=== PATIENT | male | born 1950 | race Caucasian/White ===

== ENCOUNTER 2016-09-10 19:02 | Emergency (ER) | payer MEDICARE ==
[~2016-09-10] VITALS: Ht 177.8 cm; Wt 110.0 kg
[2016-09-10 19:04] VITALS: BP 205/96; PULSE 107; RESP 16; TEMP 98.7; O2SAT 99
[2016-09-10 21:37] VITALS: BP 199/90; PULSE 78; RESP 18; O2SAT 96
[2016-09-10] MEDS ORDERED: LISI40TA PO (21:39)
[2016-09-10] MEDS ORDERED: EFFE150C PO (21:39)
[2016-09-10] MEDS ORDERED: ASPI325T PO (21:39)
[2016-09-10] MEDS ORDERED: PRIL20CA9 PO (21:39)
[2016-09-10] MEDS ORDERED: ACETAMINOPHEN/HYDROcodone 325 MG/5 MG TAB PO ONE (21:45)
[2016-09-10] MEDS ORDERED: ZOCO40TA PO (21:49)
[2016-09-10] MEDS ORDERED: METF500T PO (21:49)
--- NOTE | 2016-09-10 22:13 | RADRPT ---
EXAM DATE/TIME: 09/10/2016 22:03 [facility] COMPARISON: No previous studies available for comparison. INDICATIONS : Right hand pain and swelling after trying to catch a refridgerator falling off a truck. MEDICAL HISTORY : Prior right hand fracture. SURGICAL HISTORY : None. ENCOUNTER: Initial ACUITY: 2 days PAIN SCORE: 10/10 LOCATION: Right hand. FINDINGS: Three view examination of the right hand demonstrates soft tissue swelling without dislocation, or fr acture. The carpal bones appear intact. The interphalangeal and metacarpophalangeal joints are int act. Bony mineralization is normal. CONCLUSION: Soft tissue swelling without fracture. Luis Richey MD on September 10, 2016 at 22:11 Board Certified Radiologist. This report was verified electronically.
--- NOTE | 2016-09-10 22:19 | PD ---
HPI Chief Complaint: Injury Time Seen by Provider: 21:41 Travel History International Travel<30 days: No Contact w/Intl Traveler<30days: No Traveled to known affect area: No History of Present Illness HPI Patient 66-year-old male presents emergency department for evaluation of a right hand injury. Patient states that yesterday he was unloading a fridge from a pickup truck and the fridge fell and same which his hand between the concrete and the fridge. He states that since then he's been having some gradual swelling of his right hand. He is also been hurting on the dorsum of his hand over the metacarpals. He denies any other injuries. He states his tetanus is up-to-date. Denies any numbness or tingling PFSH Past Medical History Cardiovascular Problems: Yes Diabetes: Yes Patient Takes Glucophage: Yes Hypertension: Yes Tetanus Vaccination: < 5 Years Influenza Vaccination: No Past Surgical History Cardiac Surgery: Yes (STENTS X7) Social History Alcohol Use: No Tobacco Use: No Substance Use: No Allergies-Medications (Allergen,Severity, Reaction): Coded Allergies: Penicillin (Verified Allergy, Severe, Anaphylaxis, 09/10/16) Reported Meds & Prescriptions Reported Meds & Active Scripts Active [place] (Hydrocodone-Acetaminophen) 5-325 mg Tab 1 Tab PO Q6H PRN Reported Zocor (Simvastatin) 40 Mg Tab 40 Mg PO DAILY Metformin (Metformin HCl) 500 Mg Tab 500 Mg PO DAILY With a meal Prilosec (Omeprazole) 20 Mg Cap 30 Mg PO DAILY Lisinopril 40 Mg Tab 40 Mg PO DAILY Effexor XR 24 HR (Venlafaxine HCl) 150 Mg Cap 150 Mg PO DAILY Aspirin 325 Mg Tab 325 Mg PO DAILY Review of Systems Except as stated in HPI: all other systems reviewed are Neg Physical Exam Narrative GENERAL: Well-nourished, well-developed patient. SKIN: Focused skin assessment warm/dry. HEAD: Normocephalic. EYES: No scleral icterus. No injection or drainage. NECK: Supple, trachea midline. No JVD or lymphadenopathy. CARDIOVASCULAR: Regular rate and rhythm without murmurs, gallops, or rubs. RESPIRATORY: Breath sounds equal bilaterally. No accessory muscle use. GASTROINTESTINAL: Abdomen soft, non-tender, nondistended. MUSCULOSKELETAL: Right upper extremity: No tenderness of the shoulder elbow or wrist. There are some small abrasions on the dorsum of the patient's right hand. These are associated with some small amount of edema. The abrasions are all minor and of scabbed over. The patient's ring on his right ring finger still in place was removed by the patient at my request. Pulses motor and sensory are intact, all flexors and extensors are intact on the hand and fingers. All motions are normal. Left upper extremity: No tenderness to the shoulder elbow wrist or hand. Left upper extremity is atraumatic. BACK: Nontender without obvious deformity. No CVA tenderness. Data Data Last Documented VS Vital Signs Date Time Temp Pulse Resp B/P Pulse Ox O2 Delivery O2 Flow Rate FiO2 09/10/16 22:54 80 18 171/92 95 09/10/16 21:39 Room Air 09/10/16 19:04 98.7 Orders Hand, Complete ([id number]) (09/10/16 ) Acetamin-Hydrocod 325-5 Mg ([place] 5-325 (09/10/16 21:45) MDM Medical Decision Making Medical Screen Exam Complete: Yes Emergency Medical Condition: Yes Differential Diagnosis Fracture, contusion, sprain, strain, abrasion Narrative Course Patient was roomed in the emergency department, has mild edema of the right hand. Compartment syndrome is excluded clinically. X-rays were obtained and showed Last 24 hours Impressions Hand X-Ray 09/10/16 0000 Signed Impressions: Service Date/Time: Saturday, September 10, 2016 22:03 - CONCLUSION: Soft tissue swelling without fracture. Luis Richey MD Discussed with the patient symptomatically management and return to ED criteria. Discussed follow-up with primary care physician for a checkup. Diagnosis Primary Impression: Hand contusion Qualified Code: S60.221A - Contusion of right hand, initial encounter Med/Other Pt SpecificInfo: Prescription(s) given Scripts Hydrocodone-Acetaminophen ([place])5-325 mg Tab1 Tab PO Q6H PRN (PAIN) #12 TAB Ref 0 Prov:Mateo Ocoha MD 09/10/16 Disposition: 01 DISCHARGE HOME Condition: Stable Mateo Ochoa MD Sep 10, 2016 22:19
[2016-09-10] MEDS ORDERED: NORC5TAB PO (22:40)
[2016-09-10 22:54] VITALS: BP 171/92
== END 2016-09-10 22:55 | disposition home or self-care (01) ==
LOC: NEPD 19:02
DX: S60.221A Contusion of right hand, initial encounter (principal); W23.0XXA Caught, crushed, jammed, or pinched between moving objects, initial encounter; Y93.89 Activity, other specified
CPT/HCPCS: 73130; 99283

== ENCOUNTER 2016-09-14 13:17 | Emergency (ER) | payer MEDICARE ==
[~2016-09-14] VITALS: Ht 177.8 cm; Wt 112.0 kg
[~2016-09-14 13:17] MED LIST: ASPI325T PO; EFFE150C PO; LISI40TA PO; METF500T PO; NORC5TAB PO; PRIL20CA9 PO; ZOCO40TA PO
[2016-09-14 13:20] VITALS: BP 152/74; PULSE 89; RESP 16; TEMP 99.1; O2SAT 97
[2016-09-14] MEDS ORDERED: SODIUM CHLOR 0.9% 1000 ML INJ 1,000 ML IV SCH (13:31)
--- NOTE | 2016-09-14 13:33 | PD ---
HPI Chief Complaint: Medication Refill Request Time Seen by Provider: 13:33 Travel History International Travel<30 days: No Contact w/Intl Traveler<30days: No Traveled to known affect area: No History of Present Illness HPI 66-year-old male with history of CAD, stent 7, hypertension, diabetes, presents today for evaluation of a headache that began yesterday. It is generalized in nature. States he does not typically get headaches. He has been mildly nauseous. Denies any recent illnesses, fever, or chills. States he has been running out of his medications. He reports being new to the area does not have an appointment with a primary care provider until the end of September. He believes that his symptoms are secondary to not having his medications. He denies any nausea or vomiting. No chest pain or tightness. He has no other symptoms to report this time. PFSH Past Medical History Depression: Yes Cardiovascular Problems: Yes (STENTS) Diabetes: Yes Patient Takes Glucophage: Yes Hypertension: Yes Past Surgical History Cardiac Surgery: Yes (STENTS X7) Social History Alcohol Use: Yes (SOCIALLY) Tobacco Use: Yes (PPD) Substance Use: No Allergies-Medications (Allergen,Severity, Reaction): Coded Allergies: Penicillin (Verified Allergy, Severe, Anaphylaxis, 09/10/16) Reported Meds & Prescriptions Reported Meds & Active Scripts Active Effexor XR 24 HR (Venlafaxine HCl) 150 Mg Cap 150 Mg PO DAILY Zocor (Simvastatin) 40 Mg Tab 40 Mg PO DAILY Metformin (Metformin HCl) 500 Mg Tab 500 Mg PO DAILY With a meal Lisinopril 40 Mg Tab 40 Mg PO DAILY [place] (Hydrocodone-Acetaminophen) 5-325 mg Tab 1 Tab PO Q6H PRN Reported Percocet (Oxycodone-Acetaminophen) 10-325 mg Tab 1 Tab PO QID PRN [address] (Duloxetine HCl) Unknown Strength Capdr Unknown Dose PO DAILY Zocor (Simvastatin) 40 Mg Tab 40 Mg PO DAILY Metformin (Metformin HCl) 500 Mg Tab 500 Mg PO DAILY With a meal Prilosec (Omeprazole) 20 Mg Cap 30 Mg PO DAILY Lisinopril 40 Mg Tab 40 Mg PO DAILY Effexor XR 24 HR (Venlafaxine HCl) 150 Mg Cap 150 Mg PO DAILY Aspirin 325 Mg Tab 325 Mg PO DAILY Review of Systems Except as stated in HPI: all other systems reviewed are Neg Physical Exam Narrative GENERAL: Well-nourished male patient, lying in bed in no acute distress SKIN: Focused skin assessment warm/dry. HEAD: Atraumatic. Normocephalic. EYES: Pupils equal and round. No scleral icterus. No injection or drainage. ENT: No nasal bleeding or discharge. Mucous membranes pink and moist. NECK: Trachea midline. No JVD. CARDIOVASCULAR: Regular rate and rhythm. No murmur appreciated. RESPIRATORY: No accessory muscle use. Clear to auscultation. Breath sounds equal bilaterally. GASTROINTESTINAL: Abdomen soft, non-tender, nondistended. Hepatic and splenic margins not palpable. MUSCULOSKELETAL: No obvious deformities. No clubbing. No cyanosis. No edema. NEUROLOGICAL: Awake and alert. No obvious cranial nerve deficits. Motor grossly within normal limits. Normal speech. PSYCHIATRIC: Appropriate mood and affect; Data Data Last Documented VS Vital Signs Date Time Temp Pulse Resp B/P Pulse Ox O2 Delivery O2 Flow Rate FiO2 09/14/16 14:30 78 16 156/71 97 Room Air 09/14/16 13:20 99.1 Orders Electrocardiogram (09/14/16 13:31) Complete Blood Count With Diff (09/14/16 13:31) Comprehensive Metabolic Panel (09/14/16 13:31) Creatine Kinase (Cpk) (09/14/16 13:31) Prothrombin Time / Inr (Pt) (09/14/16 13:31) Act Partial Throm Time (Ptt) (09/14/16 13:31) Chest, Single Ap (09/14/16 13:31) Ct Brain W/O Iv Contrast(Rout) (09/14/16 13:31) Blood Glucose (09/14/16 13:31) Ecg Monitoring (09/14/16 13:31) Iv Access Insert/Monitor (09/14/16 13:31) Oximetry (09/14/16 13:31) Sodium Chloride 0.9% Flush (Ns Flush) (09/14/16 13:45) Sodium Chlor 0.9% 1000 Ml Inj (Ns 1000 M (09/14/16 13:31) Drug Screen, Random Urine (09/14/16 13:31) Alcohol (Ethanol) (09/14/16 13:31) Ketorolac Inj (Toradol Inj) (09/14/16 15:00) Labs Laboratory Tests Test 09/14/16 13:35 White Blood Count 8.3 TH/MM3 Red Blood Count 4.81 MIL/MM3 Hemoglobin 14.4 GM/DL Hematocrit 42.9 % Mean Corpuscular Volume 89.2 FL Mean Corpuscular Hemoglobin 30.0 PG Mean Corpuscular Hemoglobin 33.6 % Concent Red Cell Distribution Width 15.0 % Platelet Count 216 TH/MM3 Mean Platelet Volume 8.4 FL Neutrophils (%) (Auto) 69.5 % Lymphocytes (%) (Auto) 23.8 % Monocytes (%) (Auto) 5.7 % Eosinophils (%) (Auto) 0.4 % Basophils (%) (Auto) 0.6 % Neutrophils # (Auto) 5.8 TH/MM3 Lymphocytes # (Auto) 2.0 TH/MM3 Monocytes # (Auto) 0.5 TH/MM3 Eosinophils # (Auto) 0.0 TH/MM3 Basophils # (Auto) 0.1 TH/MM3 CBC Comment DIFF FINAL Differential Comment Prothrombin Time 10.9 SEC Prothromb Time International 1.0 RATIO Ratio Activated Partial 27.0 SEC Thromboplast Time Sodium Level 140 MEQ/L Potassium Level 3.4 MEQ/L Chloride Level 106 MEQ/L Carbon Dioxide Level 22.9 MEQ/L Anion Gap 11 MEQ/L Blood Urea Nitrogen 12 MG/DL Creatinine 0.96 MG/DL Estimat Glomerular Filtration 78 ML/MIN Rate Random Glucose 224 MG/DL Calcium Level 9.2 MG/DL Total Bilirubin 0.3 MG/DL Aspartate Amino Transf 20 U/L (AST/SGOT) Alanine Aminotransferase 25 U/L (ALT/SGPT) Alkaline Phosphatase 87 U/L Total Creatine Kinase 80 U/L Total Protein 6.9 GM/DL Albumin 3.3 GM/DL Ethyl Alcohol Level LESS THAN 3 MG/DL [facility] Medical Decision Making Medical Screen Exam Complete: Yes Emergency Medical Condition: Yes Medical Record Reviewed: Yes Differential Diagnosis Headache lesser versus tension versus migraine with or without aura versus medication noncompliance versus electrolyte abnormality versus viral syndrome Narrative Course 66-year-old male presents to the emergency department for evaluation of a headache, requesting medication refill. Patient appears without distress however states he does not have history of headache. CT imaging of the brain is done and without acute intracranial abnormality. I have discussed with him lumbar puncture to rule out subarachnoid hemorrhage however patient defers this at this time. Patient does have low-grade temperature otherwise vital signs are stable. CBC and BMP are without acute concern. Patient will be given refills on his medication and encouraged to keep his appointment with a primary care provider. I discussed the patient with my attending physician. He'll be discharged at this time. Diagnosis Primary Impression: Head ache Qualified Code: R51 - Nonintractable episodic headache, unspecified headache type Additional Impressions: Not taking medication as directed Medication refill Referrals: Primary Care Physician Patient Instructions: Acute Headache (ED), General Instructions, Medication Refill, ED Additional Instructions: It is important that you establish care with a primary care provider Return immediately with any acute worsening symptoms Med/Other Pt SpecificInfo: Prescription(s) given Scripts Venlafaxine ER 24 HR (Effexor XR 24 HR)150 Mg Inf817 Mg PO DAILY #30 CAP Ref 0 Prov:Quiana Trotter 09/14/16 Simvastatin (Zocor)40 Mg Tab40 Mg PO DAILY #30 TAB Ref 0 Prov:Quiana Trotter 09/14/16 Metformin 500 Mg Mfd233 Mg PO DAILY #30 TAB Ref 0 With a meal Prov:Quiana Trotter 09/14/16 Lisinopril 40 Mg Tab40 Mg PO DAILY #30 TAB Ref 0 Prov:Quiana Trotter 09/14/16 Disposition: 01 DISCHARGE HOME Condition: Stable Quiana Trotter Sep 14, 2016 13:33
[2016-09-14] MEDS ORDERED: CYMB30CA PO (13:34)
[2016-09-14] MEDS ORDERED: PERC10TA27 PO (13:34)
[2016-09-14 13:44] VITALS: RESP 16; O2SAT 98
[2016-09-14] MEDS ORDERED: SODIUM CHLORIDE 0.9% FLUSH 10 ML FLUSH IVF PRN (13:45)
--- NOTE | 2016-09-14 14:03 | RADRPT ---
EXAM DATE/TIME: 09/14/2016 13:35 [facility] COMPARISON: No previous studies available for comparison. INDICATIONS : Syncope. Patient states headache for the past few days. MEDICAL HISTORY : Hypertension. Diabetes mellitus type II. SURGICAL HISTORY : Cardiac stents. ENCOUNTER: Initial ACUITY: 3 days PAIN SCORE: 0/10 LOCATION: Bilateral chest FINDINGS: A single view of the chest demonstrates the lungs to be symmetrically aerated without evidence of mas s, infiltrate or effusion. The cardiomediastinal contours are unremarkable. Osseous structures are intact. CONCLUSION: Normal examination. Reji Walters MD on September 14, 2016 at 14:01 Board Certified Radiologist. This report was verified electronically.
[2016-09-14 14:12] LABS: AUTOMATED NEUTROPHIL # 5.8 TH/MM3 (1.8-7.7); BASOPHIL # 0.1 TH/MM3 (0-0.2); BASOPHIL % 0.6 % (0.0-2.0); EOSINOPHIL % 0.4 % (0.0-4.0); HEMATOCRIT 42.9 % (39.0-51.0); HEMO FLAGS DIFF FINAL; LYMPH % 23.8 % (9.0-44.0); MEAN CELL VOLUME 89.2 FL (80.0-100.0); MEAN CORPUSCULAR HGB CONC 33.6 % (32.0-36.0); MONO % 5.7 % (0.0-8.0); NEUT % 69.5 % (16.0-70.0); PLATELET COUNT 216 TH/MM3 (150-450); RED BLOOD COUNT 4.81 MIL/MM3 (4.50-5.90); WHITE BLOOD COUNT 8.3 TH/MM3 (4.0-11.0)
[2016-09-14 14:21] LABS: PROTHROMBIN TIME - PATIENT 10.9 SEC (9.8-11.6)
[2016-09-14 14:30] VITALS: BP 156/71; PULSE 78; RESP 16; O2SAT 97
[2016-09-14 14:30] LABS: ALT (GPT) 25 U/L (12-78); ANION GAP 11 MEQ/L (5-15); AST (GOT) 20 U/L (15-37); BICARBONATE 22.9 MEQ/L (21.0-32.0); BLOOD UREA NITROGEN 12 MG/DL (7-18); CHLORIDE 106 MEQ/L (98-107); GLOMERULAR FILTRATION RATE 78 ML/MIN (>89); POTASSIUM 3.4 MEQ/L (3.5-5.1); SODIUM (NA) 140 MEQ/L (136-145)
--- NOTE | 2016-09-14 14:32 | RADRPT ---
EXAM DATE/TIME: 09/14/2016 14:10 [facility] COMPARISON: No previous studies available for comparison. INDICATIONS : Altered mental status. RADIATION DOSE: 41.39 CTDIvol (mGy) MEDICAL HISTORY : Hypertension. Cardiovascular disease SURGICAL HISTORY : None. ENCOUNTER: Initial ACUITY: 1 day PAIN SCALE: 0/10 LOCATION: cranial TECHNIQUE: Multiple contiguous axial images were obtained of the head. Using automated exposure control and adj ustment of the mA and/or kV according to patient size, radiation dose was kept as low as reasonably a chievable to obtain optimal diagnostic quality images. FINDINGS: CEREBRUM: The ventricles are normal for age. No evidence of midline shift, mass lesion, hemorrhage or acute in farction. No extra-axial fluid collections are seen. POSTERIOR FOSSA: The cerebellum and brainstem are intact. The 4th ventricle is midline. The cerebellopontine angle i s unremarkable. EXTRACRANIAL: The visualized portion of the orbits is intact. SKULL: The calvaria is intact. No evidence of skull fracture. Mucus retention cyst right maxillary sinus. CONCLUSION: 1. Right maxillary sinus mucus retention cyst. 2. Normal appearance of the brain. Reji Walters MD on September 14, 2016 at 14:29 Board Certified Radiologist. This report was verified electronically.
[2016-09-14 14:33] LABS: ALKALINE PHOSPHATASE 87 U/L (45-117); TOTAL BILIRUBIN ADULT 0.3 MG/DL (0.2-1.0)
[2016-09-14 14:34] LABS: CREATINE KINASE 80 U/L (39-308)
[2016-09-14] MEDS ORDERED: ZOCO40TA PO (14:57)
[2016-09-14] MEDS ORDERED: EFFE150C PO (14:57)
[2016-09-14] MEDS ORDERED: LISI40TA PO (14:57)
[2016-09-14] MEDS ORDERED: METF500T PO (14:57)
[2016-09-14] MEDS ORDERED: KETOROLAC TROMETHAMINE 30 MG/ML (IVP) VIAL IV PUSH ONE (15:00)
--- NOTE | 2016-09-14 18:47 | EKG ---
Date Performed: 09/14/2016 Time Performed: 13:39:07 PTAGE: 66 years EKG: Sinus rhythm NONSPECIFIC ST & T-WAVE ABNORMALITY ABNORMAL ECG NO PREVIOUS TRACING DOCTOR: Nicole Maldonado Interpretating Date/Time 09/14/2016 18:46:32
== END 2016-09-14 15:38 | disposition home or self-care (01) ==
LOC: NEPE 13:17
DX: R51 Headache (principal); R11.0 Nausea; R94.31 Abnormal electrocardiogram [ECG] [EKG]; I10 Essential (primary) hypertension; I25.10 Atherosclerotic heart disease of native coronary artery without angina pectoris; E11.9 Type 2 diabetes mellitus without complications; Z79.82 Long term (current) use of aspirin; Z79.84 Long term (current) use of oral hypoglycemic drugs; Z79.899 Other long term (current) drug therapy; Z76.0 Encounter for issue of repeat prescription; Z72.0 Tobacco use
CPT/HCPCS: 70450; 71010; 80053; 80307; 82550; 85025; 85610; 85730; 93005; 96361; 96374; 99285; J1885; J7030

== ENCOUNTER 2016-09-17 03:08 | Observation (INO) | payer MEDICARE ==
[~2016-09-17] VITALS: Ht 177.8 cm; Wt 123.0 kg
[2016-09-17] VITALS (8 sets, daily range): BP systolic 144–166; BP diastolic 65–81; PULSE 69–91; RESP 16–20; TEMP 97.7–98.5; O2SAT 95–98
[~2016-09-17 03:08] MED LIST changes: +CYMB30CA PO; +PERC10TA27 PO
[2016-09-17] MEDS: NITROGLYCERIN 0.4 MG SL 25 TABS/BTL SL SCH ×3 (03:44→04:02)
[2016-09-17] MEDS ORDERED: ASPIRIN 81 MG CHEW TAB PO ONE (03:45)
[2016-09-17] MEDS ORDERED: SODIUM CHLORIDE 0.9% FLUSH 10 ML FLUSH IVF PRN (03:45)
--- NOTE | 2016-09-17 04:00 | RADRPT ---
EXAM DATE/TIME: 09/17/2016 03:33 [facility] COMPARISON: CHEST SINGLE AP, September 14, 2016, 13:35. INDICATIONS : Chest pain. MEDICAL HISTORY : Hypertension. Diabetes mellitus type II. SURGICAL HISTORY : Cardiac stent. ENCOUNTER: Initial ACUITY: 1 day PAIN SCORE: 4/10 LOCATION: Bilateral chest FINDINGS: The cardiac silhouette is enlarged in transverse diameter. The lungs are free of acute parenchymal op acity. No effusions are identified. There is prominence of the aortic knob is with calcification tarik acteristic of atherosclerotic vascular disease. CONCLUSION: 1. Cardiomegaly. No acute pulmonary disease. Noel Esparza MD on September 17, 2016 at 3:58 Board Certified Radiologist. This report was verified electronically.
[2016-09-17 04:01] LABS: AUTOMATED NEUTROPHIL # 6.9 TH/MM3 (1.8-7.7); BASOPHIL # 0.1 TH/MM3 (0-0.2); BASOPHIL % 0.7 % (0.0-2.0); EOSINOPHIL # 0.1 TH/MM3 (0-0.4); EOSINOPHIL % 1.2 % (0.0-4.0); HEMATOCRIT 40.1 % (39.0-51.0); HEMO FLAGS DIFF FINAL; LYMPHOCYTE # 3.4 TH/MM3 (1.0-4.8); MEAN CELL VOLUME 87.7 FL (80.0-100.0); MEAN CORPUSCULAR HEMOGLOBIN 30.8 PG (27.0-34.0); MEAN CORPUSCULAR HGB CONC 35.1 % (32.0-36.0); MONO % 6.9 % (0.0-8.0); NEUT % 61.2 % (16.0-70.0); PLATELET COUNT 231 TH/MM3 (150-450); RED BLOOD COUNT 4.57 MIL/MM3 (4.50-5.90); RED CELL DISTRIBUTION WIDTH 14.9 % (11.6-17.2); WHITE BLOOD COUNT 11.2 TH/MM3 (4.0-11.0)
[2016-09-17] MEDS ORDERED: MORPHINE SULFATE 4 MG/ML INJ IV PUSH ONE ×2 (04:30→05:15)
[2016-09-17] MEDS ORDERED: NITROGLYCERIN 2% OINT 1 GM PACKET TOP ONE (04:30)
[2016-09-17] MEDS ORDERED: ONDANSETRON HCL 4 MG/2 ML VIAL ONE (04:30)
--- NOTE | 2016-09-17 04:32 | PD ---
HPI . Chest pain Chief Complaint: Chest Pain Time Seen by Provider: 03:36 Travel History International Travel<30 days: No Contact w/Intl Traveler<30days: No Traveled to known affect area: No History of Present Illness HPI This patient actually called EMS because of suicidal ideation. He said his several years ago and that he has episodes of despondency. He states that he occasionally has thoughts of suicide. He had an episode tonight and called 911. However, he has subsequently developed chest pain. He states that the suicidal ideation has subsided but the chest pain has not. He denies shortness of breath, diaphoresis or nausea. He does complain with headache. He states that the headache started before he was given any sublingual nitroglycerin. His chest pain was resolved with sublingual nitroglycerin. The chest pain seems to have been brought on by stress related to suicidal ideation. He states that the chest pain was "real bad." Patient reports a significant cardiac history. He has had 7 previous stents. He states that his most recent stents were placed just a couple of months ago. [facility] Past Medical History Anxiety: Yes Depression: Yes Cardiovascular Problems: Yes (STENTS) Chemotherapy: Yes Diabetes: Yes Patient Takes Glucophage: Yes Hypertension: Yes Tetanus Vaccination: < 5 Years Influenza Vaccination: No Past Surgical History Cardiac Surgery: Yes (STENTS X7) Social History Alcohol Use: Yes (SOCIALLY) Tobacco Use: Yes (1 PPD) Substance Use: No Allergies-Medications (Allergen,Severity, Reaction): Coded Allergies: Penicillin (Verified Allergy, Severe, Anaphylaxis, 09/10/16) Reported Meds & Prescriptions Reported Meds & Active Scripts Active Reported [place] ÁLVAREZ (Duloxetine HCl) Unknown Strength Capdr Unknown Dose PO DAILY Zocor (Simvastatin) 40 Mg Tab 40 Mg PO DAILY Metformin (Metformin HCl) 500 Mg Tab 500 Mg PO DAILY With a meal Prilosec (Omeprazole) 20 Mg Cap 30 Mg PO DAILY Lisinopril 40 Mg Tab 40 Mg PO DAILY Effexor XR 24 HR (Venlafaxine HCl) 150 Mg Cap 150 Mg PO DAILY Aspirin 325 Mg Tab 325 Mg PO DAILY Review of Systems Except as stated in HPI: all other systems reviewed are Neg Cardiovascular: Positive: Chest Pain or Discomfort Respiratory: No: Shortness of Breath Gastrointestinal: No: Nausea, Vomiting Psychiatric: Positive: Depression, Suicidal Ideations Physical Exam Narrative GENERAL: Patient is a little bit tearful. He is otherwise in no acute distress. SKIN: Warm and dry. HEAD: Atraumatic. Normocephalic. EYES: Pupils equal and round. Extraocular movements are intact. ENT: No nasal bleeding or discharge. Mucous membranes pink and moist. NECK: Trachea midline. Neck is supple. CARDIOVASCULAR: Regular rate and rhythm. Heart sounds are normal. RESPIRATORY: No accessory muscle use. Lungs are clear with full air movement throughout. GASTROINTESTINAL: Abdomen soft, non-tender, nondistended. MUSCULOSKELETAL: No obvious deformities. No edema. NEUROLOGICAL: Awake and alert. No obvious cranial nerve deficits. Motor grossly within normal limits. Normal speech. PSYCHIATRIC: Depressed with suicidal ideation. He reports that the suicidal ideation has resolved. Data Data Last Documented VS Vital Signs Date Time Temp Pulse Resp B/P Pulse Ox O2 Delivery O2 Flow Rate FiO2 09/17/16 04:00 81 16 148/78 98 Nasal Cannula 2 09/17/16 03:08 98.3 Orders Basic Metabolic Panel (Bmp) (09/17/16 03:36) Ckmb (Isoenzyme) Profile (09/17/16 03:36) Complete Blood Count With Diff (09/17/16 03:36) Magnesium (Mg) (09/17/16 03:36) Troponin I (09/17/16 03:36) Chest, Single Ap (09/17/16 03:36) Ecg Monitoring (09/17/16 03:36) Bilateral Bp Monitoring (09/17/16 03:36) Iv Access Insert/Monitor (09/17/16 03:36) Oximetry (09/17/16 03:36) Oxygen Administration (09/17/16 03:36) Aspirin Chew (Aspirin Chew) (09/17/16 03:45) Sodium Chloride 0.9% Flush (Ns Flush) (09/17/16 03:45) Nitroglycerin Sl (Nitrostat Sl) (09/17/16 03:45) Morphine Inj (Morphine Inj) (09/17/16 04:30) Nitroglycerin 2% Oint (Nitroglycerin 2% (09/17/16 04:30) Ondansetron Inj (Zofran Inj) (09/17/16 04:30) Ondansetron Inj (Zofran Inj) (09/17/16 04:45) CKMB (09/17/16 03:20) CKMB% (09/17/16 03:20) Morphine Inj (Morphine Inj) (09/17/16 05:15) Lorazepam Inj (Ativan Inj) (09/17/16 05:15) Labs Laboratory Tests Test 09/17/16 03:20 White Blood Count 11.2 TH/MM3 Red Blood Count 4.57 MIL/MM3 Hemoglobin 14.1 GM/DL Hematocrit 40.1 % Mean Corpuscular Volume 87.7 FL Mean Corpuscular Hemoglobin 30.8 PG Mean Corpuscular Hemoglobin 35.1 % Concent Red Cell Distribution Width 14.9 % Platelet Count 231 TH/MM3 Mean Platelet Volume 8.3 FL Neutrophils (%) (Auto) 61.2 % Lymphocytes (%) (Auto) 30.0 % Monocytes (%) (Auto) 6.9 % Eosinophils (%) (Auto) 1.2 % Basophils (%) (Auto) 0.7 % Neutrophils # (Auto) 6.9 TH/MM3 Lymphocytes # (Auto) 3.4 TH/MM3 Monocytes # (Auto) 0.8 TH/MM3 Eosinophils # (Auto) 0.1 TH/MM3 Basophils # (Auto) 0.1 TH/MM3 CBC Comment DIFF FINAL Differential Comment Sodium Level 139 MEQ/L Potassium Level 3.7 MEQ/L Chloride Level 105 MEQ/L Carbon Dioxide Level 25.8 MEQ/L Anion Gap 8 MEQ/L Blood Urea Nitrogen 17 MG/DL Creatinine 0.79 MG/DL Estimat Glomerular Filtration 98 ML/MIN Rate Random Glucose 102 MG/DL Calcium Level 8.9 MG/DL Magnesium Level 2.1 MG/DL Total Creatine Kinase 171 U/L Creatine Kinase MB 3.2 NG/ML Troponin I 0.06 NG/ML MDM Medical Decision Making Medical Screen Exam Complete: Yes Emergency Medical Condition: Yes Medical Record Reviewed: Yes (patient does not have very many visits to us. He has not had cardiac procedures done at this facility other than an EKG.) Interpretation(s) EKG shows sinus rhythm with PACs. He has some nonspecific ST changes which are unchanged from previous. Differential Diagnosis Differential diagnosis of chest pain includes but is not limited to musculoskeletal pain, pulmonary embolism, acute coronary syndrome, pneumonia, pleurisy Narrative Course Patient summons the ambulance because of suicidal ideation. However, his main problem when he presented here was chest pain. He has a significant history of coronary artery disease. CBC & BMP Diagram 09/17/16 03:20 His CK is normal but his troponin is 0.06. Because of this, he is not eligible for the chest pain center. Critical Care Narrative Aggregate critical care time was 45 minutes. Time to perform other separately billable procedures was not included in the critical care time. My time did not include minutes spent treating any other patients simultaneously or on activities that did not directly contribute to the patient's treatment. The services I provided to this patient were to treat and/or prevent clinically significant deterioration due to chest pain/ACS. I provided critical care services requiring my management, as noted below: Chart data review, documentation time, medication orders and management, vital sign assessments/reviewing monitor data, ordering and reviewing lab tests, ordering and interpreting/reviewing x-rays and diagnostic studies, care of the patient and discussion of the patient with the admitting physicians Physician Communication Physician Communication Dr. Lora will admit for further evaluation/treatment. Diagnosis Primary Impression: Chest pain Qualified Code: R07.9 - Chest pain, unspecified type Additional Impression: Suicidal ideation Admitting Information Admitting Physician Requests: Admit Condition: Stable Maureen Hernandez MD September 17, 2016 04:32
[2016-09-17 04:37] LABS: ANION GAP 8 MEQ/L (5-15); BICARBONATE 25.8 MEQ/L (21.0-32.0); BLOOD UREA NITROGEN 17 MG/DL (7-18); CHLORIDE 105 MEQ/L (98-107); CREATINE KINASE 171 U/L (39-308); GLOMERULAR FILTRATION RATE 98 ML/MIN (>89); MAGNESIUM 2.1 MG/DL (1.5-2.5); POTASSIUM 3.7 MEQ/L (3.5-5.1); SODIUM (NA) 139 MEQ/L (136-145)
[2016-09-17] MEDS ORDERED: ONDANSETRON HCL 4 MG/2 ML VIAL IV PUSH ONE (04:45)
[2016-09-17 04:58] LABS: CKMB 3.2 NG/ML (0.5-3.6)
[2016-09-17] MEDS ORDERED: LORazepam 2 MG/ML VIAL IV PUSH ONE (05:15)
[2016-09-17] MEDS ORDERED: SODIUM CHLORIDE 0.9% FLUSH 10 ML FLUSH IV FLUSH PRN (05:45)
[2016-09-17] MEDS ORDERED: NALOXONE HCL 0.4 MG/ML AMP IV PRN (05:45)
[2016-09-17] MEDS: SODIUM CHLORIDE 0.9% FLUSH 10 ML FLUSH IV FLUSH SCH ×2 (09:00→22:50)
[2016-09-17] MEDS ORDERED: DEXTROSE 50% IN WATER 50 ML VIAL(D50) IV PUSH PRN (11:30)
[2016-09-17] MEDS ORDERED: GLUCAGON 1 MG/ML VIAL OTHER PRN (11:30)
--- NOTE | 2016-09-17 11:39 | HHI.HP ---
[facility] Unknown Admission Diagnosis chest pain Diagnoses: Chief Complaint: Suicidal ideation Travel History International Travel<30 Days: No Contact w/Intl Traveler <30 Da: No Traveled to Known Affected Are: No History of Present Illness 66-year-old male with a past medical history of HTN, HLD, CAD, DM, GERD, A. fib , HYACINTH, depression initially persisted for suicidal ideation. The patient states that last night was the 3 year anniversary of his 's and he was feeling depressed. He recently relocated to the area in March to be closer to his daughter, and has not yet established with a PCP. He has been out of his medications. He states that due to the depression last night, he uses life alert to call the paramedics. He states that when the paramedics got there, he did not want to be [place] acted, so he came to the hospital voluntarily. He states that en route to the hospital and in the ED he began having chest pain. He states that the pain was midsternal and radiated to his jaw and his left arm. She describes the pain as a burning sensation, which is not similar to his previous stent placements. He did have associated shortness of breath and nausea. He denies any relieving factors including nitroglycerin and aspirin, states the pain resolved spontaneously. He actually had a stent placed last month in [facility]. He states he had a cardiac catheterization done at that time because he was diagnosed with atrial fibrillation. He has been taking an aspirin every day. He states that he feels got there his blood pressure was high in the 200s and he had associated headache, dizziness, weakness, and nausea. He still has a mild headache at this time. Of note, the sitter states that while sleeping the patient had episodes of gasping for air. The patient states that he has a history of sleep apnea, but was taken off of CPAP after he had his uvula removed 3 years ago. However, he has been having to sleep in a recliner recently, and has gained a significant amount of weight since being taken off of CPAP. Review of Systems Except as stated in HPI: all other systems reviewed are Neg Past Family Social History Past Medical History Hypertension Diabetes mellitus Hyperlipidemia Coronary artery disease GERD Atrial fibrillation Sleep apnea Depression Past Surgical History Stent placement, 7 total Uvula removal Bilateral knee replacement Back surgery Disorder surgery Left wrist surgery Reported Medications Currently only taking an aspirin daily, but was previously on Cymbalta DR (Duloxetine HCl) Unknown Strength Capdr Unknown Dose PO DAILY Zocor (Simvastatin) 40 Mg Tab 40 Mg PO DAILY Metformin (Metformin HCl) 500 Mg Tab 500 Mg PO DAILY With a meal Prilosec (Omeprazole) 20 Mg Cap 30 Mg PO DAILY Lisinopril 40 Mg Tab 40 Mg PO DAILY Effexor XR 24 HR (Venlafaxine HCl) 150 Mg Cap 150 Mg PO DAILY Aspirin 325 Mg Tab 325 Mg PO DAILY Allergies: Coded Allergies: Penicillin (Verified Allergy, Severe, Anaphylaxis, 09/10/16) Active Ordered Medications Current Medications Medications (Trade) Dose Ordered Sig/Heike Route Start Time Stop Time Status Last Admin (NS Flush) 2 ml UNSCH PRN IV FLUSH 09/17/16 05:45 (NS Flush) 2 ml BID IV FLUSH 09/17/16 09:00 (Narcan Inj) 0.4 mg UNSCH PRN IV 09/17/16 05:45 Family History Denies family history of heart disease States his mother is 92 and healthy Social History He continues to smoke And seldom drinks alcohol Denies any drug use 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 In no acute distress. SKIN: Warm and dry. No lesions noted. HEENT: Normocephalic. Pupils equal and round. Mucous membranes pink and moist. CARDIOVASCULAR: Regular rate and rhythm. No murmur appreciated. RESPIRATORY: No accessory muscle use. Clear to auscultation. Breath sounds equal bilaterally. GASTROINTESTINAL: Abdomen soft, non-tender, nondistended. Bowel sounds x4. MUSCULOSKELETAL: No obvious deformities. No clubbing or cyanosis. No edema. NEUROLOGICAL: Awake and alert. No focal neurological deficits. Moves upper and lower extremities spontaneously. Normal speech. PSYCHIATRIC: Depressed and occasionally tearful mood and normal affect; insight and judgment normal. Laboratory Laboratory Tests Test 09/17/16 03:20 White Blood Count 11.2 Red Blood Count 4.57 Hemoglobin 14.1 Hematocrit 40.1 Mean Corpuscular Volume 87.7 Mean Corpuscular Hemoglobin 30.8 Mean Corpuscular Hemoglobin 35.1 Concent Red Cell Distribution Width 14.9 Platelet Count 231 Mean Platelet Volume 8.3 Neutrophils (%) (Auto) 61.2 Lymphocytes (%) (Auto) 30.0 Monocytes (%) (Auto) 6.9 Eosinophils (%) (Auto) 1.2 Basophils (%) (Auto) 0.7 Neutrophils # (Auto) 6.9 Lymphocytes # (Auto) 3.4 Monocytes # (Auto) 0.8 Eosinophils # (Auto) 0.1 Basophils # (Auto) 0.1 CBC Comment DIFF FINAL Differential Comment Sodium Level 139 Potassium Level 3.7 Chloride Level 105 Carbon Dioxide Level 25.8 Anion Gap 8 Blood Urea Nitrogen 17 Creatinine 0.79 Estimat Glomerular Filtration 98 Rate Random Glucose 102 Calcium Level 8.9 Magnesium Level 2.1 Total Creatine Kinase 171 Creatine Kinase MB 3.2 Troponin I 0.06 Result Diagram: 09/17/16 0320 09/17/16 0320 Imaging Last Impressions Chest X-Ray 09/17/16 0336 Signed Impressions: Service Date/Time: Saturday, September 17, 2016 03:33 - CONCLUSION: 1. Cardiomegaly. No acute pulmonary disease. Noel Esparza MD Assessment and Plan Assessment and Plan 66-year-old male with a past medical history of HTN, HLD, CAD, DM, GERD, A. fib , HYACINTH, depression initially persisted for suicidal ideation Depression with possible suicidal ideation: Resume home antidepressants. Psychiatry consulted, discussed with Dr. Robles, cleared from psychiatry perspective. Atypical chest pain: Rule out ACS per protocol. EKG personally reviewed, shows occasional PACs with nonspecific T-wave changes in the inferior leads, no significant change from previous. Initial troponin is minimally elevated at 0.06, trending. No further complaints at this time. Continue aspirin. Resume statin. Suspect symptoms may have be related to stress from depression vs elevated BP. Obtain records of recent cardiac catheterization. Hypertension: Not optimally controlled. Resume home lisinopril. Monitor. Diabetes mellitus: Hold the metformin for now. Monitor Accu-Cheks. Cover with SSI. Sleep apnea: Suspect possible recurrence. Recommended patient follow-up for sleep study as outpatient. DVT prophylaxis: SCDs Discussed Condition With Patient with RN and sitter at bedside, Dr. Robles, Rudy Reis September 17, 2016 11:39
--- NOTE | 2016-09-17 11:41 | PD.CONS ---
Provisional Diagnosis Admission Date September 17, 2016 at 05:32 [place] I. Adjustment disorder with depressed mood, history of alcohol and amphetamine use disorder [place] II. Deferred [place] III. DM, HTN [place] IV. Poor social support [place] V. 55 History of Present Illness Service Psychiatry Consult Requested By Primary Care Physician Unknown HPI The patient is a 66-year-old man, domicile with his daughter in [place], unemployed, , with psychiatric history of depression, he is on Effexor 150 mg prescribed by PCP, no psychiatric hospitalizations, no previous suicidal attempts, history of amphetamines and cocaine use disorder, medical history hypertension, Patient reports a significant cardiac history. He has had 7 previous stents and DM, who called EMS because of suicidal ideation. He said his several years ago and that he has episodes of despondency. As per ER notes:"He states that he occasionally has thoughts of suicide. He had an episode tonight and called 911. However, he has subsequently developed chest pain. He states that the suicidal ideation has subsided but the chest pain has not. He denies shortness of breath, diaphoresis or nausea. He does complain with headache. He states that the headache started before he was given any sublingual nitroglycerin. His chest pain was resolved with sublingual nitroglycerin. The chest pain seems to have been brought on by stress related to suicidal ideation. He states that the chest pain was "real bad."" On psychiatric evaluation today patient is found calm, cooperative and pleasant. Patient says that yesterday he felt sad regarding thinking about his and he has some suicidal thoughts. But , today he feels much better, he feels happy, he denies depressive symptoms, he denies suicidal or homicidal ideation. Patient explained that once he came to the hospital his suicidal ideation had ready disappeared, but he developed chest pain. Patient endorses history of alcohol use and amphetamine use, but he says he has been clean for several months now. Patient is logical, coherent and relevant, oriented 3, no attention deficit, no fluctuation of consciousness , no delirium present. no paranoia, no delusions, no agitation or aggressive behavior reported. Review of Systems Constitutional: DENIES: Diaphoretic episodes, Fatigue, Fever, Weight gain, Weight loss, Chills, Dizziness, Change in appetite, Night Sweats Endocrine: DENIES: Heat/cold intolerance, Polydipsia, Polyuria, Polyphagia Eyes: DENIES: Blurred vision, Diplopia, Eye inflammation, Eye pain, Vision loss , Photosensitivity, Double Vision Ears, nose, mouth, throat: DENIES: Tinnitus, Hearing loss, Vertigo, Nasal discharge, Oral lesions, Throat pain, Hoarseness, Ear Pain, Running Nose, Epistaxis, Sinus Pain, Toothache, Odynophagia Respiratory: DENIES: Apneas, Cough, Snoring, Wheezing, Hemoptysis, Sputum production, Shortness of breath Cardiovascular: DENIES: Chest pain, Palpitations, Syncope, Dyspnea on Exertion , PND, Lower Extremity Edema, Orthopnea, Claudication Gastrointestinal: DENIES: Abdominal pain, Black stools, Bloody stools, Constipation, Diarrhea, Nausea, Vomiting, Difficulty Swallowing, Anorexia Genitourinary: DENIES: Sexual dysfunction, Urinary frequency, Urinary incontinence, Urgency, Hematuria, Dysuria, Nocturia, Penile Discharge, Testicular Pain, Testicular Swelling Musculoskeletal: DENIES: Joint pain, Muscle aches, Stiffness, Joint Swelling, Back pain, Neck pain Integumentary: DENIES: Abnormal pigmentation, Nail changes, Pruritus, Rash Immunologic/allergic: DENIES: Eczema, Urticaria Neurologic: DENIES: Abnormal gait, Headache, Localized weakness, Paresthesias, Seizures, Speech Problems, Tremor, Poor Balance Psychiatric: DENIES: Anxiety, Confusion, Mood changes, Depression, Hallucinations, Agitation, Suicidal Ideation, Homicidal Ideation, Delusions Past Family Social History Coded Allergies: Penicillin (Verified Allergy, Severe, Anaphylaxis, 09/10/16) Reported Medications [place] ÁLVAREZ (Sergey ÁLVAREZ)Unknown Strength CapdrUnknown Dose PO DAILY #30 CAP Ref 0 09/14/16 Simvastatin (Zocor)40 Mg Tab40 Mg PO DAILY Ref 0 09/10/16 Metformin 500 Mg [id number] Mg PO DAILY Ref 0 With a meal 09/10/16 Omeprazole (Prilosec)20 Mg Cap30 Mg PO DAILY Ref 0 09/10/16 Lisinopril 40 Mg Tab40 Mg PO DAILY Ref 0 09/10/16 Venlafaxine ER 24 HR (Effexor XR 24 HR)150 Mg [id number] Mg PO DAILY Ref 0 09/10/16 Aspirin 325 Mg [id number] Mg PO DAILY Ref 0 09/10/16 Discontinued Reported Medications Oxycodone-Acetaminophen (Percocet)10-325 mg Tab1 Tab PO QID PRN (PAIN) Ref 0 09/14/16 Discontinued Scripts Venlafaxine ER 24 HR (Effexor XR 24 HR)150 Mg [id number] Mg PO DAILY #30 CAP Ref 0 Prov:Quiana TrotterP 09/14/16 Simvastatin (Zocor)40 Mg Tab40 Mg PO DAILY #30 TAB Ref 0 Prov:Quiana Trotter 09/14/16 Metformin 500 Mg [id number] Mg PO DAILY #30 TAB Ref 0 With a meal Prov:Quiana TrotterP 09/14/16 Lisinopril 40 Mg Tab40 Mg PO DAILY #30 TAB Ref 0 Prov:Quiana TrotterP 09/14/16 Hydrocodone-Acetaminophen ([place])5-325 mg Tab1 Tab PO Q6H PRN (PAIN) #12 TAB Ref 0 Prov:Mateo Ochoa MD 09/10/16 Current Medications Medications (Trade) Dose Ordered Sig/Heike Route Start Time Stop Time Status Last Admin (NS Flush) 2 ml UNSCH PRN IV FLUSH 09/17/16 05:45 (NS Flush) 2 ml BID IV FLUSH 09/17/16 09:00 (Narcan Inj) 0.4 mg UNSCH PRN IV 09/17/16 05:45 Family History Patient denies psychiatric family history Social History Patient was born and raised in [place], he has been living in for her for 6 months, he lives with his daughter in [place], patient is unemployed, , on SSI, his highest level of education is some college Patient's Strengths (min. 2) Verbal communication Physical Exam On physical exam the patient does not present any eyes, skin, mouth, abnormalities, no EPS, no tremors, no stiffness, no psychomotor agitation or retardation present. Vital Signs Vital Signs Date Time Temp Pulse Resp B/P Pulse Ox O2 Delivery O2 Flow Rate FiO2 09/17/16 07:56 97.7 69 16 160/80 96 09/17/16 04:00 Nasal Cannula 2 Lab Results QTC 405 Mental Status Examination Appearance Overweight woman, age appearing, good hygiene, [facility], calm , cooperative and pleasant Speech: Unremarkable Orientation: x3, Person, Place, Time, Date Memory: Remote Thought Process: Logical Thought Content: Unremarkable Fund of Knowledge Adequate for level of education Attention and Concentration: Good Attention Remarks No attention deficits present Suicidal Ideation: No Homicidal Ideation: No Previous Homicide Attempts: No Judgment: WNL Affect: Good Mood: Appropriate Motor Activity: Normal gait Assessment & Plan Problem List: (1) Adjustment disorder with depressed mood Assessment & Plan: On psychiatric evaluation today the patient does not present any evidence objective or subjective concerning, significant or acute symptomatology of depression, anxiety, nesha or psychosis. Patient denies suicidal or homicidal ideation, patient denies visual and auditory hallucinations. Recent suicidal statement made by the patient in the ER in the context of missing his , who years ago, was most probably secondary to adjustment disorder due to sudden start of chest pain. Toxicology was not performed, so that role of potential something intoxication has to be considered since patient has history of alcohol and amphetamine use disorder. However given the presentation of his suicidality and chest pain, the progression and the sudden alleviation of symptoms, conscious simulation is also a possibility. Patient does not meet criteria for psychiatric admission at this moment, extensive psycho education, supportive motivation provided. He will continue his Effexor 150 mg daily for depression with his PCP. [place] act will be lifted. ICD Code: F43.21 Assessment & Plan Estimated LOS: Jamie Robles MD September 17, 2016 11:41
--- NOTE | 2016-09-17 11:49 | EKG ---
Date Performed: 09/17/2016 Time Performed: 05:23:45 PTAGE: 66 years EKG: Sinus rhythm WITH OCCASIONAL SUPRAVENTRICULAR PREMATURE COMPLEXES NONSPECIFIC T-WAVE ABNORMALITY BORDERLINE ECG PREVIOUS TRACING : 09/17/2016 03.16 No significant change from previous tracing noted. DOCTOR: Oscar Bender Interpretating Date/Time 09/17/2016 11:49:05
--- NOTE | 2016-09-17 11:53 | EKG ---
Date Performed: 09/17/2016 Time Performed: 03:16:49 PTAGE: 66 years EKG: Sinus rhythm WITH SHORT AZ INTERVAL WITH OCCASIONAL SUPRAVENTRICULAR PREMATURE COMPLEXES NONSPECIFIC ST/T-WAVE AB NORMALITY BORDERLINE ECG PREVIOUS TRACING : 09/14/2016 13.39 No significant change from previous tracing noted. DOCTOR: Oscar Bender Interpretating Date/Time 09/17/2016 11:51:17
[2016-09-17] MEDS: VENLAFAXINE HCL XR 75 MG CAP PO SCH (12:39)
[2016-09-17] MEDS: LISINOPRIL 20 MG TAB PO SCH (12:40)
[2016-09-17] MEDS: NITROGLYCERIN 2% OINT 1 GM PACKET TOPICAL SCH ×2 (12:58→22:50)
[2016-09-17] MEDS ORDERED: MORPHINE SULFATE 4 MG/ML INJ IV PUSH PRN (14:15)
[2016-09-17] MEDS ORDERED: CLOPIDOGREL 75 MG TAB PO ONE (16:00)
[2016-09-17] MEDS: INSULIN ASPART SUPPLEMENTAL SCALE SQ SCH ×2 (16:00→21:00)
--- NOTE | 2016-09-17 17:14 | MB ---
cc: PASTOR ARMSTRONG DO DATE OF CONSULTATION 09/17/2016 REASON FOR CONSULTATION Chest pain. HISTORY OF PRESENT ILLNESS Timoteo Diego is a 66-year-old male who presents to [facility] on September 17, 2016 due to suicidal ideation and chest pain. He states that he recently has been depressed due to it being that 3-year anniversary of his 's . He did not feel that he was significantly suicidal but just severely depressed. He relocated to this area from [place] in March to be closer to his granddaughter. He states that during his depression last night he had gotten chest pains. His chest pain came on suddenly and only lasts for a few seconds to minutes. It appears to be a small area about two finger widths on the left side of the chest. The pain sometimes can be stabbing but sometimes is pressure and can go to the left side of his neck and his left shoulder. It is not brought on by exercise and does not go away with rest. Because of this he used his Life Alert to call the paramedics. I spoke to his granddaughter, America, who states that the paramedics have been to their house four times in the last few weeks due to multiple different things including chest pain. Of note, the patient was in [facility] around a month ago and at that time had one stent placed to the RCA. It appears that he was supposed to be discharged on aspirin and Plavix, but the patient has not refilled any of his medications. He gives an excuse of not being able to afford it but being able to afford his cigarettes. After questioning him further, it appears that he has just had significant depression and has not wanted to do anything. PAST MEDICAL HISTORY 1. Coronary artery disease. 2. Hypertension. 3. Diabetes mellitus. 4. Hyperlipidemia. 5. Gastroesophageal reflux disease. 6. Questionable atrial fibrillation. 7. Sleep apnea. 8. Depression. PAST SURGICAL HISTORY 1. Multiple stents placed (the patient believes that this is 6 to 7, total) with recent drug-eluting stent placed to in-stent restenosis of the RCA at [facility] around a month ago. 2. Uvula removed. 3. Bilateral knee replacement. 4. Back surgery. 5. Left wrist surgery. ALLERGIES PENICILLIN. MEDICATIONS 1. Aspirin 325 mg daily. 2. Lisinopril 40 mg daily. 3. Cymbalta unknown dose. 4. Effexor 150 mg daily. 5. Metformin 500 mg daily. 6. Zocor 40 mg daily. 7. Omeprazole 30 mg daily. FAMILY HISTORY Denies premature coronary artery disease or sudden cardiac within the family. SOCIAL HISTORY The patient smokes around one pack per day. He previously appeared to smoke more than this per his comments. He seldom drinks alcohol. He denies any current drug abuse. Per the psych notes he had a history of amphetamine use. REVIEW OF SYSTEMS 14-systems were reviewed including osteopathic. Pertinent positives and negatives above otherwise negative. PHYSICAL EXAMINATION VITAL SIGNS: Temperature 98.3, heart rate 73, blood pressure 144/69, respirations 16, pulse ox 95% on 2 liters. GENERAL: In general the patient appears well in no acute distress, alert, awake and oriented times three. HEENT: Extraocular muscles intact. Mucous membranes moist. NECK: Supple. No JVD at 45 degrees. No carotid bruits heard bilaterally. Carotid upstroke is brisk in nature. CARDIOVASCULAR: Heart is regular rate and rhythm. Positive first and second sounds with no noted murmurs, gallops or rubs. PMI is nondisplaced. LUNGS: Clear to auscultation bilaterally with no wheezes, rales or rhonchi. ABDOMEN: Soft, nontender, nondistended. No organomegaly noted. EXTREMITIES: Show no clubbing, cyanosis or edema. Femoral and distal pulses intact bilaterally. NEUROLOGIC: No focal deficits. SKIN: Warm, dry and intact. OSTEOPATHIC: No kyphoscoliosis, lordosis or paraspinal tender points. LABORATORY FINDINGS Hemoglobin 14.1, hematocrit 40.1, platelets 231. Potassium 3.7, BUN 17, creatinine 0.79. Troponin 0.06. Electrocardiogram (September 2016 at 0931) sinus rhythm at 74 beats per minute, rare PAC, nonspecific ST-T wave changes. IMPRESSION 1. Atypical chest pain. 2. History of coronary artery disease with multiple stents placed with the most recent being a drug-eluting stent to the RCA around 1 month ago. Not currently on dual antiplatelet therapy. 3. Depression with previous suicidal ideation. 4. Hypertension. 5. Diabetes mellitus. 6. Sleep apnea. 7. Questionable atrial fibrillation. RECOMMENDATIONS 1. I spoke to Timoteo and his granddaughter America extensively about further understanding his medical history and knowing that he should be on dual antiplatelet therapy. Per the records it appears that he was discharged on Plavix but has not followed up with this. This is one of my major concerns, but in discussing with him he understands the importance and if further need be for it he will continue on it. At this time because he does have a drug-eluting stent placed we will restart him on his Plavix. 2. As far as his chest pain goes, there are some typical and atypical components to it. Because of this we will plan on undergoing pharmacologic nuclear stress testing. 3. As far as the questionable atrial fibrillation, currently I have no documentation of this. The patient believes that he was in atrial fibrillation while he was at [facility]. He was not sent out on anticoagulation for some reason. This can be further investigated outpatient to look at his overall risk and if he had true atrial fibrillation while there. 4. I spoke to him for greater than 3 minutes about tobacco cessation which he understands and believes that he will cut down somewhat. 5. Further recommendations will be made based on hospital course. Thank you for allowing me to see Timoteo Diego. If there are any questions please do not hesitate to call. Pastor Armstrong DO VGP/KK /3:42 PM /4:33 PM
[2016-09-17] MEDS ORDERED: TRAZ150T75 PO (17:58)
[2016-09-17] MEDS ORDERED: OFFICE MEDICATION (19:05)
[2016-09-17] MEDS ORDERED: BUPR1SUB6 SL (19:47)
[2016-09-17 21:55] LABS: AMPHETAMINE, URINE NEG (NEG); BARBITURATES, URINE NEG (NEG); COCAINE, URINE NEG (NEG)
[2016-09-17] MEDS ORDERED: ACETAMINOPHEN 325 MG TAB PO ONE (22:30)
[2016-09-17] MEDS: METOPROLOL TARTRATE 25 MG TAB PO SCH (22:49)
[2016-09-17] MEDS: PRAVASTATIN SOD 80 MG TAB PO SCH (22:50)
[2016-09-18 04:31] VITALS: BP 133/69; PULSE 72; RESP 18; TEMP 98.5; O2SAT 96
[2016-09-18] MEDS: INSULIN ASPART SUPPLEMENTAL SCALE SQ SCH ×4 (06:03→21:00)
[2016-09-18] MEDS: NITROGLYCERIN 2% OINT 1 GM PACKET TOPICAL SCH ×3 (06:21→21:23)
[2016-09-18 07:22] VITALS: BP 195/84; PULSE 69; RESP 16; TEMP 97.9; O2SAT 95
[2016-09-18] MEDS: METOPROLOL TARTRATE 25 MG TAB PO SCH ×2 (07:55→21:22)
[2016-09-18] MEDS: VENLAFAXINE HCL XR 75 MG CAP PO SCH (07:55)
[2016-09-18] MEDS: ASPIRIN 81 MG CHEW TAB CHEW SCH (07:56)
[2016-09-18] MEDS: PANTOPRAZOLE SOD 40 MG DELAYED RELEASE TAB PO SCH (07:56)
[2016-09-18] MEDS: SODIUM CHLORIDE 0.9% FLUSH 10 ML FLUSH IV FLUSH SCH ×2 (07:56→21:23)
[2016-09-18] MEDS: LISINOPRIL 20 MG TAB PO SCH (07:56)
[2016-09-18] MEDS: CLOPIDOGREL 75 MG TAB PO SCH (07:56)
--- NOTE | 2016-09-18 08:17 | HHI.PR ---
Subjective Remarks Follow-up for chest pain. Patient states that his blood pressure is high this morning. He states he gets a bit of a headache and nausea when his blood pressure gets higher. He states he has some shortness of breath today. He had some episodes of chest pain yesterday afternoon, but none further overnight. He states he understands the importance of medication compliance at this time, and plans to get his prescriptions filled. He reports his mood is better today. Objective Vitals Vital Signs Date Time Temp Pulse Resp B/P Pulse Ox O2 Delivery O2 Flow Rate FiO2 09/18/16 07:22 97.9 69 16 195/84 95 09/18/16 04:31 98.5 72 18 133/69 96 09/17/16 20:12 98.5 74 18 145/65 95 09/17/16 20:00 91 09/17/16 15:29 98.3 73 16 144/69 95 09/17/16 14:33 20 09/17/16 12:25 98.3 82 20 158/76 97 09/17/16 11:29 82 Result Diagram: 09/17/16 0320 09/17/16 0320 Imaging Last Impressions Chest X-Ray 09/17/16 0336 Signed Impressions: Service Date/Time: Saturday, September 17, 2016 03:33 - CONCLUSION: 1. Cardiomegaly. No acute pulmonary disease. Noel Esparza MD Objective Remarks GENERAL: Well-developed well-nourished. Obese. In no acute distress. SKIN: Warm and dry. No lesions noted. HEENT: Normocephalic. Pupils equal and round. Mucous membranes pink and moist. CARDIOVASCULAR: Regular rate and rhythm. No murmur appreciated. RESPIRATORY: No accessory muscle use. Clear to auscultation. Breath sounds equal bilaterally. GASTROINTESTINAL: Abdomen soft, non-tender, nondistended. Bowel sounds x4. MUSCULOSKELETAL: No obvious deformities. No clubbing or cyanosis. No edema. NEUROLOGICAL: Awake and alert. No focal neurological deficits. Moves upper and lower extremities spontaneously. Normal speech. PSYCHIATRIC: Appropriate mood and affect; insight and judgment normal. A/P Assessment and Plan 66-year-old male with a past medical history of HTN, HLD, CAD, DM, GERD, A. fib , HYACINTH, depression initially persisted for suicidal ideation Depression with possible suicidal ideation: Continue home antidepressants. Psychiatry consulted, discussed with Dr. Robles, cleared from psychiatry perspective. Mood improving. Chest pain: Recent cardiac catheterization and noncompliance with Plavix. Rule out ACS per protocol. EKG personally reviewed, shows occasional PACs with nonspecific T-wave changes in the inferior leads, no significant change from previous. Troponins 0.06, 0.06, 0.04. Continue aspirin. Statin and Plavix resumed. Added Nitropaste with continued episodes of chest pain. Morphine IV as needed. Suspect symptoms may have be related to stress from depression vs elevated BP. Obtain records of recent cardiac catheterization. Cardiology consulted, planning for stress test and echocardiogram today. Hypertension: Labile, not optimally controlled. Resumed home lisinopril. Added metoprolol, consider increasing dose. Monitor. Diabetes mellitus: Hold home metformin for now. Monitor Accu-Cheks. Cover with SSI. Sleep apnea: Suspect possible recurrence. Recommended patient follow-up for sleep study as outpatient. DVT prophylaxis: SCDs Discharge Planning Follow up results of stress testing and cardiology recommendations. Rudy Bai September 18, 2016 08:17
[2016-09-18] MEDS ORDERED: ASPIRIN 325 MG TAB PO SCH (09:00)
[2016-09-18] MEDS ORDERED: VENLAFAXINE HCL XR 75 MG CAP PO SCH (09:00)
--- NOTE | 2016-09-18 09:38 | EKG ---
Date Performed: 09/17/2016 Time Performed: 12:33:46 PTAGE: 66 years EKG: Sinus rhythm WITH SHORT ND INTERVAL WITH FREQUENT SUPRAVENTRICULAR PREMATURE COMPLEXES NONSPECIFIC T-WAVE ABNORMA LITY ABNORMAL RHYTHM ECG NO PREVIOUS TRACING DOCTOR: Jon Diego Interpretating Date/Time 09/18/2016 09:37:27
[2016-09-18 10:09] VITALS: BP 155/74
--- NOTE | 2016-09-18 10:17 | EKG ---
Date Performed: 09/17/2016 Time Performed: 09:31:46 PTAGE: 66 years EKG: Sinus rhythm WITH OCCASIONAL SUPRAVENTRICULAR PREMATURE COMPLEXES NONSPECIFIC T-WAVE ABNORMALITY ABNORMAL ECG NO PREVIOUS TRACING DOCTOR: Jon Diego Interpretating Date/Time 09/18/2016 10:15:56
--- NOTE | 2016-09-18 10:41 | PD.CARD.PN ---
Subjective Subjective Remarks No chest pain, no shortness of breath Objective Medications Current Medications Medications (Trade) Dose Ordered Sig/Heike Route Start Time Stop Time Status Last Admin (NS Flush) 2 ml UNSCH PRN IV FLUSH 09/17/16 05:45 (NS Flush) 2 ml BID IV FLUSH 09/17/16 09:00 09/18/16 07:56 (Narcan Inj) 0.4 mg UNSCH PRN IV 09/17/16 05:45 (Prinivil) 40 mg DAILY PO 09/17/16 12:30 09/18/16 07:56 (Protonix) 40 mg DAILY PO 09/18/16 09:00 09/18/16 07:56 (Pravachol) 80 mg HS PO 09/17/16 21:00 09/17/16 22:50 (Effexor Xr) 150 mg DAILY PO 09/17/16 11:30 09/18/16 07:55 (D50w (Vial) Inj) 25 ml UNSCH PRN IV PUSH 09/17/16 11:30 (Glucagon Inj) 1 mg UNSCH PRN OTHER 09/17/16 11:30 (Nitroglycerin 2% Oint) 1 inch Q8HR TOPICAL 09/17/16 14:00 09/18/16 06:21 (Morphine Inj) 2 mg Q4HR PRN IV PUSH 09/17/16 14:15 09/17/16 14:29 (Lopressor) 25 mg Q12HR PO 09/17/16 21:00 09/18/16 07:55 (Aspirin Chew) 81 mg DAILY CHEW 09/18/16 09:00 09/18/16 07:56 (Plavix) 75 mg DAILY PO 09/18/16 09:00 09/18/16 07:56 Vital Signs / I&O Vital Signs Date Time Temp Pulse Resp B/P Pulse Ox O2 Delivery O2 Flow Rate FiO2 09/18/16 10:09 155/74 09/18/16 07:22 97.9 69 16 195/84 95 09/18/16 04:31 98.5 72 18 133/69 96 09/17/16 20:12 98.5 74 18 145/65 95 09/17/16 20:00 91 09/17/16 15:29 98.3 73 16 144/69 95 5/2/17 14:33 20 09/17/16 12:25 98.3 82 20 158/76 97 09/17/16 11:29 82 Physical Exam GENERAL: NAD, AAOx3 SKIN: Warm and dry. HEAD: Atraumatic. Normocephalic. EYES: Pupils equal and round. No scleral icterus. No injection or drainage. ENT: No nasal bleeding or discharge. Mucous membranes pink and moist. NECK: Trachea midline. No JVD. CARDIOVASCULAR: Regular rate and rhythm. RESPIRATORY: No accessory muscle use. Clear to auscultation. Breath sounds equal bilaterally. GASTROINTESTINAL: Abdomen soft, non-tender, nondistended. Hepatic and splenic margins not palpable. MUSCULOSKELETAL: Extremities without clubbing, cyanosis, or edema. No obvious deformities. NEUROLOGICAL: Awake and alert. No obvious cranial nerve deficits. Motor grossly within normal limits. Five out of 5 muscle strength in the arms and legs. Normal speech. PSYCHIATRIC: Appropriate mood and affect; insight and judgment normal. Laboratory Laboratory Tests Test 09/17/16 09/17/16 09/17/16 11:25 16:53 20:45 Total Creatine Kinase 115 U/L 118 U/L Troponin I 0.06 NG/ML 0.04 NG/ML Urine Opiates Screen POS Urine Barbiturates Screen NEG Urine Amphetamines Screen NEG Urine Benzodiazepines Screen NEG Urine Cocaine Screen NEG Urine Cannabinoids Screen NEG Assessment and Plan Problem List: (1) Chest pain (2) Suicidal ideation (3) Adjustment disorder with depressed mood (4) CAD (coronary artery disease) (5) Not taking medication as directed Assessment and Plan 1) Chest pain atypical in nature, with minimally elevated troponin, will plan stress test today 2) Previous JENNIFER placed around 1 month ago, restarted on Plavix, continue ASA 3) Depression per psych 4) If stress test is negative, can be discharge from a cardiovascular standpoint If positive, will plan on cardiac catheterization tomorrow morning to evaluate his previous stents Problem Qualifiers (1) Chest pain: Qualified Code: R07.9 - Chest pain, unspecified type Pastor Nunez DO September 18, 2016 10:40
[2016-09-18] MEDS ORDERED: REGADENOSON INJ 0.4 MG/5 ML SYR ONE (10:58)
--- NOTE | 2016-09-18 15:30 | RADRPT ---
EXAM DATE/TIME: 09/18/2016 10:34 [facility] COMPARISON: No previous studies available for comparison. INDICATIONS : Left chest pain radiating to the neck and left shoulder. Angina. DOSE: 30.2 mCi Tc99m Myoview at stress. 11 mCi Tc99m Myoview at rest. 0.4 mg Lexiscan STRESS SYMPTOMS: Headache and flushed. EJECTION FRACTION: 55% MEDICAL HISTORY : Hypertension. Diabetes mellitus type 2. Smoker. SURGICAL HISTORY : Coronary artery stent. ENCOUNTER: Initial ACUITY: 2 days PAIN SCALE: 4/10 LOCATION: Left chest TECHNIQUE: The patient underwent pharmacologic stress with infusion of prescribed dose. Continuous ECG tracing was monitored during stress. Gated SPECT imaging was performed after stress and conventional SPECT i maging was performed at rest. The examination was performed on a SPECT/CT scanner, both attenuation and non-corrected datasets were reviewed. FINDINGS: DISTRIBUTION: The maximum perfused segment at stress is in the lateral wall. PERFUSION STUDY: There is small area of moderately severely diminished relative tracer delivery to the posterobasal wa ll with moderate redistribution suggested. GATED STUDY: There is intact wall motion and thickening without hypokinetic or dyskinetic segments. CONCLUSION: Small size moderately severe posterobasal perfusion abnormality with moderate redistribution. RISK CATEGORY: Intermediate (1-3% Annual Mortality Rate) Aba Ribeiro MD on September 18, 2016 at 15:23 Board Certified Radiologist. This report was verified electronically.
[2016-09-18 15:35] VITALS: PULSE 63
[2016-09-18 15:55] VITALS: BP 160/86; PULSE 70; RESP 16; TEMP 97.3; O2SAT 96
--- NOTE | 2016-09-18 16:33 | EC ---
Study Study Date:09/18/2016 STUDY CONCLUSIONS SUMMARY - Left ventricle: The cavity size was normal. Wall thickness was normal. Systolic function was normal. The estimated ejection fraction was in the range of 55% to 60%. Although no diagnostic regional wall motion abnormality was identified, this possibility cannot be completely excluded on the basis of this study. - Aortic valve: Poorly visualized. Mean gradient: 3mm Hg (S). - Tricuspid valve: Trace regurgitation. - Pulmonary arteries: PA peak pressure: 40mm Hg (S). If LV function is below 40, please consider prescribing an ACEI or ARB or document rationale for non-use. PROCEDURE DATA STUDY STATUS: Elective. Procedure: Transthoracic echocardiography. Image quality was poor. Scanning was performed from the parasternal, apical, and subcostal acoustic windows. Study completion: The patient tolerated the procedure well. Transthoracic echocardiography. M-mode, complete 2D, complete spectral Doppler, and color Doppler. Height: Height: 70in. Weight: Weight: 241.5lb. Body mass index: BMI: 34.7kg/m^2. Body surface area: BSA: 2.26m^2. Patient status: Inpatient. CARDIAC ANATOMY LEFT VENTRICLE: The cavity size was normal. Wall thickness was normal. Systolic function was normal. The estimated ejection fraction was in the range of 55% to 60%. Although no diagnostic regional wall motion abnormality was identified, this possibility cannot be completely excluded on the basis of this study. AORTIC VALVE: Poorly visualized. Doppler: Transvalvular velocity was within the normal range. There was no stenosis. No regurgitation. Valve area: 2.42cm^2(VTI). Indexed valve area: 1.07cm^2/m^2 (VTI). Indexed valve area: 1.03cm^2/m^2 (Vmax). Mean gradient: 3mm Hg (S). AORTA: Aortic root: The aortic root was normal in size. MITRAL VALVE: Structurally normal valve. Doppler: Transvalvular velocity was within the normal range. There was no evidence for stenosis. No regurgitation. Peak gradient: 3mm Hg (D). LEFT ATRIUM: The atrium was normal in size. RIGHT VENTRICLE: The cavity size was normal. Wall thickness was normal. PULMONIC VALVE: Doppler: Transvalvular velocity was within the normal range. There was no evidence for stenosis. No regurgitation. TRICUSPID VALVE: Structurally normal valve. Doppler: Transvalvular velocity was within the normal range. Trace regurgitation. PULMONARY ARTERY: The main pulmonary artery was normal-sized. RIGHT ATRIUM: The atrium was normal in size. PERICARDIUM: There was no pericardial effusion. SYSTEMIC VEINS: Inferior vena cava: The vessel was normal in size. Patient weight: 241.5lb _Ejection fraction:_ 65-75% _Fractional shortening:_ 32% up to 5Kg 5-11.5Kg 11.6-22.9Kg 23-45Kg 45-57Kg Aortic Root 7-13 <17 13-22 17-27 17-27 LA diam 6-13 <23 24-38 33-47 37-40 RVID 10-17 7-15 7-15 7-18 8-17 LVIDd 12-22 <32 24-38 33-47 37-40 LVPW 2-4 3-6 5-7 6-8 7-8 IVS 2-4 3-6 5-7 6-8 7-8 BASIC MEASUREMENTS ADULT NORMAL Left ventricle LV internal dimension, ED, chordal 46.4 mm 43-52 level, PLAX LV internal dimension, ES, chordal 29.3 mm 23-38 level, PLAX Fractional shortening, chordal level, 37 % >29 PLAX LV posterior wall thickness, ED 11.8 mm IVS/LVPW ratio, ED 1.01 <1.3 Ventricular septum Septal thickness, ED 11.9 mm Aortic valve Leaflet separation 20 mm 15-26 Aorta Root diameter, ED 31 mm Left atrium Anterior-posterior dimension 30 mm Anterior-posterior dimension index 1.33 cm/m^2 <2.2 BASIC MEASUREMENTS ADULT NORMAL Aortic valve Leaflet separation 20 mm 15-26 DOPPLER MEASUREMENTS ADULT NORMAL Main pulmonary artery Pressure, S *40 mm Hg =30 Aortic valve Peak velocity, S 127 cm/s Mean velocity, S 85 cm/s VTI, S 25.7 cm Mean gradient, S 3 mm Hg Valve area, VTI 2.42 cm^2 Valve area index, VTI 1.07 cm^2/m^2 Valve area index, Vmax 1.03 cm^2/m^2 Mitral valve Peak E-wave velocity 91.3 cm/s Peak A-wave velocity 102 cm/s Deceleration time *303 ms 150-230 Peak gradient, D 3 mm Hg Peak E/A ratio 0.9 Tricuspid valve Regurgitant peak velocity 282 cm/s Peak RV-RA gradient, S 32 mm Hg Maximal regurgitant velocity 282 cm/s Systemic veins Estimated CVP 10 mm Hg Right ventricle RV pressure, S *42 mm Hg <30 Pulmonic valve Peak velocity, S 75.9 cm/s LEGEND: Mean values are shown as u=mean value. Asterisk (*) hernandez values outside specified normal range. Prepared and signed by Oscar Bender [id number]
[2016-09-18 19:25] VITALS: BP 168/78; PULSE 76; RESP 20; TEMP 98.1; O2SAT 93
[2016-09-18] MEDS: PRAVASTATIN SOD 80 MG TAB PO SCH (21:22)
[2016-09-19] VITALS (9 sets, daily range): BP systolic 100–153; BP diastolic 60–79; PULSE 50–69; RESP 16–20; TEMP 97.5–99.1; O2SAT 95–98
[2016-09-19] MEDS: NITROGLYCERIN 2% OINT 1 GM PACKET TOPICAL SCH ×3 (06:00→21:22)
[2016-09-19] MEDS: INSULIN ASPART SUPPLEMENTAL SCALE SQ SCH ×4 (06:12→21:00)
--- NOTE | 2016-09-19 07:59 | HHI.PR ---
Subjective Remarks Follow up for chest pain. The patient denies any chest pain or shortness of breath overnight. He states he feels well. He recently moved to the area from [place]. He denies any medical complaints at this time. Going for heart cath today. Objective Vitals Vital Signs Date Time Temp Pulse Resp B/P Pulse Ox O2 Delivery O2 Flow Rate FiO2 09/19/16 07:24 97.5 69 16 145/69 95 09/19/16 03:41 97.9 54 18 139/73 98 09/19/16 00:47 98.2 62 18 153/79 97 09/18/16 19:25 98.1 76 20 168/78 93 09/18/16 15:55 97.3 70 16 160/86 96 09/18/16 15:35 63 09/18/16 10:09 155/74 Result Diagram: 09/17/16 0320 09/17/16 0320 Imaging Last Impressions Myocardial Perfusion Scan Nuc Med 09/18/16 0800 Signed Impressions: Service Date/Time: Sunday, September 18, 2016 10:34 - CONCLUSION: Small size moderately severe posterobasal perfusion abnormality with moderate redistribution. RISK CATEGORY: Intermediate (1-3%% Annual Mortality Rate ) Aba Ribeiro MD Chest X-Ray 09/17/16 0336 Signed Impressions: Service Date/Time: Saturday, September 17, 2016 03:33 - CONCLUSION: 1. Cardiomegaly. No acute pulmonary disease. Noel Esparza MD Objective Remarks GENERAL: Well-nourished, well-developed middle aged male patient in [facility]. SKIN: Warm and dry. No rash. HEENT: Normocephalic. Atraumatic. Pupils equal and round. Mucous membranes pink and moist. NECK: Supple. Trachea midline. CARDIOVASCULAR: Regular rate and rhythm. S1, S2 noted. No murmur appreciated. RESPIRATORY: No accessory muscle use. Clear to auscultation. Breath sounds equal bilaterally. GASTROINTESTINAL: Abdomen soft, non-tender, nondistended. Normoactive bowel sounds x4. MUSCULOSKELETAL: No obvious deformities. Extremities without clubbing, cyanosis , or edema. NEUROLOGICAL: Awake and alert. No obvious cranial nerve deficits. Motor grossly within normal limits. Normal speech. PSYCHIATRIC: Appropriate mood and affect; insight and judgment normal. Medications and IVs Current Medications Medications (Trade) Dose Ordered Sig/Heike Route Start Time Stop Time Status Last Admin (NS Flush) 2 ml UNSCH PRN IV FLUSH 09/17/16 05:45 (NS Flush) 2 ml BID IV FLUSH 09/17/16 09:00 09/18/16 21:23 (Narcan Inj) 0.4 mg UNSCH PRN IV 09/17/16 05:45 (Prinivil) 40 mg DAILY PO 09/17/16 12:30 09/18/16 07:56 (Protonix) 40 mg DAILY PO 09/18/16 09:00 09/18/16 07:56 (Pravachol) 80 mg HS PO 09/17/16 21:00 09/18/16 21:22 (Effexor Xr) 150 mg DAILY PO 09/17/16 11:30 09/18/16 07:55 (D50w (Vial) Inj) 25 ml UNSCH PRN IV PUSH 09/17/16 11:30 (Glucagon Inj) 1 mg UNSCH PRN OTHER 09/17/16 11:30 (Nitroglycerin 2% Oint) 1 inch Q8HR TOPICAL 09/17/16 14:00 09/18/16 06:21 (Morphine Inj) 2 mg Q4HR PRN IV PUSH 09/17/16 14:15 09/17/16 14:29 (Aspirin Chew) 81 mg DAILY CHEW 09/18/16 09:00 09/18/16 07:56 (Plavix) 75 mg DAILY PO 09/18/16 09:00 09/18/16 07:56 (Lopressor) 50 mg Q12HR PO 09/18/16 21:00 09/18/16 21:22 A/P Assessment and Plan 66-year-old male with a past medical history of HTN, HLD, CAD, DM, GERD, A. fib , HYACINTH, depression initially persisted for suicidal ideation Depression with possible suicidal ideation: Continue home antidepressants. Psychiatry consulted, discussed with Dr. Robles, cleared from psychiatry perspective. Mood improving. Chest pain: Recent cardiac catheterization and noncompliance with Plavix. Rule out ACS per protocol. EKG personally reviewed, shows occasional PACs with nonspecific T-wave changes in the inferior leads, no significant change from previous. Troponins 0.06, 0.06, 0.04. Continue aspirin. Statin and Plavix resumed. Added Nitropaste with continued episodes of chest pain. Morphine IV as needed. Suspect symptoms may have be related to stress from depression vs elevated BP. Nuclear stress test with small size moderately severe posterobasal perfusion abnormality with moderate redistribution. Consulted cardiology. Plan for cardiac catheterization today. Hypertension: Labile, not optimally controlled. Resumed home lisinopril. Added metoprolol, consider increasing dose. Monitor. Blood pressure improved. Diabetes mellitus: Hold home metformin for now. Monitor Accu-Cheks. Cover with SSI. Sleep apnea: Recommended patient follow-up for sleep study as outpatient. DVT prophylaxis: Melony Salgado PA-C September 19, 2016 7:59 am
[2016-09-19] MEDS: LISINOPRIL 20 MG TAB PO SCH (08:14)
[2016-09-19] MEDS: ASPIRIN 81 MG CHEW TAB CHEW SCH (08:14)
[2016-09-19] MEDS: METOPROLOL TARTRATE 25 MG TAB PO SCH ×2 (08:14→21:21)
[2016-09-19] MEDS: VENLAFAXINE HCL XR 75 MG CAP PO SCH (08:14)
[2016-09-19] MEDS: PANTOPRAZOLE SOD 40 MG DELAYED RELEASE TAB PO SCH (08:14)
[2016-09-19] MEDS: CLOPIDOGREL 75 MG TAB PO SCH (08:15)
[2016-09-19] MEDS ORDERED: MIDAZOLAM HCL 2 MG/2 ML VIAL ONE (08:45)
[2016-09-19] MEDS ORDERED: HEPARIN SODIUM - IV 10,000 UNITS/10 ML VIAL ONE (08:46)
[2016-09-19] MEDS ORDERED: VERAPAMIL HCL 5 MG/2 ML VIAL ONE ×2 (08:47→08:56)
[2016-09-19] MEDS ORDERED: HEPARIN-NS/PF INJ 500 ML ONE (08:47)
[2016-09-19] MEDS ORDERED: NITROGLYCERIN INJ 5 ML ONE (08:47)
[2016-09-19] MEDS: SODIUM CHLORIDE 0.9% FLUSH 10 ML FLUSH IV FLUSH SCH ×2 (09:00→21:00)
--- NOTE | 2016-09-19 09:52 | CATHPROC ---
[facility] HIS Report Study Information Study Number Admission Scheduled Start Study Start [id number] 09/17/2016 09/19/2016 Sep 19 2016 7:21AM Referring Institution Admit Source Facility Department 1 Other [facility] - Mail Carrier Technician Physician and Clinical Staff Initial Pastor Pineda School Supervisor Tanya Hernadez BSRN Other cathlab, cathlab Recorder Gloria Nicholas,DALTON Scrub Kurt, Kiesha,MAMMAL KEEPER TECH2 Procedures Performed Procedure Location (Site) Vessel Name Coronary Angiograms LCA Left Coronary Coronary Angiograms RCA Right Coronary L Heart Cath Wire insertion Radial (right) Radial Art. Equipment Time Research Development Manager Description Size Mfg Part Number Used/Scraped TRANSDUCER, TRUWAVE 08:43 [employer] * [id number] Used W/[facility] CONCEPT DRAPE, RADIAL FEMORAL FULL 08:43 * [id number] Used DEVELOPMENT BODY 08:43 [employer] PACK, CCL CUSTOM * [id number] Used 08:43 [employer] SUPPORT, ARTERIAL ADULT [id number] Used 08:43 [employer] MEDICAL WIRE, EXCHANGE 260CM 3MMJ 260CM [id number] Used 08:43 NAMIC MANIFOLD, 4 PORT * [id number] Used 08:43 NYCOMED OMNIPAQUE, 350 MG, 100ML 100ML [id number] Used 08:43 [employer]BA MEDICAL BLANKET,WARM AIR CCL * [id number] Used BAND, RADIAL COMPRESSION TR 08:43 TERUMO MEDICAL 29CM XX*[id number] Used LARGE SHEATH, FR6 TRANSRADIAL 08:43 [employer] MEDICAL FR 6 RM*[id number] Used SLENDER 10CM History: Current Medications Medication Dosage/Unit Route Frequency Last Date/Time Taken Prilosec ASA LISINOPRIL Zocor PLAVIX History: Allergies Allergy Reaction Penicillin Anaphylaxis History: Risk Factors Family History of Hypertension Dyslipidemia Previous LA Previous Heart Failure Premature CAD Yes Yes No No No Prior Valve Prior PCI Prior PCIDate Prior CABG Surgery No Yes 08/17/2016 No Cerebrovascular Peripheral Artery Chronic Lung On Dialysis Diabetes Diabetes Therapy Disease Disease Disease No No No No Yes Oral History: Symptoms/Diagnosis Selection Items Chest pain History: Stress Tests Stress or Imaging Studies Performed Yes Stress Test SPECT Stress Test SPECT Result Yes Positive History: Arrhythmias Selection Items Atrial fibrillation History: Other Disease Selection Items CAD Gerd HTN History: LA/CV Data Previous Cath Date 08/17/2016 Labs Hgb (g/dl) Hct (%) RBC (MIL/MM3) WBC (l/cumm) Platelets (thousands) 12.00-18.00 37.00-55.00 4.80-6.20 4.80-10.80 140.00-450.00 14.1 40.1 4.5 11.2 231 Glucose (mg/dl) BUN (mg/dl) Creatinine (mg/dl) BUN:Creatinine (1:x) 60.00-110.00 8.00-20.00 0.10-9.00 10.00-20.00 102 17 0.7 24.3 Na (meq/l) K (meq/l) Cl (meq/l) CO2 (mmol/L) Ca (mg/dl) 138.00-146.00 3.80-5.10 101.00-111.00 23.00-30.00 9.00-10.50 139 3.7 105 25.8 8.9 Medication Medication Total Dose (Bolus/Oral) Medication Total Dosage/Unit 1% XYLOCAINE 20 mL FENTANYL 50 mcg RADIAL COCKTAIL 5 mL (Bolus) VERSED 0.5 mg Medications (Bolus/Oral) Medication Time Given Dosage/Unit Administered By Reason FENTANYL 09/19/2016 9:05:26 AM 25 mcg Tanya Hernadez As per physicians verb al order 25 mcg FENTANYL given in lab by Tanya Hernadez BSRN in Left Wrist via Peripheral IV. Ordered by Pastor Cui. Reason: As per physicians verbal order. VERSED 09/19/2016 9:06:41 AM 0.5 mg Tanya Hernadez 0.5 mg VERSED given in lab by Tanya Hernadez BSRN in Left Wrist via Peripheral IV. Ordered by Pastor Powell. 1% XYLOCAINE 09/19/2016 9:06:59 AM 20 mL Tanya Hernadez 20 mL 1% XYLOCAINE given in lab by Tanya Hernadez BSRN via Subcutaneous. Ordered by Edgar Nunez. Ntg 200mcg Verapamil 2.5mg Heparin RADIAL COCKTAIL 09/19/2016 9:11:01 AM 5 mL (Bolus) Pastor Nunez 3000U 5 mL (Bolus) RADIAL COCKTAIL given in lab by Pastor Nunez via Radial. Using [Solution Name]. Ord ered by Pastor Nunez. Reason: Ntg 200mcg Verapamil 2.5mg Heparin 4400U. FENTANYL 09/19/2016 9:11:03 AM 25 mcg Tanya Hernadez 25 mcg FENTANYL given in lab by Tanya Hernadez BSRN via Peripheral IV. Ordered by Mandeep Nunez Chronological Log Time Study Chronological Log 8:38:21 Patient arrived via Bed. 8:38:22 Patient Name, D.O.B, / Armband Verified By R.N. 8:38:22 Consent signed by the physician and the patient and verified by the Mail Carrier Technician staff. 8:38:23 Pre-op and post- op instructions given; patient acknowledges understanding of instructions . 8:38:24 Verbal Stimulation=2 Physical Stimulation=2 Airway=2 Respiration=2 TOTAL=8. (0=absent, 1=l imited, 2=present) 8:39:25 Patient has been NPO for More than 6Hrs. 8:40:26 Skin Breakdown- generalized dry scabs on extremities 8:40:27 Patient Warmer Placed on the Table. 8:42:46 Passed allens test right wrist w/in 3 seconds. 8:43:26 Laverne Prominences Protected 8:43:27 A # 20 IV was noted in the Wrist (left). Grade = 0 0.9ns kvo connected from ED 8:43:47 History and physical on the chart. Vitals capture started with the following parameters, Patient=Adult, Interval=15 min, Initial Pr scamtf=842 mmHg, 8:43:57 Deflation Rate=5 mmHg 8:45:08 2l nc 8:45:14 HR=59 bpm, KRLY=544/68 mmhg, SpO2=94.0 %, Resp=15 B/min, Pain=0, Surinder=10, Dietrich=2 8:45:41 Vitals capture stopped. Vitals capture started with the following parameters, Patient=Adult, Interval=5 min, Initial Pre jrjak=983 mmHg, 8:45:50 Deflation Rate=5 mmHg 8:47:17 HR=58 bpm, VNTJ=956/68 mmhg, SpO2=95.0 %, Resp=20 B/min 8:51:35 HR=57 bpm, OIZP=402/70 mmhg, SpO2=97.0 %, Resp=16 B/min, Pain=0, Surinder=10, Dietrich=2 8:56:55 Reference ECG taken 8:57:13 HR=61 bpm, URVG=308/69 mmhg, SpO2=95.0 %, Resp=19 B/min, Pain=0, Surinder=10, Dietrich=2 8:59:00 Right Radial and groin(s) prepped with 2% chlorhexidine, and with a 3 min. waiting time. 8:59:55 MD arrived. 9:01:31 HR=56 bpm, FWFZ=548/74 mmhg, SpO2=97.0 %, Resp=17 B/min, Pain=0, Surinder=10, Dietrich=2 9:04:16 Pressure channel 1 zeroed. Time Out. Correct patient, correct procedure,correct physician, ,power injector loaded or not lo aded with contrast with 9:05:00 surgical team present. Time Out Concurred by MD, individual staff and SENIOR BUYER in procedure 9:05:23 Case Start 25 mcg FENTANYL given in lab by Tanya Hernadez BSRN in Left Wrist via Peripheral IV. Ordered by Pastor Nunez. 9:05:26 Reason: As per physicians verbal order. 9:06:30 HR=57 bpm, YCXI=876/66 mmhg, SpO2=97.0 %, Resp=17 B/min, Pain=0, Surinder=10, Dietrich=2 9:06:41 0.5 mg VERSED given in lab by Tanya Hernadez BSRN in Left Wrist via Peripheral IV. Ordere d by Pastor Nunez. 9:06:59 20 mL 1% XYLOCAINE given in lab by Tanya Hernadez BSRN via Subcutaneous. Ordered by Pastor Murcia. 9:07:55 Access site was Radial Artery. 9:08:23 A WIRE, EXCHANGE 260CM 3MMJ 260CM was inserted via Radial (right). A SHEATH, FR6 TRANSRADIAL SLENDER 10CM FR 6 was advanced into the Radial (right) using the Modif iechary Zhao 9:09:31 technique. 5 mL (Bolus) RADIAL COCKTAIL given in lab by Pastor Nunez via Radial. Using [Solution Name] . Ordered by 9:11:01 Pastor Nunez. Reason: Ntg 200mcg Verapamil 2.5mg Heparin 4400U. 9:11:03 25 mcg FENTANYL given in lab by Tanya Hernadez BSRN via Peripheral IV. Ordered by Pastor Arana. 9:11:36 HR=52 bpm, RDUJ=664/72 mmhg, SpO2=99.0 %, Resp=18 B/min, Pain=0, Surinder=10, Dietrich=2 A JR 4.0 INFINITI CATHETER FR 5 was advanced over a wire. OMNIPAQUE, 350 MG, 100ML 100ML was use d for 9:12:24 injections. Recorded Pressure: LV, HR=56, Condition=Condition 1 9:13:25 (Left Ventricle) LV 101/3/13 Recorded Pressure: LV, Ao, HR=53, Condition=Condition 1 9:13:39 (Left Ventricle) LV 105/-4/13, (Aorta) Ao 91/46/66 9:14:32 NIBP STAT measurement started. 9:14:35 Vitals capture stopped. Vitals capture started with the following parameters, Patient=Adult, Interval=15 min, Initial Fzymywmy=818 mmHg, 9:14:36 Deflation Rate=5 mmHg 9:14:46 The RCA was injected and visualized at various angles. OMNIPAQUE, 350 MG, 100ML 100ML use d. 9:15:23 HR=53 bpm, PHOB=270/60 mmhg, SpO2=96.0 %, Resp=16 B/min, Pain=0, Surinder=10, Dietrich=2 9:15:54 Vitals capture stopped. Vitals capture started with the following parameters, Patient=Adult, Interval=5 min, Initial P pfavgtz=298 mmHg, 9:16:00 Deflation Rate=5 mmHg After removing the current catheter a JL 3.5 INFINITI CATHETER FR 5 was advanced over a WIRE, EXCHANGE 260CM 9:16:16 3MMJ 260CM. ~CONTRAST~ was used for injections. 9:16:35 HR=51 bpm, AAQD=624/58 mmhg, SpO2=95.0 %, Resp=20 B/min, Pain=0, Surinder=10, Dietrich=2 9:17:56 The LCA was injected and visualized at various angles. OMNIPAQUE, 350 MG, 100ML 100ML use d. 9:22:17 HR=48 bpm, YWZI=670/61 mmhg, SpO2=96.0 %, Resp=20 B/min, Pain=0, Surinder=10, Dietrich=2 9:27:14 HR=53 bpm, IFIU=187/72 mmhg, SpO2=97.0 %, Resp=16 B/min, Pain=0, Surinder=10, Dietrich=2 9:31:42 HR=55 bpm, PGSP=245/69 mmhg, SpO2=96.0 %, Resp=21 B/min, Pain=0, Surinder=10, Dietrich=2 9:32:38 A WIRE, EXCHANGE 260CM 3MMJ 260CM was inserted via Radial (right). 9:32:46 Catheter was removed 9:33:51 Sheath removed; TR Band and pressure applied to access site. Radial Compression Device Used. 13 mLs of air placed in BAND, RADIAL COMPRESSION TR LARGE 29CM . Affected hand 9:36:41 97 % O2 saturation. 9:36:43 HR=49 bpm, KIPD=019/77 mmhg, SpO2=97.0 %, Resp=16 B/min, Pain=0, Surinder=10, Dietrich=2 9:37:07 Case End 9:37:09 No case complications noted. 9:37:11 Cine recording checked. 9:37:22 A Left Heart Cath was performed. 9:41:46 HR=47 bpm, GKAS=349/75 mmhg, Resp=16 B/min 9:43:31 Vitals capture stopped. 9:50:26 [facility] End Study - Contrast Media Used In Study Contrast Total Opened (mL) Total Used (mL) Total Wasted (mL) Omnipaque 150 50 100 End Study - Maximum Contrast Load Max Contrast Load (mL) 785.7 End Study - Radiation Exposure Fluoro Time (minutes) 2.5 End Study - Patient Disposition Complications Transferred To Interventional Outcome No Telemetry Bed No attempt made
[2016-09-19] MEDS ORDERED: MISC INFORMATION XX ONE (10:00)
[2016-09-19] MEDS ORDERED: ISOSORBIDE MONONITRATE 30 MG TAB PO ONE (10:00)
[2016-09-19] MEDS ORDERED: ACETAMINOPHEN 325 MG TAB PO PRN ×2 (10:30→10:45)
[2016-09-19] MEDS ORDERED: CLOPIDOGREL 75 MG TAB PO ONE (10:45)
[2016-09-19] MEDS ORDERED: IOHEXOL 350 MG/ML 50 ML BTL (for Cath Lab) OTHER ONE (11:49)
[2016-09-19] MEDS ORDERED: Aspirin Chew CHEW (15:15)
[2016-09-19] MEDS ORDERED: ISOS30TA3 PO (15:15)
[2016-09-19] MEDS ORDERED: METO25TA3 PO (15:15)
[2016-09-19] MEDS ORDERED: PLAV75TA29 PO (15:15)
--- NOTE | 2016-09-19 15:16 | HHI.DCPOC ---
Discharge Care Plan Diagnosis: (1) Chest pain (2) CAD (coronary artery disease) (3) Coronary stent occlusion (4) HTN (hypertension) Goals to Promote Your Health * To prevent worsening of your condition and complications * To maintain your health at the optimal level Directions to Meet Your Goals Take your medications as prescribed Follow your dietary instruction Follow activity as directed Keep your appointments as scheduled Take your immunizations and boosters as scheduled If your symptoms worsen call your PCP, if no PCP go to Urgent Care Center or Emergency Room Smoking is Dangerous to Your Health. Avoid second hand smoke Call the 24-hour hour crisis hotline for domestic abuse at Melony Stephen PA-C September 19, 2016 3:16 pm
[2016-09-19 21:01] LABS: APTT (PATIENT) 25.7 SEC (24.3-30.1); PROTHROMBIN TIME - PATIENT 11.4 SEC (9.8-11.6)
[2016-09-19] MEDS: PRAVASTATIN SOD 80 MG TAB PO SCH (21:21)
--- NOTE | 2016-09-19 23:06 | PD.CARD.PN ---
Subjective Subjective Remarks Patient was seen post-cath earlier No chest pain, no shortness of breath Objective Medications Current Medications Medications (Trade) Dose Ordered Sig/Heike Route Start Time Stop Time Status Last Admin (NS Flush) 2 ml UNSCH PRN IV FLUSH 09/17/16 05:45 (NS Flush) 2 ml BID IV FLUSH 09/17/16 09:00 09/19/16 21:00 (Narcan Inj) 0.4 mg UNSCH PRN IV 09/17/16 05:45 (Prinivil) 40 mg DAILY PO 09/17/16 12:30 09/19/16 08:14 (Protonix) 40 mg DAILY PO 09/18/16 09:00 09/19/16 08:14 (Pravachol) 80 mg HS PO 09/17/16 21:00 09/19/16 21:21 (Effexor Xr) 150 mg DAILY PO 09/17/16 11:30 09/19/16 08:14 (D50w (Vial) Inj) 25 ml UNSCH PRN IV PUSH 09/17/16 11:30 (Glucagon Inj) 1 mg UNSCH PRN OTHER 09/17/16 11:30 (Nitroglycerin 2% Oint) 1 inch Q8HR TOPICAL 09/17/16 14:00 09/18/16 06:21 (Morphine Inj) 2 mg Q4HR PRN IV PUSH 09/17/16 14:15 09/17/16 14:29 (Aspirin Chew) 81 mg DAILY CHEW 09/18/16 09:00 09/19/16 08:14 (Plavix) 75 mg DAILY PO 09/18/16 09:00 09/18/16 07:56 (Lopressor) 50 mg Q12HR PO 09/18/16 21:00 09/19/16 21:21 (Imdur) 30 mg DAILY@07 PO 09/20/16 07:00 (Tylenol) 650 mg Q6H PRN PO 09/19/16 10:30 09/19/16 10:40 (Tylenol) 650 mg Q6H PRN PO 09/19/16 10:45 Vital Signs / I&O Vital Signs Date Time Temp Pulse Resp B/P Pulse Ox O2 Delivery O2 Flow Rate FiO2 09/19/16 22:00 57 09/19/16 21:00 53 09/19/16 20:00 60 09/19/16 20:00 99.1 63 20 134/65 96 09/19/16 19:00 69 09/19/16 18:15 99.0 57 100/60 97 09/19/16 10:44 96 Room Air 09/19/16 07:24 97.5 69 16 145/69 95 09/19/16 03:41 97.9 54 18 139/73 98 09/19/16 00:47 98.2 62 18 153/79 97 Physical Exam GENERAL: NAD, AAOx3 SKIN: Warm and dry. HEAD: Atraumatic. Normocephalic. EYES: Pupils equal and round. No scleral icterus. No injection or drainage. ENT: No nasal bleeding or discharge. Mucous membranes pink and moist. NECK: Trachea midline. No JVD. CARDIOVASCULAR: Regular rate and rhythm. RESPIRATORY: No accessory muscle use. Clear to auscultation. Breath sounds equal bilaterally. GASTROINTESTINAL: Abdomen soft, non-tender, nondistended. Hepatic and splenic margins not palpable. MUSCULOSKELETAL: Extremities without clubbing, cyanosis, or edema. No obvious deformities. NEUROLOGICAL: Awake and alert. No obvious cranial nerve deficits. Motor grossly within normal limits. Five out of 5 muscle strength in the arms and legs. Normal speech. PSYCHIATRIC: Appropriate mood and affect; insight and judgment normal. Laboratory Laboratory Tests Test 09/19/16 20:41 Prothrombin Time 11.4 SEC Prothromb Time International 1.0 RATIO Ratio Activated Partial 25.7 SEC Thromboplast Time Assessment and Plan Problem List: (1) Chest pain (2) Suicidal ideation (3) Adjustment disorder with depressed mood (4) CAD (coronary artery disease) (5) Not taking medication as directed Assessment and Plan 1) Chest pain atypical in nature, with minimally elevated troponin, stress showing posterior basal ischemia 2) Previous JENNIFER placed around 1 month ago, restarted on Plavix, continue ASA 3) Depression per psych 4) Complex CAD with subacute stent thrombosis of his JENNIFER in the RCA (Placed for ISR) High risk bifurcation of LCx/Ramus Plan to continue medical management, watch over night and discharge in the morning If significant headache from Imdur, can change anti-anginal to Norvasc with his Lopressor Problem Qualifiers (1) Chest pain: Qualified Code: R07.9 - Chest pain, unspecified type Pastor Nunez DO September 19, 2016 23:06
[2016-09-20] VITALS (13 sets, daily range): BP systolic 126–143; BP diastolic 63–76; PULSE 50–75; RESP 18–20; TEMP 98–98.7; O2SAT 96–97
[2016-09-20] MEDS: INSULIN ASPART SUPPLEMENTAL SCALE SQ SCH ×2 (05:29→11:38)
--- NOTE | 2016-09-20 05:33 | MA ---
cc: PASTOR ARMSTRONG DO DATE OF PROCEDURE September 19, 2016 PROCEDURE Left heart catheterization, coronary angiogram. Moderate sedation 30 minutes PREPROCEDURE DIAGNOSIS Chest pain, minimal troponin elevation, abnormal stress test. POSTPROCEDURE DIAGNOSIS Chest pain, coronary artery disease, for medical management. MEDICATIONS GIVEN 1. Verapamil 2.5 mg. 2. Nitro 200 mcg. 3. Heparin 4000 units. 4. Fentanyl 50 mcg. 5. Versed 0.5 mg. CONTRAST USED 50 cc. FLUOROSCOPY 2.5 minutes MODERATE SEDATION 30 minutes. PROCEDURAL SUMMARY Timoteo Diego is a pleasant 66-year-old male who presented to [facility] with atypical chest pain during an episode of suicidal ideation. He recently underwent stenting of his RCA due to in-stent restenosis less than a month ago. He was discharged on aspirin and Plavix but never refilled his Plavix. While at [facility] he had a minimal elevation of troponin. He underwent pharmacologic nuclear stress testing showing a basal posterior ischemia. The risks, benefits and alternatives were explained to him and he consented as such. He was brought to the lab and prepped in the usual sterile fashion. The right radial artery was accessed using a modified Seldinger technique and placement of a 5/6-Lao sheath. This was easily aspirated and flushed. A JR-4 was advanced over a J-wire to the ascending aorta. This was used to cross into the left ventricle and measurement of left ventricular end-diastolic pressures. This was then pulled back across the aortic valve showing no significant gradient of aortic stenosis. JR-4 was used for selective angiography of the right coronary system. A JL-3.5 was used for selective angiography of the left coronary system. A JL-3.5 was removed over a J-wire. A TR band was placed over the radial arteriotomy site for hemostasis. The patient left the director of cardiac cath lab cardiovascularly stable. FINDINGS The left main is a relatively normal-appearing vessel with 10% disease. It trifurcates into an LAD, ramus and left circumflex. The LAD is a relatively normal-appearing vessel with 10-20% diffuse disease. It gives off one major diagonal which overall is a relatively small vessel. It does appear to supply wwxd-rx-ofsvt collaterals. The ramus or high obtuse marginal comes off at a complex portion of the left circumflex/left main. Ostially, it appears to have a 60% lesion. It breaks into an upper and lower branch in the midportion which overall has no disease. The left circumflex is a nondominant vessel. It appears to have an ostial stenosis of 70-80% which comes off at a complex portion as a bifurcation off the left main with the ramus and overall a true trifurcation with the LAD. The right coronary artery is most likely a dominant vessel. Multiple layers of stents in the midportion are occluded. Zzrw-hm-cwdqt collaterals are seen during the left coronary angiogram. IMPRESSIONS 1. Multivessel coronary artery disease with subacute stent thrombosis of the previous right coronary artery which was recently placed and complex bifurcating disease of the ramus and left circumflex at the takeoff from the left main. 2. Atypical chest pain. 3. Abnormal stress test with posterior basal ischemia. 4. Noncompliance with medications. RECOMMENDATIONS 1. At this time Mr. Diego has complex coronary artery disease and due to multiple factors I think we should continue on medical management. 2. His RCA has two layers of stents and appears to be subacute thrombosed due to stopping his Plavix. He is currently chest pain-free and hemodynamically stable and has collateralization from the left coronary system. I do not believe that opening this up and placing a third stent would be beneficial. 3. As far as he complex bifurcation of his left circumflex and ramus, my first concern is that this does not provide ischemia on a stress test and therefore unsure if stenting this would be helpful. The other thing is my concern with him stopping his Plavix and not understanding that he needed to continue on his. This would be a high risk bifurcation stenting as there is a possibility of impinging on either the left main or LAD with this. If in the future he has further symptoms or has a stress test showing ischemia to this area, consideration would be made for intervention. 4. He will be started on Imdur and watched overnight. If stable in the morning we will plan for discharge. 5. I discussed this with his granddaughter, Flor, and she understands that he needs to continue on his medications appropriately. Thank you for allowing me to see Timoteo Diego. If there are any questions, please do not hesitate to call. Pastor Armstrong DO VGP/SSB /10:33 PM /5:19 AM MTDFlorin
[2016-09-20] MEDS: NITROGLYCERIN 2% OINT 1 GM PACKET TOPICAL SCH (06:00)
[2016-09-20 07:00] LABS: AUTOMATED NEUTROPHIL # 5.3 TH/MM3 (1.8-7.7); BASOPHIL # 0.1 TH/MM3 (0-0.2); BASOPHIL % 0.5 % (0.0-2.0); EOSINOPHIL # 0.2 TH/MM3 (0-0.4); EOSINOPHIL % 1.5 % (0.0-4.0); HEMATOCRIT 41.6 % (39.0-51.0); HEMO FLAGS DIFF FINAL; LYMPH % 36.8 % (9.0-44.0); MEAN CELL VOLUME 90.3 FL (80.0-100.0); MEAN CORPUSCULAR HEMOGLOBIN 29.6 PG (27.0-34.0); MEAN CORPUSCULAR HGB CONC 32.8 % (32.0-36.0); MONO % 12.3 % (0.0-8.0); NEUT % 48.9 % (16.0-70.0); PLATELET COUNT 221 TH/MM3 (150-450); RED BLOOD COUNT 4.61 MIL/MM3 (4.50-5.90); RED CELL DISTRIBUTION WIDTH 15.3 % (11.6-17.2); WHITE BLOOD COUNT 10.9 TH/MM3 (4.0-11.0)
[2016-09-20] MEDS ORDERED: ISOSORBIDE MONONITRATE 30 MG TAB PO SCH (07:00)
[2016-09-20 07:39] LABS: BICARBONATE 31.1 MEQ/L (21.0-32.0); POTASSIUM 4.6 MEQ/L (3.5-5.1)
[2016-09-20] MEDS: SODIUM CHLORIDE 0.9% FLUSH 10 ML FLUSH IV FLUSH SCH (09:00)
[2016-09-20] MEDS: LISINOPRIL 20 MG TAB PO SCH (09:12)
[2016-09-20] MEDS: ASPIRIN 81 MG CHEW TAB CHEW SCH (09:12)
[2016-09-20] MEDS: VENLAFAXINE HCL XR 75 MG CAP PO SCH (09:12)
[2016-09-20] MEDS: PANTOPRAZOLE SOD 40 MG DELAYED RELEASE TAB PO SCH (09:13)
[2016-09-20] MEDS: METOPROLOL TARTRATE 25 MG TAB PO SCH (09:13)
[2016-09-20] MEDS: CLOPIDOGREL 75 MG TAB PO SCH (09:13)
[2016-09-20] MEDS ORDERED: NITR1SUB3 SL (09:35)
--- NOTE | 2016-09-20 10:05 | PD.CARD.PN ---
Subjective Subjective Remarks No chest pain, no shortness of breath Doing well post-cath Objective Medications Current Medications Medications (Trade) Dose Ordered Sig/Heike Route Start Time Stop Time Status Last Admin (NS Flush) 2 ml UNSCH PRN IV FLUSH 09/17/16 05:45 (NS Flush) 2 ml BID IV FLUSH 09/17/16 09:00 09/19/16 21:00 (Narcan Inj) 0.4 mg UNSCH PRN IV 09/17/16 05:45 (Prinivil) 40 mg DAILY PO 09/17/16 12:30 09/20/16 09:12 (Protonix) 40 mg DAILY PO 09/18/16 09:00 09/20/16 09:13 (Pravachol) 80 mg HS PO 09/17/16 21:00 09/19/16 21:21 (Effexor Xr) 150 mg DAILY PO 09/17/16 11:30 09/20/16 09:12 (D50w (Vial) Inj) 25 ml UNSCH PRN IV PUSH 09/17/16 11:30 (Glucagon Inj) 1 mg UNSCH PRN OTHER 09/17/16 11:30 (Nitroglycerin 2% Oint) 1 inch Q8HR TOPICAL 09/17/16 14:00 09/18/16 06:21 (Morphine Inj) 2 mg Q4HR PRN IV PUSH 09/17/16 14:15 09/17/16 14:29 (Aspirin Chew) 81 mg DAILY CHEW 09/18/16 09:00 09/20/16 09:12 (Plavix) 75 mg DAILY PO 09/18/16 09:00 09/20/16 09:13 (Lopressor) 50 mg Q12HR PO 09/18/16 21:00 09/20/16 09:13 (Imdur) 30 mg DAILY@07 PO 09/20/16 07:00 09/20/16 06:34 (Tylenol) 650 mg Q6H PRN PO 09/19/16 10:30 09/19/16 10:40 (Tylenol) 650 mg Q6H PRN PO 09/19/16 10:45 Vital Signs / I&O Vital Signs Date Time Temp Pulse Resp B/P Pulse Ox O2 Delivery O2 Flow Rate FiO2 09/20/16 10:00 59 09/20/16 09:00 75 09/20/16 08:00 98.0 62 18 143/76 97 09/20/16 08:00 56 09/20/16 07:00 54 09/20/16 06:25 51 09/20/16 05:00 51 09/20/16 04:00 59 09/20/16 04:00 98.0 61 20 127/72 96 09/20/16 03:09 54 09/20/16 02:00 50 09/20/16 01:00 55 09/20/16 00:03 98.0 53 20 126/63 96 09/20/16 00:03 61 09/19/16 23:00 50 09/19/16 22:00 57 09/19/16 21:00 53 09/19/16 20:00 60 09/19/16 20:00 99.1 63 20 134/65 96 09/19/16 19:00 69 09/19/16 18:15 99.0 57 100/60 97 09/19/16 10:44 96 Room Air I/O 09/19/16 09/19/16 09/19/16 09/20/16 09/20/16 09/20/16 07:00 15:00 23:00 07:00 15:00 23:00 Intake Total 480 ml Balance 480 ml Intake Oral 480 ml # Voids 1 3 Physical Exam GENERAL: NAD, AAOx3 SKIN: Warm and dry. HEAD: Atraumatic. Normocephalic. EYES: Pupils equal and round. No scleral icterus. No injection or drainage. ENT: No nasal bleeding or discharge. Mucous membranes pink and moist. NECK: Trachea midline. No JVD. CARDIOVASCULAR: Regular rate and rhythm. RESPIRATORY: No accessory muscle use. Clear to auscultation. Breath sounds equal bilaterally. GASTROINTESTINAL: Abdomen soft, non-tender, nondistended. Hepatic and splenic margins not palpable. MUSCULOSKELETAL: Extremities without clubbing, cyanosis, or edema. No obvious deformities. Right radial no hematoma, neurovascularly intact distally NEUROLOGICAL: Awake and alert. No obvious cranial nerve deficits. Motor grossly within normal limits. Five out of 5 muscle strength in the arms and legs. Normal speech. PSYCHIATRIC: Appropriate mood and affect; insight and judgment normal. Laboratory Laboratory Tests Test 09/19/16 09/20/16 20:41 06:37 Prothrombin Time 11.4 SEC Prothromb Time International 1.0 RATIO Ratio Activated Partial 25.7 SEC Thromboplast Time White Blood Count 10.9 TH/MM3 Red Blood Count 4.61 MIL/MM3 Hemoglobin 13.7 GM/DL Hematocrit 41.6 % Mean Corpuscular Volume 90.3 FL Mean Corpuscular Hemoglobin 29.6 PG Mean Corpuscular Hemoglobin 32.8 % Concent Red Cell Distribution Width 15.3 % Platelet Count 221 TH/MM3 Mean Platelet Volume 8.1 FL Neutrophils (%) (Auto) 48.9 % Lymphocytes (%) (Auto) 36.8 % Monocytes (%) (Auto) 12.3 % Eosinophils (%) (Auto) 1.5 % Basophils (%) (Auto) 0.5 % Neutrophils # (Auto) 5.3 TH/MM3 Lymphocytes # (Auto) 4.0 TH/MM3 Monocytes # (Auto) 1.3 TH/MM3 Eosinophils # (Auto) 0.2 TH/MM3 Basophils # (Auto) 0.1 TH/MM3 CBC Comment DIFF FINAL Differential Comment Sodium Level 139 MEQ/L Potassium Level 4.6 MEQ/L Chloride Level 104 MEQ/L Carbon Dioxide Level 31.1 MEQ/L Anion Gap 4 MEQ/L Blood Urea Nitrogen 25 MG/DL Creatinine 0.94 MG/DL Estimat Glomerular Filtration 80 ML/MIN Rate Random Glucose 91 MG/DL Calcium Level 8.9 MG/DL Assessment and Plan Problem List: (1) Chest pain (2) Suicidal ideation (3) Adjustment disorder with depressed mood (4) CAD (coronary artery disease) (5) Not taking medication as directed Assessment and Plan 1) Chest pain atypical in nature, with minimally elevated troponin, stress showing posterior basal ischemia 2) Previous JENNIFER placed around 1 month ago, restarted on Plavix, continue ASA 3) Depression per psych 4) Complex CAD with subacute stent thrombosis of his JENNIFER in the RCA (Placed for ISR, two layers of stent already) High risk bifurcation of LCx/Ramus Plan to continue medical management, cardiovascularly stable for discharge Problem Qualifiers (1) Chest pain: Qualified Code: R07.9 - Chest pain, unspecified type Pastor Nunez DO September 20, 2016 10:05
--- NOTE | 2016-09-24 16:23 | HHI.DS ---
Discharge Summary Admission Date September 17, 2016 at 05:32 Discharge Date: September 20, 2016 Admitting Diagnosis chest pain (1) CAD (coronary artery disease) ICD Code: I25.10 (2) Chest pain ICD Code: R07.9 Procedures cardiac cath. please see report Brief History - From Admission 66-year-old male with a past medical history of HTN, HLD, CAD, DM, GERD, A. fib , HYACINTH, depression initially persisted for suicidal ideation. The patient states that last night was the 3 year anniversary of his 's and he was feeling depressed. He recently relocated to the area in March to be closer to his daughter, and has not yet established with a PCP. He has been out of his medications. He states that due to the depression last night, he uses life alert to call the paramedics. He states that when the paramedics got there, he did not want to be [place] acted, so he came to the hospital voluntarily. He states that en route to the hospital and in the ED he began having chest pain. He states that the pain was midsternal and radiated to his jaw and his left arm. She describes the pain as a burning sensation, which is not similar to his previous stent placements. He did have associated shortness of breath and nausea. He denies any relieving factors including nitroglycerin and aspirin, states the pain resolved spontaneously. He actually had a stent placed last month in [facility]. He states he had a cardiac catheterization done at that time because he was diagnosed with atrial fibrillation. He has been taking an aspirin every day. He states that he feels got there his blood pressure was high in the 200s and he had associated headache, dizziness, weakness, and nausea. He still has a mild headache at this time. Of note, the sitter states that while sleeping the patient had episodes of gasping for air. The patient states that he has a history of sleep apnea, but was taken off of CPAP after he had his uvula removed 3 years ago. However, he has been having to sleep in a recliner recently, and has gained a significant amount of weight since being taken off of CPAP. CBC/BMP: 09/20/16 0637 09/20/16 0637 Imaging Last Impressions Myocardial Perfusion Scan Nuc Med 09/18/16 0800 Signed Impressions: Service Date/Time: Sunday, September 18, 2016 10:34 - CONCLUSION: Small size moderately severe posterobasal perfusion abnormality with moderate redistribution. RISK CATEGORY: Intermediate (1-3%% Annual Mortality Rate ) Aba Ribeiro MD Chest X-Ray 09/17/16 0336 Signed Impressions: Service Date/Time: Saturday, September 17, 2016 03:33 - CONCLUSION: 1. Cardiomegaly. No acute pulmonary disease. Noel Esparza MD PE at Discharge GENERAL: Well-nourished, well-developed middle aged male patient in [facility]. SKIN: Warm and dry. No rash. HEENT: Normocephalic. Atraumatic. Pupils equal and round. Mucous membranes pink and moist. NECK: Supple. Trachea midline. CARDIOVASCULAR: Regular rate and rhythm. S1, S2 noted. No murmur appreciated. RESPIRATORY: No accessory muscle use. Clear to auscultation. Breath sounds equal bilaterally. GASTROINTESTINAL: Abdomen soft, non-tender, nondistended. Normoactive bowel sounds x4. MUSCULOSKELETAL: No obvious deformities. Extremities without clubbing, cyanosis , or edema. NEUROLOGICAL: Awake and alert. No obvious cranial nerve deficits. Motor grossly within normal limits. Normal speech. PSYCHIATRIC: Appropriate mood and affect; insight and judgment normal. Pt update on day of discharge patient feeling well.feels comfortable going home. Hospital Course Psychiatry was consult and for suicidal ideation, and patient was cleared for discharge by psychiatry. For chest pain, in the setting of recent stent placement, cardiology was consult at,. Catheterization was performed which showed subacute stent thrombosis of JENNIFER in the RCA. Cardiology recommended close follow-up with cardiology, continuing medical management. Patient will need close follow-up with cardiology, primary care. Patient conveys understanding. For problem-based summary from most recent progress note, please see below. 66-year-old male with a past medical history of HTN, HLD, CAD, DM, GERD, A. fib , HYACINTH, depression initially persisted for suicidal ideation Depression with possible suicidal ideation: Continue home antidepressants. Psychiatry consulted, discussed with Dr. Robles, cleared from psychiatry perspective. Mood improving. Chest pain: Recent cardiac catheterization and noncompliance with Plavix. Rule out ACS per protocol. EKG personally reviewed, shows occasional PACs with nonspecific T-wave changes in the inferior leads, no significant change from previous. Troponins 0.06, 0.06, 0.04. Continue aspirin. Statin and Plavix resumed. Added Nitropaste with continued episodes of chest pain. Morphine IV as needed. Suspect symptoms may have be related to stress from depression vs elevated BP. Nuclear stress test with small size moderately severe posterobasal perfusion abnormality with moderate redistribution. Consulted cardiology. Plan for cardiac catheterization today. Hypertension: Labile, not optimally controlled. Resumed home lisinopril. Added metoprolol, consider increasing dose. Monitor. Blood pressure improved. Diabetes mellitus: Hold home metformin for now. Monitor Accu-Cheks. Cover with SSI. Sleep apnea: Recommended patient follow-up for sleep study as outpatient. DVT prophylaxis: SCDs Pt Condition on Discharge: Good Discharge Disposition: Discharge Home Discharge Time: <= 30 minutes Discharge Instructions DIET: Follow Instructions for: Heart Healthy Diet Activities you can perform: Regular-No Restrictions Follow up Referrals: Cardiology - 1 Week with Pastor Nunez DO PCP Follow-up - 1 Week New Medications: Nitroglycerin SL (Nitroglycerin SL) 0.4 Mg Subl 0.4 MG SL DIRECTED ONE TABLET UNDER THE TONGUE NEEDED FOR CHEST PAIN, MAY REPEAT EVERY FIVE MINUTES FOR A TOTAL OF 3 DOSES OR CALL 911 IF NO RELIEF PRN chest pain #30 Ref 0 TAB.SL Clopidogrel (Plavix) 75 Mg Tab 75 MG PO DAILY Prevent Blood Clot #30 TAB Isosorbide Mononitrate ER (Isosorbide Mononitrate ER) 30 Mg Nathan 30 MG PO DAILY@07 CAD #30 TAB Metoprolol Tartrate (Metoprolol Tartrate) 25 Mg Tab 50 MG PO Q12HR Blood Pressure Management #30 TAB ([Aspirin Chew]) 81 MG CHEW 81 MG CHEW DAILY Prevent Blood Clot #30 TAB.CHEW Continued Medications: Duloxetine (Sergey ÁLVAREZ) Unknown Strength Capdr Unknown Dose PO DAILY #30 Ref 0 CAP Lisinopril (Lisinopril) 40 Mg Tab 40 MG PO DAILY Blood Pressure Management Ref 0 TAB Metformin (Metformin) 500 Mg Tab 500 MG PO DAILY With a meal Blood Sugar Management Ref 0 TAB Omeprazole (Prilosec) 20 Mg Cap 30 MG PO DAILY Ref 0 CAP Simvastatin (Zocor) 40 Mg Tab 40 MG PO DAILY Cholesterol Management Ref 0 TAB Trazodone (Trazodone) 150 Mg Tab 150 MG PO HS Control Depression #30 Ref 0 TAB Venlafaxine ER 24 HR (Effexor XR 24 HR) 150 Mg Cap 150 MG PO DAILY Ref 0 CAP Discontinued Medications: Aspirin (Aspirin) 325 Mg Tab 325 MG PO DAILY Ref 0 TAB Buprenorphine-Naloxone (Buprenorphine-Naloxone) 8-2 Mg Subl 1 TAB SL TID TAB Miscellaneous (Office Medication) Megan Leroy Harris MD September 24, 2016 16:23
== END 2016-09-20 13:30 | disposition home or self-care (01) ==
LOC: NEPC 03:08 → INTOOBSV 05:32 → NEDA 05:32 → NEPGCP 07:48 → HCIS 09-19 08:47 → HCIN 09-19 18:27
PROVIDERS: ADMIT Internal Medicine; ATTEND Internal Medicine
DX: I25.10 Atherosclerotic heart disease of native coronary artery without angina pectoris (principal); T82.867A Thrombosis due to cardiac prosthetic devices, implants and grafts, initial encounter; I10 Essential (primary) hypertension; E78.5 Hyperlipidemia, unspecified; E11.9 Type 2 diabetes mellitus without complications; F43.21 Adjustment disorder with depressed mood; K21.9 Gastro-esophageal reflux disease without esophagitis; I48.91 Unspecified atrial fibrillation; G47.33 Obstructive sleep apnea (adult) (pediatric); F17.200 Nicotine dependence, unspecified, uncomplicated; Z96.653 Presence of artificial knee joint, bilateral; Z79.82 Long term (current) use of aspirin; Z79.84 Long term (current) use of oral hypoglycemic drugs; Z88.0 Allergy status to penicillin; Z95.5 Presence of coronary angioplasty implant and graft; Z91.14 Patient's other noncompliance with medication regimen; Y83.1 Surgical operation with implant of artificial internal device as the cause of abnormal reaction of the patient, or of later complication, without mention of misadventure at the time of the procedure
CPT/HCPCS: 71010; 78452; 80048; 80307; 82550; 82552; 82948; 83735; 84484; 85025; 85610; 85730; 93005; 93017; 93306; 93454; 96374; 96375; 96376; 99291; A9502; C1769; C1893; G0378; J1644; J1815; J2060; J2250; J2270; J2405; J2785; J3010; Q9967

== ENCOUNTER 2016-10-29 16:29 | Emergency (ER) | payer MEDICARE ==
[~2016-10-29] VITALS: Ht 304.8 cm; Wt 113.0 kg
[~2016-10-29 16:29] MED LIST changes: -ASPI325T PO; +Aspirin Chew CHEW; +ISOS30TA3 PO; +METO25TA3 PO; +NITR1SUB3 SL; -NORC5TAB PO; -PERC10TA27 PO; +PLAV75TA29 PO; +TRAZ150T75 PO
[2016-10-29 16:32] VITALS: BP 188/87; PULSE 69; RESP 28; TEMP 98.3; O2SAT 96
[2016-10-29] MEDS ORDERED: PRIL20TA2 (18:40)
[2016-10-29] MEDS ORDERED: HYDROmorphone HCL PF 1 MG/ML VIAL IV PUSH ONE (18:45)
[2016-10-29] MEDS ORDERED: ONDANSETRON HCL 4 MG/2 ML VIAL IV PUSH ONE (18:45)
[2016-10-29] MEDS ORDERED: SODIUM CHLOR 0.9% 1000 ML INJ 1,000 ML IV SCH (18:45)
--- NOTE | 2016-10-29 18:45 | PD ---
HPI Chief Complaint: Flank/Kidney Pain Time Seen by Provider: 18:35 Travel History International Travel<30 days: No Contact w/Intl Traveler<30days: No Traveled to known affect area: No History of Present Illness HPI This is a 66-year-old male who has a history of kidney stones who presents to the emergency department with 2 days of left flank pain, constant, severe, sharp and stabbing associated with some bloody urine. He's had kidney stones before and has required lithotripsy in the past. He's been trying to manage at home but his pain is constant and worse. He did have an episode of vomiting. He also has felt feverish. PFSH Past Medical History Narrative Medical Coronary artery disease with 7 stents Diabetes Hypertension hyperlipidemia Smokes 5 cigarettes per day Hx Anticoagulant Therapy: Yes (PLAVIX ) Anxiety: Yes Depression: Yes Cancer: No Cardiovascular Problems: Yes (HTN, CAD ) High Cholesterol: Yes Chemotherapy: Yes Chest Pain: Yes Congestive Heart Failure: No Diabetes: Yes (TYPE 2 ) Patient Takes Glucophage: Yes Genitourinary: No Hypertension: Yes Musculoskeletal: No Neurologic: No Reproductive: No Respiratory: No Past Surgical History Cardiac Surgery: Yes (STENTS X7) Social History Alcohol Use: Yes (SOCIALLY) Tobacco Use: Yes (1 PPD) Substance Use: No Allergies-Medications (Allergen,Severity, Reaction): Coded Allergies: Penicillin (Verified Allergy, Severe, Anaphylaxis, 10/29/16) Reported Meds & Prescriptions Reported Meds & Active Scripts Active Nitroglycerin SL (Nitroglycerin) 0.4 Mg Subl 0.4 Mg SL DIRECTED PRN ONE TABLET UNDER THE TONGUE NEEDED FOR CHEST PAIN, MAY REPEAT EVERY FIVE MINUTES FOR A TOTAL OF 3 DOSES OR CALL 911 IF NO RELIEF Plavix (Clopidogrel Bisulfate) 75 Mg Tab 75 Mg PO DAILY [Aspirin Chew] 81 MG Chew 81 Mg CHEW DAILY Reported Prilosec (Omeprazole Magnesium) 20 Mg Tab 40 Zocor (Simvastatin) 40 Mg Tab 40 Mg PO DAILY Metformin (Metformin HCl) 500 Mg Tab 500 Mg PO DAILY With a meal Effexor XR 24 HR (Venlafaxine HCl) 150 Mg Cap 150 Mg PO DAILY Review of Systems Except as stated in HPI: all other systems reviewed are Neg Physical Exam Narrative GENERAL:Well appearing, no acute distress SKIN: Focused skin assessment warm and dry. HEAD: Atraumatic. Normocephalic. EYES: Pupils equal and round. No injection or drainage. ENT: Moist mucous membranes NECK: Trachea midline. CARDIOVASCULAR: Regular rate and rhythm. No murmur appreciated. RESPIRATORY: Clear to auscultation. Breath sounds equal bilaterally. GASTROINTESTINAL: Abdomen soft, non-tender, nondistended. : Left CVA tenderness. MUSCULOSKELETAL: No obvious deformities. NEUROLOGICAL: Awake and alert. No obvious cranial nerve deficits. Moving all extremities. PSYCHIATRIC: Appropriate mood and affect; insight and judgment normal. Data Data Last Documented VS Vital Signs Date Time Temp Pulse Resp B/P Pulse Ox O2 Delivery O2 Flow Rate FiO2 10/29/16 18:54 70 18 204/93 97 Room Air 10/29/16 16:32 98.3 Orders Complete Blood Count With Diff (10/29/16 18:38) Comprehensive Metabolic Panel (10/29/16 18:38) ^ Insert Iv (10/29/16 18:38) Ct Abd/Pel W/O Iv Contrast (10/29/16 ) Urinalysis - C+S If Indicated (10/29/16 18:38) Sodium Chlor 0.9% 1000 Ml Inj (Ns 1000 M (10/29/16 18:45) Hydromorphone Pf Inj (Dilaudid Pf Inj) (10/29/16 18:45) Ondansetron Inj (Zofran Inj) (10/29/16 18:45) Urine Culture (10/29/16 18:44) Labs Laboratory Tests Test 10/29/16 18:44 White Blood Count 12.1 TH/MM3 Red Blood Count 5.00 MIL/MM3 Hemoglobin 15.0 GM/DL Hematocrit 44.6 % Mean Corpuscular Volume 89.2 FL Mean Corpuscular Hemoglobin 29.9 PG Mean Corpuscular Hemoglobin 33.6 % Concent Red Cell Distribution Width 16.0 % Platelet Count 237 TH/MM3 Mean Platelet Volume 8.2 FL Neutrophils (%) (Auto) 67.1 % Lymphocytes (%) (Auto) 24.5 % Monocytes (%) (Auto) 7.4 % Eosinophils (%) (Auto) 0.5 % Basophils (%) (Auto) 0.5 % Neutrophils # (Auto) 8.1 TH/MM3 Lymphocytes # (Auto) 3.0 TH/MM3 Monocytes # (Auto) 0.9 TH/MM3 Eosinophils # (Auto) 0.1 TH/MM3 Basophils # (Auto) 0.1 TH/MM3 CBC Comment DIFF FINAL Differential Comment Urine Color LIGHT-RED Urine Turbidity HAZY Urine pH 8.0 Urine Specific [place] 1.019 Urine Protein 30 mg/dL Urine Glucose (UA) NEG mg/dL Urine Ketones NEG mg/dL Urine Occult Blood LARGE Urine Nitrite NEG Urine Bilirubin NEG Urine Urobilinogen 2.0 MG/DL Urine Leukocyte Esterase NEG Urine RBC /hpf Urine WBC 15 /hpf Urine Squamous Epithelial 2 /hpf Cells Urine Bacteria RARE /hpf Urine Mucus FEW /lpf Microscopic Urinalysis Comment CULTURE INDICATED Sodium Level 139 MEQ/L Potassium Level 3.3 MEQ/L Chloride Level 105 MEQ/L Carbon Dioxide Level 22.5 MEQ/L Anion Gap 12 MEQ/L Blood Urea Nitrogen 13 MG/DL Creatinine 0.80 MG/DL Estimat Glomerular Filtration 97 ML/MIN Rate Random Glucose 90 MG/DL Calcium Level 9.3 MG/DL Total Bilirubin 0.4 MG/DL Aspartate Amino Transf 13 U/L (AST/SGOT) Alanine Aminotransferase 23 U/L (ALT/SGPT) Alkaline Phosphatase 85 U/L Total Protein 7.7 GM/DL Albumin 3.9 GM/DL [facility] Medical Decision Making Medical Screen Exam Complete: Yes Emergency Medical Condition: Yes Interpretation(s) Afebrile, no tachycardia, tachypnea, hypertensive Mild leukocytosis Mild hypokalemia Urinalysis: Large amount of blood with [address]: Heterogenous mass of the lower pole of the left kidney outpatient MRI recommended. Some large nonobstructing stones in the right kidney. Differential Diagnosis Nephrolithiasis, pyelonephritis, obstructive uropathy, malingering Narrative Course This is a 66-year-old male who presents to the emergency department with left flank pain that he says feels just like a kidney stone. He is fairly well appearing on exam. Labs are obtained which demonstrated a mild leukocytosis. Urinalysis demonstrates a large amount of blood. A CT was obtained which demonstrates a small heterogenous mass in the left kidney was no obstructive uropathy. I don't see anything on CT imaging that explains the patient's pain. I did have a slight suspicion for drug-seeking behavior. He's received 9 controlled substance prescriptions this year from 5 different providers, some of which have been reviewed for an orphan suggesting that he has a history of opiate dependence which he did not disclose to me. Patient will be discharged with anti-inflammatories and was advised to follow-up with the urologist and ensure that he doesn't have cancer. Diagnosis Primary Impression: Left renal mass Additional Impression: Hematuria Referrals: Robinson Miller DO Patient Instructions: General Instructions Additional Instructions: If you develop severe or worsening abdominal pain, fever>100.4, persistent vomiting or inability to eat or drink return to the emergency department immediately. Follow up with your primary care physician in 1-2 days for a check-up. It is very important that you follow-up with a urologist as you appear to have a mass in your kidneys and need an MRI with contrast and you have blood in your urine and this can be a sign of cancer. Med/Other Pt SpecificInfo: Prescription(s) given Scripts Acetaminophen (APAP Extra Strength)500 Mg Wnt647 Mg PO Q4-6H PRN (PAIN SCALE 4 TO 10) #15 TAB Prov:Valentina Gutierrez MD 10/29/16 Disposition: 01 DISCHARGE HOME Condition: Stable Valentina Gutierrez MD Oct 29, 2016 18:45
[2016-10-29 18:54] VITALS: BP 204/93; PULSE 70; RESP 18; O2SAT 97
[2016-10-29 19:14] LABS: AUTOMATED NEUTROPHIL # 8.1 TH/MM3 (1.8-7.7); BASOPHIL # 0.1 TH/MM3 (0-0.2); BASOPHIL % 0.5 % (0.0-2.0); EOSINOPHIL # 0.1 TH/MM3 (0-0.4); EOSINOPHIL % 0.5 % (0.0-4.0); HEMATOCRIT 44.6 % (39.0-51.0); HEMO FLAGS DIFF FINAL; LYMPH % 24.5 % (9.0-44.0); MEAN CELL VOLUME 89.2 FL (80.0-100.0); MEAN CORPUSCULAR HEMOGLOBIN 29.9 PG (27.0-34.0); MEAN CORPUSCULAR HGB CONC 33.6 % (32.0-36.0); MONO % 7.4 % (0.0-8.0); NEUT % 67.1 % (16.0-70.0); PLATELET COUNT 237 TH/MM3 (150-450); WHITE BLOOD COUNT 12.1 TH/MM3 (4.0-11.0)
[2016-10-29 19:23] LABS: BACTERIA, URINE RARE /hpf; BLOOD, URINE LARGE (NEG); GLUCOSE,URINE NEG (NEG); KETONE, URINE NEG (NEG); MUCUS URINE FEW /lpf (OCC); NITRITE,URINE NEG (NEG); SQUAMOUS EPITHELIAL CELL URINE 2 /hpf (0-5); URINE COLOR LIGHT-RED (YELLW/STRAW)
[2016-10-29 19:25] LABS: COMMENT (UR) CULTURE INDICATED; CULTURE IF INDICATED CULTURE INDICATED
[2016-10-29 19:35] LABS: ANION GAP 12 MEQ/L (5-15); AST (GOT) 13 U/L (15-37); BICARBONATE 22.5 MEQ/L (21.0-32.0); BLOOD UREA NITROGEN 13 MG/DL (7-18); CHLORIDE 105 MEQ/L (98-107); GLOMERULAR FILTRATION RATE 97 ML/MIN (>89); POTASSIUM 3.3 MEQ/L (3.5-5.1); SODIUM (NA) 139 MEQ/L (136-145)
[2016-10-29 19:36] LABS: ALT (GPT) 23 U/L (12-78)
[2016-10-29 19:38] LABS: ALKALINE PHOSPHATASE 85 U/L (45-117); TOTAL BILIRUBIN ADULT 0.4 MG/DL (0.2-1.0)
--- NOTE | 2016-10-29 19:55 | RADRPT ---
EXAM DATE/TIME: 10/29/2016 19:32 [facility] COMPARISON: No previous studies available for comparison. INDICATIONS : Left flank pain. ORAL CONTRAST: No oral contrast ingested. RADIATION DOSE: 21.99 CTDIvol (mGy) MEDICAL HISTORY : Cardiovascular disease. Hypertension. SURGICAL HISTORY : Total knee replacement, right. Total knee replacement, left.Cardiac stents ENCOUNTER: Initial ACUITY: 1 day PAIN SCALE: 7/10 LOCATION: Left flank TECHNIQUE: Volumetric scanning of the abdomen and pelvis was performed. Using automated exposure control and ad justment of the mA and/or kV according to patient size, radiation dose was kept as low as reasonably achievable to obtain optimal diagnostic quality images. FINDINGS: LOWER LUNGS: The visualized lower lungs are clear. LIVER: Homogeneous density without lesion. There is no dilation of the biliary tree. No calcified gallston es. SPLEEN: Normal size without lesion. PANCREAS: Within normal limits. KIDNEYS: 2 mm benign-appearing cortical calcification seen upper pole of the left kidney. There is a 2 cm slig htly heterogeneous density mass of the lower pole of the left kidney that is indeterminate. No left h ydronephrosis or hydroureter. On the right, several nonobstructing renal stones are present, with 4 m m of the mid zone, 8 x 17 mm of the lower pole and 2 mm of the lower pole. There is no right ureteral calculus. ADRENAL GLANDS: Within normal limits. VASCULAR: There is atherosclerosis of the abdominal aorta. No aneurysm. BOWEL/MESENTERY: The stomach, small bowel, and colon demonstrate no acute abnormality. There is no free intraperitone al air or fluid. ABDOMINAL WALL: Within normal limits. RETROPERITONEUM: There is no lymphadenopathy. BLADDER: No wall thickening or mass. REPRODUCTIVE: Within normal limits. INGUINAL: There is no lymphadenopathy or hernia. MUSCULOSKELETAL: No acute bony abnormality demonstrated. CONCLUSION: 1. Mildly heterogeneous mass of the lower pole of the left kidney, not clearly a cyst and further ronna racterization with a contrast enhanced study is recommended, preferably MRI. 2. 2 mm benign-appearing cortical calcification of the upper pole the left kidney. 3. No obstructive uropathy on either side. There are several nonobstructing stones of the right kidne y, including an 8 x 17 mm stone of the lower pole. 4. Atherosclerosis of the abdominal aorta. Aba Perez MD on October 29, 2016 at 19:48 Board Certified Radiologist. This report was verified electronically.
[2016-10-29 20:08] VITALS: BP 161/74
[2016-10-29] MEDS ORDERED: ACET500T13 PO (20:11)
[2016-10-29] MEDS ORDERED: KETOROLAC TROMETHAMINE 30 MG/ML (IVP) VIAL IV PUSH ONE (20:15)
== END 2016-10-29 20:44 | disposition home or self-care (01) ==
LOC: NEPD 16:29
DX: N28.89 Other specified disorders of kidney and ureter (principal); R31.9 Hematuria, unspecified; R11.10 Vomiting, unspecified; D72.829 Elevated white blood cell count, unspecified; E87.6 Hypokalemia; E11.9 Type 2 diabetes mellitus without complications; I10 Essential (primary) hypertension; E78.5 Hyperlipidemia, unspecified; Z72.0 Tobacco use; Z79.84 Long term (current) use of oral hypoglycemic drugs; Z79.01 Long term (current) use of anticoagulants; Z87.442 Personal history of urinary calculi; Z86.79 Personal history of other diseases of the circulatory system; Z86.59 Personal history of other mental and behavioral disorders
CPT/HCPCS: 74176; 80053; 81001; 85025; 87086; 96361; 96374; 96375; 99285; J1170; J1885; J2405; J7030

== ENCOUNTER 2016-12-02 23:13 | Inpatient (IN) | payer OTHER, MEDICARE ==
[~2016-12-02] VITALS: Ht 177.8 cm; Wt 119.7 kg
[~2016-12-02 23:13] MED LIST changes: +ACET500T13 PO; -CYMB30CA PO; -ISOS30TA3 PO; -LISI40TA PO; -METO25TA3 PO; -PRIL20CA9 PO; +PRIL20TA2 PO; -TRAZ150T75 PO
[2016-12-02 23:34] VITALS: BP 92/51; PULSE 89; RESP 16; TEMP 98.7; O2SAT 95
[2016-12-02 23:59] LABS: AUTOMATED NEUTROPHIL # 8.5 TH/MM3 (1.8-7.7); BASOPHIL # 0.1 TH/MM3 (0-0.2); BASOPHIL % 0.7 % (0.0-2.0); EOSINOPHIL # 0.1 TH/MM3 (0-0.4); EOSINOPHIL % 0.6 % (0.0-4.0); HEMATOCRIT 46.2 % (39.0-51.0); HEMO FLAGS DIFF FINAL; LYMPH % 28.6 % (9.0-44.0); MEAN CELL VOLUME 90.7 FL (80.0-100.0); MEAN CORPUSCULAR HEMOGLOBIN 30.6 PG (27.0-34.0); MEAN CORPUSCULAR HGB CONC 33.7 % (32.0-36.0); MONO % 9.4 % (0.0-8.0); NEUT % 60.7 % (16.0-70.0); PLATELET COUNT 279 TH/MM3 (150-450); RED BLOOD COUNT 5.09 MIL/MM3 (4.50-5.90); RED CELL DISTRIBUTION WIDTH 15.3 % (11.6-17.2)
[2016-12-03 00:09] VITALS: BP 101/51; PULSE 85; RESP 16; O2SAT 94
[2016-12-03] MEDS ORDERED: ASPI81TA11 PO (00:14)
[2016-12-03 00:18] LABS: ALKALINE PHOSPHATASE 86 U/L (45-117); ALT (GPT) 26 U/L (12-78); ANION GAP 15 MEQ/L (5-15); AST (GOT) 16 U/L (15-37); BLOOD UREA NITROGEN 15 MG/DL (7-18); CHLORIDE 105 MEQ/L (98-107); GLOMERULAR FILTRATION RATE 37 ML/MIN (>89); POTASSIUM 3.4 MEQ/L (3.5-5.1); SODIUM (NA) 140 MEQ/L (136-145); TOTAL BILIRUBIN ADULT 0.3 MG/DL (0.2-1.0)
--- NOTE | 2016-12-03 00:36 | PD ---
HPI Chief Complaint: Psychiatric Symptoms Time Seen by Provider: 00:03 Travel History International Travel<30 days: No Contact w/Intl Traveler<30days: No Traveled to known affect area: No History of Present Illness HPI This 66-year-old male who presents emergent heart complaining of suicidal thoughts. He states that he had a dream about multiple see follow-up once last night and couldn't handle it. It a nuclear during the day and felt a little bit better but up to the left he started cutting his wrists because he wanted to . Family members all the cuts and called the police who placed him under a [place] act. He states he drinks occasionally. Denies any drugs. History Past Medical History Narrative Medical CAD Diabetes Hypertension hyperlipidemia Tetanus Vaccination: < 5 Years Influenza Vaccination: No Social History Alcohol Use: No Tobacco Use: Yes Allergies-Medications (Allergen,Severity, Reaction): Coded Allergies: Penicillin (Verified Allergy, Severe, Anaphylaxis, 12/02/16) Reported Meds & Prescriptions Reported Meds & Active Scripts Active APAP Extra Strength (Acetaminophen) 500 Mg Tab 500 Mg PO Q4-6H PRN Nitroglycerin SL (Nitroglycerin) 0.4 Mg Subl 0.4 Mg SL DIRECTED PRN ONE TABLET UNDER THE TONGUE NEEDED FOR CHEST PAIN, MAY REPEAT EVERY FIVE MINUTES FOR A TOTAL OF 3 DOSES OR CALL 911 IF NO RELIEF Plavix (Clopidogrel Bisulfate) 75 Mg Tab 75 Mg PO DAILY Reported Aspirin EC (Aspirin) 81 Mg Tabdr 81 Mg PO DAILY Prilosec (Omeprazole Magnesium) 20 Mg Tab 40 Mg PO DAILY Zocor (Simvastatin) 40 Mg Tab 40 Mg PO DAILY Metformin (Metformin HCl) 500 Mg Tab 500 Mg PO DAILY With a meal Effexor XR 24 HR (Venlafaxine HCl) 150 Mg Cap 150 Mg PO DAILY Review of Systems Except as stated in HPI: all other systems reviewed are Neg Physical Exam Narrative GENERAL: Well-appearing 66-year-old man, no acute distress. SKIN: Focused skin assessment warm/dry. HEAD: Atraumatic. Normocephalic. CARDIOVASCULAR: Regular rate and rhythm. No murmur appreciated. RESPIRATORY: No accessory muscle use. Clear to auscultation. Breath sounds equal bilaterally. GASTROINTESTINAL: Abdomen soft, non-tender, nondistended. Hepatic and splenic margins not palpable. MUSCULOSKELETAL: No obvious deformities. Superficial cuts to both forearms. NEUROLOGICAL: Awake and alert. No obvious cranial nerve deficits. Motor grossly within normal limits. Normal speech. PSYCHIATRIC: Appropriate mood and affect; insight and judgment normal. Data Data Last Documented VS Vital Signs Date Time Temp Pulse Resp B/P Pulse Ox O2 Delivery O2 Flow Rate FiO2 12/03/16 00:09 85 16 101/51 94 Room Air 12/02/16 23:34 98.7 Orders Complete Blood Count With Diff (12/02/16 23:42) Comprehensive Metabolic Panel (12/02/16 23:42) Psych Screen (12/02/16 23:42) Drug Screen, Random Urine (12/02/16 23:42) Alcohol (Ethanol) (12/02/16 23:42) Labs Laboratory Tests Test 12/02/16 23:45 White Blood Count 14.0 TH/MM3 Red Blood Count 5.09 MIL/MM3 Hemoglobin 15.6 GM/DL Hematocrit 46.2 % Mean Corpuscular Volume 90.7 FL Mean Corpuscular Hemoglobin 30.6 PG Mean Corpuscular Hemoglobin 33.7 % Concent Red Cell Distribution Width 15.3 % Platelet Count 279 TH/MM3 Mean Platelet Volume 7.7 FL Neutrophils (%) (Auto) 60.7 % Lymphocytes (%) (Auto) 28.6 % Monocytes (%) (Auto) 9.4 % Eosinophils (%) (Auto) 0.6 % Basophils (%) (Auto) 0.7 % Neutrophils # (Auto) 8.5 TH/MM3 Lymphocytes # (Auto) 4.0 TH/MM3 Monocytes # (Auto) 1.3 TH/MM3 Eosinophils # (Auto) 0.1 TH/MM3 Basophils # (Auto) 0.1 TH/MM3 CBC Comment DIFF FINAL Differential Comment Sodium Level 140 MEQ/L Potassium Level 3.4 MEQ/L Chloride Level 105 MEQ/L Carbon Dioxide Level 20.0 MEQ/L Anion Gap 15 MEQ/L Blood Urea Nitrogen 15 MG/DL Creatinine 1.84 MG/DL Estimat Glomerular Filtration 37 ML/MIN Rate Random Glucose 108 MG/DL Calcium Level 8.9 MG/DL Total Bilirubin 0.3 MG/DL Aspartate Amino Transf 16 U/L (AST/SGOT) Alanine Aminotransferase 26 U/L (ALT/SGPT) Alkaline Phosphatase 86 U/L Total Protein 7.6 GM/DL Albumin 3.8 GM/DL Ethyl Alcohol Level 42 MG/DL [facility] Medical Decision Making Medical Screen Exam Complete: Yes Emergency Medical Condition: Yes Differential Diagnosis Depression, adjustment reaction, intoxication, other Narrative Course Medical decision making 66-year-old man, under a [place] act for suicidal thoughts. Some superficial cuts on his arm. No somatic complaints. Patient is medically clear for psychiatric evaluation. Mental health screening discussed with the patient. Psychiatric screen ordered. Jon Patel MD Dec 03, 2016 00:36
[2016-12-03 06:05] LABS: AMPHETAMINE, URINE NEG (NEG); BARBITURATES, URINE NEG (NEG); COCAINE, URINE NEG (NEG)
[2016-12-03 09:44] VITALS: BP 98/56; PULSE 90; RESP 16; O2SAT 96
[2016-12-03] MEDS ORDERED: ACETAMINOPHEN 325 MG TAB PO PRN (11:00)
[2016-12-03] MEDS ORDERED: LORazepam 2 MG/ML VIAL IV PUSH PRN ×8 (11:00→16:15)
[2016-12-03] MEDS ORDERED: MAGNESIUM HYDROXIDE SUSP 30 ML CUP PO PRN (11:00)
[2016-12-03] MEDS ORDERED: FLUMAZENIL 0.5 MG/5 ML VIAL IV PUSH PRN ×2 (11:00→16:15)
[2016-12-03] MEDS ORDERED: LORazepam 0.5 MG TAB PO PRN (11:00)
[2016-12-03] MEDS ORDERED: LORazepam 2 MG/ML VIAL IM PRN ×2 (11:00)
[2016-12-03] MEDS ORDERED: LORazepam 2 MG TAB PO PRN ×2 (11:00→16:15)
[2016-12-03] MEDS ORDERED: ALUMINUM/MAGNESIUM/SIMETH 30 ML CUP PO PRN (11:00)
[2016-12-03] MEDS ORDERED: LORazepam 1 MG TAB PO PRN ×3 (11:00→16:15)
--- NOTE | 2016-12-03 11:09 | HHI.HP ---
Provisional Diagnosis Admission Date [place] I. Adjustment disorder with depressed mood, rule out major depressive disorder, severe, single episode, alcohol use disorder [place] II. Deferred [place] III. HTN, CAD, DM [place] IV. , poor social and family support [place] V. 35 Certification of Person's Competence To Provide Express and Informed Consent I have personally examined Timoteo Diego , a person being served at [facility] on, Dec 03, 2016 10:53. Express and informed consent means consent voluntarily given in writing, by a competent person, after sufficient explanation and disclosure of the subject matter involved to enable the person to make a knowing and willful decision without any element of force, fraud, deceit, duress, or other form of constraint or coercion. This person is 18 years of age or older, is not now known to be incompetent to consent to treatment with a guardian advocate, and does not have a health care surrogate or proxy currently making medical treatment decisions. I have found this person to be one of the following: [X] Competent to provide express and informed consent, as defined above, for voluntary admission to this facility and is competent to provide express and informed consent for treatment. He/she has the consistent capacity to make well reasoned, willful, and knowing decisions concerning his or her medical or mental health treatment. The person fully and consistently understands the purpose of the admission for examination/placement and is fully capable of personally exercising all rights assured [place] Incompetent to provide express and informed consent to voluntary admission, and this is incompetent to provide express and informed consent to treatment. The person must be transferred to involuntary status and a petition for a guardian advocate filed with the Circuit Court. [] Refusing to provide express and informed consent to voluntary admission but is competent to provide express and informed consent for treatment. The person must be discharged or transferred to involuntary status. Form shall be completed within 24 hours of a person's arrival at the receiving facility and filed in the clinical record of each person: 1. Admitted on a voluntary basis 2. Permitted to provide express and informed consent to his/her own treatment 3. Allowed to transfer from involuntary to voluntary status 4. Prior to permitting a person to consent to his or her own treatment after having been previously found incompetent to consent to treatment. History of Present Illness Capacity: Has Capacity HPI The patient is a 66-year-old man, domiciled in [place] with his daughter, , unemployed, retired, without no previous psychotic history, no previous suicidal attempts, no previous psychiatric hospitalizations, alcohol use disorder, significant medical history hypertension, CAD, DM, as per ER note : who presents emergent heart complaining of suicidal thoughts. He states that he had a dream about multiple see follow-up once last night and couldn't handle it. It a nuclear during the day and felt a little bit better but up to the left he started cutting his wrists because he wanted to . Family members all the cuts and called the police who placed him under a [place] act. He states he drinks occasionally. Denies any drugs. On psychiatric evaluation today the patient is calm, cooperative, pleasant. Patient says that he doesn't understand how he could self induced this laceration on himself, but after having a nightmare who he described as a very vivid the patient says that he could not identified a reality from the unreality and he thought that he did not want to live "if all the people I love were as I saw in the dream". Patient says that he has been feeling depressed since he 3 years ago. He has been coping poorly with a lack of social and family support. He also has been increasing his alcohol use in the last months. Patient reports decreased level of energy, decreased sleep, Decreased appetite, decreased level of concentration, but he denies hopelessness, he denies helplessness, he denies worthlessness. This moment the patient denies suicidal or homicidal ideation, visual and auditory hallucinations. He is fully oriented 3, no attention deficit, no cognitive impairment present. However, patient reports that he is very scared of the feelings and impulse that unconsciously let him to cut himself and would like to be admitted to explore his feelings. He reports increased use of alcohol, but he denies being an alcoholic. He denies the use of illicit drugs. Review of Systems Constitutional: DENIES: Diaphoretic episodes, Fatigue, Fever, Weight gain, Weight loss, Chills, Dizziness, Change in appetite, Night Sweats Endocrine: DENIES: Heat/cold intolerance, Polydipsia, Polyuria, Polyphagia Eyes: DENIES: Blurred vision, Diplopia, Eye inflammation, Eye pain, Vision loss , Photosensitivity, Double Vision Ears, nose, mouth, throat: DENIES: Tinnitus, Hearing loss, Vertigo, Nasal discharge, Oral lesions, Throat pain, Hoarseness, Ear Pain, Running Nose, Epistaxis, Sinus Pain, Toothache, Odynophagia Gastrointestinal: DENIES: Abdominal pain, Black stools, Bloody stools, Constipation, Diarrhea, Nausea, Vomiting, Difficulty Swallowing, Anorexia Genitourinary: DENIES: Sexual dysfunction, Urinary frequency, Urinary incontinence, Urgency, Hematuria, Dysuria, Nocturia, Penile Discharge, Testicular Pain, Testicular Swelling Musculoskeletal: DENIES: Joint pain, Muscle aches, Stiffness, Joint Swelling, Back pain, Neck pain Integumentary: DENIES: Abnormal pigmentation, Nail changes, Pruritus, Rash Hematologic/lymphatic: DENIES: Bruising, Lymphadenopathy Immunologic/allergic: DENIES: Eczema, Urticaria Neurologic: DENIES: Abnormal gait, Headache, Localized weakness, Paresthesias, Seizures, Speech Problems, Tremor, Poor Balance Psychiatric: COMPLAINS OF: Depression Past Psych History Violence risk - self (6 mos) Increased Substance Abuse History Drugs/Alcohol past 12 months Patient reports occasional use of alcohol, denies use of drugs Past Family Social History Coded Allergies: Penicillin (Verified Allergy, Severe, Anaphylaxis, 12/02/16) Active Scripts Acetaminophen (APAP Extra Strength)500 Mg [id number] Mg PO Q4-6H PRN (PAIN SCALE 4 TO 10) #15 TAB Prov:Valentina Gutierrez MD 10/29/16 Nitroglycerin SL 0.4 Mg Subl0.4 Mg SL DIRECTED PRN (chest pain) #30 TAB.SL Ref 0 ONE TABLET UNDER THE TONGUE NEEDED FOR CHEST PAIN, MAY REPEAT EVERY FIVE MINUTES FOR A TOTAL OF 3 DOSES OR CALL 911 IF NO RELIEF Prov:Melony Stephen PA-C 09/20/16 Clopidogrel (Plavix)75 Mg Tab75 Mg PO DAILY #30 TAB Prov:Melony Stephen PA-C 09/19/[address] (Aspirin EC)81 Mg Tabdr81 Mg PO DAILY Ref 0 12/03/16 Omeprazole Magnesium (Prilosec)20 Mg Tab40 Mg PO DAILY 10/29/16 Simvastatin (Zocor)40 Mg Tab40 Mg PO DAILY Ref 0 09/10/16 Metformin 500 Mg Xog292 Mg PO DAILY Ref 0 With a meal 09/10/16 Venlafaxine ER 24 HR (Effexor XR 24 HR)150 Mg Znf653 Mg PO DAILY Ref 0 09/10/16 Discontinued Scripts [Aspirin] (Aspirin Chew)81 MG CHEW No Conflict Check81 Mg CHEW DAILY #30 TAB.CHEW Prov:Melony Stephen EFREM 09/19/16 Current Medications Medications (Trade) Dose Ordered Sig/Heike Route Start Time Stop Time Status Last Admin (Ativan) 1 mg Q6H PRN PO 12/03/16 11:00 UNV (Ativan Inj) 1 mg Q6H PRN IM 12/03/16 11:00 UNV (Mag-Al Plus Susp Liq) 30 ml Q6H PRN PO 12/03/16 11:00 UNV Family History Patient denies psychiatric family history Social History Patient was born and raised in [place], he lives in [place] with his daughter, 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 2) Good insight of his depressive condition Physical Exam A physical exam the patient presented multiple self inflicted superficial laceration in both arms, also some in his face, but no tremors, no EPS, no withdrawal symptoms, no psychomotor retardation or agitation present. Vital Signs Vital Signs Date Time Temp Pulse Resp B/P Pulse Ox O2 Delivery O2 Flow Rate FiO2 12/03/16 09:44 90 16 98/56 96 12/03/16 00:09 Room Air 12/02/16 23:34 98.7 Lab Results Labs Laboratory Tests Test 12/02/16 23:45 White Blood Count 14.0 TH/MM3 Red Blood Count 5.09 MIL/MM3 Hemoglobin 15.6 GM/DL Hematocrit 46.2 % Mean Corpuscular Volume 90.7 FL Mean Corpuscular Hemoglobin 30.6 PG Mean Corpuscular Hemoglobin 33.7 % Concent Red Cell Distribution Width 15.3 % Platelet Count 279 TH/MM3 Mean Platelet Volume 7.7 FL Neutrophils (%) (Auto) 60.7 % Lymphocytes (%) (Auto) 28.6 % Monocytes (%) (Auto) 9.4 % Eosinophils (%) (Auto) 0.6 % Basophils (%) (Auto) 0.7 % Neutrophils # (Auto) 8.5 TH/MM3 Lymphocytes # (Auto) 4.0 TH/MM3 Monocytes # (Auto) 1.3 TH/MM3 Eosinophils # (Auto) 0.1 TH/MM3 Basophils # (Auto) 0.1 TH/MM3 CBC Comment DIFF FINAL Differential Comment Sodium Level 140 MEQ/L Potassium Level 3.4 MEQ/L Chloride Level 105 MEQ/L Carbon Dioxide Level 20.0 MEQ/L Anion Gap 15 MEQ/L Blood Urea Nitrogen 15 MG/DL Creatinine 1.84 MG/DL Estimat Glomerular Filtration 37 ML/MIN Rate Random Glucose 108 MG/DL Calcium Level 8.9 MG/DL Total Bilirubin 0.3 MG/DL Aspartate Amino Transf 16 U/L (AST/SGOT) Alanine Aminotransferase 26 U/L (ALT/SGPT) Alkaline Phosphatase 86 U/L Total Protein 7.6 GM/DL Albumin 3.8 GM/DL Ethyl Alcohol Level 42 MG/DL Mental Status Examination Appearance man, age appearing, overweight, regular clothing, multiple self inflicted superficial lacerations in both arms, calm, cooperative Speech: Unremarkable Orientation: x3 Memory: Unremarkable Thought Process: Logical Thought Content: Unremarkable Language Fluid and spontaneous Fund of Knowledge Adequate for his level of education Hallucination Type: None Attention and Concentration: Good Suicidal Ideation: No Previous Suicide Attempts: Yes Homicidal Ideation: No Previous Homicide Attempts: No Judgment: Poor Affect: Sad Mood: Sad Motor Activity: Normal gait Assessment & Plan Problem List: (1) Adjustment disorder with depressed mood Assessment & Plan: Or psychotic evaluation today the patient presents with symptomatology consistent of moderate to severe depression. The patient reports difficulty sleeping, lower level of energy, decreased concentration level, frequent sadness,, but denies hopelessness, denies helplessness, denies suicidal and homicidal ideation. She also reports increased use of alcohol in the context of depression. He reports a stressor the of his . He also reports lack of social and family support. Current depression has led to was seems to be a suicidal attempt by self inflicting several superficial lacerations in both arms. Patient doesn't seem to be insightful about the revealed motivation of this behavior. At this moment the patient represents an increase danger to self and needs psychiatric admission for stabilization. Patient agrees with voluntary psychiatric admission at this moment. He is interested in exploring his depressive symptoms and his recent suicidal behavior. Also interested in starting medication if needed. chip loft worker intervention for psychosocial assessment, safety discharge plan, individual and group therapy. Patient is cici for safety, no spatial observation needed. No psychotropics at this moment. Extensive support, psychoeducation and motivation provided. ICD Code: F43.21 Assessment & Plan Estimated LOS: days Jamie Robles MD Dec 03, 2016 11:09
[2016-12-03] MEDS: NICOTINE 21 MG/24 HR PATCH T-DERMAL SCH (11:52)
[2016-12-03 12:24] VITALS: BP 129/63; PULSE 80; RESP 18; TEMP 98.1; O2SAT 95
[2016-12-03 18:00] VITALS: BP 140/68; PULSE 89; RESP 18; TEMP 98.1; O2SAT 95
--- NOTE | 2016-12-03 18:59 | PD.CONS ---
[facility] Request[facility] By Psychiatric team Reason for Consult Treat underlying medical conditions Primary Care Physician Safia Phelan MD Diagnoses: History of Present Illness Written by Jnenifer Marrero, acting as scribe for Dr. Pantoja on 12/03/16 at 18:54. This is a pleasant 66 year old male patient with past medical history which includes coronary artery disease status post cardiac stents 7, hyperlipidemia, hypertension, DM type II, anxiety/depression and PTSD. Patient reports that he was he thought he was at his baseline mental's and medical status then he had a dream which triggered him. Patient reports he also had 2 alcoholic drinks prior to being admitted which he normally does not drink. Patient was witnessed by his family member to be cutting himself therefore please recall the patient was brought to the hospital. Patient reports he has not cut himself in the past and is not trying to kill himself. Patient denies chest pain shortness of breath nausea vomiting diarrhea constipation fevers or chills. 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 Reported Medications APAP Extra Strength (Acetaminophen) 500 Mg Tab 500 Mg PO Q4-6H PRN Nitroglycerin SL (Nitroglycerin) 0.4 Mg Subl 0.4 Mg SL DIRECTED PRN ONE TABLET UNDER THE TONGUE NEEDED FOR CHEST PAIN, MAY REPEAT EVERY FIVE MINUTES FOR A TOTAL OF 3 DOSES OR CALL 911 IF NO RELIEF Plavix (Clopidogrel Bisulfate) 75 Mg Tab 75 Mg PO DAILY Aspirin EC (Aspirin) 81 Mg Tabdr 81 Mg PO DAILY Prilosec (Omeprazole Magnesium) 20 Mg Tab 40 Mg PO DAILY Zocor (Simvastatin) 40 Mg Tab 40 Mg PO DAILY Metformin (Metformin HCl) 500 Mg Tab 500 Mg PO DAILY With a meal Effexor XR 24 HR (Venlafaxine HCl) 150 Mg Cap 150 Mg PO DAILY Active Ordered Medications Current Medications Medications (Trade) Dose Ordered Sig/Heike Route Start Time Stop Time Status Last Admin (Ativan) 0.5 mg Q12H PRN PO 12/03/16 11:00 (Ativan Inj) 0.5 mg Q12H PRN IM 12/03/16 11:00 (Tylenol) 650 mg Q4H PRN PO 12/03/16 11:00 (Milk Of Magnesia Liq) 30 ml DAILY PRN PO 12/03/16 11:00 (Mag-Al Plus Susp Liq) 30 ml Q6H PRN PO 12/03/16 11:00 (Habitrol 21 Mg Patch.24 Hr) 1 patch DAILY T-DERMAL 12/03/16 11:00 12/03/16 11:52 Miscellaneous Information 1 HS T-DERMAL 12/03/16 21:00 (Ecotrin Ec) 81 mg DAILY PO 12/04/16 09:00 (Plavix) 75 mg DAILY PO 12/04/16 09:00 (Protonix) 40 mg DAILY PO 12/04/16 09:00 (Pravachol) 80 mg DAILY PO 12/04/16 09:00 (Romazicon Inj) 0.2 mg Q1M PRN IV PUSH 12/03/16 16:15 (Ativan) 1 mg Q4H PRN PO 12/03/16 16:15 (Ativan Inj) 1 mg Q4H PRN IV PUSH 12/03/16 16:15 (Ativan) 2 mg Q2H PRN PO 12/03/16 16:15 (Ativan Inj) 2 mg Q2H PRN IV PUSH 12/03/16 16:15 (Ativan Inj) 2 mg Q1H PRN IV PUSH 12/03/16 16:15 (Ativan Inj) 2 mg Q15M PRN IV PUSH 12/03/16 16:15 Family History Father secondary to IN at 62 Mother alive and well 92 years old Social History Patient reports smokes one pack per day for the past 46 years Very rare EtOH use Denies illicit drug use Physical Exam Vital Signs Vital Signs Date Time Temp Pulse Resp B/P Pulse Ox O2 Delivery O2 Flow Rate FiO2 12/03/16 18:00 98.1 89 18 140/68 95 12/03/16 12:24 98.1 80 18 129/63 95 12/03/16 09:44 90 16 98/56 96 12/03/16 00:09 85 16 101/51 94 Room Air 12/02/16 23:34 98.7 89 16 92/51 95 Room Air Physical Exam GENERAL: This is a well-nourished, well-developed patient, in no apparent distress. SKIN: Scattered/Healing superficial lacerations bilateral forearms and face HEAD: Atraumatic. Normocephalic. No temporal or scalp tenderness. EYES: Extraocular motions intact. No scleral icterus. No injection or drainage. CARDIOVASCULAR: Regular rate and rhythm without murmurs, gallops, or rubs. RESPIRATORY: Clear to auscultation. Breath sounds equal bilaterally. No wheezes , rales, or rhonchi. GASTROINTESTINAL: Abdomen soft, non-tender, nondistended. No hepato-splenomegaly , or palpable masses. No guarding. MUSCULOSKELETAL: Extremities without clubbing, cyanosis, or edema. No joint tenderness, effusion, or edema noted. No calf tenderness. Negative Homans sign bilaterally. NEUROLOGICAL: Awake and alert. No focal deficits appreciated. Motor and sensory grossly within normal limits. Five out of 5 muscle strength in all muscle groups. Normal speech. Laboratory Laboratory Tests Test 12/02/16 12/03/16 23:45 05:35 White Blood Count 14.0 Red Blood Count 5.09 Hemoglobin 15.6 Hematocrit 46.2 Mean Corpuscular Volume 90.7 Mean Corpuscular Hemoglobin 30.6 Mean Corpuscular Hemoglobin 33.7 Concent Red Cell Distribution Width 15.3 Platelet Count 279 Mean Platelet Volume 7.7 Neutrophils (%) (Auto) 60.7 Lymphocytes (%) (Auto) 28.6 Monocytes (%) (Auto) 9.4 Eosinophils (%) (Auto) 0.6 Basophils (%) (Auto) 0.7 Neutrophils # (Auto) 8.5 Lymphocytes # (Auto) 4.0 Monocytes # (Auto) 1.3 Eosinophils # (Auto) 0.1 Basophils # (Auto) 0.1 CBC Comment DIFF FINAL Differential Comment Sodium Level 140 Potassium Level 3.4 Chloride Level 105 Carbon Dioxide Level 20.0 Anion Gap 15 Blood Urea Nitrogen 15 Creatinine 1.84 Estimat Glomerular Filtration 37 Rate Random Glucose 108 Calcium Level 8.9 Total Bilirubin 0.3 Aspartate Amino Transf 16 (AST/SGOT) Alanine Aminotransferase 26 (ALT/SGPT) Alkaline Phosphatase 86 Total Protein 7.6 Albumin 3.8 Ethyl Alcohol Level 42 Urine Opiates Screen NEG Urine Barbiturates Screen NEG Urine Amphetamines Screen NEG Urine Benzodiazepines Screen POS Urine Cocaine Screen NEG Urine Cannabinoids Screen NEG Result Diagram: 12/02/16 2345 12/02/16 2345 Assessment and Plan Assessment and Plan This is a pleasant 66 year old male patient with past medical history which includes coronary artery disease status post cardiac stents 7, hyperlipidemia, hypertension, DM type II, anxiety/depression and PTSD. Patient reports that he was he thought he was at his baseline mental's and medical status then he had a dream which triggered him. Patient reports he also had 2 alcoholic drinks prior to being admitted which he normally does not drink. Patient was witnessed by his family member to be cutting himself therefore please recall the patient was brought to the hospital. Adjustment disorder with depressed mood Management per psychiatric team CAD Hyperlipemia Continue simvastatin 40 mg daily, aspirin 81 mg daily, Plavix 75 mg daily Hypertension Not on daily medication at home will continue to monitor trend Diabetes mellitus Will hold metformin at this time secondary to elevated creatinine Checks before meals at bedtime with low-dose sliding scale insulin coverage DVT prophylaxis patient is ambulatory and low risk Discussed with patient and nursing staff This note was transcribed by scribe [Jennifer Marrero]. I, Dr. Nalini Pantoja personally performed the history, physical exam, and medical decision making; and confirmed the accuracy of the information in the transcribed note. Authenticated by Dr. Nalini Pantoja on 12/03/16 at 1900. Jennifer Marrero Dec 03, 2016 18:59 Nalini Pantoja MD Dec 03, 2016 19:26
[2016-12-03] MEDS: REMOVE OLD NICODERM (NICOTINE) PATCH T-DERMAL SCH (21:00)
[2016-12-04 05:36] VITALS: BP 128/68; PULSE 81; RESP 20; TEMP 98.4; O2SAT 96
[2016-12-04] MEDS ORDERED: POTASSIUM CHLORIDE 20 MEQ CONTROLLED RELEASE TAB PO ONE (08:15)
[2016-12-04] MEDS ORDERED: DEXTROSE 50% IN WATER 50 ML VIAL(D50) IV PRN (08:30)
[2016-12-04] MEDS ORDERED: GLUCAGON 1 MG/ML VIAL OTHER PRN (08:30)
[2016-12-04] MEDS ORDERED: ASPIRIN EC 81 MG TABEC PO SCH (09:00)
[2016-12-04] MEDS ORDERED: CLOPIDOGREL 75 MG TAB PO SCH (09:00)
[2016-12-04] MEDS ORDERED: PRAVASTATIN SOD 80 MG TAB PO SCH (09:00)
[2016-12-04] MEDS ORDERED: PANTOPRAZOLE SOD 40 MG DELAYED RELEASE TAB PO SCH (09:00)
[2016-12-04] MEDS: NICOTINE 21 MG/24 HR PATCH T-DERMAL SCH (09:00)
[2016-12-04] MEDS: REMOVE OLD NICODERM (NICOTINE) PATCH T-DERMAL SCH (09:19)
[2016-12-04] MEDS ORDERED: INSULIN ASPART SUPPLEMENTAL SCALE SQ SCH (11:00)
--- NOTE | 2016-12-04 12:28 | HHI.DS ---
Psychiatry Discharge Summary Inpatient Psychiatric care?: Yes Advance Directive: No Reason Not Provided: Declined Mental Health AdvanceDirective: No Health Care Proxy: No Admission Admission Date Dec 03, 2016 at 10:52 Admission Diagnosis: (1) Adjustment disorder with depressed mood ICD Code: F43.21 Brief History The patient is a 66-year-old man, domiciled in [place] with his daughter, , unemployed, retired, without no previous psychotic history, no previous suicidal attempts, no previous psychiatric hospitalizations, alcohol use disorder, significant medical history hypertension, CAD, DM, as per ER note : who presents emergent heart complaining of suicidal thoughts. He states that he had a dream about multiple see follow-up once last night and couldn't handle it. It a nuclear during the day and felt a little bit better but up to the left he started cutting his wrists because he wanted to . Family members all the cuts and called the police who placed him under a [place] act. He states he drinks occasionally. Denies any drugs. On psychiatric evaluation today the patient is calm, cooperative, pleasant. Patient says that he doesn't understand how he could self induced this laceration on himself, but after having a nightmare who he described as a very vivid the patient says that he could not identified a reality from the unreality and he thought that he did not want to live "if all the people I love were as I saw in the dream". Patient says that he has been feeling depressed since he 3 years ago. He has been coping poorly with a lack of social and family support. He also has been increasing his alcohol use in the last months. Patient reports decreased level of energy, decreased sleep, Decreased appetite, decreased level of concentration, but he denies hopelessness, he denies helplessness, he denies worthlessness. This moment the patient denies suicidal or homicidal ideation, visual and auditory hallucinations. He is fully oriented 3, no attention deficit, no cognitive impairment present. However, patient reports that he is very scared of the feelings and impulse that unconsciously let him to cut himself and would like to be admitted to explore his feelings. He reports increased use of alcohol, but he denies being an alcoholic. He denies the use of illicit drugs. Tobacco Use In Past 30 Days: 5 or More Cigarettes/Day Alcohol Use: Monthly or Less Hospital Course Patient show no behavioral problems from the of admission. He denied suicidality homicidality voices or visions. Did acknowledge having some memories of family members including his that upset him somewhat. He did take an acknowledge those of his Klonopin and then had a few drinks. He realizes the folly in doing that. Patient showing good insight processing was behaviors. Is planning on moving back to his family home in [place] with his granddaughter and her 4 children in the next 1-2 days he has other family and extended family in that area. If this time patient a longer meets criteria for inpatient psychiatric hospitalization patient to be discharged to himself. No Rx by me. May continue his own schedule medications at home. Follow-up either here in town at the NH or in his home town in [place]. At this time also referral to AA. And of course absolute abstinence Results Blood Pressure 128 / 68 Vital Signs Date Time Temp Pulse Resp B/P Pulse Ox O2 Delivery O2 Flow Rate FiO2 12/04/16 05:36 98.4 81 20 128/68 96 12/03/16 00:09 Room Air Laboratory Tests Test 12/02/16 12/03/16 23:45 05:35 White Blood Count 14.0 TH/MM3 (4.0-11.0) Monocytes (%) (Auto) 9.4 % (0.0-8.0) Neutrophils # (Auto) 8.5 TH/MM3 (1.8-7.7) Monocytes # (Auto) 1.3 TH/MM3 (0-0.9) Potassium Level 3.4 MEQ/L (3.5-5.1) Carbon Dioxide Level 20.0 MEQ/L (21.0-32.0) Creatinine 1.84 MG/DL (0.60-1.30) Estimat Glomerular Filtration 37 ML/MIN (>89) Rate Random Glucose 108 MG/DL (74-106) Ethyl Alcohol Level 42 MG/DL (0-5) Urine Benzodiazepines Screen POS (NEG) Summary of Procedures None done Pending results at discharge: No Medications # of Antipsychotic meds at D/C: 0 Approp Antipsych med options 1 - Minimum of three failed multiple trials of monotherapy. 2 - Documented plan to taper to monotherapy due to previous use of multiple meds OR cross-taper in progress at D/C. 3 - Documentation of augmentation of Clozapine. 4 - Justification other than those listed in allowable values 1-3, document here : Discharge Discharge Date: Dec 04, 2016 Discharge Diagnosis: (1) Adjustment disorder with depressed mood Diagnosis: Principal ICD Code: F43.21 Mental Status Exam at Disch Alert oriented obese white male, he has normal active, mood is euthymic with good range intensity of his affect, speech rate and rhythm are within normal limits there are no formal thought disorders. No auditory or visual hallucinations. No delusions. Insight and judgment is fair. Cognition grossly intact. Pt Condition on Discharge: Stable Discharge Disposition: Discharge Home Discharge Instructions Diet Instructions: Diabetic Diet Additional Diet Instructions: 1800-calorie ADA diet Activities you can perform: Regular-No Restrictions Scheduled Appointment: follow-up NH clinic in [facility] or at home town in [place] Discharge Time > 30 minutes Discharge/Advance Care Plan Health Problems: (1) Adjustment disorder with depressed mood Goals to promote your health * To prevent worsening of your condition and complications * To maintain your health at the optimal level Directions to meet your goals Take your medications as prescribed Follow your dietary instruction Follow activity as directed Keep your appointments as scheduled Take your immunizations and boosters as scheduled If your symptoms worsen call your PCP, if no PCP go to Urgent Care Center or Emergency Room For 09/12 questions related to your inpatient stay or results of tests pending at discharge, please contact Dr. Aba Carlos at Smoking is Dangerous to Your Health. Avoid second hand smoking Aba Carlos MD Dec 04, 2016 12:28
[2016-12-04 16:21] LABS: HEMOGLOBIN A1b 1.9 %; HEMOGLOBIN Ao 84.3 %; HEMOGLOBIN LA1C 2.2 %
== END 2016-12-04 14:25 | disposition home or self-care (01) | DRG 881 ==
LOC: NEPE 23:13 → H260 12-03 10:52
PROVIDERS: ADMIT Psychiatry & Neurology Psychiatry; ATTEND Psychiatry & Neurology Psychiatry
DX: F43.21 Adjustment disorder with depressed mood (principal); R45.851 Suicidal ideations; E11.9 Type 2 diabetes mellitus without complications; I10 Essential (primary) hypertension; I25.10 Atherosclerotic heart disease of native coronary artery without angina pectoris; E78.5 Hyperlipidemia, unspecified; F17.210 Nicotine dependence, cigarettes, uncomplicated; Z88.0 Allergy status to penicillin; E66.3 Overweight; Z68.37 Body mass index [BMI] 37.0-37.9, adult; S61.512A Laceration without foreign body of left wrist, initial encounter; S61.511A Laceration without foreign body of right wrist, initial encounter; F10.20 Alcohol dependence, uncomplicated; F19.10 Other psychoactive substance abuse, uncomplicated; F41.9 Anxiety disorder, unspecified; F43.10 Post-traumatic stress disorder, unspecified; X78.1XXA Intentional self-harm by knife, initial encounter; Y90.2 Blood alcohol level of 40-59 mg/100 ml; Z79.84 Long term (current) use of oral hypoglycemic drugs; Z89.411 Acquired absence of right great toe; Z95.5 Presence of coronary angioplasty implant and graft; Z96.653 Presence of artificial knee joint, bilateral
CPT/HCPCS: 80053; 80307; 83036; 85025; J1815

== ENCOUNTER 2017-03-01 22:55 | Inpatient (IN) | payer MEDICARE, OTHER ==
[~2017-03-01] VITALS: Ht 175.3 cm; Wt 119.2 kg
[~2017-03-01 22:55] MED LIST changes: +ASPI81TA11 PO; -Aspirin Chew CHEW
[2017-03-01] MEDS ORDERED: SUBO8MIS SL (23:06)
[2017-03-01] MEDS ORDERED: CLON1 PO (23:07)
[2017-03-01] MEDS ORDERED: LISI40TA PO (23:08)
[2017-03-01 23:10] VITALS: BP 143/83; PULSE 79; RESP 22; TEMP 100.7; O2SAT 96
[2017-03-01 23:13] VITALS: O2SAT 96
--- NOTE | 2017-03-01 23:14 | PD ---
HPI Chief Complaint: Cardiac Complaint Time Seen by Provider: 23:09 Travel History International Travel<30 days: No Contact w/Intl Traveler<30days: No Traveled to known affect area: No History of Present Illness HPI 67yo M with PMH of CAD s/p cardiac stent presents to the ED from long term for sob for 1.5 hours. Pt was called as cardiac alert because EKG had ST depressions. Pt denies any chest pain, n/v, abdominal pain, focal weakness or numbness. However, he has these episodes of generalized shaking where he stares in space and would not respond. Pt was given ativan 2mg IM here. Pt has been on suboxone for many years and has been off of it for 10 days. PFSH Past Medical History Hx Anticoagulant Therapy: Yes (plavix, aspirin ) Anxiety: Yes Depression: Yes Cancer: No Cardiovascular Problems: Yes (7 stents) High Cholesterol: Yes Chemotherapy: Yes Chest Pain: Yes Congestive Heart Failure: No Diabetes: Yes (metformin ) Diminished Hearing: No Genitourinary: No Hypertension: Yes Musculoskeletal: No Neurologic: No Reproductive: No Respiratory: No Immunizations Current: No Past Surgical History Cardiac Surgery: Yes (STENTS X7) Social History Alcohol Use: No Tobacco Use: Yes Substance Use: Yes (Bought Suboxone off the street before.) Allergies-Medications (Allergen,Severity, Reaction): Coded Allergies: penicillin G (Unverified Allergy, Severe, Anaphylaxis, 03/01/17) Reported Meds & Prescriptions Reported Meds & Active Scripts Active APAP Extra Strength (Acetaminophen) 500 Mg Tab 500 Mg PO Q4-6H PRN Nitroglycerin SL (Nitroglycerin) 0.4 Mg Subl 0.4 Mg SL DIRECTED PRN ONE TABLET UNDER THE TONGUE NEEDED FOR CHEST PAIN, MAY REPEAT EVERY FIVE MINUTES FOR A TOTAL OF 3 DOSES OR CALL 911 IF NO RELIEF Plavix (Clopidogrel Bisulfate) 75 Mg Tab 75 Mg PO DAILY Reported Lisinopril 40 Mg Tab 40 Mg PO DAILY Klonopin (Clonazepam) 1 Mg Tab 1 Mg PO HS Suboxone Sublingual Film (Buprenorphine-Naloxone Sublingual Film) 8-2 Mg Film 1 Film SL Unique ID number required: Aspirin EC (Aspirin) 81 Mg Tabdr 81 Mg PO DAILY Prilosec (Omeprazole Magnesium) 20 Mg Tab 40 Mg PO DAILY Zocor (Simvastatin) 40 Mg Tab 40 Mg PO DAILY Metformin (Metformin HCl) 500 Mg Tab 500 Mg PO DAILY With a meal Effexor XR 24 HR (Venlafaxine HCl) 150 Mg Cap 150 Mg PO DAILY Review of Systems Except as stated in HPI: all other systems reviewed are Neg Physical Exam Narrative GENERAL: 67yo M in mild distress. SKIN: Focused skin assessment warm/dry. HEAD: Atraumatic. Normocephalic. EYES: Pupils equal and round at 4m bilaterally. ENT: No nasal bleeding or discharge. Mucous membranes pink and moist. NECK: Trachea midline. No JVD. CARDIOVASCULAR: Regular rate and rhythm. No murmur appreciated. RESPIRATORY: No accessory muscle use. Clear to auscultation. Breath sounds equal bilaterally. GASTROINTESTINAL: Abdomen soft, non-tender, nondistended. MUSCULOSKELETAL: No obvious deformities. No clubbing. No cyanosis. No edema. NEUROLOGICAL: Awake and alert. No obvious cranial nerve deficits. Motor grossly within normal limits. Normal speech. PSYCHIATRIC: Appropriate mood and affect; insight and judgment normal. Data Data Last Documented VS Vital Signs Date Time Temp Pulse Resp B/P (MAP) Pulse Ox O2 Delivery O2 Flow Rate FiO2 03/02/17 00:12 98 3.00 03/02/17 00:12 Nasal Cannula 03/01/17 23:59 74 30 160/74 (102) 03/01/17 23:10 100.7 Orders Orders Complete Blood Count With Diff (03/01/17 23:10) Basic Metabolic Panel (Bmp) (03/01/17 23:10) B-Type Natriuretic Peptide (03/01/17 23:10) Act Partial Throm Time (Ptt) (03/01/17 23:10) Prothrombin Time / Inr (Pt) (03/01/17 23:10) Magnesium (Mg) (03/01/17 23:10) Troponin I (03/01/17 23:10) Iv Access Insert/Monitor (03/01/17 23:10) Ecg Monitoring (03/01/17 23:10) Oximetry (03/01/17 23:10) Oxygen Administration (03/01/17 23:10) Chest, Single Ap (03/01/17 23:10) Sodium Chloride 0.9% Flush (Ns Flush) (03/01/17 23:15) Lactic Acid (03/01/17 23:11) Ct Brain W/O Iv Contrast(Rout) (03/01/17 ) Nitroglycerin-D5w 50 Mg/250 Ml (Nitrogly (03/02/17 00:00) Station Captain / Telemetry KENDRICK.Q8H (03/01/17 23:46) Heparin Inj (Heparin Inj) (03/02/17 06:00) Heparin Inj (Heparin Inj) (03/02/17 06:00) Heparin-D5w 25,000 U/250 Ml (Heparin-D5w (03/02/17 00:00) Cbc No Diff, Includes Plts (03/04/17 06:00) Act Partial Throm Time (Ptt) (03/02/17 06:46) Occult Blood (Hemoccult) Stool (03/01/17 23:46) Heparin Inj (Heparin Inj) (03/01/17 23:49) Heparin Inj (Heparin Inj) (03/02/17 00:15) Cardiac Catheterization (03/02/17 ) Heparin-Ns/Pf Inj (Heparin-Ns/Pf Inj) (03/02/17 00:51) Midazolam Inj (Versed Inj) (03/02/17 00:51) Fentanyl Inj (Fentanyl Inj) (03/02/17 00:51) Admit Order (Ed Use Only) (03/02/17 01:05) Labs Laboratory Tests Test 03/01/17 23:10 03/01/17 23:15 White Blood Count 13.6 TH/MM3 Red Blood Count 5.28 MIL/MM3 Hemoglobin 15.5 GM/DL Hematocrit 46.2 % Mean Corpuscular Volume 87.6 FL Mean Corpuscular Hemoglobin 29.4 PG Mean Corpuscular Hemoglobin Concent 33.5 % Red Cell Distribution Width 16.1 % Platelet Count 263 TH/MM3 Mean Platelet Volume 8.8 FL Neutrophils (%) (Auto) 52.2 % Lymphocytes (%) (Auto) 34.0 % Monocytes (%) (Auto) 12.3 % Eosinophils (%) (Auto) 0.5 % Basophils (%) (Auto) 1.0 % Neutrophils # (Auto) 7.1 TH/MM3 Lymphocytes # (Auto) 4.6 TH/MM3 Monocytes # (Auto) 1.7 TH/MM3 Eosinophils # (Auto) 0.1 TH/MM3 Basophils # (Auto) 0.1 TH/MM3 CBC Comment DIFF FINAL Differential Comment Prothrombin Time 14.6 SEC Prothromb Time International Ratio 1.3 RATIO Activated Partial Thromboplast Time 25.8 SEC Blood Urea Nitrogen 19 MG/DL Creatinine 0.82 MG/DL Random Glucose 98 MG/DL Calcium Level 9.8 MG/DL Magnesium Level 2.0 MG/DL Sodium Level 136 MEQ/L Potassium Level 3.8 MEQ/L Chloride Level 104 MEQ/L Carbon Dioxide Level 22.1 MEQ/L Anion Gap 10 MEQ/L Estimat Glomerular Filtration Rate 94 ML/MIN Troponin I LESS THAN 0.02 NG/ML B-Type Natriuretic Peptide 12 PG/ML Lactic Acid Level 2.0 mmol/L MDM Medical Decision Making Medical Screen Exam Complete: Yes Emergency Medical Condition: Yes Interpretation(s) EKG: NSR 75bpm. Normal axis. Diffuse ST segment depressions. Differential Diagnosis ACS vs. seizure vs. drug use Narrative Course 67yo M here with sob for 1.5 hours. Pt has episodes of shaking in his extremities and staring in space, unsure if seizure but pt given ativan 2mg IM. Pt is not post ictal. Pt initially with no chest pain. Then pt started having left sided chest pain and repeat EKG ordered. Repeat EKG showed 1mm ST elevation in aVR and diffuse ST depression. I discussed with sweatband decorating machine operator Dr. Manjarrez and he recommended calling STEMI alert. I discussed with Dr. Nunez since he is construction teacher for STEMI first and recommended heparin drip and nitroglycerin drip and then to call him back if pt is still with chest pain. I reevaluated pt at bedside and chest pain went from an 8 to a 7 but now it is getting worst. Pain is radiating to left jaw and left arm. I discussed with Dr. Nunez again and STEMI alert is called and pt will be transferred emergently to laboratory immunologist for cardiac cath. Labs reviewed, troponin negative. CXR showed cardiomegaly. Critical Care Narrative Aggregate critical care time was 40 minutes. Time to perform other separately billable procedures was not included in the critical care time. My time did not include minutes spent treating any other patients simultaneously or on activities that did not directly contribute to the patient's treatment. The services I provided to this patient were to treat and/or prevent clinically significant deterioration that could result in: cardiovascular collapse or . I provided critical care services requiring my management, as noted below: Chart data review, documentation time, medication orders and management, vital sign assessments/reviewing monitor data, ordering and reviewing lab tests, ordering and interpreting/reviewing x- rays and diagnostic studies, care of the patient and discussion of the patient with the admitting physicians. Diagnosis Primary Impression: STEMI (ST elevation myocardial infarction) Qualified Codes: I21.3 - ST elevation (STEMI) myocardial infarction of unspecified site Admitting Information Admitting Physician Requests: it Sandra Santillan DO Mar 01, 2017 23:14
[2017-03-01] MEDS ORDERED: SODIUM CHLORIDE 0.9% FLUSH 10 ML FLUSH IVF PRN (23:15)
[2017-03-01 23:40] LABS: AUTOMATED NEUTROPHIL # 7.1 TH/MM3 (1.8-7.7); BASOPHIL # 0.1 TH/MM3 (0-0.2); EOSINOPHIL # 0.1 TH/MM3 (0-0.4); EOSINOPHIL % 0.5 % (0.0-4.0); HEMATOCRIT 46.2 % (39.0-51.0); HEMO FLAGS DIFF FINAL; LYMPHOCYTE # 4.6 TH/MM3 (1.0-4.8); MEAN CELL VOLUME 87.6 FL (80.0-100.0); MEAN CORPUSCULAR HEMOGLOBIN 29.4 PG (27.0-34.0); MEAN CORPUSCULAR HGB CONC 33.5 % (32.0-36.0); MONO % 12.3 % (0.0-8.0); NEUT % 52.2 % (16.0-70.0); PLATELET COUNT 263 TH/MM3 (150-450); RED BLOOD COUNT 5.28 MIL/MM3 (4.50-5.90); RED CELL DISTRIBUTION WIDTH 16.1 % (11.6-17.2); WHITE BLOOD COUNT 13.6 TH/MM3 (4.0-11.0)
[2017-03-01] MEDS ORDERED: HEPARIN SODIUM - IV 10,000 UNITS/10 ML VIAL ONE (23:49)
--- NOTE | 2017-03-01 23:50 | RADRPT ---
EXAM DATE/TIME: 03/01/2017 23:26 [facility] COMPARISON: CHEST SINGLE AP, September 17, 2016, 3:33. INDICATIONS : Chest pain. MEDICAL HISTORY : Hypertension. Cardiovascular disease. SURGICAL HISTORY : Coronary artery stent. Total knee replacement, left. Total knee replacement, right. ENCOUNTER: Initial ACUITY: 1 day PAIN SCORE: 1/10 LOCATION: Bilateral chest FINDINGS: The heart size is enlarged. Lungs are clear. No effusion is seen. CONCLUSION: Cardiomegaly. Aba Jacobs MD on March 01, 2017 at 23:48 Board Certified Radiologist. This report was verified electronically.
[2017-03-01 23:54] VITALS: BP 180/85; PULSE 72; RESP 32; O2SAT 97
[2017-03-01 23:59] VITALS: BP 160/74; PULSE 74; RESP 30; O2SAT 98
[2017-03-02] VITALS (14 sets, daily range): BP systolic 101–133; BP diastolic 40–73; PULSE 65–79; RESP 18–20; TEMP 98–98.8; O2SAT 93–98
[2017-03-02] MEDS ORDERED: NITROGLYCERIN-D5W 50 MG/250 ML 250 ML IV ONE
[2017-03-02 00:05] LABS: ANION GAP 10 MEQ/L (5-15); BICARBONATE 22.1 MEQ/L (21.0-32.0); BLOOD UREA NITROGEN 19 MG/DL (7-18); CHLORIDE 104 MEQ/L (98-107); GLOMERULAR FILTRATION RATE 94 ML/MIN (>89); POTASSIUM 3.8 MEQ/L (3.5-5.1); SODIUM (NA) 136 MEQ/L (136-145)
[2017-03-02] MEDS ORDERED: HEPARIN SODIUM - IV 10,000 UNITS/10 ML VIAL IV ONE (00:15)
[2017-03-02 00:16] LABS: APTT (PATIENT) 25.8 SEC (24.3-30.1); INTERNATIONAL NORMALIZED RATIO 1.3 RATIO; PROTHROMBIN TIME - PATIENT 14.6 SEC (9.8-11.6)
[2017-03-02] MEDS: HEPARIN-D5W 25,000 U/250 ML 250 ML IV PRN (00:18)
--- NOTE | 2017-03-02 00:46 | RADRPT ---
EXAM DATE/TIME: 03/02/2017 00:25 [facility] COMPARISON: CT BRAIN W/O CONTRAST, September 14, 2016, 14:10. INDICATIONS : Syncopal episode. RADIATION DOSE: 56.35 CTDIvol (mGy) MEDICAL HISTORY : Cardiovascular disease. Hypertension. Diabetes. SURGICAL HISTORY : Cardiac stents. ENCOUNTER: Initial ACUITY: 1 day PAIN SCALE: 0/10 LOCATION: cranial TECHNIQUE: Multiple contiguous axial images were obtained of the head. Using automated exposure control and adj ustment of the mA and/or kV according to patient size, radiation dose was kept as low as reasonably a chievable to obtain optimal diagnostic quality images. DICOM format image data is available electro nically for review and comparison. FINDINGS: CEREBRUM: The ventricles are normal for age. No evidence of midline shift, mass lesion, hemorrhage or acute in farction. No extra-axial fluid collections are seen. POSTERIOR FOSSA: The cerebellum and brainstem are intact. The 4th ventricle is midline. The cerebellopontine angle i s unremarkable. EXTRACRANIAL: The visualized portion of the orbits is intact. There is focal mucosal disease of the right maxillary sinus. SKULL: The calvaria is intact. No evidence of skull fracture. CONCLUSION: 1. No intracranial abnormality seen. 2. Right maxillary sinus disease. Aba Jacobs MD on March 02, 2017 at 0:42 Board Certified Radiologist. This report was verified electronically.
[2017-03-02] MEDS ORDERED: MIDAZOLAM HCL 2 MG/2 ML VIAL ONE (00:51)
[2017-03-02] MEDS ORDERED: HEPARIN-NS/PF INJ 500 ML ONE (00:51)
[2017-03-02] MEDS ORDERED: MORPHINE SULFATE 8 MG/ML INJ ONE ×2 (01:17→02:17)
[2017-03-02] MEDS ORDERED: oxyCODONE/ACETAMINOPHEN 5 MG/325 MG TAB PO PRN (02:30)
--- NOTE | 2017-03-02 02:31 | CATHPROC ---
[facility] HIS Report Study Information Study Number Admission Scheduled Start Study Start [id number] Mar 01 2017 10:55PM 03/02/2017 Mar 02 2017 12:48AM [facility] Cardiac Catheterization Admit Source Facility Department Emergency department [facility] - Commercial Solar Sales Consultant Physician and Clinical Staff Initial Pastor Pineda Spindle Repairer Elinor Zapata,DALTON Spindle Repairer Av ValenzuelaRN Recorder Nicolas Ruiz RCIS(BS) Scrub Aster Tenorio RT(R) Procedures Performed Procedure Location (Site) Vessel Name Angiogram LV Aortic Angiogram LV Abd Aorta (A3) Aorta Coronary Angiograms LCA Left Coronary Coronary Angiograms RCA Right Coronary IABP Fem Art (left) Femoral Art L Heart Cath Wire insertion Fem Art (right) Femoral Art Equipment Time Rouge Sifter Description Size Mfg Part Number Used/Scraped TRANSDUCER, TRUWAVE [id number] 01:04 MAHAJAN ARITA * Used W/TONE *[id number]- INTRODUCER SET, 01:05 [employer] FR 5 SC-NT-U-SST Used MICROPUNCTURE, STIFFENED *[id number] *[id number] [id number] *[id number] [id number] *[id number] WIRE, HYDROSTEER 150CM [id number] 01:05 DAIG/ST. ANITA MEDICAL 150CM Used ANGLED GLIDE *[id number] BALLOON, FR8 50CC SENSATION [id number] 01:51 MAQUET FR 8 50CC Used PLUS 01U [id number] 01:04 [employer] INDUSTRIES PACK, CCL CUSTOM * Used *[id number] 01:04 [employer] MEDICAL SHEATH, FR6.5 PRELUDE 11CM FR 6.5 [id number] Used *[id number] 01:04 [employer] MEDICAL WIRE, 3MMJ .035 180CM 180CM Used *[id number] 01:04 NAMIC MANIFOLD, 4 PORT * Used *[id number] 01:04 NYCOMED OMNIPAQUE, 350 MG, 150ML 150ML [id number] Used [id number] 01:04 ALBA MEDICAL BLANKET,WARM AIR CCL * Used *[id number] 01:39 TERUMO MEDICAL SHEATH, FR6 TERUMO (10CM) FR 6 Used *[id number] Equipment Model, Serial, Lot Number and Expiration Data Description Model Number Serial Number Lot Number Expiration Date MARIFER SENA 150CM [id number] 10-17-2019 ANGLED GLIDE History: Current Medications Medication Dosage/Unit Route Frequency Last Date/Time Taken Prilosec ASA LISINOPRIL Zocor PLAVIX History: Allergies Allergy Reaction Penicillin Anaphylaxis History: Risk Factors Family History of Hypertension Dyslipidemia Previous WI Previous Heart Failure Premature CAD Yes Yes No No No Prior Valve Prior PCI Prior PCIDate Prior CABG Surgery No Yes 08/17/2016 No Cerebrovascular Peripheral Artery Chronic Lung On Dialysis Diabetes Diabetes Therapy Disease Disease Disease No No No No Yes Oral History: Symptoms/Diagnosis Selection Items Chest pain History: Stress Tests Stress or Imaging Studies Performed Yes Standard Exercise Stress Test No Stress Echo No Stress Test SPECT Stress Test SPECT Result Stress Test SPECT Ischemia Risk/Extent Yes Positive Intermediate Stress Test CMR No Cardiac CTA Coronary Calcium Score No No History: Arrhythmias Selection Items Atrial fibrillation History: Other Disease Selection Items CAD Gerd HTN History: WI/CV Data Previous Cath Date 08/17/2016 History: Other Current Smoker Method Packs a Day Years Used Pack Years Yes Cigarettes 1 45 45 Labs Hgb (g/dl) Hct (%) RBC (MIL/MM3) WBC (l/cumm) Platelets (thousands) 11.60-17.00 35.00-51.00 4.00-5.90 4.00-11.00 150.00-450.00 15.5 46.2 5.2 13.6 263 Glucose (mg/dl) BUN (mg/dl) Creatinine (mg/dl) BUN:Creatinine (1:x) 74.00-106.00 7.00-18.00 0.50-1.30 10.00-20.00 98 19 0.8 23.8 Na (meq/l) K (meq/l) 136.00-145.00 3.50-5.10 136 3.8 INR (PTT:PT) 0.90-1.10 1.3 Troponin I (ng/ml) CPK-MB (ng/ML) 0.02-0.05 0.50-3.60 0.02 Not Drawn Medication Medication Total Dose (Bolus/Oral) Medication Total Dosage/Unit 1% XYLOCAINE 30 mL FENTANYL 100 mcg MORPHINE 6 mg VERSED 2.5 mg Medications (Bolus/Oral) Medication Time Given Dosage/Unit Administered By Reason 03/02/2017 12:59:00 VERSED 0.5 mg Elinor Zapata AM 0.5 mg VERSED given in lab by Elinor Zapata RN in Right Hand via Peripheral IV. Ordered by Pastor Arana FENTANYL 03/02/2017 1:00:00 AM 50 mcg Elinor Zapata 50 mcg FENTANYL given in lab by Elinor Zapata RN in Right Hand via Peripheral IV. Ordered by Pastor Murcia 1% XYLOCAINE 03/02/2017 1:00:31 AM 10 mL Pastor Nunez 10 mL 1% XYLOCAINE given in lab by Pastor Nunez in Right Radial via Subcutaneous. Ordered by Pastor Kay FENTANYL 03/02/2017 1:03:00 AM 50 mcg Elinor Zapata 50 mcg FENTANYL given in lab by Elinor Zapata RN in Right Hand via Peripheral IV. Ordered by Pastor Murcia MORPHINE 03/02/2017 1:15:00 AM 2 mg Elinor Zapata 2 mg MORPHINE given in lab by Elinor Zapata RN in Right Hand via Peripheral IV. Ordered by Pastor Arana 1% XYLOCAINE 03/02/2017 1:34:06 AM 20 mL Pastor Nunez 20 mL 1% XYLOCAINE given in lab by Pastor Nunez in Left Groin via Subcutaneous. Ordered by Pastor Beasley. MORPHINE 03/02/2017 1:35:00 AM 2 mg Elinor Zapata 2 mg MORPHINE given in lab by Elinor Zapata RN in Right Hand via Peripheral IV. Ordered by Pastor Arana VERSED 03/02/2017 1:43:21 AM 1 mg Elinor Zapata 1 mg VERSED given in lab by Elinor Zapata RN in Right Hand via Peripheral IV. Ordered by Pastor Nunez VERSED 03/02/2017 1:45:00 AM 1 mg Elinor Zapata 1 mg VERSED given in lab by Elinor Zapata RN in Right Hand via Peripheral IV. Ordered by Pastor Nunez MORPHINE 03/02/2017 2:15:00 AM 2 mg Av Valenzuela 2 mg MORPHINE given in lab by Av Valenzuela RN in Right Hand via Peripheral IV. Ordered by Pastor Nunez Medication (Drip) Medication Time Given Dosage/Unit Concentration/Unit Diluent (ml) Solution HEPARIN DRIP 03/02/2017 1:55:00 AM 1000 units/hr 24593 units 250 D5W 1000 units/hr HEPARIN DRIP given in lab by Av Valenzuela RN via Peripheral IV. Pump/Drip Flow = 10 m l/hr [place] [address] units in 250 ml. Ordered by Pastor Nunez 03/02/2017 12:53:08 IV Solutions 0 mL (IV) 500 NaCl .9 AM Patient arrived on IV Solutions in Right Hand via Peripheral IV. Pump/Drip Flow = 20 ml/hr using NaCl .9. Ordered by Pastor Nunez NITROGLYCERIN DRIP 03/02/2017 1:12:49 AM 20 mcg/min 50 mg 250 D5W 20 mcg/min NITROGLYCERIN DRIP given in lab by Av Valenzuela RN in Right Hand via Peripheral IV. Pump /Drip Flow = 6 ml/hr using D5W with a concentration of 50 mg in 250 ml. Ordered by Pastor Nunez NITROGLYCERIN DRIP 03/02/2017 1:22:56 AM 40 mcg/min 50 mg 250 D5W 40 mcg/min NITROGLYCERIN DRIP given in lab by Av Valenzuela RN in Right Hand via Peripheral IV. Pump /Drip Flow = 12 ml/hr using D5W with a concentration of 50 mg in 250 ml. Ordered by Pastor Nunez Initial Case Assessment Cardiovascular HR Rhythm NIBP Chest Pain 71 SR 139/76 0 Edema Present Skin color Skin None Normal Warm Dry Circulatory - Right Pulses Dorsalis Pedis Femoral Radial 2 2 2 Scale (0,1,2,3,4,d) Circulatory - Left Pulses Dorsalis Pedis Femoral Radial 2 2 Scale (0,1,2,3,4,d) Circulatory - Lower Extremities Color Lower Right Color Lower Left Normal Normal Neurological State Oriented to time-place- Alert Moves all extremities person Respiration - General Respiration Rate SpO2 (%) (B/min) 22 98 Final Case Assessment Cardiovascular HR Rhythm NIBP Chest Pain 71 SR 139/76 0 Edema Present Skin color Skin None Normal Warm Dry Circulatory - Right Pulses Dorsalis Pedis Femoral Radial 2 2 2 Scale (0,1,2,3,4,d) Circulatory - Left Pulses Dorsalis Pedis Femoral Radial 2 2 Scale (0,1,2,3,4,d) Circulatory - Lower Extremities Color Lower Right Color Lower Left Normal Normal Neurological State Oriented to time-place- Alert Moves all extremities person Respiration - General Respiration Rate SpO2 (%) (B/min) 22 98 Chronological Log Time Study Chronological Log 0:30:00 MD arrived. 0:45:00 Patient arrived via Bed. 0:45:40 Patient Name, D.O.B, / Armband Verified By R.N. 0:45:51 Consent signed by the physician and the patient and verified by the Commercial Solar Sales Consultant staff. 0:48:27 NIBP STAT measurement started. 0:48:47 HR=71 bpm, NBOA=876/76 mmhg, SpO2=93.0 %, Resp=21 B/min, Pain=0, Surinder=10, Dietrich=2 0:52:52 Pre-op and post- op instructions given; patient acknowledges understanding of instructions. 0:52:57 Allens test performed on the right radial and ulnar artery. 0:52:58 Patient has been NPO for Less than 6Hrs. 0:52:59 Skin Breakdown- 0:52:59 Patient Warmer Placed on the Table. 0:53:00 A # 20 IV was noted in the Antecubital (left). Grade = 0 0:53:07 A # 22 IV was noted in the Hand (right). Grade = 0 Patient arrived on IV Solutions in Right Hand via Peripheral IV. Pump/Drip Flow = 20 ml/hr using NaCl .9. Ordered by 0:53:08 Pastor Nunez 0:53:08 History and physical on the chart or being dictated. Assessment: Initial Case, HR=71 BPM, Rhythm=SR, OTQM=015/76 mmhg, Chest Pain=0, Edema=None, [place] r=Normal, Skin = Warm, Dry Right Pulses: Gerry Ped=2, Femoral=2, Radial=2 Left Pulses: Gerry Ped=2, Femoral=2 0:53:09 Lower Right Extremities: Color=Normal Lower Left Extremities: Color=Normal Neurological: State=Alert, Ox3, COLLINS Respiration: Resp=22 B/min, SpO2=98 % 0:53:12 Bilateral groins prepped with 2% chlorhexidine, and draped after a 3 minute waiting time. 0:59:00 0.5 mg VERSED given in lab by Elinor Zapata, RN in Right Hand via Peripheral IV. Ordered b Pastor Barrett 0:59:07 Pressure channel 1 zeroed. 1:00:00 50 mcg FENTANYL given in lab by Elinor Zapata, RN in Right Hand via Peripheral IV. Ordered by Pastor Nunez Time Out. Correct patient, correct procedure, correct physician, power injector not loaded with contrast with surgical 1:00:19 team present. Time Out Concurred by MD and individual staff in procedure. 1:00:29 Case Start 10 mL 1% XYLOCAINE given in lab by Pastor Nunez in Right Radial via Subcutaneous. Ordered by Enrique 1:00:31 Pastor Mayfield 1:03:00 50 mcg FENTANYL given in lab by Elinor Zapata, DALTON in Right Hand via Peripheral IV. Ordered by Pastor Nunez 1:04:45 Access site was Right Femoral Artery. A INTRODUCER SET, MICROPUNCTURE, STIFFENED FR 5 was advanced into the Fem Art (right) using the 1:04:47 Percutaneous technique. A SHEATH, FR6.5 PRELUDE 11CM FR 6.5 was exchanged in the Fem Art (right). This was necessary in order to 1:04:48 accomodate a larger catheter. 1:05:30 An injection in the Fem Art (right) was made through the SHEATH, FR6.5 PRELUDE 11CM FR 6.5. Recorded Pressure: Ao, NN=276, Condition=Condition 1 1:05:40 (Aorta) Ao 147/80/107 A JR 4.0 INFINITI CATHETER FR 6 was advanced over a wire. OMNIPAQUE, 350 MG, 150ML 150ML was use d for 1:06:09 injections. 1:06:41 A WIRE, HYDROSTEER 150CM ANGLED GLIDE 150CM was inserted via Fem Art (right). Recorded Pressure: LV, HR=78, Condition=Condition 1 1:08:14 (Left Ventricle) LV 159/7/12 Recorded Pressure: LV, Ao, HR=89, Condition=Condition 1 1:08:25 (Left Ventricle) LV 118/5/19, (Aorta) Ao 167/79/119 1:08:52 The RCA was injected and visualized at various angles. OMNIPAQUE, 350 MG, 150ML 150ML used. After removing the current catheter a JL 4.0 INFINITI CATHETER FR 6 was advanced over a WIRE, 3M MJ .035 180CM 1:10:32 180CM. 1:12:21 The LCA was injected and visualized at various angles. OMNIPAQUE, 350 MG, 150ML 150ML used. 20 mcg/min NITROGLYCERIN DRIP given in lab by Av Valenzuela RN in Right Hand via Peripheral IV. Pump/Drip Flow = 1:12:49 6 ml/hr using D5W with a concentration of 50 mg in 250 ml. Ordered by Pastor Nunez 1:15:00 2 mg MORPHINE given in lab by Elinor Zapata RN in Right Hand via Peripheral IV. Ordered b Pastor Barrett Vitals capture started with the following parameters, Patient=Adult, Interval=5 min, Initial Pre rsjph=881 mmHg, 1:16:33 Deflation Rate=5 mmHg, Cuff placed on Right Arm After removing the current catheter a PIGTAIL STR INFINITI CATHETER FR 6 was advanced over a WIR E, 3MMJ .035 1:17:53 180CM 180CM. 1:18:08 HR=83 bpm, LZGV=653/84 mmhg, SpO2=96.0 %, Resp=18 B/min, Pain=0, Surinder=10, Dietrich=2 1:19:49 The Aortic was injected at 20 cc/sec for a total of 40. OMNIPAQUE, 350 MG, 150ML 150ML used. 1:22:22 HR=75 bpm, YKQM=529/78 mmhg, SpO2=97.0 %, Resp=22 B/min, Pain=0, Surinder=10, Dietrich=2 40 mcg/min NITROGLYCERIN DRIP given in lab by Av Valenzuela RN in Right Hand via Peripheral IV. Pump/Drip Flow = 1:22:56 12 ml/hr using D5W with a concentration of 50 mg in 250 ml. Ordered by Pastor Nunez 1:24:18 Reference ECG taken A PIGTAIL STR INFINITI CATHETER FR 6 was advanced over a wire. OMNIPAQUE, 350 MG, 150ML 150ML wa s used for 1:25:23 injections. 1:25:29 The Abd Aorta (A3) was injected at 15 cc/sec for a total of 30. OMNIPAQUE, 350 MG, 150ML 150 ML used. 1:27:21 HR=72 bpm, GBWH=322/83 mmhg, SpO2=97.0 %, Resp=27 B/min, Pain=0, Surinder=10, Dietrich=2 1:31:21 Catheter was removed 1:32:22 HR=90 bpm, VTHL=460/69 mmhg, SpO2=97.0 %, Resp=25 B/min, Pain=0, Surinder=10, Dietrich=2 20 mL 1% XYLOCAINE given in lab by Pastor Nunez in Left Groin via Subcutaneous. Ordered sanket Nunez, 1:34:06 Pastor Mayfield 1:34:18 Access site was Left Femoral Artery. A INTRODUCER SET, MICROPUNCTURE, STIFFENED FR 5 was advanced into the Fem Art (left) using the P ercutaneous 1:34:24 technique. A SHEATH, FR6 TERUMO (10CM) FR 6 was exchanged in the Fem Art (left). This was necessary in orde r to 1:34:35 accomodate a larger catheter. 1:35:00 2 mg MORPHINE given in lab by Elinor Zapata, DALTON in Right Hand via Peripheral IV. Ordered Pastor Lentz 1:37:22 HR=92 bpm, BDDG=453/83 mmhg, SpO2=96.0 %, Resp=24 B/min, Pain=0, Surinder=10, Dietrich=2 1:42:23 HR=90 bpm, HHZX=264/82 mmhg, SpO2=96.0 %, Resp=29 B/min, Pain=0, Surinder=10, Dietrich=2 1:43:21 1 mg VERSED given in lab by Elinor Zapata, RN in Right Hand via Peripheral IV. Ordered by Pastor Nunez A JR 4.0 INFINITI CATHETER FR 6 was advanced over a wire. OMNIPAQUE, 350 MG, 150ML 150ML was use d for 1:43:52 injections. 1:45:00 1 mg VERSED given in lab by Elinor Zapata, RN in Right Hand via Peripheral IV. Ordered by Pastor Nunez 1:47:02 Catheter was removed 1:47:18 HR=82 bpm, EPTV=037/65 mmhg, SpO2=94.0 %, Resp=23 B/min, Pain=0, Surinder=10, Dietrich=2 1:48:00 Sheath exchanged for intra-aortic balloon insertion. An BALLOON, FR8 50CC SENSATION PLUS FR 8 50CC was advanced to the descending aorta. Proper place ment was 1:50:10 confired under fluoroscopy and the balloon was sutured in place. Ratio = 1. Augmented BP 112/~DI A~ 1:52:51 HR=80 bpm, VXRS=051/68 mmhg, SpO2=94.0 %, Resp=27 B/min, Pain=0, Surinder=10, Dietrich=2 1000 units/hr HEPARIN DRIP given in lab by Av Valenzuela RN via Peripheral IV. Pump/Drip Flow = 10 ml/hr using D5W 1:55:00 [place] [address] units in 250 ml. Ordered by Pastor Nunez 1:57:18 HR=84 bpm, WMLU=667/63 mmhg, SpO2=93.0 %, Resp=24 B/min, Pain=0, Surinder=10, Dietrich=2 2:02:17 HR=80 bpm, AATY=674/73 mmhg, SpO2=95.0 %, Resp=32 B/min, Pain=0, Surinder=10, Dietrich=2 2:05:00 Case End 2:07:18 LNGX=182/68 mmhg, SpO2=95.0 %, Pain=0, Surinder=10, Dietrich=2 2:09:02 Sterile dressing applied to site Assessment: Final Case, HR=71 BPM, Rhythm=SR, FSSQ=479/76 mmhg, Chest Pain=0, Edema=None, Color= Normal, Skin = Warm, Dry Right Pulses: Gerry Ped=2, Femoral=2, Radial=2 Left Pulses: Gerry Ped=2, Femoral=2 2:09:09 Lower Right Extremities: Color=Normal Lower Left Extremities: Color=Normal Neurological: State=Alert, Ox3, COLLINS Respiration: Resp=22 B/min, SpO2=98 % 2:09:27 No case complications noted. 2::28 Cine recording checked. 2::33 Bedside Report will be given. 2:09:37 Contrast Scanned 2:09:57 A Left Heart Cath was performed. 2:10:04 Patient moved to stretcher 2:15:00 2 mg MORPHINE given in lab by Av Valenzuela RN in Right Hand via Peripheral IV. Ordered Pastor Lentz End Study - Contrast Media Used In Study Contrast Total Opened (mL) Total Used (mL) Total Wasted (mL) Omnipaque 120 120 0 End Study - Maximum Contrast Load Max Contrast Load (mL) 718.8 End Study - Radiation Exposure Fluoro Time (minutes) 6.7 End Study - Patient Disposition Complications Transferred To No Critical Care Bed
[2017-03-02] MEDS: MORPHINE SULFATE 2 MG/ML INJ IM PRN ×5 (02:47→21:09)
--- NOTE | 2017-03-02 03:35 | PD.CONS ---
[facility] Service Critical Care Medicine Consult Requested By Dr. Nunez Reason for Consult Critical care management patient with complex CAD and unstable angina. Primary Care Physician Unknown History of Present Illness 67-year-old male with past medical history of coronary artery disease with prior stents, hypertension, hyperlipidemia, diabetes, medical nonadherence who presents to [facility] emergency department complaining of chest pain. He states he was playing cards this evening and he felt confused "like his glucose was low" and he was given some candy and lemonade and improved. About 45 minutes later he began to feel the same way but also had associated nausea and dry heaves. After this he develops wheezing pain in his chest radiating to his neck, left jaw and left arm. He was diaphoretic and short of breath. EKG demonstrated normal sinus rhythm with some inferior lateral ST depression in leads II, III, aVF, V4-V6. Cardiology was consulted and he was taken emergently to the research laboratory technician where he was found to have complex multivessel CAD with 70% stenosis of ramus near the takeoff of the left main and 80% ostial lesion of circumflex. He has chronic occlusion of RCA following multiple stents and nonadherence with Plavix. Cardiovascular surgery consultation has been placed as bifurcation stent would be high risk of impinging L main/LAD. He is on NTG drip, heparin drip, and IABP has been inserted. He complains of some mild left sided chest discomfort that he says feels more like palpitations. Says CP is "nothing like it was". Review of Systems Constitutional: DENIES: Fever Respiratory: COMPLAINS OF: Shortness of breath Cardiovascular: COMPLAINS OF: Chest pain, Palpitations Gastrointestinal: DENIES: Nausea, Vomiting Past Family Social History Allergies: Coded Allergies: penicillin G (Unverified Allergy, Severe, Anaphylaxis, 03/01/17) Past Medical History Coronary artery disease with multiple prior stents Hyperlipidemia Hypertension Diabetes Depression Anxiety GERD Past Surgical History Bilateral knee replacement Amputation of right first toe Left shoulder surgery 3 Back surgery 2 Triceps and biceps tendon repair right upper extremity Left wrist ORIF Multiple prior cardiac cardiac catheterizations with multiple stent Left heart catheterization 09/19/16 (Dr. Nunez) Reported Medications Plavix 75 mg by mouth daily Zocor 40 mg by mouth daily Nitroglycerin to perform formal grams sublingual as needed for chest pain Lisinopril 40 mm by mouth daily Aspirin 81 mg by mouth daily Suboxone sublingual Klonopin 1 mill grams by mouth daily at bedtime Effexor 150 mg by mouth daily Prilosec 40 mg by mouth daily Metformin 5 mg by mouth daily Family History Mother is age 92 and is still living Father at age 60 of presumed [place] Social History States he has smoked a pack of cigarettes per day for 4 years. Was still smoking up to the time of admission Denies use of alcohol He is currently incarcerated Physical Exam Vital Signs Vital Signs Date Time Temp Pulse Resp B/P (MAP) Pulse Ox O2 Delivery O2 Flow Rate FiO2 03/02/17 00:12 98 3.00 03/02/17 00:12 98 Nasal Cannula 3.00 03/01/17 23:59 74 30 160/74 (102) 98 Nasal Cannula 3.00 03/01/17 23:57 86 180/85 03/01/17 23:54 72 32 180/85 (116) 97 Nasal Cannula 3.00 03/01/17 23:13 96 Nasal Cannula 2.00 03/01/17 23:13 96 Nasal Cannula 2.00 03/01/17 23:10 100.7 79 22 143/83 (103) 96 Physical Exam GENERAL: Well-nourished, well-developed patient who is very pleasant, laying flat in CVICU bed. SKIN: Warm and dry, well perfused. HEAD: Atraumatic. Normocephalic. EYES: Pupils equal and round 2 mm reactive bilaterally. No scleral icterus. No injection or drainage. ENT: No nasal bleeding or discharge. Mucous membranes pink and moist. NECK: Trachea midline. No JVD. CARDIOVASCULAR: Regular rate and rhythm, sinus rhythm on the monitor with rate in the 70s. No murmurs rubs or gallops. RESPIRATORY: No accessory muscle use. Clear to auscultation. Breath sounds equal bilaterally. GASTROINTESTINAL: Abdomen soft, non-tender, nondistended. Hepatic and splenic margins not palpable. MUSCULOSKELETAL: Extremities without clubbing, cyanosis, or edema. VASC: IABP in place R femoral site. Dressing in place with gauze and occlusive dressing. No hematoma. DP pulses palpable bilaterally. NEUROLOGICAL: Awake and alert. No obvious cranial nerve deficits. Motor grossly within normal limits. Normal speech. Laboratory Laboratory Tests Test 03/01/17 23:10 03/01/17 23:15 White Blood Count 13.6 Red Blood Count 5.28 Hemoglobin 15.5 Hematocrit 46.2 Mean Corpuscular Volume 87.6 Mean Corpuscular Hemoglobin 29.4 Mean Corpuscular Hemoglobin Concent 33.5 Red Cell Distribution Width 16.1 Platelet Count 263 Mean Platelet Volume 8.8 Neutrophils (%) (Auto) 52.2 Lymphocytes (%) (Auto) 34.0 Monocytes (%) (Auto) 12.3 Eosinophils (%) (Auto) 0.5 Basophils (%) (Auto) 1.0 Neutrophils # (Auto) 7.1 Lymphocytes # (Auto) 4.6 Monocytes # (Auto) 1.7 Eosinophils # (Auto) 0.1 Basophils # (Auto) 0.1 CBC Comment DIFF FINAL Differential Comment Prothrombin Time 14.6 Prothromb Time International Ratio 1.3 Activated Partial Thromboplast Time 25.8 Blood Urea Nitrogen 19 Creatinine 0.82 Random Glucose 98 Calcium Level 9.8 Magnesium Level 2.0 Sodium Level 136 Potassium Level 3.8 Chloride Level 104 Carbon Dioxide Level 22.1 Anion Gap 10 Estimat Glomerular Filtration Rate 94 Troponin I LESS THAN 0.02 B-Type Natriuretic Peptide 12 Lactic Acid Level 2.0 Result Diagram: 03/01/17230903/01/172309 Assessment and Plan Assessment and Plan NEURO: Anxiety Depression Klonopin 1 mill grams by mouth daily at bedtime Effexor 150 mg by mouth daily Oxycodone as needed for pain with morphine as needed for breakthrough. RESP: Tobacco abuse Nasal cannula wean as tolerated CV: Coronary artery disease with multiple stents Unstable angina Hypertension Hyperlipidemia Status post cardiac catheterization 03/02/[address] Nunez with complex multivessel coronary disease. CVS consult - [facility]. Heparin drip, NTG drip, IABP 2:1 BP 94/53, MAP 80, Aug pressure 118-123. Aspirin 81 mill grams daily Atorvastatin 80 mg by mouth daily at bedtime Hold lisinopril due to hypotension 2-D echo 09/18/16ejection fraction 55-60%, pulmonary artery peak pressure 40 mmHg GI: Heart healthy diet. FEN/RENAL: Monitor I/O. Monitor electrolytes and replace as indicated per ICU electrolyte replacement protocol ID: Leukocytosis, likely reactive secondary to ACS. Monitor for signs and symptoms of infection HEME: No acute hematologic issues. ENDO: Diabetes mellitus Hold metformin. He is euglycemic. Will use low-dose insulin sliding scale if needed. PROPH: Heparin drip will also provide DVT prophylaxis. Protonix 40 milligrams by mouth daily for stress ulcer prophylaxis. ACCESS: Right femoral intra-aortic balloon pump 03/02 #1 Level III Consult Kim Soto MD Mar 02, 2017 03:35
[2017-03-02] MEDS ORDERED: HEPARIN SODIUM - IV 10,000 UNITS/10 ML VIAL IV PUSH PRN (06:00)
[2017-03-02 06:50] LABS: AUTOMATED NEUTROPHIL # 4.5 TH/MM3 (1.8-7.7); BASOPHIL # 0.1 TH/MM3 (0-0.2); BASOPHIL % 0.6 % (0.0-2.0); EOSINOPHIL # 0.1 TH/MM3 (0-0.4); EOSINOPHIL % 0.7 % (0.0-4.0); HEMATOCRIT 40.6 % (39.0-51.0); HEMO FLAGS DIFF FINAL; LYMPH % 38.5 % (9.0-44.0); LYMPHOCYTE # 3.6 TH/MM3 (1.0-4.8); MEAN CELL VOLUME 87.4 FL (80.0-100.0); MEAN CORPUSCULAR HGB CONC 33.2 % (32.0-36.0); MONO % 12.1 % (0.0-8.0); NEUT % 48.1 % (16.0-70.0); PLATELET COUNT 227 TH/MM3 (150-450); RED BLOOD COUNT 4.65 MIL/MM3 (4.50-5.90); WHITE BLOOD COUNT 9.3 TH/MM3 (4.0-11.0)
[2017-03-02 06:59] LABS: APTT (PATIENT) 30.6 SEC (24.3-30.1)
[2017-03-02 07:10] LABS: BICARBONATE 24.4 MEQ/L (21.0-32.0)
[2017-03-02 07:13] LABS: POTASSIUM 2.9 MEQ/L (3.5-5.1)
--- NOTE | 2017-03-02 07:34 | EKG ---
Date Performed: 03/01/2017 Time Performed: 23:07:49 PTAGE: 67 years EKG: Sinus rhythm Nonspecific ST and T wave abnormalities Compared to prior electrocardiogram, STT wave changes are sl ightly more marked. ABNORMAL ECG PREVIOUS TRACING : 09/17/2016 12.33 DOCTOR: Osmar Manjarrez Interpretating Date/Time 03/02/2017 07:32:28
--- NOTE | 2017-03-02 07:34 | MH ---
cc: PASTOR ARMSTRONG DO DATE OF ADMISSION: 03/02/2017 CHIEF COMPLAINT Chest pain. HISTORY OF CHIEF COMPLAINT Timoteo Diego is a pleasant 67-year-old male who presented to [facility] emergency room on March 01, 2017 due to chest pain. Apparently the patient has over the past few weeks been placed in [facility] and while there today he was extremely short of breath for about 1-1/2 hours. Upon arrival to the ER an EKG was done which showed ST depression throughout and a cardiac alert was called. At that time the patient denied chest pain, nausea, vomiting, abdominal pain. Afterwards he had a generalized shaking where he was staring into space and would not respond. He was given 2 milligrams of Ativan. After this, he started having left-sided chest pain and a repeat EKG was ordered and there was concern for diffuse ST depression as well as minimal elevation of AVR. The patient was originally called a STEMI alert which I cancelled and asked that the patient be placed on heparin drip and nitro drip to try to relieve the patient's chest pain. After calling back, the patient was still having chest pain and so I felt that he needed to go to the general labor emergently. PAST MEDICAL HISTORY: 1. Coronary artery disease. 2. Hyperlipidemia. 3. Hypertension. 4. Diabetes type 2. 5. Anxiety and depression. 6. PTSD. PAST SURGICAL HISTORY 1. Seven stents to his RCA. 2. Bilateral knee replacement. 3. Back surgery x2. 4. Right shoulder surgery. 5. Left biceps tendon repair. 6. Amputation of right great toe secondary to trauma. ALLERGIES Penicillin. MEDICATIONS 1. Aspirin 81 mg daily 2. Plavix 75 mg daily 3. Zocor 40 mg daily 4. Nitro sublingual as needed 5. Lisinopril 40 mg daily 6. Suboxone 7. Klonopin 1 milligram every night. 8. Effexor XR 150 mg daily. 9. Prilosec 40 milligrams daily. 10. Metformin 500 milligrams daily. FAMILY HISTORY: Father secondary to MA at 52. Mother alive and well at 92. SOCIAL HISTORY The patient is a of 3 years. He reports smoking one pack a day for the past 46 years. He rarely drinks alcohol. Denies illicit drug abuse. REVIEW OF SYSTEMS 14-systems were reviewed including osteopathic, pertinent positives and negatives above otherwise negative. PHYSICAL EXAMINATION Vital signs: Temperature 100.7, heart rate 74, blood pressure 160/74, respirations 30, pulse ox 98% on 3 liters. In general, the patient appears in moderate distress due to chest pain. HEENT: Extraocular muscles intact. Mucous membranes moist. Neck: Supple. No JVD at 45 degrees. No carotid bruits heard bilaterally. Carotid upstroke is brisk in nature. Heart: Regular rate and rhythm. Positive first and second heart sounds with no murmurs, gallops or rubs. Lungs: Lungs have decreased breath sounds bilaterally but no overt wheezes, rales or rhonchi. Abdomen: Soft, non-tender, non-distended. No organomegaly noted. Extremities: No clubbing, cyanosis or edema. Right great toe is previously amputated. Distal pulses 3+. Neurologically: No focal deficits. Skin: Warm, dry and intact. Osteopathically, with mild lordosis. No kyphoscoliosis or paraspinal tender points. LABORATORY FINDINGS Hemoglobin 15.5, hematocrit 46.2, platelets 263. Potassium 3.8, BUN 19, creatinine 0.82, lactic acid 2.0, troponin 0.02. BNP 12. Electrocardiogram: (March 01, 2017) sinus rhythm, ST depressions in multiple leads with minimal elevation of ST in AVR. IMPRESSION 1. N-STEMI/unstable angina. 2. History of extensive coronary artery disease as above. 3. Hypertension 4. Hyperlipidemia 5. Diabetes mellitus 6. Tobacco abuse. RECOMMENDATIONS 1. Mr. Diego presented with unstable angina and significant EKG changes concerning for multivessel or left main disease. Because of this, he will be recommended emergent cardiac catheterization as he has been placed on heparin and nitroglycerin without relief of his chest pain. 2. Risks, benefits and alternatives have been explained to him he consents as such. 3. Metformin will need to be held postprocedure for at least 48 hours. 4. Further recommendations based on the hospital course. 5. Will plan on discussing with him for greater than 3 minutes about tobacco cessation during his hospitalization. Thank you for allowing me to see Timoteo Diego. If there are any questions, please do not hesitate to call. Pastor Armstrong DO P/MICHAEL /2:36 AM /7:07 AM
[2017-03-02] MEDS ORDERED: POTASSIUM PHOSPHATE INJ 30 MMOL in SODIUM CHLOR 0.9% 250 ML INJ 250 ML IV PRN (07:45)
[2017-03-02] MEDS ORDERED: MAGNESIUM SULFATE INJ 2 GM in SODIUM CHLORIDE 0.9% INJ 96 ML IV PRN (07:45)
[2017-03-02] MEDS ORDERED: MAGNESIUM OXIDE 400 MG TAB PO PRN (07:45)
[2017-03-02] MEDS ORDERED: POTASSIUM CHLOR 20 MEQ PREMIX 100 ML IV PRN ×2 (07:45)
[2017-03-02] MEDS ORDERED: MAGNESIUM SULFATE INJ 4 GM in SODIUM CHLORIDE 0.9% INJ 92 ML IV PRN (07:45)
[2017-03-02] MEDS ORDERED: POTASSIUM CHLOR 40 MEQ PREMIX 100 ML IV PRN ×2 (07:45)
[2017-03-02] MEDS ORDERED: SODIUM PHOSPHATE INJ 30 MMOL in SODIUM CHLOR 0.9% 250 ML INJ 240 ML IV PRN (07:45)
[2017-03-02] MEDS ORDERED: POTASSIUM CHLORIDE 20 MEQ CONTROLLED RELEASE TAB PO ONE (07:45)
[2017-03-02] MEDS ORDERED: POTASSIUM PHOSPHATE MONOBASIC 500 MG TAB PO PRN (07:45)
[2017-03-02] MEDS ORDERED: POTASSIUM PHOSPHATE MONOBASIC 500 MG TAB PO/TUBE PRN (07:45)
[2017-03-02] MEDS ORDERED: POTASSIUM CHLORIDE 25 MEQ EFFERVESCENT TAB PO PRN (07:45)
--- NOTE | 2017-03-02 07:47 | EKG ---
Date Performed: 03/01/2017 Time Performed: 23:38:47 PTAGE: 67 years EKG: Sinus rhythm WITH OCCASIONAL SUPRAVENTRICULAR PREMATURE COMPLEXES Nonspecific ST and T wave abnormalities ABNORMA L ECG No significant change from prior electrocardiogram. PREVIOUS TRACING : 03/01/2017 23.07 DOCTOR: Osmar Manjarrez Interpretating Date/Time 03/02/2017 07:46:41
[2017-03-02] MEDS: VENLAFAXINE HCL XR 75 MG CAP PO SCH (08:42)
[2017-03-02] MEDS: ASPIRIN 81 MG CHEW TAB CHEW SCH (08:42)
[2017-03-02] MEDS: PANTOPRAZOLE SOD 40 MG DELAYED RELEASE TAB PO SCH (08:43)
--- NOTE | 2017-03-02 08:52 | MA ---
cc: PASTOR ARMSTRONG DO DATE: 03/02/2017 PROCEDURE Left heart catheterization, coronary angiogram, intra-aortic balloon pump. Moderate sedation 60 minutes. PREPROCEDURE DIAGNOSIS N-STEMI/unstable angina. POSTPROCEDURE DIAGNOSIS Multivessel coronary artery disease, history of noncompliance with medications. MEDICATIONS 1. Versed 1.5 milligrams. 2. Fentanyl 100 mcg. 3. Morphine 6 milligrams. 4. Heparin drip. 5. Nitro drip at 40 mics per minutes. CONTRAST 120 cc Fluoroscopy: 6.7 minutes Moderate sedation: 60 minutes ESTIMATED BLOOD LOSS 20 cc PROCEDURAL SUMMARY: Timoteo Diego is a pleasant 67 year-old male who presented with chest pain and had an EKG showing ST depression throughout and concern for elevation of ST and AVR. A semi alert was called, and when I discussed this with the ER physician, we attempted to place him on heparin and nitroglycerin first but he continued to have chest pain and I felt that he should come to the lab as unstable angina at that time. Risks, benefits and alternatives were explained to him and he consented as such. He was brought to lab and prepped in the usual sterile fashion. Right femoral artery was accessed using a modified Seldinger technique and a micro puncture needle with placement of a 6-Slovenian sheath. This was easily aspirated and flushed. A JR-4 was advanced over a J-wire to the ascending aorta and across the aortic valve for measurement of left ventricular pressure. JR-4 was then pulled back across the aortic valve showing no significant gradient of aortic stenosis. JR-4 was used for selective angiography of the right coronary artery. This was exchanged out for a JL-4 which was used for selective angiography of the left coronary system. At this time the patient was felt to have similar disease as before with a complex bifurcation lesion of the ostium of the ramus and circumflex, right at the takeoff from the left main as well as a CT of the RCA. Because of this I felt that we should place a balloon pump and consider CT surgery as the patient has had multiple failures of stents in his RCA and along with this, had a previous history of noncompliance to Plavix. Because of the patient's chest pain an aortic root shot was done to rule out significant dissection. At the bifurcation of the aorta, there was concern for calcium in the right iliac and so less femoral artery access was obtained. Upon trying to advance the wire and JR-4 up the left femoral, I was unable to and it appears that there is more significant stenosis of the left iliac than right iliac. At that time, I felt it was reasonable to placed the intra-aortic balloon pump up the right femoral artery. Balloon pump was then placed and set at one-to-one with an augmented pressure of 100. Post procedure the patient was cardiovascularly stable with no chest pain. His right lower extremity pulses are 3+. FINDINGS: Left main: Normal size vessel with adequate reflux. There is mild luminal irregularities. LAD: Normal-size vessel with mild tortuosity in the midportion. 30% lesion in the midportion but no significant disease. It gives off one major diagonal which is overall small with no significant disease. Ramus: Ostial 70% lesion. Distal to this it bifurcates into an upper and lower branch with no significant disease throughout these portions. Left circumflex: Ostial 80% lesion with no significant disease distally. 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 Distally ynjx-dy-hside collaterals are noted. LVEDP: 20. IMPRESSION 1. N-STEMI/unstable angina. 2. Multivessel coronary artery disease as above. 3. Hypertension. 4. Hyperlipidemia. 5. Diabetes mellitus. 6. History of multiple stent failures. 7. History of noncompliance with Plavix. RECOMMENDATIONS: 1. Mr. Diego has multivessel coronary artery disease and unstable angina and because of this intraaortic balloon pump was placed. He will continue on a heparin drip, nitroglycerin drip and morphine for breakthrough pain. 2. CT surgery will be consulted for possible bypass surgery due to the complexity of his ramus and circumflex lesion, impinging on the left main. 3. Plavix will be held for possible CT surgery in the near future. 4. Will check an echo to look at his overall left ventricular function, cardiac structure and possible valvulopathies. 5. Further recommendations based on the hospital course. Thank you for allowing me to see Timoteo Diego. Any questions please do not hesitate to call. Pastor Armstrong DO VGP/MICHAEL /2:54 AM /8:34 AM
[2017-03-02] MEDS: NITROGLYCERIN/DEXTROSE 5% 250 ML for chest pain IV PRN (10:15)
[2017-03-02] MEDS ORDERED: POTASSIUM CHLORIDE 10 MEQ CONTROLLED RELEASE TAB PO ONE (11:00)
[2017-03-02 12:07] LABS: APTT (PATIENT) 43.6 SEC (24.3-30.1)
[2017-03-02 12:18] LABS: BICARBONATE 27.1 MEQ/L (21.0-32.0); POTASSIUM 3.4 MEQ/L (3.5-5.1)
--- NOTE | 2017-03-02 12:26 | ECHRPT ---
Indication: NSTEMI CONCLUSIONS The left ventricle is not well visualized. There was limited left ventricular wall motion assessment due to poor endocardial visualization. The left ventricular systolic function is low normal with an estimated ejection fraction in the rang e of 50- 55%. Normal left ventricular size. The right ventricle was not well visualized. The right atrium is not well visualized. The interatrial septum not well visualized. The aortic valve is not well visualized. Aortic valve sclerosis is present. The tricuspid valve is not well visualized. There is trace tricuspid valve regurgitation. The pulmonary valve is not well visualized. BP: / HR: Rhythm: MEASUREMENTS (Male / Female) Normal Values Technical Quality:Very technically difficult study ., Poor 2D ECHO LV Diastolic Diameter PLAX 5.2 cm 4.2 - 5.9 / 3.9 - 5.3 cm LV Systolic Diameter PLAX 4.0 cm IVS Diastolic Thickness 1.2 cm 0.6 - 1.0 / 0.6 - 0.9 cm LVPW Diastolic Thickness 0.9 cm 0.6 - 1.0 / 0.6 - 0.9 cm LV Relative Wall Thickness 0.4 RV Internal Dim ED PLAX 2.5 cm M-MODE Aortic Root Diameter MM 4.5 cm LA Systolic Diameter MM 4.4 cm LA Ao Ratio MM 1.0 AV Cusp Separation MM 2.3 cm DOPPLER Mitral E Point Velocity 44.4 cm/s Mitral A Point Velocity 51.8 cm/s Mitral E to A Ratio 0.9 LV E' Lateral Velocity 8.2 cm/s Mitral E to LV E' Lateral Ratio 5.4 LV E' Septal Velocity 7.1 cm/s Mitral E to LV E' Septal Ratio 6.2 FINDINGS LEFT VENTRICLE The left ventricle is not well visualized. There was limited left ventricular wall motion assessment due to poor endocardial visualization. The left ventricular systolic function is low normal with an estimated ejection fraction in the rang e of 50- 55%. Normal left ventricular size. RIGHT VENTRICLE The right ventricle was not well visualized. Normal right ventricular size and systolic function. LEFT ATRIUM The left atrial size is normal. RIGHT ATRIUM The right atrium is not well visualized. The right atrial size is normal. ATRIAL SEPTUM The interatrial septum not well visualized. Normal atrial septal thickness without atrial level shunting by limited color doppler interrogation. AORTA The aortic root and proximal ascending aorta are normal in size on limited imaging. MITRAL VALVE Structurally normal mitral valve. AORTIC VALVE The aortic valve is not well visualized. Aortic valve sclerosis is present. TRICUSPID VALVE The tricuspid valve is not well visualized. There is trace tricuspid valve regurgitation. PULMONARY VALVE The pulmonary valve is not well visualized. VESSELS The inferior vena cava is normal in size. PERICARDIUM No pericardial effusion. Osmar Manjarrez MD (Electronically Signed) Final Date:02 March 2017 12:25
--- NOTE | 2017-03-02 13:12 | PD.CARD.PN ---
Subjective Subjective Remarks Patient seen again this morning Minimal chest pain this morning, currently sleeping IABP at 1:2, augmentation 120 Objective Medications Current Medications Medications (Trade) Dose Ordered Sig/Heike Route Start Time Stop Time Status Last Admin (NS Flush) 2 ml UNSCH PRN IVF 03/01/17 23:15 (Heparin Inj) 5,000 units UNSCH PRN IV PUSH 03/02/17 06:00 (Heparin Inj) 2,500 units UNSCH PRN IV PUSH 03/02/17 06:00 Heparin Sodium/ Dextrose 250 ml @ 10 mls/hr TITRATE PRN IV 03/02/17 00:00 03/02/17 00:18 (Percocet 5-325 Mg) 1 tab Q4H PRN PO 03/02/17 02:30 (Percocet 5-325 Mg) 2 tab Q4H PRN PO 03/02/17 02:30 (Aspirin Chew) 81 mg DAILY CHEW 03/02/17 09:00 03/02/17 08:42 (KlonoPIN) 1 mg HS PO 03/02/17 21:00 (Effexor Xr) 150 mg DAILY PO 03/02/17 09:00 03/02/17 08:42 (Protonix) 40 mg DAILY PO 03/02/17 09:00 03/02/17 08:43 (Lipitor) 80 mg HS PO 03/02/17 21:00 (Morphine Inj) 2 mg Q3H PRN IM 03/02/17 02:45 03/02/17 09:14 Potassium Chloride 100 ml @ 50 mls/hr Q2H PRN IV 03/02/17 07:45 Potassium Chloride 100 ml @ 50 mls/hr Q2H PRN IV 03/02/17 07:45 (K-Lyte Cl Eff) 50 meq UNSCH PRN PO 03/02/17 07:45 Potassium Chloride 100 ml @ 25 mls/hr UNSCH PRN IV 03/02/17 07:45 Potassium Chloride 100 ml @ 50 mls/hr Q2H PRN IV 03/02/17 07:45 Magnesium Sulfate 4 gm/Sodium Chloride 100 ml @ 50 mls/hr UNSCH PRN IV 03/02/17 07:45 (Mag-Ox) 800 mg UNSCH PRN PO 03/02/17 07:45 Magnesium Sulfate 2 gm/Sodium Chloride 100 ml @ 50 mls/hr UNSCH PRN IV 03/02/17 07:45 (K-Phos) 2,000 mg Q4H PRN PO 03/02/17 07:45 Sodium Phosphate 30 mmol/Sodium Chloride 250 ml @ 42 mls/hr UNSCH PRN IV 03/02/17 07:45 (K-Phos) 2,000 mg UNSCH PRN PO/TUBE 03/02/17 07:45 Potassium Phosphate 30 mmol/ Sodium Chloride 260 ml @ 42 mls/hr UNSCH PRN IV 03/02/17 07:45 Nitroglycerin/ Dextrose 250 ml @ 12 mls/hr TITRATE PRN IV 03/02/17 10:15 03/02/17 10:15 Vital Signs / I&O Vital Signs Date Time Temp Pulse Resp B/P (MAP) Pulse Ox O2 Delivery O2 Flow Rate FiO2 03/02/17 12:00 96/56 (83) 03/02/17 11:29 97 Nasal Cannula 3.00 03/02/17 11:08 98.0 68 18 133/59 (83) 97 03/02/17 11:00 109/59 (87) 03/02/17 11:00 65 03/02/17 10:15 78 121/58 03/02/17 10:00 100/58 (87) 03/02/17 09:19 20 03/02/17 09:00 112/59 (92) 03/02/17 08:00 98.0 68 18 107/55 (72) 97 Manual Cuff/Auscultation 03/02/17 08:00 107/62 (88) 03/02/17 08:00 68 03/02/17 07:00 89/55 (74) 03/02/17 06:00 85/52 (74) 03/02/17 05:00 102/59 (86) 03/02/17 04:00 98/51 (75) 03/02/17 03:58 95 Nasal Cannula 2.00 03/02/17 03:38 75 03/02/17 03:00 109/68 (90) 03/02/17 03:00 79 20 112/56 (74) 95 03/02/17 02:45 98.4 75 18 101/40 (60) 93 03/02/17 00:12 98 3.00 03/02/17 00:12 98 Nasal Cannula 3.00 03/01/17 23:59 74 30 160/74 (102) 98 Nasal Cannula 3.00 03/01/17 23:57 86 180/85 03/01/17 23:54 72 32 180/85 (116) 97 Nasal Cannula 3.00 03/01/17 23:13 96 Nasal Cannula 2.00 03/01/17 23:13 96 Nasal Cannula 2.00 03/01/17 23:10 100.7 79 22 143/83 (103) 96 I/O 03/01/17 03/01/17 03/01/17 03/02/17 03/02/17 03/02/17 06:59 14:59 22:59 06:59 14:59 22:59 Intake Total 100 ml Output Total 500 ml Balance -400 ml Intake Oral 100 ml Output Urine Total 500 ml Stool Total 0 ml Physical Exam GENERAL: NAD, AAOx3 SKIN: Warm and dry. HEAD: Atraumatic. Normocephalic. EYES: Pupils equal and round. No scleral icterus. No injection or drainage. ENT: No nasal bleeding or discharge. Mucous membranes pink and moist. NECK: Trachea midline. No JVD. CARDIOVASCULAR: Regular rate and rhythm. RESPIRATORY: No accessory muscle use. Clear to auscultation. Breath sounds equal bilaterally. GASTROINTESTINAL: Abdomen soft, non-tender, nondistended. Hepatic and splenic margins not palpable. MUSCULOSKELETAL: Extremities without clubbing, cyanosis, or edema. No obvious deformities. Right groin with IABP, left groin with Gina. Distal pulses bilaterally 3+ NEUROLOGICAL: Awake and alert. No obvious cranial nerve deficits. Motor grossly within normal limits. Five out of 5 muscle strength in the arms and legs. Normal speech. PSYCHIATRIC: Appropriate mood and affect; insight and judgment normal. Laboratory Laboratory Tests Test 03/01/17 23:10 03/01/17 23:15 03/02/17 06:10 03/02/17 11:35 White Blood Count 13.6 TH/MM3 9.3 TH/MM3 Red Blood Count 5.28 MIL/MM3 4.65 MIL/MM3 Hemoglobin 15.5 GM/DL 13.5 GM/DL Hematocrit 46.2 % 40.6 % Mean Corpuscular Volume 87.6 FL 87.4 FL Mean Corpuscular Hemoglobin 29.4 PG 29.0 PG Mean Corpuscular Hemoglobin Concent 33.5 % 33.2 % Red Cell Distribution Width 16.1 % 16.0 % Platelet Count 263 TH/MM3 227 TH/MM3 Mean Platelet Volume 8.8 FL 7.9 FL Neutrophils (%) (Auto) 52.2 % 48.1 % Lymphocytes (%) (Auto) 34.0 % 38.5 % Monocytes (%) (Auto) 12.3 % 12.1 % Eosinophils (%) (Auto) 0.5 % 0.7 % Basophils (%) (Auto) 1.0 % 0.6 % Neutrophils # (Auto) 7.1 TH/MM3 4.5 TH/MM3 Lymphocytes # (Auto) 4.6 TH/MM3 3.6 TH/MM3 Monocytes # (Auto) 1.7 TH/MM3 1.1 TH/MM3 Eosinophils # (Auto) 0.1 TH/MM3 0.1 TH/MM3 Basophils # (Auto) 0.1 TH/MM3 0.1 TH/MM3 CBC Comment DIFF FINAL DIFF FINAL Differential Comment Prothrombin Time 14.6 SEC Prothromb Time International Ratio 1.3 RATIO Activated Partial Thromboplast Time 25.8 SEC 30.6 SEC 43.6 SEC Blood Urea Nitrogen 19 MG/DL 18 MG/DL 18 MG/DL Creatinine 0.82 MG/DL 0.66 MG/DL 0.64 MG/DL Random Glucose 98 MG/DL 105 MG/DL 106 MG/DL Calcium Level 9.8 MG/DL 8.7 MG/DL 8.3 MG/DL Magnesium Level 2.0 MG/DL Sodium Level 136 MEQ/L 138 MEQ/L 140 MEQ/L Potassium Level 3.8 MEQ/L 2.9 MEQ/L 3.4 MEQ/L Chloride Level 104 MEQ/L 104 MEQ/L 106 MEQ/L Carbon Dioxide Level 22.1 MEQ/L 24.4 MEQ/L 27.1 MEQ/L Anion Gap 10 MEQ/L 10 MEQ/L 7 MEQ/L Estimat Glomerular Filtration Rate 94 ML/MIN 120 ML/MIN 125 ML/MIN Troponin I LESS THAN 0.02 NG/ML 0.02 NG/ML B-Type Natriuretic Peptide 12 PG/ML Lactic Acid Level 2.0 mmol/L Imaging Last 24 hours Impressions Chest X-Ray 03/01/17 3690 Signed Impressions: Service Date/Time: Wednesday, March 01, 2017 23:26 - CONCLUSION: Cardiomegaly. Aba Jacobs MD Assessment and Plan Problem List: (1) Abnormal EKG ICD Codes: R94.31 - Abnormal electrocardiogram [ECG] [EKG] (2) Multi-vessel coronary artery stenosis ICD Codes: I25.10 - Atherosclerotic heart disease of [place] coronary artery without angina pectoris (3) Chest pain ICD Codes: R07.9 - Chest pain, unspecified Status: Acute (4) CAD (coronary artery disease) ICD Codes: I25.10 - Atherosclerotic heart disease of [place] coronary artery without angina pectoris Status: Acute (5) HTN (hypertension) ICD Codes: I10 - Essential (primary) hypertension Status: Acute (6) Coronary stent occlusion ICD Codes: T82.897A - Other specified complication of cardiac prosthetic devices, implants and grafts, initial encounter Status: Acute Assessment and Plan 1) CAD with complex ostial lesion of the LCx/Ramus, CRAB PICKER RCA with previous multiple stenting Discussed with Dr. Krause, will consider bypass Overall concern with complexity of the bifurcation of the lesion, non- compliance in the past and previous stent failure 2) Con't IABP for now, will consider removing before surgery 3) Con't Heparin drip/Nitro gtt 4) Echo pending Pastor Nunez DO Mar 02, 2017 13:12
[2017-03-02] MEDS ORDERED: ONDANSETRON HCL 4 MG/2 ML VIAL ONE (16:07)
[2017-03-02] MEDS ORDERED: METOPROLOL TARTRATE 5 MG/5 ML VIAL ONE (16:08)
[2017-03-02] MEDS ORDERED: LORazepam 2 MG/ML VIAL ONE (16:09)
[2017-03-02] MEDS ORDERED: HYDROmorphone HCL PF 2 MG/ML VIAL IV PUSH ONE ×2 (16:30→17:00)
[2017-03-02] MEDS ORDERED: EPINEPHrine HCL (1:10,000) 1 MG/10 ML SYRINGE ONE (16:44)
[2017-03-02] MEDS ORDERED: ATROPINE SULFATE 1 MG/10 ML SYRINGE ONE (16:44)
[2017-03-02] MEDS ORDERED: IOHEXOL 350 MG/ML 10 ML VIAL (for RAD DIAG) IVCONTRAST ONE (17:18)
--- NOTE | 2017-03-02 17:40 | RADRPT ---
EXAM DATE/TIME: 03/02/2017 17:13 [place] COMPARISON: No previous studies available for comparison. INDICATIONS : Dissection, chest pain without relief. IV CONTRAST: 100 cc Omnipaque 350 (iohexol) IV RADIATION DOSE: 17.00 CTDIvol (mGy) MEDICAL HISTORY : Cardiovascular disease. Hypertension. Macular degeneration; Diabetes, chemo SURGICAL HISTORY : None. ENCOUNTER: Initial ACUITY: 2 days PAIN SCALE: Non-responsive LOCATION: Bilateral chest TECHNIQUE: Volumetric scanning was performed using a multi-row detector CT scanner. The data was post processed with a variety of visualization algorithms including full volume maximum intensity projection, multi -planar sliding thin slab reformation, curved planar reformation, and surface rendering techniques. Using automated exposure control and adjustment of the mA and/or kV according to patient size, radiat ion dose was kept as low as reasonably achievable to obtain optimal diagnostic quality images. DICOM format image data is available electronically for review and comparison. FINDINGS: There are centrilobular emphysematous changes in both lower lobes. No pulmonary nodules are identifie d. No pleural effusions are identified. Examination of the mediastinum demonstrates no abnormally enl arged lymph nodes by CT criteria. No axillary or hilar abnormalities are identified. Coronary artery calcifications are present. The liver and spleen are normal in size and no focal defects are identified. The gallbladder and panc reas are unremarkable. No intrahepatic or extrahepatic ductal dilatation is seen. The right adrenal g land is unremarkable. There is a nodule in the left adrenal gland likely reflecting adenoma measuring 15 mm. The kidneys are normal bilaterally without evidence of mass or hydronephrosis. Examination of the pelvis demonstrates no evidence of free fluid or pelvic mass. No abnormally enlarged inguinal or retroperitoneal lymph nodes are present. The bladder is unremarkable. Examination of the aortic arch demonstrates no evidence of aneurysm or dissection. The descending th oracic aorta is unremarkable and the aortic root is normal in size. There is 50-60% stenosis at the o rigin of the left common carotid artery. The aorta is normal in caliber. There is no evidence of aneu rysm or dissection. The renal artery origins are patent bilaterally. The celiac axis and superior mes enteric artery origins are also patent. Bilateral femoral artery catheters are present. CONCLUSION: 1. No evidence of aortic dissection. 2. There is 50-60% stenosis at the origin of the left common carotid artery. Noel Esparza MD on March 02, 2017 at 17:32 Board Certified Radiologist. This report was verified electronically.
[2017-03-02 18:22] LABS: APTT (PATIENT) 29.9 SEC (24.3-30.1)
[2017-03-02 18:39] LABS: BICARBONATE 24.8 MEQ/L (21.0-32.0); POTASSIUM 3.6 MEQ/L (3.5-5.1)
[2017-03-02] MEDS: HEPARIN SODIUM - IV 10,000 UNITS/10 ML VIAL IV PUSH PRN (18:54)
[2017-03-02] MEDS: ATORVASTATIN 80 MG TAB PO SCH (21:07)
[2017-03-02] MEDS: clonazePAM 1 MG TAB PO SCH (21:08)
[2017-03-03] VITALS (10 sets, daily range): BP systolic 118–141; BP diastolic 63–78; PULSE 68–77; RESP 16–18; TEMP 97.9–98.1; O2SAT 95–99
[2017-03-03] MEDS: MORPHINE SULFATE 2 MG/ML INJ IM PRN ×4 (00:33→21:00)
[2017-03-03 01:36] LABS: APTT (PATIENT) 34.3 SEC (24.3-30.1)
[2017-03-03] MEDS: NITROGLYCERIN/DEXTROSE 5% 250 ML for chest pain IV PRN ×3 (02:06→17:10)
[2017-03-03] MEDS: oxyCODONE/ACETAMINOPHEN 5 MG/325 MG TAB PO PRN ×3 (02:17→13:37)
[2017-03-03] MEDS: ASPIRIN 81 MG CHEW TAB CHEW SCH (08:44)
[2017-03-03] MEDS: PANTOPRAZOLE SOD 40 MG DELAYED RELEASE TAB PO SCH (08:44)
[2017-03-03] MEDS: VENLAFAXINE HCL XR 75 MG CAP PO SCH (08:44)
[2017-03-03] MEDS ORDERED: IOHEXOL 350 MG/ML 50 ML BTL (for Cath Lab) OTHER ONE (09:52)
[2017-03-03] MEDS ORDERED: IOHEXOL 350 MG/ML 100 ML BTL (for Cath Lab) OTHER ONE (09:52)
[2017-03-03 10:43] LABS: APTT (PATIENT) 34.3 SEC (24.3-30.1)
--- NOTE | 2017-03-03 10:50 | HHI.CCPN ---
Subjective Remarks/Hospital Course 67-year-old male with past medical history of coronary artery disease with prior stents, hypertension, hyperlipidemia, diabetes, medical nonadherence who presents to [facility] emergency department complaining of chest pain. He states he was playing cards this evening and he felt confused "like his glucose was low" and he was given some candy and lemonade and improved. About 45 minutes later he began to feel the same way but also had associated nausea and dry heaves. After this he develops wheezing pain in his chest radiating to his neck, left jaw and left arm. He was diaphoretic and short of breath. EKG demonstrated normal sinus rhythm with some inferior lateral ST depression in leads II, III, aVF, V4-V6. 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 He has chronic occlusion of RCA following multiple stents and nonadherence with Plavix. Cardiovascular surgery consultation has been placed as bifurcation stent would be high risk of impinging L main/LAD. He is on NTG drip, heparin drip, and IABP has been inserted. He complains of some mild left sided chest discomfort that he says feels more like palpitations. Says CP is "nothing like it was". SUBJ 03/03: Patient had intermittent chest pain yesterday, and overnight. No EKG changes response to opiates. Patient is also reproducible by left chest wall compression. Scheduled for CABG tomorrow Objective Vital Signs Date Time Temp Pulse Resp B/P (MAP) Pulse Ox O2 Delivery O2 Flow Rate FiO2 03/03/17 10:24 17 03/03/17 10:11 03/03/17 09:28 84 03/03/17 07:53 97 Nasal Cannula 4.00 03/03/17 07:22 98.0 Intake and Output 03/03/17 03/03/17 03/04/17 08:00 16:00 00:00 Intake Total 674 ml 250 ml Output Total 300 ml Balance 374 ml 250 ml Result Diagram: 03/02/17 0610 03/02/17 [id number] Objective Remarks GENERAL: Well-nourished, well-developed patient who is very pleasant, laying flat in CVICU bed. SKIN: Warm and dry, well perfused. HEAD: Atraumatic. Normocephalic. EYES: Pupils equal and round 2 mm reactive bilaterally. No scleral icterus. No injection or drainage. ENT: No nasal bleeding or discharge. Mucous membranes pink and moist. NECK: Trachea midline. No JVD. CARDIOVASCULAR: Regular rate and rhythm, sinus rhythm on the monitor with rate in the 70s. No murmurs rubs or gallops. IABP 1:2 RESPIRATORY: No accessory muscle use. Clear to auscultation. Breath sounds equal bilaterally. GASTROINTESTINAL: Abdomen soft, non-tender, nondistended. Hepatic and splenic margins not palpable. MUSCULOSKELETAL: Extremities without clubbing, cyanosis, or edema. VASC: IABP in place R femoral site. Dressing in place with gauze and occlusive dressing. No hematoma. DP pulses palpable bilaterally. NEUROLOGICAL: Awake and alert. No obvious cranial nerve deficits. Motor grossly within normal limits. Normal speech. A/P Assessment and Plan NEURO: Anxiety Depression Klonopin 1 mill grams by mouth daily at bedtime Effexor 150 mg by mouth daily Oxycodone as needed for pain with morphine as needed for breakthrough. RESP: Tobacco abuse Nasal cannula wean as tolerated CV: Coronary artery disease with multiple stents Unstable angina Hypertension Hyperlipidemia Status post cardiac catheterization 03/02/[address] Nunez with complex multivessel coronary disease. CVS consult - [facility]. Scheduled for CABG 03/04/17 Heparin drip, NTG drip, IABP 1:2, BP 94/53, MAP 80, Aug pressure 118-123. Aspirin 81 mill grams daily. Atorvastatin 80 mg by mouth daily at bedtime Hold lisinopril due to hypotension 2-D echo 09/18/16ejection fraction 55-60%, pulmonary artery peak pressure 40 mmHg GI: Heart healthy diet. Nothing by mouth after midnight FEN/RENAL: Monitor I/O. Monitor electrolytes and replace as indicated per ICU electrolyte replacement protocol ID: Leukocytosis, likely reactive secondary to ACS. Monitor for signs and symptoms of infection HEME: No acute hematologic issues. ENDO: Diabetes mellitus Hold metformin. He is euglycemic. Will use low-dose insulin sliding scale if needed. PROPH: Heparin drip will also provide DVT prophylaxis. Protonix 40 milligrams by mouth daily for stress ulcer prophylaxis. ACCESS: Right femoral intra-aortic balloon pump 03/02 #2 Level III Kasandra Troncoso MD Mar 03, 2017 10:50
[2017-03-03 12:59] LABS: P2Y12 REACTION UNITS (PRU) 280 PRU (194-418)
[2017-03-03] MEDS ORDERED: MORPHINE SULFATE 2 MG/ML INJ IM ONE (14:00)
[2017-03-03] MEDS ORDERED: LORazepam 2 MG/ML VIAL IV PUSH ONE (14:00)
--- NOTE | 2017-03-03 14:12 | PD.CARD.PN ---
Subjective Subjective Remarks Patient with episodes of left chest pain Troponins negative EKG with no changes Reproducible with palpation of the left chest wall IABP at 1:2, augmentation pressure 120 Objective Medications Current Medications Medications (Trade) Dose Ordered Sig/Heike Route Start Time Stop Time Status Last Admin (NS Flush) 2 ml UNSCH PRN IVF 03/01/17 23:15 (Heparin Inj) 5,000 units UNSCH PRN IV PUSH 03/02/17 06:00 (Heparin Inj) 2,500 units UNSCH PRN IV PUSH 03/02/17 06:00 03/02/17 18:54 Heparin Sodium/ Dextrose 250 ml @ 10 mls/hr TITRATE PRN IV 03/02/17 00:00 03/02/17 00:18 (Percocet 5-325 Mg) 1 tab Q4H PRN PO 03/02/17 02:30 (Percocet 5-325 Mg) 2 tab Q4H PRN PO 03/02/17 02:30 03/03/17 13:37 (Aspirin Chew) 81 mg DAILY CHEW 03/02/17 09:00 03/03/17 08:44 (KlonoPIN) 1 mg HS PO 03/02/17 21:00 03/02/17 21:08 (Effexor Xr) 150 mg DAILY PO 03/02/17 09:00 03/03/17 08:44 (Protonix) 40 mg DAILY PO 03/02/17 09:00 03/03/17 08:44 (Lipitor) 80 mg HS PO 03/02/17 21:00 03/02/17 21:07 (Morphine Inj) 2 mg Q3H PRN IM 03/02/17 02:45 03/03/17 10:09 Potassium Chloride 100 ml @ 50 mls/hr Q2H PRN IV 03/02/17 07:45 Potassium Chloride 100 ml @ 50 mls/hr Q2H PRN IV 03/02/17 07:45 (K-Lyte Cl Eff) 50 meq UNSCH PRN PO 03/02/17 07:45 Potassium Chloride 100 ml @ 25 mls/hr UNSCH PRN IV 03/02/17 07:45 Potassium Chloride 100 ml @ 50 mls/hr Q2H PRN IV 03/02/17 07:45 Magnesium Sulfate 4 gm/Sodium Chloride 100 ml @ 50 mls/hr UNSCH PRN IV 03/02/17 07:45 (Mag-Ox) 800 mg UNSCH PRN PO 03/02/17 07:45 Magnesium Sulfate 2 gm/Sodium Chloride 100 ml @ 50 mls/hr UNSCH PRN IV 03/02/17 07:45 (K-Phos) 2,000 mg Q4H PRN PO 03/02/17 07:45 Sodium Phosphate 30 mmol/Sodium Chloride 250 ml @ 42 mls/hr UNSCH PRN IV 03/02/17 07:45 (K-Phos) 2,000 mg UNSCH PRN PO/TUBE 03/02/17 07:45 Potassium Phosphate 30 mmol/ Sodium Chloride 260 ml @ 42 mls/hr UNSCH PRN IV 03/02/17 07:45 Nitroglycerin/ Dextrose 250 ml @ 12 mls/hr TITRATE PRN IV 03/02/17 10:15 03/03/17 09:28 Vital Signs / I&O Vital Signs Date Time Temp Pulse Resp B/P (MAP) Pulse Ox O2 Delivery O2 Flow Rate FiO2 03/03/17 13:00 105/58 (93) 124/71 03/03/17 12:00 115/59 (92) 143/80 03/03/17 11:03 98.0 76 18 131/69 (89) 97 03/03/17 11:02 76 03/03/17 11:01 03/03/17 10:24 17 03/03/17 10:11 03/03/17 10:09 18 03/03/17 09:28 84 135/57 03/03/17 09:06 03/03/17 08:06 03/03/17 07:53 97 Nasal Cannula 4.00 03/03/17 07:22 98.0 68 18 118/63 (81) 95 03/03/17 07:19 68 03/03/17 07:18 03/03/17 06:00 104/60 (84) 03/03/17 05:00 111/61 (63) 03/03/17 04:00 108/59 (84) 03/03/17 03:00 97.9 73 18 141/74 (96) 95 03/03/17 03:00 120/67 (96) 03/03/17 03:00 73 03/03/17 02:15 18 03/03/17 02:06 69 103/62 03/03/17 02:00 100/56 (89) 03/03/17 01:00 109/53 (88) 03/03/17 00:00 98/58 (87) Arterial Line 03/02/17 23:00 98.6 69 18 131/73 (92) 95 03/02/17 23:00 104/57 (89) Arterial Line 03/02/17 23:00 69 03/02/17 22:00 93/57 (84) 03/02/17 21:28 95 Nasal Cannula 4.00 03/02/17 21:00 93/53 (78) 03/02/17 20:00 90/52 (74) Arterial Line 03/02/17 19:54 76 103/66 03/02/17 19:00 76 03/02/17 19:00 98.8 76 18 103/66 (78) 93 03/02/17 19:00 102/62 (81) 03/02/17 18:00 106/61 (82) 03/02/17 17:00 97/50 (73) 03/02/17 16:00 98/54 (76) 03/02/17 15:23 98.0 68 18 101/57 (72) 97 03/02/17 15:00 92/52 (75) 03/02/17 15:00 73 I/O 03/02/17 03/02/17 03/02/17 03/03/17 03/03/17 03/03/17 07:00 15:00 23:00 07:00 15:00 23:00 Intake Total 100 ml 1010 ml 674 ml 250 ml Output Total 500 ml 650 ml 300 ml Balance -400 ml 360 ml 374 ml 250 ml Intake Oral 100 ml 720 ml 200 ml IV Total 290 ml 474 ml 250 ml Output Urine Total 500 ml 650 ml 300 ml Stool Total 0 ml # Bowel Movements 0 0 Physical Exam GENERAL: NAD, AAOx3 SKIN: Warm and dry. HEAD: Atraumatic. Normocephalic. EYES: Pupils equal and round. No scleral icterus. No injection or drainage. ENT: No nasal bleeding or discharge. Mucous membranes pink and moist. NECK: Trachea midline. No JVD. CARDIOVASCULAR: Regular rate and rhythm. RESPIRATORY: No accessory muscle use. Clear to auscultation. Breath sounds equal bilaterally. GASTROINTESTINAL: Abdomen soft, non-tender, nondistended. Hepatic and splenic margins not palpable. MUSCULOSKELETAL: Extremities without clubbing, cyanosis, or edema. No obvious deformities. Right groin with IABP, left groin with Gina. Distal pulses bilaterally 3+ NEUROLOGICAL: Awake and alert. No obvious cranial nerve deficits. Motor grossly within normal limits. Five out of 5 muscle strength in the arms and legs. Normal speech. PSYCHIATRIC: Appropriate mood and affect; insight and judgment normal. Laboratory Laboratory Tests Test 03/02/17 16:15 03/02/17 16:45 03/03/17 00:39 03/03/17 10:00 Total Creatine Kinase 158 U/L Troponin I 0.02 NG/ML Activated Partial Thromboplast Time 29.9 SEC 34.3 SEC 34.3 SEC Blood Urea Nitrogen 18 MG/DL Creatinine 0.71 MG/DL Random Glucose 103 MG/DL Calcium Level 8.8 MG/DL Sodium Level 140 MEQ/L Potassium Level 3.6 MEQ/L Chloride Level 106 MEQ/L Carbon Dioxide Level 24.8 MEQ/L Anion Gap 9 MEQ/L Estimat Glomerular Filtration Rate 111 ML/MIN Test 03/03/17 11:47 Platelet Function P2Y12 React Units 280 PRU Assessment and Plan Problem List: (1) Abnormal EKG ICD Codes: R94.31 - Abnormal electrocardiogram [ECG] [EKG] (2) Multi-vessel coronary artery stenosis ICD Codes: I25.10 - Atherosclerotic heart disease of [place] coronary artery without angina pectoris (3) Chest pain ICD Codes: R07.9 - Chest pain, unspecified Status: Acute (4) CAD (coronary artery disease) ICD Codes: I25.10 - Atherosclerotic heart disease of [place] coronary artery without angina pectoris Status: Acute (5) HTN (hypertension) ICD Codes: I10 - Essential (primary) hypertension Status: Acute (6) Coronary stent occlusion ICD Codes: T82.897A - Other specified complication of cardiac prosthetic devices, implants and grafts, initial encounter Status: Acute Assessment and Plan 1) CAD with complex ostial lesion of the LCx/[place], [employer] RCA with previous multiple stenting Discussed with Dr. Krause, will consider bypass, most likely Friday Overall concern with complexity of the bifurcation of the lesion, non- compliance in the past and previous stent failure 2) EF 50-55% 3) Chest pain appears musculoskeletal Relieved with Morphine Reproducible on palpation of the chest wall 4) Will plan to remove IABP today Restart Heparin drip 6 hours after sheaths pulled Pastor Nunez DO Mar 03, 2017 14:12
[2017-03-03] MEDS ORDERED: LIDOCAINE HCL 1% 50 ML VIAL ONE (14:43)
--- NOTE | 2017-03-03 17:19 | PD.CAR.PN ---
CVT Progress Note Subjective/Hospital Course: sts data dicussed with pt RISK SCORES About the STS Risk Calculator Procedure: CAB Only Risk of Mortality: 1.066% Morbidity or Mortality: 17.334% Long Length of Stay: 5.733% Short Length of Stay: 39.64% Permanent Stroke: 0.697% Prolonged Ventilation: 15.759% DSW Infection: 0.624% Renal Failure: 2.212% Reoperation: 4.9% Objective: Vital Signs Date Time Temp Pulse Resp B/P (MAP) Pulse Ox O2 Delivery O2 Flow Rate FiO2 03/03/17 17:10 76 155/78 03/03/17 15:00 77 03/03/17 15:00 98.1 73 16 130/78 (95) 98 Arterial Line 03/03/17 14:37 16 03/03/17 14:00 108/59 (93) 114/73 03/03/17 13:00 105/58 (93) 124/71 03/03/17 12:00 115/59 (92) 143/80 03/03/17 11:03 98.0 76 18 131/69 (89) 97 03/03/17 11:02 76 03/03/17 11:01 03/03/17 10:24 17 03/03/17 10:11 03/03/17 09:28 84 135/57 03/03/17 09:06 03/03/17 08:06 03/03/17 07:53 97 Nasal Cannula 4.00 03/03/17 07:22 98.0 68 18 118/63 (81) 95 03/03/17 07:19 68 03/03/17 07:18 03/03/17 06:00 104/60 (84) 03/03/17 05:00 111/61 (63) 03/03/17 04:00 108/59 (84) 03/03/17 03:00 97.9 73 18 141/74 (96) 95 03/03/17 03:00 120/67 (96) 03/03/17 03:00 73 03/03/17 02:15 18 03/03/17 02:06 69 103/62 03/03/17 02:00 100/56 (89) 03/03/17 01:00 109/53 (88) 03/03/17 00:00 98/58 (87) Arterial Line 03/02/17 23:00 98.6 69 18 131/73 (92) 95 03/02/17 23:00 104/57 (89) Arterial Line 03/02/17 23:00 69 03/02/17 22:00 93/57 (84) 03/02/17 21:28 95 Nasal Cannula 4.00 03/02/17 21:00 93/53 (78) 03/02/17 20:00 90/52 (74) Arterial Line 03/02/17 19:54 76 103/66 03/02/17 19:00 76 03/02/17 19:00 98.8 76 18 103/66 (78) 93 03/02/17 19:00 102/62 (81) 03/02/17 18:00 106/61 (82) Labs: Laboratory Tests Test 03/03/17 10:00 03/03/17 11:47 Activated Partial Thromboplast Time 34.3 SEC (24.3-30.1) Platelet Function P2Y12 React Units 280 PRU (194-418) Result Diagram: 03/02/17 0610 03/02/17 1645 (1) Abnormal EKG (2) Multi-vessel coronary artery stenosis (3) Chest pain (4) CAD (coronary artery disease) (5) HTN (hypertension) (6) Coronary stent occlusion Gianna Barkley Mar 03, 2017 17:19
--- NOTE | 2017-03-03 17:25 | PD.CAR.PN ---
CVT Progress Note Subjective/Hospital Course: 67-year-old male presented from local [facility], incarcerated inmate with chest pain , hx CAD/ stents / noncompliance with plavix , underwent cardiac cat , founds to have multi vessel disease, EF 50% EKG demonstrated normal sinus rhythm with some inferior lateral ST depression in leads II, III, aVF, V4-V6. 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 He has chronic occlusion of RCA following multiple stents and nonadherence with Plavix. IABP placed after Heparin and NTG gtt, 2/2 continued chest pain PMH: coronary artery disease with prior stents, hypertension, hyperlipidemia, diabetes, medical nonadherence Pt is now pain free, eval for removal of IABP per cardiology pt received plavix on 02/28, 03/01 PRU 280 scheduled for surgery on Friday Objective: GENERAL: SKIN: Warm and dry. HEAD: Normocephalic. EYES: No scleral icterus. No injection or drainage. NECK: Supple, trachea midline. No JVD or lymphadenopathy. CARDIOVASCULAR: Regular rate and rhythm without murmurs, gallops, or rubs. IABP right groin, + distal pulses RESPIRATORY: Breath sounds equal bilaterally. No accessory muscle use. GASTROINTESTINAL: Abdomen soft, non-tender, nondistended. MUSCULOSKELETAL: No cyanosis, or edema. BACK: Nontender without obvious deformity. No CVA tenderness. Vital Signs Date Time Temp Pulse Resp B/P (MAP) Pulse Ox O2 Delivery O2 Flow Rate FiO2 03/03/17 17:10 76 155/78 03/03/17 15:00 77 03/03/17 15:00 98.1 73 16 130/78 (95) 98 Arterial Line 03/03/17 14:37 16 03/03/17 14:00 108/59 (93) 114/73 03/03/17 13:00 105/58 (93) 124/71 03/03/17 12:00 115/59 (92) 143/80 03/03/17 11:03 98.0 76 18 131/69 (89) 97 03/03/17 11:02 76 03/03/17 11:01 03/03/17 10:24 17 03/03/17 10:11 03/03/17 09:28 84 135/57 03/03/17 09:06 03/03/17 08:06 03/03/17 07:53 97 Nasal Cannula 4.00 03/03/17 07:22 98.0 68 18 118/63 (81) 95 03/03/17 07:19 68 03/03/17 07:18 03/03/17 06:00 104/60 (84) 03/03/17 05:00 111/61 (63) 03/03/17 04:00 108/59 (84) 03/03/17 03:00 97.9 73 18 141/74 (96) 95 03/03/17 03:00 120/67 (96) 03/03/17 03:00 73 03/03/17 02:15 18 03/03/17 02:06 69 103/62 03/03/17 02:00 100/56 (89) 03/03/17 01:00 109/53 (88) 03/03/17 00:00 98/58 (87) Arterial Line 03/02/17 23:00 98.6 69 18 131/73 (92) 95 03/02/17 23:00 104/57 (89) Arterial Line 03/02/17 23:00 69 03/02/17 22:00 93/57 (84) 03/02/17 21:28 95 Nasal Cannula 4.00 03/02/17 21:00 93/53 (78) 03/02/17 20:00 90/52 (74) Arterial Line 03/02/17 19:54 76 103/66 03/02/17 19:00 76 03/02/17 19:00 98.8 76 18 103/66 (78) 93 03/02/17 19:00 102/62 (81) 03/02/17 18:00 106/61 (82) Labs: Laboratory Tests Test 03/03/17 10:00 03/03/17 11:47 Activated Partial Thromboplast Time 34.3 SEC (24.3-30.1) Platelet Function P2Y12 React Units 280 PRU (194-418) Result Diagram: 03/02/17 0610 03/02/17 1645 (1) Abnormal EKG (2) Multi-vessel coronary artery stenosis Plan: on ASA, statin , off plavix Heparin , now pain free, IABP eval for removal by cardiology (3) Chest pain (4) CAD (coronary artery disease) (5) HTN (hypertension) (6) Coronary stent occlusion Gianna Barkley Mar 03, 2017 17:25
[2017-03-03] MEDS ORDERED: VANCOMYCIN INJ 1,750 MG in SODIUM CHLORID 0.9% 500 ML INJ 500 ML IV SCH (17:30)
[2017-03-03] MEDS ORDERED: METOPROLOL TARTRATE 25 MG TAB PO SCH (17:30)
[2017-03-03] MEDS ORDERED: VANCOMYCIN INJ 1,000 MG in SODIUM CHLORIDE 0.9% IRR BTL 1,000 ML IRRIGATION SCH (17:30)
[2017-03-03] MEDS ORDERED: CHLORHEXIDINE GLUCONATE 4% SOLN 120 ML BTL TOPICAL SCH (17:30)
[2017-03-03] MEDS ORDERED: INSULIN REGULAR (IV INFUSION) 100 UNITS in SODIUM CHLORIDE 0.9% INJ 99 ML IV PRN (17:30)
[2017-03-03] MEDS ORDERED: SODIUM CHLORIDE 0.9% FLUSH 10 ML FLUSH IV FLUSH PRN (17:30)
[2017-03-03] MEDS ORDERED: PAPAVERINE INJ 60 MG, NITROGLYCERIN INJ 100 MCG, DILTIAZEM INJ 100 MG in SODIUM CHLORID... IRRIGATION SCH (17:30)
[2017-03-03] MEDS ORDERED: PILL SPLITTER OTHER PRN (17:45)
[2017-03-03] MEDS ORDERED: MORPHINE SULFATE 2 MG/ML INJ IV ONE (18:00)
[2017-03-03] MEDS: ATORVASTATIN 80 MG TAB PO SCH (21:00)
[2017-03-03] MEDS: clonazePAM 1 MG TAB PO SCH (21:00)
[2017-03-03] MEDS: SODIUM CHLORIDE 0.9% FLUSH 10 ML FLUSH IV FLUSH SCH (21:00)
--- NOTE | 2017-03-03 21:10 | RADRPT ---
EXAM DATE/TIME: 03/03/2017 20:05 [facility] COMPARISON: No previous studies available for comparison. INDICATIONS : Preop cardiac surgery. MEDICAL HISTORY : Myocardial infarction. Hyperparathyroidism Macular degeneration. Palpitations. Chest pain. HTN. Dysp drake. Diabetes. PTSD. Anxiety. Tobacco use. Substance use. Anticoagulant therapy, Plavix & Aspirin. SURGICAL HISTORY : Coronary artery stent. Bilateral TKR. Orthopedic surgery; bilateral arm and back. Cardiac cath. ENCOUNTER: Initial ACUITY: 1 day PAIN SCORE: 0/10 LOCATION: Bilateral leg. TECHNIQUE: Venous ultrasound of the left and right leg was performed from the inguinal ligament to the proximal calf. Real-time, color Doppler and spectral tracing, compression and augmentation techniques were us ed. FINDINGS: RIGHT LEG: There is normal compressibility of the deep venous system from the inguinal region to the proximal ca lf. No echogenic clot is seen in the lumen of the common femoral, femoral, popliteal, and posterior tibial veins. There is a normal response of the venous system to proximal and distal augmentation an d respiration. Iliac vein patent LEFT LEG: There is normal compressibility of the deep venous system from the inguinal region to the proximal ca lf. No echogenic clot is seen in the lumen of the common femoral, femoral, popliteal, and posterior tibial veins. There is a normal response of the venous system to proximal and distal augmentation an d respiration. Iliac vein patent CONCLUSION: Normal examination. Kailash Villanueva MD on March 03, 2017 at 21:08 Board Certified Radiologist. This report was verified electronically.
--- NOTE | 2017-03-03 22:56 | EKG ---
Date Performed: 03/02/2017 Time Performed: 16:16:08 PTAGE: 67 years EKG: Sinus rhythm . Inferior/lateral ST-T changes Abnormal ECG PREVIOUS TRACING : 03/01/2017 23.38 Compared to prior tracing no significant change DOCTOR: Nicole Maldonado Interpretating Date/Time 03/03/2017 22:51:13
--- NOTE | 2017-03-03 23:08 | RADRPT ---
EXAM DATE/TIME: 03/03/2017 20:19 [facility] COMPARISON: No previous studies available for comparison. INDICATIONS : Preop cardiac surgery. MEDICAL HISTORY : Myocardial infarction. Hypercholesterolemia. Macular degeneration. Palpitations. Chest pain. HTN. Dy spnea. Diabetes. PTSD. Anxiety. Tobacco use. Substance use. Anticoagulant therapy, Plavix & Aspirin. SURGICAL HISTORY : Coronary artery stent. Bilateral TKR. Orthopedic surgery; bilateral arm and back. Cardiac cath. ENCOUNTER: Initial ACUITY: 1 day PAIN SCORE: 0/10 LOCATION: Bilateral leg. GREATER SAPHENOUS VEIN THIGH: PROXIMAL: Right 8 mm Left 8 mm MID: Right 3 mm Left 3 mm DISTAL: Right 2 mm Left 3 mm CALF: PROXIMAL: Right 2 mm Left 2 mm MID: Right 2 mm Left 2 mm DISTAL: Right 2 mm Left 2 mm FINDINGS: The venous system of the lower extremities are patent by color Doppler imaging. Measurements of the leg veins (in mm) are listed above. CONCLUSION: 1. Venous mapping as above Noel Esparza MD on March 03, 2017 at 23:07 Board Certified Radiologist. This report was verified electronically.
[2017-03-04] VITALS (12 sets, daily range): BP systolic 104–148; BP diastolic 51–69; PULSE 61–97; RESP 16–20; TEMP 98–99.6; O2SAT 93–100
[2017-03-04] MEDS: HEPARIN-D5W 25,000 U/250 ML 250 ML IV PRN ×2 (00:15→17:39)
[2017-03-04] MEDS: oxyCODONE/ACETAMINOPHEN 5 MG/325 MG TAB PO PRN ×3 (01:11→20:18)
[2017-03-04 03:46] LABS: HEMATOCRIT 37.9 % (39.0-51.0); MEAN CELL VOLUME 88.3 FL (80.0-100.0); MEAN CORPUSCULAR HEMOGLOBIN 29.4 PG (27.0-34.0); MEAN CORPUSCULAR HGB CONC 33.3 % (32.0-36.0); PLATELET COUNT 177 TH/MM3 (150-450); REVIEW FLAG FINAL; WHITE BLOOD COUNT 9.9 TH/MM3 (4.0-11.0)
[2017-03-04 03:52] LABS: APTT (PATIENT) 37.1 SEC (24.3-30.1)
[2017-03-04 04:59] LABS: BLOOD, URINE TRACE (NEG); GLUCOSE,URINE NEG (NEG); KETONE, URINE NEG (NEG); MUCUS URINE FEW /lpf (OCC); NITRITE,URINE NEG (NEG); PH, URINE 5.5 (5.0-8.5); URINE COLOR YELLOW (YELLW/STRAW)
[2017-03-04 05:16] LABS: COMMENT (UR) CULT NOT INDICATED; CULTURE IF INDICATED CULT NOT INDICATED
--- NOTE | 2017-03-04 07:54 | HHI.CCPN ---
Subjective Remarks/Hospital Course 67-year-old male with past medical history of coronary artery disease with prior stents, hypertension, hyperlipidemia, diabetes, medical nonadherence who presents to [facility] emergency department complaining of chest pain. He states he was playing cards this evening and he felt confused "like his glucose was low" and he was given some candy and lemonade and improved. About 45 minutes later he began to feel the same way but also had associated nausea and dry heaves. After this he develops wheezing pain in his chest radiating to his neck, left jaw and left arm. He was diaphoretic and short of breath. EKG demonstrated normal sinus rhythm with some inferior lateral ST depression in leads II, III, aVF, V4-V6. 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 He has chronic occlusion of RCA following multiple stents and nonadherence with Plavix. Cardiovascular surgery consultation has been placed as bifurcation stent would be high risk of impinging L main/LAD. He is on NTG drip, heparin drip, and IABP has been inserted. He complains of some mild left sided chest discomfort that he says feels more like palpitations. Says CP is "nothing like it was". SUBJ 03/03: Patient had intermittent chest pain yesterday, and overnight. No EKG changes response to opiates. Patient is also reproducible by left chest wall compression. Scheduled for CABG tomorrow 03/04: Denies chest pain. Off nitro gtt. CABG postponed to Friday. Will transfer to [facility] Objective Vital Signs Date Time Temp Pulse Resp B/P (MAP) Pulse Ox O2 Delivery O2 Flow Rate FiO2 03/04/17 07:46 100 Nasal Cannula 3.00 03/04/17 03:00 98.3 71 18 135/69 (91) Intake and Output 03/04/17 03/04/17 03/05/17 08:00 16:00 00:00 Intake Total 664 ml Output Total 1050 ml Balance -386 ml Result Diagram: 03/04/17 0320 03/02/17 0305 Objective Remarks GENERAL: Well-nourished, well-developed patient laying flat in CVICU bed. SKIN: Warm and dry, well perfused. HEAD: Atraumatic. Normocephalic. EYES: Pupils equal and round 2 mm reactive bilaterally. No scleral icterus. No injection or drainage. ENT: No nasal bleeding or discharge. Mucous membranes pink and moist. NECK: Trachea midline. No JVD. CARDIOVASCULAR: Regular rate and rhythm, sinus rhythm on the monitor with rate in the 70s. No murmurs rubs or gallops. IABP removed RESPIRATORY: No accessory muscle use. Clear to auscultation. Breath sounds equal bilaterally. GASTROINTESTINAL: Abdomen soft, non-tender, nondistended. Hepatic and splenic margins not palpable. MUSCULOSKELETAL: Extremities without clubbing, cyanosis, or edema. VASC: IABP removed femoral site without hematoma. Dressing in place with gauze and occlusive dressing. DP pulses palpable bilaterally. NEUROLOGICAL: Awake and alert. No obvious cranial nerve deficits. Motor grossly within normal limits. Normal speech. A/P Assessment and Plan NEURO: Anxiety Depression Klonopin 1 mill grams by mouth daily at bedtime Effexor 150 mg by mouth daily Oxycodone as needed for pain with morphine as needed for breakthrough. RESP: Tobacco abuse Nasal cannula wean as tolerated CV: Coronary artery disease with multiple stents Unstable angina Hypertension Hyperlipidemia Status post cardiac catheterization 03/02/[address] Nunez with complex multivessel coronary disease. CVS consult - [place]. Scheduled for CABG 03/07/17 Heparin drip. Off nitro IABP removed 03/03 Aspirin 81 mill grams daily. Atorvastatin 80 mg by mouth daily at bedtime Hold lisinopril due to hypotension 2-D echo 09/18/16ejection fraction 55-60%, pulmonary artery peak pressure 40 mmHg GI: Heart healthy diet. FEN/RENAL: Monitor I/O. Monitor electrolytes and replace as indicated per ICU electrolyte replacement protocol ID: Leukocytosis, likely reactive secondary to ACS. Resolved Monitor for signs and symptoms of infection HEME: No acute hematologic issues. ENDO: Diabetes mellitus Hold metformin. He is euglycemic. Low-dose insulin sliding scale if needed. PROPH: Heparin drip will also provide DVT prophylaxis. Protonix 40 milligrams by mouth daily for stress ulcer prophylaxis. ACCESS: Right femoral intra-aortic balloon pump 03/02 -03/03 Level II Transfer to [facility]. Hospitalist consulted for am 03/05/17 Kasandra Troncoso MD Mar 04, 2017 07:54
--- NOTE | 2017-03-04 08:26 | MB ---
cc: ODIN SUAREZ MD DATE OF CONSULTATION 03/03/2017 DATE OF 1950 HISTORY OF THE PRESENT ILLNESS A 67-year-old male admitted on the due to chest pain. Apparently he has been incarcerated over the past few weeks. He became also short of breath. On arrival they noted he had EKG that shows some ST depression throughout. Apparently initially a STEMI alert was called which was then changed to a NSTEMI. He had an episode also of some generalized shaking where he stared off into space and not respond. They gave him some Ativan for possible seizures. They did a complete neuro workup that just showed 50-60% stenosis the left common carotid artery. The CT head just showed some maxillary sinus disease. The CTA showed no aortic dissection. Troponin 0.02, 0.02. The patient apparently then went to the physical laboratory assistant because of NSTEMI versus unstable angina which showed multivessel disease. The LAD had 30% mid portion, 70% ostial lesion in the ramus. The left circ had ostial 80%. The RCA was 100% occluded with multiple layers of stents throughout distally [id number] collaterals noted. He was placed on heparin drip and nitro drip for breakthrough pain. PAST MEDICAL HISTORY He apparently has a history of: 1. Coronary artery disease. 2. Hyperlipidemia. 3. Depression. 4. Tobacco abuse. 5. Noncompliance with Plavix in the past. 6. Hypertension. 7. Diabetes mellitus type 2. 8. Anxiety. 9. Depression. 10. Posttraumatic stress disorder. PAST SURGICAL HISTORY Surgeries include: 1. Stents times seven to the RCA. 2. Bilateral knee replacement. 3. Lower back surgery 1994. 4. Right shoulder surgery. 5. Left biceps tendon repair. 6. Amputation of the right great toe due to apparently had some gangrene following an infected nail. ALLERGIES INCLUDE PENICILLIN. MEDICATIONS Home meds include: 1. Aspirin. 2. Plavix. 3. Zocor. 4. Nitro. 5. Lisinopril. 6. Suboxone. 7. Klonopin. 8. Effexor. 9. Prilosec. 10. Metformin. FAMILY HISTORY Father secondary to [place] at 52. Mother alive and well at 92. SOCIAL HISTORY for 3 years. Reports smoking one pack per day for the past 46 years. Rare alcohol. Denies any illicit drug use. Lives with his granddaughter. REVIEW OF SYSTEMS GENERAL: No night sweats, fever, heat and cold intolerance. SKIN: No psoriasis, itching or hives. HEENT: No blurred vision, hearing loss. RESPIRATORY: Positive for shortness of breath. CARDIOVASCULAR: As above in HPI. GASTROINTESTINAL: No diarrhea, vomiting. GENITOURINARY: No burning, frequency, urgency. CENTRAL NERVOUS SYSTEM: No history of TIA, CVA, seizure disorder, ENDOCRINE: Positive for diabetes. PHYSICAL EXAMINATION VITAL SIGNS: On exam blood pressure 130/78, heart rate 70, temperature max 98.1. GENERAL: The patient is awake, alert, no acute distress. HEENT: Head is normocephalic, atraumatic. Pupils equal and reactive. Oral mucosa pink, moist. NECK: Supple. No JVD. CARDIOVASCULAR: Heart sounds S1-S2 regular rate and rhythm. No audible rubs, murmurs, gallops. LUNGS: Clear to auscultation. No wheezes, rales or rhonchi. ABDOMEN: Soft, nontender. No masses or organomegaly. EXTREMITIES: He has intra-aortic balloon pump to the right femoral artery with 1:2 augmentation and good distal pulses. LABORATORY FINDINGS Shows hemoglobin of 13, hematocrit of 40, white cell count of 9, platelet count 227. Sodium 140, potassium 3.6, BUN of 18, creatinine 0.71. PRU was 280. IMAGING Aortic CTA, chest x-ray and head CT as above. IMPRESSION This is a 67-year-old male incarcerated at this time with a guard at the bedside admitted with NSTEMI versus unstable angina negative troponins, however significant EKG changes, status post heart catheterization with multivessel disease and history of multiple stents failures and noncompliance with Plavix. Cardiac cath has been reviewed by Dr. Odin Suarez. Procedures, alternatives and risks have been discussed with the patient. Plan will be at this time for surgery on Friday on March 07 for coronary artery bypass grafting to the ____. Further plans per Dr. Odin suarez. DICTATED BY: MARIA GUADALUPE Blancas Odin GEE/YAIR /5:04 PM 8:23 AM
[2017-03-04] MEDS: VENLAFAXINE HCL XR 75 MG CAP PO SCH (08:43)
[2017-03-04] MEDS: ASPIRIN 81 MG CHEW TAB CHEW SCH (08:44)
[2017-03-04] MEDS: PANTOPRAZOLE SOD 40 MG DELAYED RELEASE TAB PO SCH (08:44)
[2017-03-04] MEDS: SODIUM CHLORIDE 0.9% FLUSH 10 ML FLUSH IV FLUSH SCH ×2 (08:44→20:22)
[2017-03-04] MEDS ORDERED: POTASSIUM CHLORIDE 20 MEQ CONTROLLED RELEASE TAB PO ONE (09:15)
[2017-03-04] MEDS ORDERED: PILL SPLITTER OTHER PRN (09:15)
[2017-03-04] MEDS: METOPROLOL TARTRATE 25 MG TAB PO SCH ×2 (09:35→20:18)
[2017-03-04 12:08] LABS: APTT (PATIENT) 39.5 SEC (24.3-30.1)
--- NOTE | 2017-03-04 16:30 | PD.CARD.PN ---
Subjective Subjective Remarks 03/03/17 Patient with episodes of left chest pain Troponins negative EKG with no changes Reproducible with palpation of the left chest wall IABP removed 03/04/17 Earlier today had nitro drip stopped Patient up out of bed and had chest pain, center of the chest, different than left sided chest pain Restarted on nitro drip and when patient was seen late morning no longer having chest pain Objective Medications Current Medications Medications (Trade) Dose Ordered Sig/Heike Route Start Time Stop Time Status Last Admin (NS Flush) 2 ml UNSCH PRN IVF 03/01/17 23:15 (Heparin Inj) 5,000 units UNSCH PRN IV PUSH 03/02/17 06:00 (Heparin Inj) 2,500 units UNSCH PRN IV PUSH 03/02/17 06:00 03/02/17 18:54 Heparin Sodium/ Dextrose 250 ml @ 10 mls/hr TITRATE PRN IV 03/02/17 00:00 03/04/17 00:15 (Percocet 5-325 Mg) 1 tab Q4H PRN PO 03/02/17 02:30 (Percocet 5-325 Mg) 2 tab Q4H PRN PO 03/02/17 02:30 03/04/17 06:45 (Aspirin Chew) 81 mg DAILY CHEW 03/02/17 09:00 03/04/17 08:44 (KlonoPIN) 1 mg HS PO 03/02/17 21:00 03/03/17 21:00 (Effexor Xr) 150 mg DAILY PO 03/02/17 09:00 03/04/17 08:43 (Protonix) 40 mg DAILY PO 03/02/17 09:00 03/04/17 08:44 (Lipitor) 80 mg HS PO 03/02/17 21:00 03/03/17 21:00 (Morphine Inj) 2 mg Q3H PRN IM 03/02/17 02:45 03/03/17 21:00 Potassium Chloride 100 ml @ 50 mls/hr Q2H PRN IV 03/02/17 07:45 Potassium Chloride 100 ml @ 50 mls/hr Q2H PRN IV 03/02/17 07:45 (K-Lyte Cl Eff) 50 meq UNSCH PRN PO 03/02/17 07:45 Potassium Chloride 100 ml @ 25 mls/hr UNSCH PRN IV 03/02/17 07:45 Potassium Chloride 100 ml @ 50 mls/hr Q2H PRN IV 03/02/17 07:45 Magnesium Sulfate 4 gm/Sodium Chloride 100 ml @ 50 mls/hr UNSCH PRN IV 03/02/17 07:45 (Mag-Ox) 800 mg UNSCH PRN PO 03/02/17 07:45 Magnesium Sulfate 2 gm/Sodium Chloride 100 ml @ 50 mls/hr UNSCH PRN IV 03/02/17 07:45 (K-Phos) 2,000 mg Q4H PRN PO 03/02/17 07:45 Sodium Phosphate 30 mmol/Sodium Chloride 250 ml @ 42 mls/hr UNSCH PRN IV 03/02/17 07:45 (K-Phos) 2,000 mg UNSCH PRN PO/TUBE 03/02/17 07:45 Potassium Phosphate 30 mmol/ Sodium Chloride 260 ml @ 42 mls/hr UNSCH PRN IV 03/02/17 07:45 Nitroglycerin/ Dextrose 250 ml @ 12 mls/hr TITRATE PRN IV 03/02/17 10:15 03/03/17 17:10 (NS Flush) 2 ml BID IV FLUSH 03/03/17 21:00 03/04/17 08:44 (NS Flush) 2 ml UNSCH PRN IV FLUSH 03/03/17 17:30 Papaverine HCl 60 mg/Nitroglycerin 100 mcg/Diltiazem HCl 100 mg/Sodium Chloride 100 ml @ 0 mls/hr FINANCE VICE PRESIDENT IRRIGATION 03/03/17 17:30 03/10/17 17:29 Vancomycin HCl 1000 mg/Sodium Chloride 1,000 ml @ 0 mls/hr FINANCE VICE PRESIDENT IRRIGATION 03/03/17 17:30 03/10/17 17:29 Vancomycin HCl 1750 mg/Sodium Chloride 517.5 ml @ 258.75 mls/ hr FINANCE VICE PRESIDENT IV 03/03/17 17:30 03/10/17 17:29 (Lopressor) 12.5 mg FINANCE VICE PRESIDENT PO 03/03/17 17:30 03/10/17 17:29 (Hibiclens 4% Top Soln) 1 applic FINANCE VICE PRESIDENT TOPICAL 03/03/17 17:30 03/10/17 17:29 Insulin Human Regular 100 units/ Sodium Chloride 100 ml @ 3 mls/hr TITRATE PRN IV 03/03/17 17:30 03/10/17 17:29 (Pill Splitter) 1 ea UNSCH PRN OTHER 03/03/17 17:45 (Lopressor) 12.5 mg Q12HR PO 03/04/17 09:15 03/04/17 09:35 (Pill Splitter) 1 ea UNSCH PRN OTHER 03/04/17 09:15 Vital Signs / I&O Vital Signs Date Time Temp Pulse Resp B/P (MAP) Pulse Ox O2 Delivery O2 Flow Rate FiO2 03/04/17 15:00 98.0 68 20 104/51 (68) 96 03/04/17 14:55 67 18 106/52 (70) 96 03/04/17 14:50 67 111/59 03/04/17 14:40 68 114/56 03/04/17 14:33 72 109/51 03/04/17 11:08 99.1 67 17 124/64 (84) 97 03/04/17 11:05 76 03/04/17 07:46 100 Nasal Cannula 3.00 03/04/17 07:45 16 03/04/17 07:00 98.5 64 16 148/68 (94) 100 03/04/17 07:00 65 03/04/17 03:00 98.3 71 18 135/69 (91) 98 03/04/17 03:00 67 03/03/17 23:00 98.0 72 18 137/63 (87) 99 03/03/17 23:00 72 03/03/17 21:54 98 Nasal Cannula 3.50 03/03/17 21:05 18 03/03/17 19:00 97.9 72 18 129/63 (85) 99 03/03/17 19:00 72 03/03/17 17:10 76 155/78 I/O 03/03/17 03/03/17 03/03/17 03/04/17 03/04/17 03/04/17 07:00 15:00 23:00 07:00 15:00 23:00 Intake Total 674 ml 250 ml 967 ml 664 ml Output Total 300 ml 550 ml 1050 ml Balance 374 ml 250 ml 417 ml -386 ml Intake Oral 200 ml 500 ml 320 ml IV Total 474 ml 250 ml 467 ml 344 ml Output Urine Total 300 ml 550 ml 1050 ml # Voids 2 # Bowel Movements 0 0 0 Physical Exam GENERAL: NAD, AAOx3 SKIN: Warm and dry. HEAD: Atraumatic. Normocephalic. EYES: Pupils equal and round. No scleral icterus. No injection or drainage. ENT: No nasal bleeding or discharge. Mucous membranes pink and moist. NECK: Trachea midline. No JVD. CARDIOVASCULAR: Regular rate and rhythm. RESPIRATORY: No accessory muscle use. Clear to auscultation. Breath sounds equal bilaterally. GASTROINTESTINAL: Abdomen soft, non-tender, nondistended. Hepatic and splenic margins not palpable. MUSCULOSKELETAL: Extremities without clubbing, cyanosis, or edema. No obvious deformities. Right and left groin with no hematoma/bruit. Distal pulses 3+ NEUROLOGICAL: Awake and alert. No obvious cranial nerve deficits. Motor grossly within normal limits. Five out of 5 muscle strength in the arms and legs. Normal speech. PSYCHIATRIC: Appropriate mood and affect; insight and judgment normal. Laboratory Laboratory Tests Test 03/03/17 18:15 03/04/17 03:20 03/04/17 04:39 03/04/17 11:35 Nasal Screen MRSA (PCR) MRSA NOT DETECTED White Blood Count 9.9 TH/MM3 Red Blood Count 4.30 MIL/MM3 Hemoglobin 12.6 GM/DL Hematocrit 37.9 % Mean Corpuscular Volume 88.3 FL Mean Corpuscular Hemoglobin 29.4 PG Mean Corpuscular Hemoglobin Concent 33.3 % Red Cell Distribution Width 16.0 % Platelet Count 177 TH/MM3 Mean Platelet Volume 8.2 FL Activated Partial Thromboplast Time 37.1 SEC 39.5 SEC Urine Color YELLOW Urine Turbidity CLEAR Urine pH 5.5 Urine Specific [place] 1.016 Urine Protein NEG mg/dL Urine Glucose (UA) NEG mg/dL Urine Ketones NEG mg/dL Urine Occult Blood TRACE Urine Nitrite NEG Urine Bilirubin NEG Urine Urobilinogen LESS THAN 2.0 MG/DL Urine Leukocyte Esterase NEG Urine RBC 4 /hpf Urine WBC 2 /hpf Urine Mucus FEW /lpf Microscopic Urinalysis Comment CULT NOT INDICATED Assessment and Plan Problem List: (1) Abnormal EKG ICD Codes: R94.31 - Abnormal electrocardiogram [ECG] [EKG] (2) Multi-vessel coronary artery stenosis ICD Codes: I25.10 - Atherosclerotic heart disease of [place] coronary artery without angina pectoris (3) Chest pain ICD Codes: R07.9 - Chest pain, unspecified Status: Acute (4) CAD (coronary artery disease) ICD Codes: I25.10 - Atherosclerotic heart disease of [place] coronary artery without angina pectoris Status: Acute (5) HTN (hypertension) ICD Codes: I10 - Essential (primary) hypertension Status: Acute (6) Coronary stent occlusion ICD Codes: T82.897A - Other specified complication of cardiac prosthetic devices, implants and grafts, initial encounter Status: Acute Assessment and Plan 1) CAD with complex ostial lesion of the 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 Krause, will consider bypass, most likely Friday Overall concern with complexity of the bifurcation of the lesion, non- compliance in the past and previous stent failure 2) EF 50-55% 3) Chest pain appears musculoskeletal Relieved with Morphine Reproducible on palpation of the chest wall 4) Also has angina component Would continue heparin and nitro drips until surgery Pastor Nunez DO Mar 04, 2017 16:30
--- NOTE | 2017-03-04 18:24 | RADRPT ---
EXAM DATE/TIME: 03/04/2017 17:21 [facility] COMPARISON: No previous studies available for comparison. INDICATIONS : Pre-op cardiac surgery. MEDICAL HISTORY : Myocardial infarction. Hypercholesterolemia. Hypertension. Depression. Anxiety. Chemotherapy. SURGICAL HISTORY : Cardiac stent. Total knee replacement, bilateral. Right arm surgery. Left arm surgery. Back surger y. ENCOUNTER: Initial ACUITY: 1 day PAIN SCORE: 2/10 LOCATION: Bilateral neck. PEAK SYSTOLIC VELOCITIES (cm/sec): ICA/CCA RATIO: Right: 1.8 Left: 1.2 ICA: Right: 158.6 Left: 94.7 CCA: Right: 85.9 Left: 76.8 ECA: Right: 165.2 Left: 122.6 VERTEBRAL: Right: 83.6 antegrade Left: 42.6. antegrade Elevated flow velocities and ICA/CCA ratios have been found to correlate with increased degrees of vessel stenosis, calculated as percentage of diameter relative to a normal segment of distal ICA/CCA FINDINGS: Antegrade flow is seen in both vertebral arteries. There is moderate atherosclerotic plaquing at the origin of both ICAs without any significant stenosis. CONCLUSION: No evidence for hemodynamically significant stenosis. Sharath Dumont MD on March 04, 2017 at 18:22 Board Certified Radiologist. This report was verified electronically.
[2017-03-04] MEDS: clonazePAM 1 MG TAB PO SCH (20:17)
[2017-03-04] MEDS: ATORVASTATIN 80 MG TAB PO SCH (20:18)
[2017-03-05] VITALS (30 sets, daily range): BP systolic 116–151; BP diastolic 57–70; PULSE 51–70; RESP 16–18; TEMP 98.3–99.1; O2SAT 95–97
[2017-03-05 00:50] LABS: APTT (PATIENT) 38.9 SEC (24.3-30.1)
[2017-03-05] MEDS: HEPARIN SODIUM - IV 10,000 UNITS/10 ML VIAL IV PUSH PRN ×2 (01:00→14:32)
[2017-03-05] MEDS: oxyCODONE/ACETAMINOPHEN 5 MG/325 MG TAB PO PRN ×4 (01:06→20:38)
[2017-03-05 05:20] LABS: APTT (PATIENT) 54.1 SEC (24.3-30.1)
[2017-03-05 05:39] LABS: ALT (GPT) 24 U/L (12-78); ANION GAP 6 MEQ/L (5-15); AST (GOT) 10 U/L (15-37); BICARBONATE 30.4 MEQ/L (21.0-32.0); BLOOD UREA NITROGEN 11 MG/DL (7-18); CHLORIDE 102 MEQ/L (98-107); GLOMERULAR FILTRATION RATE 132 ML/MIN (>89); MAGNESIUM 1.9 MG/DL (1.5-2.5); POTASSIUM 3.7 MEQ/L (3.5-5.1); SODIUM (NA) 138 MEQ/L (136-145)
[2017-03-05 05:42] LABS: ALKALINE PHOSPHATASE 75 U/L (45-117); TOTAL BILIRUBIN ADULT 0.4 MG/DL (0.2-1.0)
[2017-03-05] MEDS: VENLAFAXINE HCL XR 75 MG CAP PO SCH (08:38)
[2017-03-05] MEDS: METOPROLOL TARTRATE 25 MG TAB PO SCH ×2 (08:38→20:37)
[2017-03-05] MEDS: PANTOPRAZOLE SOD 40 MG DELAYED RELEASE TAB PO SCH (08:38)
[2017-03-05] MEDS: SODIUM CHLORIDE 0.9% FLUSH 10 ML FLUSH IV FLUSH SCH ×2 (08:38→20:38)
[2017-03-05] MEDS: ASPIRIN 81 MG CHEW TAB CHEW SCH (08:38)
[2017-03-05] MEDS ORDERED: POTASSIUM CHLORIDE 10 MEQ CONTROLLED RELEASE TAB PO ONE (09:45)
--- NOTE | 2017-03-05 09:50 | HHI.PR ---
Subjective Remarks Follow-up unstable angina/CAD with multivessel disease 03/05/17-patient seen and examined, reports some chest pressure otherwise stable. Currently on nitroglycerin and heparin drip. Denies any acute event overnight. chief information security officer in the room Objective Vitals Vital Signs Date Time Temp Pulse Resp B/P (MAP) Pulse Ox O2 Delivery O2 Flow Rate FiO2 03/05/17 08:15 98.3 62 18 151/70 (97) 95 03/05/17 07:01 53 03/05/17 06:11 52 03/05/17 06:01 62 03/05/17 05:26 51 03/05/17 05:24 51 120/59 03/05/17 04:07 59 03/05/17 03:24 98.9 62 18 120/60 (80) 96 03/05/17 03:19 55 03/05/17 03:00 62 120/60 03/05/17 02:08 58 03/05/17 01:55 18 03/05/17 01:12 70 03/05/17 01:03 64 116/56 03/05/17 00:38 64 134/61 03/05/17 00:01 62 03/04/17 23:00 83 03/04/17 23:00 98.7 61 18 114/56 (75) 94 03/04/17 23:00 61 114/56 03/04/17 20:22 97 118/61 03/04/17 20:00 99.6 97 18 118/61 (80) 93 03/04/17 20:00 83 03/04/17 18:00 73 03/04/17 17:00 70 03/04/17 16:00 72 03/04/17 15:00 68 03/04/17 15:00 98.0 68 20 104/51 (68) 96 03/04/17 14:55 67 18 106/52 (70) 96 03/04/17 14:50 67 111/59 03/04/17 14:40 68 114/56 03/04/17 14:33 72 109/51 03/04/17 11:08 99.1 67 17 124/64 (84) 97 03/04/17 11:05 76 I/O 03/04/17 03/04/17 03/04/17 03/05/17 03/05/1703/05/17 07:00 15:00 23:00 07:00 15:00 23:00 Intake Total 664 ml 850 ml 394 ml Output Total 1050 ml 1200 ml 1000 ml Balance -386 ml -350 ml -606 ml Intake Oral 320 ml 850 ml 120 ml IV Total 344 ml 274 ml Output Urine Total 1050 ml 1200 ml 1000 ml # Bowel Movements 0 Result Diagram: 03/04/17 0320 03/05/17 0439 Imaging Last Impressions Carotid Artery Ultrasound 03/04/17 0000 Signed Impressions: Service Date/Time: Saturday, March 04, 2017 17:21 - CONCLUSION: No evidence for hemodynamically significant stenosis. Sharath Dumont MD Lower Extremity Ultrasound 03/03/17 0000 Signed Impressions: Service Date/Time: Friday, March 03, 2017 20:19 - CONCLUSION: 1. Venous mapping as above Noel Esparza MD Aorta CTA 03/02/17 0000 Signed Impressions: Service Date/Time: Thursday, March 02, 2017 17:13 - CONCLUSION: 1. No evidence of aortic dissection. 2. There is 50-60%% stenosis at the origin of the left common carotid artery. Noel Esparza MD Chest X-Ray 03/01/17 2310 Signed Impressions: Service Date/Time: Wednesday, March 01, 2017 23:26 - CONCLUSION: Cardiomegaly. Aba Jacobs MD Head CT 03/01/17 0000 Signed Impressions: Service Date/Time: Thursday, March 02, 2017 00:25 - CONCLUSION: 1. No intracranial abnormality seen. 2. Right maxillary sinus disease. Aba Jacobs MD Objective Remarks GENERAL: NAD SKIN: Warm and dry. HEAD: Normocephalic. EYES: No scleral icterus. No injection or drainage. NECK: Supple, trachea midline. No JVD or lymphadenopathy. CARDIOVASCULAR: Regular rate and rhythm without murmurs, gallops, or rubs. RESPIRATORY: Breath sounds equal bilaterally. No accessory muscle use. GASTROINTESTINAL: Abdomen soft, non-tender, nondistended. MUSCULOSKELETAL: No cyanosis, or edema. BACK: Nontender without obvious deformity. No CVA tenderness. A/P Problem List: (1) Multi-vessel coronary artery stenosis ICD Code: I25.10 - Atherosclerotic heart disease of [place] coronary artery without angina pectoris (2) HTN (hypertension) ICD Code: I10 - Essential (primary) hypertension Status: Acute (3) CAD (coronary artery disease) ICD Code: I25.10 - Atherosclerotic heart disease of [place] coronary artery without angina pectoris Status: Acute Assessment and Plan 67-year-old man with Coronary artery disease with multiple stents Unstable angina Hypertension Hyperlipidemia Status post cardiac catheterization 03/02/[address] Nunez with complex multivessel coronary disease. Scheduled for CABG 03/07/17 by cardiothoracic surgery Heparin and Nitrol drips Aspirin 81 mill grams daily. Atorvastatin 80 mg by mouth daily at bedtime Okay to resume lisinopril 2-D echo 09/18/16ejection fraction 55-60%, pulmonary artery peak pressure 40 mmHg Anxiety Depression Klonopin 1 mill grams by mouth daily at bedtime Effexor 150 mg by mouth daily Oxycodone as needed for pain with morphine as needed for breakthrough. Tobacco abuse Counseling provided Diabetes mellitus Hold metformin. He is euglycemic. Low-dose insulin sliding scale if needed. PROPH: Heparin drip will also provide DVT prophylaxis. Protonix 40 milligrams by mouth daily for stress ulcer prophylaxis. Luis Mcpherson MD Mar 05, 2017 09:50
[2017-03-05] MEDS: MAGNESIUM SULFATE 1 GM PREMIX 100 ML IV SCH ×2 (10:45→11:02)
[2017-03-05] MEDS: HEPARIN-D5W 25,000 U/250 ML 250 ML IV PRN (10:53)
[2017-03-05 14:02] LABS: APTT (PATIENT) 30.7 SEC (24.3-30.1)
[2017-03-05] MEDS: MORPHINE SULFATE 2 MG/ML INJ IM PRN (14:33)
--- NOTE | 2017-03-05 14:33 | PD.CARD.PN ---
Subjective Subjective Remarks 03/03/17 Patient with episodes of left chest pain Troponins negative EKG with no changes Reproducible with palpation of the left chest wall IABP removed 03/04/17 Earlier today had nitro drip stopped Patient up out of bed and had chest pain, center of the chest, different than left sided chest pain Restarted on nitro drip and when patient was seen late morning no longer having chest pain 03/05/17 No angina today, only the reproducible left sided chest pain Objective Medications Current Medications Medications (Trade) Dose Ordered Sig/Heike Route Start Time Stop Time Status Last Admin (NS Flush) 2 ml UNSCH PRN IVF 03/01/17 23:15 (Heparin Inj) 5,000 units UNSCH PRN IV PUSH 03/02/17 06:00 (Heparin Inj) 2,500 units UNSCH PRN IV PUSH 03/02/17 06:00 03/05/17 01:00 Heparin Sodium/ Dextrose 250 ml @ 10 mls/hr TITRATE PRN IV 03/02/17 00:00 03/05/17 10:53 (Percocet 5-325 Mg) 1 tab Q4H PRN PO 03/02/17 02:30 (Percocet 5-325 Mg) 2 tab Q4H PRN PO 03/02/17 02:30 03/05/17 08:44 (Aspirin Chew) 81 mg DAILY CHEW 03/02/17 09:00 03/05/17 08:38 (KlonoPIN) 1 mg HS PO 03/02/17 21:00 03/04/17 20:17 (Effexor Xr) 150 mg DAILY PO 03/02/17 09:00 03/05/17 08:38 (Protonix) 40 mg DAILY PO 03/02/17 09:00 03/05/17 08:38 (Lipitor) 80 mg HS PO 03/02/17 21:00 03/04/17 20:18 (Morphine Inj) 2 mg Q3H PRN IM 03/02/17 02:45 03/03/17 21:00 Nitroglycerin/ Dextrose 250 ml @ 12 mls/hr TITRATE PRN IV 03/02/17 10:15 03/03/17 17:10 (NS Flush) 2 ml BID IV FLUSH 03/03/17 21:00 03/05/17 08:38 (NS Flush) 2 ml UNSCH PRN IV FLUSH 03/03/17 17:30 Papaverine HCl 60 mg/Nitroglycerin 100 mcg/Diltiazem HCl 100 mg/Sodium Chloride 100 ml @ 0 mls/hr SPECIAL EDUCATION INSTRUCTOR IRRIGATION 03/03/17 17:30 03/10/17 17:29 Vancomycin HCl 1000 mg/Sodium Chloride 1,000 ml @ 0 mls/hr SPECIAL EDUCATION INSTRUCTOR IRRIGATION 03/03/17 17:30 03/10/17 17:29 Vancomycin HCl 1750 mg/Sodium Chloride 517.5 ml @ 258.75 mls/ hr SPECIAL EDUCATION INSTRUCTOR IV 03/03/17 17:30 03/10/17 17:29 (Lopressor) 12.5 mg SPECIAL EDUCATION INSTRUCTOR PO 03/03/17 17:30 03/10/17 17:29 (Hibiclens 4% Top Soln) 1 applic SPECIAL EDUCATION INSTRUCTOR TOPICAL 03/03/17 17:30 03/10/17 17:29 Insulin Human Regular 100 units/ Sodium Chloride 100 ml @ 3 mls/hr TITRATE PRN IV 03/03/17 17:30 03/10/17 17:29 (Pill Splitter) 1 ea UNSCH PRN OTHER 03/03/17 17:45 (Lopressor) 12.5 mg Q12HR PO 03/04/17 09:15 03/05/17 08:38 (Pill Splitter) 1 ea UNSCH PRN OTHER 03/04/17 09:15 Vital Signs / I&O Vital Signs Date Time Temp Pulse Resp B/P (MAP) Pulse Ox O2 Delivery O2 Flow Rate FiO2 03/05/17 12:01 60 03/05/17 11:15 98.4 54 18 125/58 (80) 95 03/05/17 11:01 56 03/05/17 10:01 54 03/05/17 09:00 60 03/05/17 08:15 98.3 62 18 151/70 (97) 95 03/05/17 08:00 68 03/05/17 07:01 53 03/05/17 06:11 52 03/05/17 06:01 62 03/05/17 05:26 51 03/05/17 05:24 51 120/59 03/05/17 04:07 59 03/05/17 03:24 98.9 62 18 120/60 (80) 96 03/05/17 03:19 55 03/05/17 03:00 62 120/60 03/05/17 02:08 58 03/05/17 01:55 18 03/05/17 01:12 70 03/05/17 01:03 64 116/56 03/05/17 00:38 64 134/61 03/05/17 00:01 62 03/04/17 23:00 83 03/04/17 23:00 98.7 61 18 114/56 (75) 94 03/04/17 23:00 61 114/56 03/04/17 20:22 97 118/61 03/04/17 20:00 99.6 97 18 118/61 (80) 93 03/04/17 20:00 83 03/04/17 18:00 73 03/04/17 17:00 70 03/04/17 16:00 72 03/04/17 15:00 68 03/04/17 15:00 98.0 68 20 104/51 (68) 96 03/04/17 14:55 67 18 106/52 (70) 96 03/04/17 14:50 67 111/59 03/04/17 14:40 68 114/56 03/04/17 14:33 72 109/51 I/O 03/04/17 03/04/17 03/04/17 03/05/17 03/05/17 03/05/17 07:00 15:00 23:00 07:00 15:00 23:00 Intake Total 664 ml 850 ml 394 ml 98 ml Output Total 1050 ml 1200 ml 1000 ml Balance -386 ml -350 ml -606 ml 98 ml Intake Oral 320 ml 850 ml 120 ml IV Total 344 ml 274 ml 98 ml Output Urine Total 1050 ml 1200 ml 1000 ml # Bowel Movements 0 Physical Exam GENERAL: NAD, AAOx3 SKIN: Warm and dry. HEAD: Atraumatic. Normocephalic. EYES: Pupils equal and round. No scleral icterus. No injection or drainage. ENT: No nasal bleeding or discharge. Mucous membranes pink and moist. NECK: Trachea midline. No JVD. CARDIOVASCULAR: Regular rate and rhythm. RESPIRATORY: No accessory muscle use. Clear to auscultation. Breath sounds equal bilaterally. GASTROINTESTINAL: Abdomen soft, non-tender, nondistended. Hepatic and splenic margins not palpable. MUSCULOSKELETAL: Extremities without clubbing, cyanosis, or edema. No obvious deformities. Right and left groin with no hematoma/bruit. Distal pulses 3+ NEUROLOGICAL: Awake and alert. No obvious cranial nerve deficits. Motor grossly within normal limits. Five out of 5 muscle strength in the arms and legs. Normal speech. PSYCHIATRIC: Appropriate mood and affect; insight and judgment normal. Laboratory Laboratory Tests Test 03/05/17 00:05 03/05/17 04:39 03/05/17 13:04 Activated Partial Thromboplast Time 38.9 SEC 54.1 SEC 30.7 SEC Blood Urea Nitrogen 11 MG/DL Creatinine 0.61 MG/DL Random Glucose 96 MG/DL Total Protein 6.7 GM/DL Albumin 3.0 GM/DL Calcium Level 8.7 MG/DL Magnesium Level 1.9 MG/DL Alkaline Phosphatase 75 U/L Aspartate Amino Transf (AST/SGOT) 10 U/L Alanine Aminotransferase (ALT/SGPT) 24 U/L Total Bilirubin 0.4 MG/DL Sodium Level 138 MEQ/L Potassium Level 3.7 MEQ/L Chloride Level 102 MEQ/L Carbon Dioxide Level 30.4 MEQ/L Anion Gap 6 MEQ/L Estimat Glomerular Filtration Rate 132 ML/MIN Assessment and Plan Problem List: (1) Abnormal EKG ICD Codes: R94.31 - Abnormal electrocardiogram [ECG] [EKG] (2) Multi-vessel coronary artery stenosis ICD Codes: I25.10 - Atherosclerotic heart disease of [place] coronary artery without angina pectoris (3) Chest pain ICD Codes: R07.9 - Chest pain, unspecified Status: Acute (4) CAD (coronary artery disease) ICD Codes: I25.10 - Atherosclerotic heart disease of [place] coronary artery without angina pectoris Status: Acute (5) HTN (hypertension) ICD Codes: I10 - Essential (primary) hypertension Status: Acute (6) Coronary stent occlusion ICD Codes: T82.897A - Other specified complication of cardiac prosthetic devices, implants and grafts, initial encounter Status: Acute Assessment and Plan 1) CAD with 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 Krause, will consider bypass, most likely Friday Overall concern with complexity of the bifurcation of the lesion, non- compliance in the past and previous stent failure 2) EF 50-55% 3) Chest pain appears musculoskeletal Relieved with Morphine Reproducible on palpation of the chest wall 4) Also has angina component Would continue heparin and nitro drips until surgery Pastor Nunez DO Mar 05, 2017 14:33
--- NOTE | 2017-03-05 17:08 | PD.CAR.PN ---
CVT Progress Note Subjective/Hospital Course: 67-year-old male presented from local correction, incarcerated inmate with chest pain , hx CAD/ stents / noncompliance with plavix , underwent cardiac cat , founds to have multi vessel disease, EF 50% EKG demonstrated normal sinus rhythm with some inferior lateral ST depression in leads II, III, aVF, V4-V6. Cardiology was consulted and he was taken emergently to the [facility] where he was found to have complex multivessel CAD with 70% stenosis of ramus near the takeoff of the left main and 80% ostial lesion of circumflex. He has chronic occlusion of RCA following multiple stents and nonadherence with Plavix. IABP placed after Heparin and NTG gtt, 2/ continued chest pain PMH: coronary artery disease with prior stents, hypertension, hyperlipidemia, diabetes, medical nonadherence Pt is now pain free, eval for removal of IABP per cardiology pt received plavix on 02/28, 03/01 PRU 280 scheduled for surgery on Monday 03/05 still has intermittent chest discomfort , for surgery on friday on NTG and heparin Objective: GENERAL: SKIN: Warm and dry. HEAD: Normocephalic. EYES: No scleral icterus. No injection or drainage. NECK: Supple, trachea midline. No JVD or lymphadenopathy. CARDIOVASCULAR: Regular rate and rhythm without murmurs, gallops, or rubs. RESPIRATORY: Breath sounds equal bilaterally. No accessory muscle use. GASTROINTESTINAL: Abdomen soft, non-tender, nondistended. MUSCULOSKELETAL: No cyanosis, or edema. BACK: Nontender without obvious deformity. No CVA tenderness. Vital Signs Date Time Temp Pulse Resp B/P (MAP) Pulse Ox O2 Delivery O2 Flow Rate FiO2 03/05/17 15:15 99.1 60 18 126/60 (82) 97 03/05/17 15:01 60 03/05/17 14:30 60 126/60 03/05/17 14:00 56 03/05/17 13:00 52 03/05/17 12:01 60 03/05/17 11:15 98.4 54 18 125/58 (80) 95 03/05/17 11:01 56 03/05/17 10:01 54 03/05/17 09:00 60 03/05/17 08:15 98.3 62 18 151/70 (97) 95 03/05/17 08:00 68 03/05/17 07:01 53 03/05/17 06:11 52 03/05/17 06:01 62 03/05/17 05:26 51 03/05/17 05:24 51 120/59 03/05/17 04:07 59 03/05/17 03:24 98.9 62 18 120/60 (80) 96 03/05/17 03:19 55 03/05/17 03:00 62 120/60 03/05/17 02:08 58 03/05/17 01:55 18 03/05/17 01:12 70 03/05/17 01:03 64 116/56 03/05/17 00:38 64 134/61 03/05/17 00:01 62 03/04/17 23:00 83 03/04/17 23:00 98.7 61 18 114/56 (75) 94 03/04/17 23:00 61 114/56 03/04/17 20:22 97 118/61 03/04/17 20:00 99.6 97 18 118/61 (80) 93 03/04/17 20:00 83 03/04/17 18:00 73 Labs: Laboratory Tests Test 03/05/17 13:04 Activated Partial Thromboplast Time 30.7 SEC (24.3-30.1) Result Diagram: 03/04/17 0320 03/05/17 0439 Telemetry: NSR (1) Abnormal EKG (2) Multi-vessel coronary artery stenosis Plan: on ASA, statin , off plavix Heparin , NTG, prn Morphine surgery on friday (3) Chest pain (4) CAD (coronary artery disease) (5) HTN (hypertension) (6) Coronary stent occlusion Gianna Barkley Mar 05, 2017 17:08
[2017-03-05] MEDS: clonazePAM 1 MG TAB PO SCH (20:37)
[2017-03-05] MEDS: ATORVASTATIN 80 MG TAB PO SCH (20:37)
[2017-03-06] VITALS (29 sets, daily range): BP systolic 115–142; BP diastolic 58–65; PULSE 48–74; RESP 16–18; TEMP 98.2–99.4; O2SAT 95–99
[2017-03-06] MEDS: HEPARIN-D5W 25,000 U/250 ML 250 ML IV PRN ×2 (01:45→16:14)
[2017-03-06] MEDS: oxyCODONE/ACETAMINOPHEN 5 MG/325 MG TAB PO PRN ×4 (03:04→23:11)
[2017-03-06 03:08] LABS: AUTOMATED NEUTROPHIL # 6.3 TH/MM3 (1.8-7.7); BASOPHIL # 0.1 TH/MM3 (0-0.2); BASOPHIL % 0.8 % (0.0-2.0); EOSINOPHIL # 0.2 TH/MM3 (0-0.4); EOSINOPHIL % 1.7 % (0.0-4.0); HEMO FLAGS DIFF FINAL; LYMPH % 31.5 % (9.0-44.0); LYMPHOCYTE # 3.5 TH/MM3 (1.0-4.8); MEAN CORPUSCULAR HEMOGLOBIN 29.5 PG (27.0-34.0); MEAN CORPUSCULAR HGB CONC 33.5 % (32.0-36.0); MONO % 8.4 % (0.0-8.0); NEUT % 57.6 % (16.0-70.0); PLATELET COUNT 206 TH/MM3 (150-450); RED BLOOD COUNT 4.43 MIL/MM3 (4.50-5.90); RED CELL DISTRIBUTION WIDTH 16.1 % (11.6-17.2)
[2017-03-06 03:20] LABS: APTT (PATIENT) 47.4 SEC (24.3-30.1); PROTHROMBIN TIME - PATIENT 10.8 SEC (9.8-11.6)
[2017-03-06 03:32] LABS: ANION GAP 4 MEQ/L (5-15); AST (GOT) 12 U/L (15-37); BICARBONATE 30.8 MEQ/L (21.0-32.0); BLOOD UREA NITROGEN 14 MG/DL (7-18); CHLORIDE 103 MEQ/L (98-107); GLOMERULAR FILTRATION RATE 120 ML/MIN (>89); SODIUM (NA) 138 MEQ/L (136-145)
[2017-03-06 03:36] LABS: ALKALINE PHOSPHATASE 75 U/L (45-117); ALT (GPT) 25 U/L (12-78); TOTAL BILIRUBIN ADULT 0.3 MG/DL (0.2-1.0)
[2017-03-06] MEDS: PANTOPRAZOLE SOD 40 MG DELAYED RELEASE TAB PO SCH (08:04)
[2017-03-06] MEDS: VENLAFAXINE HCL XR 75 MG CAP PO SCH (08:04)
[2017-03-06] MEDS: SODIUM CHLORIDE 0.9% FLUSH 10 ML FLUSH IV FLUSH SCH ×2 (08:05→20:20)
[2017-03-06] MEDS: ASPIRIN 81 MG CHEW TAB CHEW SCH (08:05)
[2017-03-06] MEDS: METOPROLOL TARTRATE 25 MG TAB PO SCH ×3 (08:05→23:11)
--- NOTE | 2017-03-06 09:52 | HHI.PR ---
Subjective Remarks Follow-up unstable angina/CAD with multivessel disease 03/05/17-patient seen and examined, reports some chest pressure otherwise stable. Currently on nitroglycerin and heparin drip. Denies any acute event overnight. vice squad police officer in the room 03/06/17-patient seen and examined, still complains of left-sided pressure pain Objective Vitals Vital Signs Date Time Temp Pulse Resp B/P (MAP) Pulse Ox O2 Delivery O2 Flow Rate FiO2 03/06/17 08:15 98.4 50 18 122/59 (80) 96 03/06/17 07:01 50 03/06/17 06:04 52 127/62 03/06/17 06:02 55 03/06/17 05:21 52 03/06/17 04:15 18 03/06/17 04:12 52 03/06/17 03:06 54 115/61 03/06/17 03:01 98.4 54 16 115/61 (79) 96 03/06/17 03:00 51 03/06/17 02:06 52 03/06/17 00:25 54 03/05/17 23:11 56 119/58 03/05/17 23:09 98.4 54 16 119/58 (78) 96 03/05/17 23:00 57 03/05/17 22:00 58 03/05/17 21:00 56 03/05/17 20:35 62 116/57 03/05/17 20:00 58 03/05/17 19:00 57 03/05/17 19:00 98.5 62 18 116/57 (76) 97 03/05/17 18:01 58 03/05/17 17:00 52 03/05/17 16:00 60 03/05/17 15:15 99.1 60 18 126/60 (82) 97 03/05/17 15:01 60 03/05/17 14:30 60 126/60 03/05/17 14:00 56 03/05/17 13:00 52 03/05/17 12:01 60 03/05/17 11:15 98.4 54 18 125/58 (80) 95 03/05/17 11:01 56 03/05/17 10:01 54 I/O 03/05/17 03/05/17 03/05/17 03/06/17 03/06/1703/06/17 07:00 15:00 23:00 07:00 15:00 23:00 Intake Total 394 ml 98 ml 480 ml 120 ml Output Total 1000 ml 450 ml 850 ml Balance -606 ml 98 ml 30 ml -730 ml Intake Oral 120 ml 480 ml 120 ml IV Total 274 ml 98 ml Output Urine Total 1000 ml 450 ml 850 ml # Voids 1 2 # Bowel Movements 0 Result Diagram: 03/06/17 0254 03/06/17 0254 Objective Remarks GENERAL: NAD SKIN: Warm and dry. HEAD: Normocephalic. EYES: No scleral icterus. No injection or drainage. NECK: Supple, trachea midline. No JVD or lymphadenopathy. CARDIOVASCULAR: Regular rate and rhythm without murmurs, gallops, or rubs. RESPIRATORY: Breath sounds equal bilaterally. No accessory muscle use. GASTROINTESTINAL: Abdomen soft, non-tender, nondistended. MUSCULOSKELETAL: No cyanosis, or edema. BACK: Nontender without obvious deformity. No CVA tenderness. A/P Problem List: (1) Multi-vessel coronary artery stenosis ICD Code: I25.10 - Atherosclerotic heart disease of [place] coronary artery without angina pectoris (2) HTN (hypertension) ICD Code: I10 - Essential (primary) hypertension Status: Acute (3) CAD (coronary artery disease) ICD Code: I25.10 - Atherosclerotic heart disease of [place] coronary artery without angina pectoris Status: Acute Assessment and Plan 67-year-old man with Coronary artery disease with multiple stents Unstable angina Hypertension Hyperlipidemia Status post cardiac catheterization 03/02/[address] Nunez with complex multivessel coronary disease. Scheduled for CABG tomorrow 03/07/17 by cardiothoracic surgery Continue Heparin and Nitro drips Aspirin 81 mill grams daily. Atorvastatin 80 mg by mouth daily at bedtime Okay to resume lisinopril 2-D echo 09/18/16ejection fraction 55-60%, pulmonary artery peak pressure 40 mmHg Anxiety Depression Klonopin 1 mill grams by mouth daily at bedtime Effexor 150 mg by mouth daily Oxycodone as needed for pain with morphine as needed for breakthrough. Tobacco abuse Counseling provided Diabetes mellitus Hold metformin. He is euglycemic. Low-dose insulin sliding scale if needed. PROPH: Heparin drip . Protonix 40 milligrams by mouth daily for stress ulcer prophylaxis. Luis Mcpherson MD Mar 06, 2017 09:52
--- NOTE | 2017-03-06 10:52 | PD.CAR.PN ---
CVT Progress Note Subjective/Hospital Course: 67-year-old male presented from local senior care, incarcerated inmate with chest pain , hx CAD/ stents / noncompliance with plavix , underwent cardiac cat , founds to have multi vessel disease, EF 50% EKG demonstrated normal sinus rhythm with some inferior lateral ST depression in leads II, III, aVF, V4-V6. Cardiology was consulted and he was taken emergently to the [facility] where he was found to have complex multivessel CAD with 70% stenosis of ramus near the takeoff of the left main and 80% ostial lesion of circumflex. He has chronic occlusion of RCA following multiple stents and nonadherence with Plavix. IABP placed after Heparin and NTG gtt, 2/ continued chest pain PMH: coronary artery disease with prior stents, hypertension, hyperlipidemia, diabetes, medical nonadherence Pt is now pain free, eval for removal of IABP per cardiology pt received plavix on 02/28, 03/01 PRU 280 scheduled for surgery on Monday 03/05 still has intermittent chest discomfort , for surgery on friday on NTG and heparin 03/06 for surgery in am still on heparin and NTG gtt Objective: GENERAL: SKIN: Warm and dry. HEAD: Normocephalic. EYES: No scleral icterus. No injection or drainage. NECK: Supple, trachea midline. No JVD or lymphadenopathy. CARDIOVASCULAR: Regular rate and rhythm without murmurs, gallops, or rubs. RESPIRATORY: Breath sounds equal bilaterally. No accessory muscle use. GASTROINTESTINAL: Abdomen soft, non-tender, nondistended. MUSCULOSKELETAL: No cyanosis, or edema. BACK: Nontender without obvious deformity. No CVA tenderness. Vital Signs Date Time Temp Pulse Resp B/P (MAP) Pulse Ox O2 Delivery O2 Flow Rate FiO2 03/06/17 10:01 54 03/06/17 09:00 58 03/06/17 08:15 98.4 50 18 122/59 (80) 96 03/06/17 08:00 48 03/06/17 07:01 50 03/06/17 06:04 52 127/62 03/06/17 06:02 55 03/06/17 05:21 52 03/06/17 04:15 18 03/06/17 04:12 52 03/06/17 03:06 54 115/61 03/06/17 03:01 98.4 54 16 115/61 (79) 96 03/06/17 03:00 51 03/06/17 02:06 52 03/06/17 00:25 54 03/05/17 23:11 56 119/58 03/05/17 23:09 98.4 54 16 119/58 (78) 96 03/05/17 23:00 57 03/05/17 22:00 58 03/05/17 21:00 56 03/05/17 20:35 62 116/57 03/05/17 20:00 58 03/05/17 19:00 57 03/05/17 19:00 98.5 62 18 116/57 (76) 97 03/05/17 18:01 58 03/05/17 17:00 52 03/05/17 16:00 60 03/05/17 15:15 99.1 60 18 126/60 (82) 97 03/05/17 15:01 60 03/05/17 14:30 60 126/60 03/05/17 14:00 56 03/05/17 13:00 52 03/05/17 12:01 60 03/05/17 11:15 98.4 54 18 125/58 (80) 95 03/05/17 11:01 56 Labs: Laboratory Tests Test 03/06/17 02:54 White Blood Count 11.0 TH/MM3 (4.0-11.0) Red Blood Count 4.43 MIL/MM3 (4.50-5.90) Hemoglobin 13.0 GM/DL (13.0-17.0) Hematocrit 39.0 % (39.0-51.0) Mean Corpuscular Volume 88.0 FL (80.0-100.0) Mean Corpuscular Hemoglobin 29.5 PG (27.0-34.0) Mean Corpuscular Hemoglobin Concent 33.5 % (32.0-36.0) Red Cell Distribution Width 16.1 % (11.6-17.2) Platelet Count 206 TH/MM3 (150-450) Mean Platelet Volume 8.3 FL (7.0-11.0) Neutrophils (%) (Auto) 57.6 % (16.0-70.0) Lymphocytes (%) (Auto) 31.5 % (9.0-44.0) Monocytes (%) (Auto) 8.4 % (0.0-8.0) Eosinophils (%) (Auto) 1.7 % (0.0-4.0) Basophils (%) (Auto) 0.8 % (0.0-2.0) Neutrophils # (Auto) 6.3 TH/MM3 (1.8-7.7) Lymphocytes # (Auto) 3.5 TH/MM3 (1.0-4.8) Monocytes # (Auto) 0.9 TH/MM3 (0-0.9) Eosinophils # (Auto) 0.2 TH/MM3 (0-0.4) Basophils # (Auto) 0.1 TH/MM3 (0-0.2) CBC Comment DIFF FINAL Differential Comment Prothrombin Time 10.8 SEC (9.8-11.6) Prothromb Time International Ratio 1.0 RATIO Activated Partial Thromboplast Time 47.4 SEC (24.3-30.1) Blood Urea Nitrogen 14 MG/DL (7-18) Creatinine 0.66 MG/DL (0.60-1.30) Random Glucose 102 MG/DL (74-106) Total Protein 6.7 GM/DL (6.4-8.2) Albumin 2.9 GM/DL (3.4-5.0) Calcium Level 8.7 MG/DL (8.5-10.1) Alkaline Phosphatase 75 U/L (45-117) Aspartate Amino Transf (AST/SGOT) 12 U/L (15-37) Alanine Aminotransferase (ALT/SGPT) 25 U/L (12-78) Total Bilirubin 0.3 MG/DL (0.2-1.0) Sodium Level 138 MEQ/L (136-145) Potassium Level 4.0 MEQ/L (3.5-5.1) Chloride Level 103 MEQ/L (98-107) Carbon Dioxide Level 30.8 MEQ/L (21.0-32.0) Anion Gap 4 MEQ/L (5-15) Estimat Glomerular Filtration Rate 120 ML/MIN (>89) Result Diagram: 03/06/1725303/06/17253 (1) Abnormal EKG (2) Multi-vessel coronary artery stenosis Plan: on ASA, statin , off plavix Heparin , NTG, prn Morphine surgery on friday (3) Chest pain (4) CAD (coronary artery disease) (5) HTN (hypertension) (6) Coronary stent occlusion Gianna Barkley Mar 06, 2017 10:52
[2017-03-06] MEDS: MORPHINE SULFATE 2 MG/ML INJ IM PRN ×3 (12:57→23:36)
[2017-03-06] MEDS: NITROGLYCERIN/DEXTROSE 5% 250 ML for chest pain IV PRN (16:05)
--- NOTE | 2017-03-06 18:30 | PD.CARD.PN ---
Subjective Subjective Remarks 03/03/17 Patient with episodes of left chest pain Troponins negative EKG with no changes Reproducible with palpation of the left chest wall IABP removed 03/04/17 Earlier today had nitro drip stopped Patient up out of bed and had chest pain, center of the chest, different than left sided chest pain Restarted on nitro drip and when patient was seen late morning no longer having chest pain 03/05/17 No angina today, only the reproducible left sided chest pain 03/06/17 No change, feels better today Objective Medications Current Medications Medications (Trade) Dose Ordered Sig/Heike Route Start Time Stop Time Status Last Admin (NS Flush) 2 ml UNSCH PRN IVF 03/01/17 23:15 (Heparin Inj) 5,000 units UNSCH PRN IV PUSH 03/02/17 06:00 (Heparin Inj) 2,500 units UNSCH PRN IV PUSH 03/02/17 06:00 03/05/17 14:32 Heparin Sodium/ Dextrose 250 ml @ 10 mls/hr TITRATE PRN IV 03/02/17 00:00 03/06/17 16:14 (Percocet 5-325 Mg) 1 tab Q4H PRN PO 03/02/17 02:30 (Percocet 5-325 Mg) 2 tab Q4H PRN PO 03/02/17 02:30 03/06/17 16:07 (Aspirin Chew) 81 mg DAILY CHEW 03/02/17 09:00 03/06/17 08:05 (KlonoPIN) 1 mg HS PO 03/02/17 21:00 03/05/17 20:37 (Effexor Xr) 150 mg DAILY PO 03/02/17 09:00 03/06/17 08:04 (Protonix) 40 mg DAILY PO 03/02/17 09:00 03/06/17 08:04 (Lipitor) 80 mg HS PO 03/02/17 21:00 03/05/17 20:37 (Morphine Inj) 2 mg Q3H PRN IM 03/02/17 02:45 03/06/17 12:57 Nitroglycerin/ Dextrose 250 ml @ 12 mls/hr TITRATE PRN IV 03/02/17 10:15 03/06/17 16:05 (NS Flush) 2 ml BID IV FLUSH 03/03/17 21:00 03/06/17 08:05 (NS Flush) 2 ml UNSCH PRN IV FLUSH 03/03/17 17:30 Papaverine HCl 60 mg/Nitroglycerin 100 mcg/Diltiazem HCl 100 mg/Sodium Chloride 100 ml @ 0 mls/hr LOCK TENDER CHIEF OPERATOR IRRIGATION 03/03/17 17:30 03/10/17 17:29 Vancomycin HCl 1000 mg/Sodium Chloride 1,000 ml @ 0 mls/hr LOCK TENDER CHIEF OPERATOR IRRIGATION 03/03/17 17:30 03/10/17 17:29 Vancomycin HCl 1750 mg/Sodium Chloride 517.5 ml @ 258.75 mls/ hr LOCK TENDER CHIEF OPERATOR IV 03/03/17 17:30 03/10/17 17:29 (Lopressor) 12.5 mg LOCK TENDER CHIEF OPERATOR PO 03/03/17 17:30 03/10/17 17:29 (Hibiclens 4% Top Soln) 1 applic LOCK TENDER CHIEF OPERATOR TOPICAL 03/03/17 17:30 03/10/17 17:29 Insulin Human Regular 100 units/ Sodium Chloride 100 ml @ 3 mls/hr TITRATE PRN IV 03/03/17 17:30 03/10/17 17:29 (Pill Splitter) 1 ea UNSCH PRN OTHER 03/03/17 17:45 (Lopressor) 12.5 mg Q12HR PO 03/04/17 09:15 03/05/17 20:37 (Pill Splitter) 1 ea UNSCH PRN OTHER 03/04/17 09:15 Vital Signs / I&O Vital Signs Date Time Temp Pulse Resp B/P (MAP) Pulse Ox O2 Delivery O2 Flow Rate FiO2 03/06/17 16:05 56 142/65 03/06/17 15:30 99.4 64 18 142/65 (90) 98 03/06/17 11:15 98.2 63 18 125/58 (80) 95 03/06/17 10:01 54 03/06/17 09:00 58 03/06/17 08:15 98.4 50 18 122/59 (80) 96 03/06/17 08:00 48 03/06/17 07:01 50 03/06/17 06:04 52 127/62 03/06/17 06:02 55 03/06/17 05:21 52 03/06/17 04:15 18 03/06/17 04:12 52 03/06/17 03:06 54 115/61 03/06/17 03:01 98.4 54 16 115/61 (79) 96 03/06/17 03:00 51 03/06/17 02:06 52 03/06/17 00:25 54 03/05/17 23:11 56 119/58 03/05/17 23:09 98.4 54 16 119/58 (78) 96 03/05/17 23:00 57 03/05/17 22:00 58 03/05/17 21:00 56 03/05/17 20:35 62 116/57 03/05/17 20:00 58 03/05/17 19:00 57 03/05/17 19:00 98.5 62 18 116/57 (76) 97 I/O 03/05/17 03/05/17 03/05/17 03/06/17 03/06/17 03/06/17 07:00 15:00 23:00 07:00 15:00 23:00 Intake Total 394 ml 98 ml 480 ml 120 ml 960 ml Output Total 1000 ml 450 ml 850 ml 1250 ml Balance -606 ml 98 ml 30 ml -730 ml -290 ml Intake Oral 120 ml 480 ml 120 ml 960 ml IV Total 274 ml 98 ml Output Urine Total 1000 ml 450 ml 850 ml 1250 ml # Voids 1 2 4 # Bowel Movements 0 0 Physical Exam GENERAL: NAD, AAOx3 SKIN: Warm and dry. HEAD: Atraumatic. Normocephalic. EYES: Pupils equal and round. No scleral icterus. No injection or drainage. ENT: No nasal bleeding or discharge. Mucous membranes pink and moist. NECK: Trachea midline. No JVD. CARDIOVASCULAR: Regular rate and rhythm. RESPIRATORY: No accessory muscle use. Clear to auscultation. Breath sounds equal bilaterally. GASTROINTESTINAL: Abdomen soft, non-tender, nondistended. Hepatic and splenic margins not palpable. MUSCULOSKELETAL: Extremities without clubbing, cyanosis, or edema. No obvious deformities. Right and left groin with no hematoma/bruit. Distal pulses 3+ NEUROLOGICAL: Awake and alert. No obvious cranial nerve deficits. Motor grossly within normal limits. Five out of 5 muscle strength in the arms and legs. Normal speech. PSYCHIATRIC: Appropriate mood and affect; insight and judgment normal. Laboratory Laboratory Tests Test 03/05/17 20:15 03/06/17 02:54 Activated Partial Thromboplast Time 48.0 SEC 47.4 SEC White Blood Count 11.0 TH/MM3 Red Blood Count 4.43 MIL/MM3 Hemoglobin 13.0 GM/DL Hematocrit 39.0 % Mean Corpuscular Volume 88.0 FL Mean Corpuscular Hemoglobin 29.5 PG Mean Corpuscular Hemoglobin Concent 33.5 % Red Cell Distribution Width 16.1 % Platelet Count 206 TH/MM3 Mean Platelet Volume 8.3 FL Neutrophils (%) (Auto) 57.6 % Lymphocytes (%) (Auto) 31.5 % Monocytes (%) (Auto) 8.4 % Eosinophils (%) (Auto) 1.7 % Basophils (%) (Auto) 0.8 % Neutrophils # (Auto) 6.3 TH/MM3 Lymphocytes # (Auto) 3.5 TH/MM3 Monocytes # (Auto) 0.9 TH/MM3 Eosinophils # (Auto) 0.2 TH/MM3 Basophils # (Auto) 0.1 TH/MM3 CBC Comment DIFF FINAL Differential Comment Prothrombin Time 10.8 SEC Prothromb Time International Ratio 1.0 RATIO Blood Urea Nitrogen 14 MG/DL Creatinine 0.66 MG/DL Random Glucose 102 MG/DL Total Protein 6.7 GM/DL Albumin 2.9 GM/DL Calcium Level 8.7 MG/DL Alkaline Phosphatase 75 U/L Aspartate Amino Transf (AST/SGOT) 12 U/L Alanine Aminotransferase (ALT/SGPT) 25 U/L Total Bilirubin 0.3 MG/DL Sodium Level 138 MEQ/L Potassium Level 4.0 MEQ/L Chloride Level 103 MEQ/L Carbon Dioxide Level 30.8 MEQ/L Anion Gap 4 MEQ/L Estimat Glomerular Filtration Rate 120 ML/MIN Assessment and Plan Problem List: (1) Abnormal EKG ICD Codes: R94.31 - Abnormal electrocardiogram [ECG] [EKG] (2) Multi-vessel coronary artery stenosis ICD Codes: I25.10 - Atherosclerotic heart disease of [place] coronary artery without angina pectoris (3) Chest pain ICD Codes: R07.9 - Chest pain, unspecified Status: Acute (4) CAD (coronary artery disease) ICD Codes: I25.10 - Atherosclerotic heart disease of [place] coronary artery without angina pectoris Status: Acute (5) HTN (hypertension) ICD Codes: I10 - Essential (primary) hypertension Status: Acute (6) Coronary stent occlusion ICD Codes: T82.897A - Other specified complication of cardiac prosthetic devices, implants and grafts, initial encounter Status: Acute Assessment and Plan 1) CAD with complex ostial lesion of the LCx/[place], 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 Krause, will consider bypass, most likely Friday Overall concern with complexity of the bifurcation of the lesion, non- compliance in the past and previous stent failure 2) EF 50-55% 3) Chest pain appears musculoskeletal Relieved with Morphine Reproducible on palpation of the chest wall 4) Also has angina component Would continue heparin and nitro drips until surgery Pastor Nunez DO Mar 06, 2017 18:30
[2017-03-06] MEDS: clonazePAM 1 MG TAB PO SCH (20:20)
[2017-03-06] MEDS: ATORVASTATIN 80 MG TAB PO SCH (20:20)
[2017-03-07] VITALS (18 sets, daily range): BP systolic 90–153; BP diastolic 44–77; PULSE 50–96; RESP 7–20; TEMP 97.8–99.3; O2SAT 94–99
[2017-03-07] MEDS: MORPHINE SULFATE 2 MG/ML INJ IM PRN ×2 (01:59→05:57)
[2017-03-07] MEDS ORDERED: INSULIN HUMAN REGULAR 1,000 UNITS/10 ML VIAL SQ PRN (04:30)
[2017-03-07] MEDS ORDERED: CHLORHEXIDINE GLUCONATE 2 % 1 PACK (2 CLOTHS) TOPICAL PRN (04:30)
[2017-03-07] MEDS ORDERED: POVIDONE IODINE 5% (ANTISEPSIS KIT) 4 APPLICATIONS EACH NARE PRN (04:30)
[2017-03-07] MEDS ORDERED: LACTATED RINGER'S 1000 ML IV PRN (04:30)
[2017-03-07] MEDS ORDERED: SODIUM CHLORID 0.9% 500 ML IV PRN (04:30)
[2017-03-07] MEDS ORDERED: METOPROLOL TARTRATE 25 MG TAB PO PRN (04:30)
[2017-03-07 05:46] LABS: HEMATOCRIT 41.2 % (39.0-51.0); MEAN CELL VOLUME 88.3 FL (80.0-100.0); PLATELET COUNT 219 TH/MM3 (150-450); RED BLOOD COUNT 4.67 MIL/MM3 (4.50-5.90); RED CELL DISTRIBUTION WIDTH 15.5 % (11.6-17.2); REVIEW FLAG FINAL; WHITE BLOOD COUNT 10.2 TH/MM3 (4.0-11.0)
[2017-03-07 05:53] LABS: APTT (PATIENT) 46.9 SEC (24.3-30.1)
[2017-03-07] MEDS ORDERED: HEPARIN SODIUM - SQ 10,000 UNITS/ML VIAL ONE (06:12)
[2017-03-07] MEDS ORDERED: VANCOMYCIN HCL 1000 MG VIAL ONE (06:12)
[2017-03-07] MEDS ORDERED: BUPIVACAINE LIPOSO PF 1.3% INJ 20 ML, DEXAMETHASONE INJ 4 MG, MORPHINE INJ 8 MG in SODI... IRRIGATION ONE (07:30)
[2017-03-07] MEDS ORDERED: DEXMEDETOMIDINE HCL 200 MCG/2 ML VIAL ONE (11:06)
[2017-03-07] MEDS ORDERED: LACTATED RINGER'S 1000 ML INJ 500 ML IV PRN (11:23)
[2017-03-07] MEDS ORDERED: DEXMEDETOMIDINE INJ 200 MCG in SODIUM CHLORIDE 0.9% INJ 50 ML IV PRN (11:30)
[2017-03-07] MEDS ORDERED: SODIUM BICARBONATE 8.4% SOLN 50 MEQ/50 ML VIAL IV PUSH PRN ×2 (11:30)
[2017-03-07] MEDS ORDERED: ALBUMIN 5% INJ 250 ML IV PRN (11:30)
[2017-03-07] MEDS ORDERED: Post-op Orders (for Pharmacy) MISC OTHER ONE (11:30)
[2017-03-07] MEDS ORDERED: POTASSIUM CHLORIDE 20 MEQ CONTROLLED RELEASE TAB PO PRN ×2 (11:30)
[2017-03-07] MEDS ORDERED: MEPERIDINE HCL 25 MG/ML VIAL IV PUSH PRN (11:30)
[2017-03-07] MEDS ORDERED: CLEVIDIPINE INJ 50 ML IV PRN (11:30)
[2017-03-07] MEDS ORDERED: METOPROLOL TARTRATE 5 MG/5 ML VIAL IV PUSH PRN (11:30)
[2017-03-07] MEDS ORDERED: CALCIUM CHLORIDE 10% 1 GRAM/10 ML VIAL IV PUSH PRN (11:30)
[2017-03-07] MEDS ORDERED: MORPHINE SULFATE 4 MG/ML INJ IV PUSH PRN (11:30)
[2017-03-07] MEDS ORDERED: SODIUM CHLORIDE 0.9% FLUSH 10 ML FLUSH IV FLUSH PRN (11:30)
[2017-03-07] MEDS ORDERED: ONDANSETRON HCL 4 MG/2 ML VIAL IV PUSH PRN (11:30)
[2017-03-07] MEDS ORDERED: NITROGLYCERIN-D5W 50 MG/250 ML 250 ML IV PRN (11:30)
[2017-03-07] MEDS ORDERED: INSULIN REGULAR (IV INFUSION) 100 UNITS in SODIUM CHLORIDE 0.9% INJ 99 ML IV PRN (11:30)
[2017-03-07] MEDS ORDERED: ACETAMINOPHEN 650 MG SUPP RECTAL PRN (11:30)
[2017-03-07] MEDS ORDERED: MAGNESIUM SULFATE INJ 2 GM in SODIUM CHLORIDE 0.9% INJ 100 ML IV PRN ×4 (11:30)
[2017-03-07] MEDS ORDERED: DOPamine INJ PREMIX 500 ML IV PRN (11:30)
[2017-03-07] MEDS ORDERED: DEXTROSE 50% IN WATER 50 ML VIAL(D50) IV PUSH PRN (11:30)
[2017-03-07] MEDS ORDERED: RESP: RACEPINEPHRINE 2.25% 0.5 ML NEB NEB PRN (11:30)
[2017-03-07] MEDS ORDERED: POTASSIUM CHLOR 20 MEQ PREMIX 100 ML IV PRN ×3 (11:30)
[2017-03-07] MEDS ORDERED: hydrALAZINE HCL 20 MG/ML VIAL IV PUSH PRN (11:30)
[2017-03-07] MEDS ORDERED: ACETAMINOPHEN 325 MG TAB PO PRN (11:30)
[2017-03-07] MEDS ORDERED: RESP: ALBUTEROL 2.5 MG/IPRATROPIUM 0.5 MG NEB (PRN) NEB (11:30)
[2017-03-07] MEDS ORDERED: CALCIUM CHLORIDE INJ 1 GM in SODIUM CHLORIDE 0.9% INJ 100 ML IV PRN (11:30)
[2017-03-07] MEDS ORDERED: PHENYLEPHRINE INJ 40 MG in DEXTROSE 5% IN WATE 500 ML INJ 496 ML IV PRN ×2 (11:30)
--- NOTE | 2017-03-07 11:33 | PD.OP ---
cc: Jake Krause MD; Pastor Nunez DO Operative Report Date of Surgery: Mar 07, 2017 Preoperative Diagnosis: Postoperative Diagnosis: Procedure: 1. Urgent Off-pump Coronary Artery Bypass Grafting x 2 with reverse saphenous vein graft to the Ramus Marginalis (RM), reverse saphenous vein graft to the Posterior Descending Artery (PDA) of the Right Coronary Artery 2. Left Leg Endoscopic Vein [place] 3. Intraoperative Vein Mapping 4. Multi-Level Intercostal Nerve Block. Surgeon: Jake Krause Barrel Rifler(s): Judy Hart Operation and Findings: PREPROCEDURE DIAGNOSES 1. Severe Two-Vessel Coronary Artery Disease. 2. Acute Myocardial Infarction 3. Obesity POSTPROCEDURE DIAGNOSES Same SURGICAL PROCEDURE 1. Urgent Off-pump Coronary Artery Bypass Grafting x 2 with reverse saphenous vein graft to the Ramus Marginalis (RM), reverse saphenous vein graft to the Posterior Descending Artery (PDA) of the Right Coronary Artery 2. Left Leg Endoscopic Vein [place] 3. Intraoperative Vein Mapping 4. Multi-Level Intercostal Nerve Block. SURGEON Jake Krause MD ANALYTICAL MANAGER RACHEAL Palacios ANESTHESIA [employer] endotracheal COMPANY MANAGER ARCHIE Rodriguez MD PREPARATION ChloraPrep. COUNTS Needle, sponge, and instrument counts were correct. DRAINS Two 32-[place] mediastinal tubes. COMPLICATIONS None. INDICATIONS FOR PROCEDURE The patient is a 67-year-old presenting with chest pain and multi-vessel coronary artery disease. He is being brought to the operating room for surgical revascularization therapy. PROCEDURE Patient was brought to the operating room and placed supine on the OR table. Following the induction of adequate general endotracheal anesthesia and placement of appropriate monitoring devices, intraoperative vein mapping was performed which revealed suitable-caliber conduit in both legs. The patient was then prepped and draped in standard sterile fashion. Next, 2500 units of intravenous heparin was given. The left greater saphenous vein was harvested endoscopically from the proximal thigh to the mid calf. This appeared to be a useable-caliber conduit. Simultaneously, a median sternotomy was performed. The patient was systemically heparinized and anticoagulation monitored by serial ACT measurements. The pericardium was then divided in the midline, the cradle created and targets analyzed. At this point, all anastomoses were performed in a beating-heart fashion using the Maquet stabilizing system. The vein segment was anastomosed to the RM (1.75 mm) in an end-to-side fashion using a running 7- 0 Prolene. The next segment was anastomosed to the RPDA (1 mm) in an end-to- side fashion using a running 7-0 Prolene. The proximal anastomoses were then constructed to the ascending aorta in a running manner using 6-0 Prolene. All anastomotic sites were inspected and appeared to be hemostatic and patent. Protamine solution was given. Strict hemostasis was assured. The closure was undertaken. 2 chest tubes were placed. The pericardium was reapproximated in the midline. Bilateral multi-level intercostal nerve block was performed using Exparel solution. The sternum was approximated using sternal wires. The muscular and fascial layer were then closed in 3 layers. The endoscopic vein harvest site was closed in 2 layers. The patient tolerated the procedure well and was transferred to CVICU in stable condition. Jake Krause MD Mar 07, 2017 11:33
[2017-03-07] MEDS ORDERED: DOBUTamine PREMIX DRIP 250 ML IV SCH (13:00)
--- NOTE | 2017-03-07 13:16 | PD.CARD.PN ---
Subjective Subjective Remarks Post-CABG Intubated No vasopressors Objective Medications Current Medications Medications (Trade) Dose Ordered Sig/Heike Route Start Time Stop Time Status Last Admin (KlonoPIN) 1 mg HS PO 03/02/17 21:00 03/06/17 20:20 (Effexor Xr) 150 mg DAILY PO 03/02/17 09:00 03/06/17 08:04 (Lipitor) 80 mg HS PO 03/02/17 21:00 03/06/17 20:20 (Pill Splitter) 1 ea UNSCH PRN OTHER 03/03/17 17:45 (Lopressor) 12.5 mg Q12HR PO 03/04/17 09:15 03/06/17 23:11 (Pill Splitter) 1 ea UNSCH PRN OTHER 03/04/17 09:15 (Betadine 5% Antisepsis Kit) 1 applic SEAL EXTRUSION OPERATOR PRN EACH NARE 03/07/17 04:30 03/10/17 04:29 (NS Flush) 2 ml BID IV FLUSH 03/07/17 21:00 (NS Flush) 2 ml UNSCH PRN IV FLUSH 03/07/17 11:30 Dexmedetomidine HCl 200 mcg/ Sodium Chloride 52 ml @ 6.31 mls/hr TITRATE PRN IV 03/07/17 11:30 Nitroglycerin/ Dextrose 250 ml @ 1.5 mls/hr TITRATE PRN IV 03/07/17 11:30 Dobutamine HCl/ Dextrose 250 ml @ 18.225 mls/ hr [id number] IV 03/07/17 13:00 Dopamine HCl/ Dextrose 500 ml @ 13.669 mls/ hr TITRATE PRN IV 03/07/17 11:30 Phenylephrine HCl 40 mg/Dextrose 500 ml @ 30 mls/hr TITRATE PRN IV 03/07/17 11:30 Clevidipine 50 ml @ 2 mls/hr TITRATE PRN IV 03/07/17 11:30 Albumin Human 250 ml @ 250 mls/hr UNSCH PRN IV 03/07/17 11:30 Lactated Ringer's 500 ml @ 500 mls/hr Q1H PRN IV 03/07/17 11:23 Vancomycin HCl 1750 mg/Sodium Chloride 517.5 ml @ 250 mls/hr Q12H IV 03/07/17 20:00 03/08/17 22:05 (Aspirin Chew) 81 mg DAILY PO 03/08/17 09:00 (Plavix) 75 mg DAILY PO 03/08/17 09:00 (Protonix) 40 mg DAILY@06 PO 03/08/17 06:00 (Cordarone) 400 mg Q12HR PO 03/07/17 21:00 Multivitamins 10 ml/Thiamine HCl 500 mg/Folic Acid 1 mg/Sodium Chloride 515.2 ml @ 21 mls/hr DAILY IV 03/08/17 09:00 UNV (Tylenol) 650 mg Q4H PRN PO 03/07/17 11:30 (Tylenol Supp) 650 mg Q4H PRN RECTAL 03/07/17 11:30 Acetaminophen 100 ml @ 400 mls/hr Q6H IV 03/07/17 13:00 03/08/17 07:14 (Morphine Inj) 1 mg Q10M PRN IV PUSH 03/07/17 11:30 (Demerol Inj) 12.5 mg Q4H PRN IV PUSH 03/07/17 11:30 (Percocet 5-325 Mg) 1 tab Q3H PRN PO 03/07/17 11:30 (Percocet 5-325 Mg) 2 tab Q3H PRN PO 03/07/17 11:30 (Toradol Inj) 15 mg Q6H PRN IV PUSH 03/07/17 11:30 03/09/17 11:29 (fentaNYL INJ) 25 mcg Q1H PRN IV PUSH 03/07/17 11:30 (Zofran Inj) 4 mg Q6H PRN IV PUSH 03/07/17 11:30 (Apresoline Inj) 10 mg Q4H PRN IV PUSH 03/07/17 11:30 (Lopressor Inj) 2.5 mg Q1H PRN IV PUSH 03/07/17 11:30 Potassium Chloride 100 ml @ 50 mls/hr UNSCH PRN IV 03/07/17 11:30 Potassium Chloride 100 ml @ 50 mls/hr UNSCH PRN IV 03/07/17 11:30 (KCl) 20 meq UNSCH PRN PO 03/07/17 11:30 (KCl) 40 meq UNSCH PRN PO 03/07/17 11:30 Magnesium Sulfate 2 gm/Sodium Chloride 104 ml @ 100 mls/hr UNSCH PRN IV 03/07/17 11:30 Magnesium Sulfate 2 gm/Sodium Chloride 104 ml @ 50 mls/hr UNSCH PRN IV 03/07/17 11:30 (Calcium Chloride Inj) 0.5 gm UNSCH PRN IV PUSH 03/07/17 11:30 Insulin Human Regular 100 units/ Sodium Chloride 100 ml @ 3 mls/hr TITRATE PRN IV 03/07/17 11:30 (D50w (Vial) Inj) 50 ml UNSCH PRN IV PUSH 03/07/17 11:30 (Sodium Bicarbonate 8.4% Inj) 50 meq UNSCH PRN IV PUSH 03/07/17 11:30 (Sodium Bicarbonate 8.4% Inj) 100 meq UNSCH PRN IV PUSH 03/07/17 11:30 (Duoneb Neb) 1 ampule Q6HR NEB NEB 03/07/17 16:00 (Duoneb Neb) 1 ampule Q2HR NEB PRN NEB 03/07/17 11:30 (Racepinephrine 2.25% Neb) 0.5 ml UNSCH X1 PRN NEB 03/07/17 11:30 03/08/17 11:29 Vital Signs / I&O Vital Signs Date Time Temp Pulse Resp B/P (MAP) Pulse Ox O2 Delivery O2 Flow Rate FiO2 03/07/17 06:09 98.4 58 16 144/67 (92) 94 03/07/17 06:00 58 03/07/17 05:00 56 03/07/17 04:00 55 03/07/17 03:00 56 03/07/17 02:00 56 03/07/17 01:00 62 03/07/17 00:17 97.8 62 16 153/72 (99) 99 03/07/17 00:00 60 03/06/17 23:00 62 03/06/17 22:00 56 03/06/17 21:28 97 Trach Collar 2.00 03/06/17 21:00 56 03/06/17 20:33 98.6 57 16 130/59 (82) 99 03/06/17 20:24 16 03/06/17 20:00 54 03/06/17 19:00 62 03/06/17 19:00 62 03/06/17 18:00 56 03/06/17 17:00 54 03/06/17 16:05 56 142/65 03/06/17 16:00 58 03/06/17 15:30 99.4 64 18 142/65 (90) 98 03/06/17 15:00 66 03/06/17 14:00 64 I/O 03/06/17 03/06/17 03/06/17 03/07/17 03/07/17 03/07/17 07:00 15:00 23:00 07:00 15:00 23:00 Intake Total 120 ml 960 ml 240 ml 4290 ml Output Total 850 ml 1250 ml 350 ml 1200 ml Balance -730 ml -290 ml -110 ml 3090 ml Intake Oral 120 ml 960 ml 240 ml Autotransfusion 290 ml Other 4000 ml Output Urine Total 850 ml 1250 ml 350 ml 700 ml Estimated Blood Loss 500 ml # Voids 2 4 # Bowel Movements 0 0 Physical Exam GENERAL: Intubated/Sedated SKIN: Warm and dry. HEAD: Atraumatic. Normocephalic. EYES: Pupils equal and round. No scleral icterus. No injection or drainage. ENT: No nasal bleeding or discharge. Mucous membranes pink and moist. NECK: Trachea midline. No JVD. CARDIOVASCULAR: Regular rate and rhythm. Sternotomy with wound vac RESPIRATORY: No accessory muscle use. Decreased breath sounds bilaterally GASTROINTESTINAL: Abdomen soft, non-tender, nondistended. Hepatic and splenic margins not palpable. MUSCULOSKELETAL: Extremities without clubbing, cyanosis, or edema. No obvious deformities. Right and left groin with no hematoma/bruit. Distal pulses 3+ NEUROLOGICAL: Intubated/Sedated Laboratory Laboratory Tests Test 03/07/17 04:45 White Blood Count 10.2 TH/MM3 Red Blood Count 4.67 MIL/MM3 Hemoglobin 14.0 GM/DL Hematocrit 41.2 % Mean Corpuscular Volume 88.3 FL Mean Corpuscular Hemoglobin 30.0 PG Mean Corpuscular Hemoglobin Concent 34.0 % Red Cell Distribution Width 15.5 % Platelet Count 219 TH/MM3 Mean Platelet Volume 8.7 FL Activated Partial Thromboplast Time 46.9 SEC Assessment and Plan Problem List: (1) Abnormal EKG ICD Codes: R94.31 - Abnormal electrocardiogram [ECG] [EKG] (2) Multi-vessel coronary artery stenosis ICD Codes: I25.10 - Atherosclerotic heart disease of [place] coronary artery without angina pectoris (3) Chest pain ICD Codes: R07.9 - Chest pain, unspecified Status: Acute (4) CAD (coronary artery disease) ICD Codes: I25.10 - Atherosclerotic heart disease of [place] coronary artery without angina pectoris Status: Acute (5) HTN (hypertension) ICD Codes: I10 - Essential (primary) hypertension Status: Acute (6) Coronary stent occlusion ICD Codes: T82.897A - Other specified complication of cardiac prosthetic devices, implants and grafts, initial encounter Status: Acute Assessment and Plan 1) CAD with complex ostial lesion of the LCx/Ramus, 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
--- NOTE | 2017-03-07 13:21 | RADRPT ---
EXAM DATE/TIME: 03/07/2017 12:48 [facility] COMPARISON: CHEST SINGLE AP, March 01, 2017, 23:26. INDICATIONS : Status post CABG. MEDICAL HISTORY : Cardiovascular disease. Hypertension. Diabetes. SURGICAL HISTORY : Cardiac stents. ENCOUNTER: Initial ACUITY: 1 week PAIN SCORE: Non-responsive. LOCATION: Bilateral chest FINDINGS: A single view of the chest demonstrates postsurgical changes with intact median sternotomy wires. Med iastinal drains are identified within the endotracheal tube appropriately positioned above the stan . Nasogastric tube traverses the GE junction and extends off the inferior aspect of the image. Right IJ introducer sheath with a central venous catheter projecting over the central venous system. Lungs are hypoinflated with bibasilar atelectatic changes. There is some perihilar atelectatic changes on t he left as well. Heart size is prominent but appears to be well compensated. Degenerative spurring of the dorsal spine. Osseous structures are otherwise intact. CONCLUSION: 1. Postoperative changes characteristic of a reported history of CABG. 2. Hypoinflation with bibasilar and left perihilar atelectatic changes. No confluent infiltrate or pn eumothorax. 3. Compensated cardiomegaly. Mio Malone MD on March 07, 2017 at 13:17 Board Certified Radiologist. This report was verified electronically.
[2017-03-07] MEDS: ACETAMINOPHEN 1000 MG/100 ML 100 ML IV SCH ×2 (13:44→19:00)
[2017-03-07] MEDS: KETOROLAC TROMETHAMINE 30 MG/ML (IVP) VIAL IV PUSH PRN ×2 (15:03→21:00)
--- NOTE | 2017-03-07 15:09 | HHI.FF ---
Face to Face Verification Diagnosis: (1) S/P CABG x 2 (2) Coronary stent occlusion (3) HTN (hypertension) (4) CAD (coronary artery disease) Physical Therapy Order: Evaluate and Treat Home Health Nursing Order: Signs/symptoms of disease process Medication education-adverse effect Wound care and dressing changes Nursing assessment with vital signs Instructions: Heart and Vascular Surgery patients *Special attention to sternal dressing Mandatory frequency Assess and evaluation, 4 days in a row The next week 3X week 2 times a week for 4 weeks 1 time a week for 5 weeks Schedule Heart and Vascular patients for full 60 day certification period Initial visit Review Open Heart Surgery Discharge Instructions (Sternal precautions, Activity, Elastic hose, Incision care, Driving, Incentive spirometry, Smoking, [place], Work and other) Need Betadine to paint incision Medication reconciliation Importance of follow up care/ check on appointments Make calendar record temperature daily When to call [facility] nurse, review instructions, phone list Incentive Spirometry, demonstration Visit 1- Begin discharge instruction for patient family and/ or caregiver using teach back method- Signs and symptoms of infection Disease characteristics Medicines and side effects Foods and nutrition/ appetite Infection control/ hand washing/ hygiene Visit 2- Continue teaching Discharge instructions- include additional information on smoking cessation , sternal dressing (sternal vac) Visit 3- Continue teaching- Cough and deep breathing, incision monitoring. Choose my plate Visit 4- Continue teaching- Discuss limitations Discuss how they are feeling Discuss progress toward goals Remaining visits- continue teaching and monitoring Incentive spirometry Q1 hr x 10, while awake, also use acapella device hourly whole awake Sternal Breast Bone Precautions: NO pushing or pulling, ( pt must use sternal pillow to support chest with all activities and with coughing ( takes up to 3 months breast bone to heal ) Daily incision care: ok to shower daily, no tub bath. Wash all incisions with liquid dial soap, clean wash cloth to each site, rinse and pat dry. Observe for any signs of infection, such as drainage which is dark yellow, gonzalez, green or foul smelling. Immediately report to the surgeon any drainage from the chest incision, or legs, and for any abnormal drainage from the chest tube sites. Notify surgeon if any temp >101.5 degrees F. When specialty dressing removed/ or if you do not have one, continue to shower daily as above, then rinse and pat incision dry and paint with betadine daily x 5 days. Allow steri strips to fall off if you have any. Avoid lotions, creams, salves, oils, etc. for the first month F/U appointment: as per [place] instructions: PCP in 2 weeks, CV surgeon 2 weeks, Financial Planning Adviser 3-4 weeks For any questions regarding incisions/ dressing / meds / post op care or above Symptoms, Friday 8am-5pm Heart & Vascular Surgery Office ( Dr. Krause & Dr. Wesley), After Hours / Nights (5pm -8am) Weekends and Holidays Please call [facility] Cardiac [facility] Unit (C[facility]) Charge Nurse I have seen patient Timoteo Diego on 03/07/17. My clinical findings support the need for the requested home health care services because: Deconditioned w/ increased weakness I certify that my clinical findings support that this patient is homebound because: Post-op weakness Gianna Barkley Mar 07, 2017 15:09
[2017-03-07] MEDS: oxyCODONE/ACETAMINOPHEN 5 MG/325 MG TAB PO PRN (15:38)
[2017-03-07] MEDS: RESP: ALBUTEROL 2.5 MG/IPRATROPIUM 0.5 MG NEB (SCH) NEB ×2 (18:03→21:21)
[2017-03-07] MEDS: VANCOMYCIN INJ 1,750 MG in SODIUM CHLORID 0.9% 500 ML INJ 500 ML IV SCH (20:00)
[2017-03-07] MEDS: AMIODARONE 200 MG TAB PO SCH (20:53)
[2017-03-07] MEDS: SODIUM CHLORIDE 0.9% FLUSH 10 ML FLUSH IV FLUSH SCH (20:53)
[2017-03-07] MEDS: clonazePAM 1 MG TAB PO SCH (20:53)
[2017-03-07] MEDS: ATORVASTATIN 80 MG TAB PO SCH (20:53)
[2017-03-07] MEDS: METOPROLOL TARTRATE 25 MG TAB PO SCH (20:54)
[2017-03-08] VITALS (10 sets, daily range): BP systolic 98–167; BP diastolic 50–84; PULSE 58–78; RESP 16–18; TEMP 97.9–99.7; O2SAT 94–98
[2017-03-08] MEDS: ACETAMINOPHEN 1000 MG/100 ML 100 ML IV SCH ×2 (01:00→06:20)
[2017-03-08] MEDS: KETOROLAC TROMETHAMINE 30 MG/ML (IVP) VIAL IV PUSH PRN ×3 (03:20→18:44)
[2017-03-08] MEDS: RESP: ALBUTEROL 2.5 MG/IPRATROPIUM 0.5 MG NEB (SCH) NEB ×3 (04:27→20:36)
[2017-03-08 04:36] LABS: HEMATOCRIT 33.8 % (39.0-51.0); MEAN CELL VOLUME 87.8 FL (80.0-100.0); MEAN CORPUSCULAR HEMOGLOBIN 29.7 PG (27.0-34.0); MEAN CORPUSCULAR HGB CONC 33.9 % (32.0-36.0); PLATELET COUNT 174 TH/MM3 (150-450); RED BLOOD COUNT 3.85 MIL/MM3 (4.50-5.90); REVIEW FLAG FINAL
[2017-03-08 05:03] LABS: BICARBONATE 26.7 MEQ/L (21.0-32.0); MAGNESIUM 1.9 MG/DL (1.5-2.5); POTASSIUM 3.9 MEQ/L (3.5-5.1)
[2017-03-08] MEDS ORDERED: POTASSIUM CHLOR 20 MEQ PREMIX 100 ML IV PRN (05:30)
[2017-03-08] MEDS: oxyCODONE/ACETAMINOPHEN 5 MG/325 MG TAB PO PRN ×4 (05:30→20:30)
[2017-03-08] MEDS: PANTOPRAZOLE SOD 40 MG DELAYED RELEASE TAB PO SCH (06:00)
--- NOTE | 2017-03-08 06:06 | RADRPT ---
EXAM DATE/TIME: 03/08/2017 04:57 [facility] COMPARISON: CHEST SINGLE AP, March 07, 2017, 12:48. INDICATIONS : Shortness of breath, possible pneumothorax. MEDICAL HISTORY : Cardiovascular disease. Hypertension Diabetes mellitus type II. SURGICAL HISTORY : Coronary artery stent. CABG. ENCOUNTER: Subsequent ACUITY: 1 week PAIN SCORE: Non-responsive. LOCATION: Bilateral chest FINDINGS: A single AP semierect view the chest was obtained and demonstrates the patient is status post extubat ion. The right internal jugular central venous line remains in place. There are no confluent infiltra dragan or effusions. Mild atelectasis remains at the left lung base. The heart size remains at the upper limits of normal with no perihilar edema. The bony thorax is otherwise intact. CONCLUSION: 1. Interval extubation. 2. No acute cardiopulmonary change. Torito Melgar MD on March 08, 2017 at 6:03 Board Certified Radiologist. This report was verified electronically.
[2017-03-08] MEDS ORDERED: MULTIVITAMIN INJ 10 ML, THIAMINE INJ 500 MG, FOLIC ACID INJ 1 MG in SODIUM CHLORID 0.9%... IV SCH (09:00)
[2017-03-08] MEDS: VENLAFAXINE HCL XR 75 MG CAP PO SCH ×2 (09:00→09:54)
--- NOTE | 2017-03-08 09:02 | PD.CAR.PN ---
CVT Progress Note Subjective/Hospital Course: 67-year-old male presented from local nursing home, incarcerated inmate with chest pain , hx CAD/ stents / noncompliance with plavix , underwent cardiac cat , founds to have multi vessel disease, EF 50% EKG demonstrated normal sinus rhythm with some inferior lateral ST depression in leads II, III, aVF, V4-V6. Cardiology was consulted and he was taken emergently to the cytogenetics laboratory manager where he was found to have complex multivessel CAD with 70% stenosis of ramus near the takeoff of the left main and 80% ostial lesion of circumflex. He has chronic occlusion of RCA following multiple stents and nonadherence with Plavix. IABP placed after Heparin and NTG gtt, 2/ continued chest pain PMH: coronary artery disease with prior stents, hypertension, hyperlipidemia, diabetes, medical nonadherence Pt is now pain free, eval for removal of IABP per cardiology pt received plavix on 02/28, 03/01 PRU 280 scheduled for surgery on Monday 03/05 still has intermittent chest discomfort , for surgery on friday on NTG and heparin 03/06 for surgery in am still on heparin and NTG gtt 03/07 SURGICAL PROCEDURE 1. Urgent Off-pump Coronary Artery Bypass Grafting x 2 with reverse saphenous vein graft to the Ramus Marginalis (RM), reverse saphenous vein graft to the Posterior Descending Artery (PDA) of the Right Coronary Artery 2. Left Leg Endoscopic Vein [place] 3. Intraoperative Vein Mapping 4. Multi-Level Intercostal Nerve Block. 03/08 Doing well C/o incisional pain Transfer telemetry Maintain CT Ambulate and incentive spirometry Objective: Vital Signs Date Time Temp Pulse Resp B/P (MAP) Pulse Ox O2 Delivery O2 Flow Rate FiO2 03/08/17 08:08 97 Nasal Cannula 2.00 03/08/17 06:57 18 03/08/17 06:22 18 03/08/17 06:20 18 03/08/17 04:24 18 03/08/17 03:00 99.2 64 16 121/75 (90) 97 131/65 (87) 03/08/17 03:00 66 03/08/17 03:00 97 Nasal Cannula 2.00 03/08/17 02:14 61 129/75 03/07/17 23:00 72 03/07/17 23:00 98 Nasal Cannula 2.00 03/07/17 23:00 99.3 62 16 90/56 (67) 98 113/76 (88) 03/07/17 21:21 98 Nasal Cannula 2.00 03/07/17 19:00 99 Nasal Cannula 2.00 03/07/17 19:00 54 03/07/17 19:00 98.6 55 20 119/77 (91) 99 98/44 (62) 03/07/17 17:58 99 Nasal Cannula 2.00 03/07/17 17:07 99 Nasal Cannula 3.00 03/07/17 15:44 98.6 54 16 120/68 (85) 98 109/50 (69) 03/07/17 15:43 50 03/07/17 15:40 51 03/07/17 13:50 95 Nasal Cannula 3 03/07/17 13:50 95 Nasal Cannula 3.00 03/07/17 13:30 40 03/07/17 12:55 98.9 96 7 107/46 (66) 98 118/60 (79) 03/07/17 12:55 96 03/07/17 12:45 50 03/07/17 12:45 Nasal Cannula 40 03/07/17 12:30 60 03/07/17 11:55 98 100 03/07/17 11:55 100 Labs: Laboratory Tests Test 03/08/17 04:10 White Blood Count 11.0 TH/MM3 (4.0-11.0) Red Blood Count 3.85 MIL/MM3 (4.50-5.90) Hemoglobin 11.4 GM/DL (13.0-17.0) Hematocrit 33.8 % (39.0-51.0) Mean Corpuscular Volume 87.8 FL (80.0-100.0) Mean Corpuscular Hemoglobin 29.7 PG (27.0-34.0) Mean Corpuscular Hemoglobin Concent 33.9 % (32.0-36.0) Red Cell Distribution Width 16.0 % (11.6-17.2) Platelet Count 174 TH/MM3 (150-450) Mean Platelet Volume 8.7 FL (7.0-11.0) Blood Urea Nitrogen 13 MG/DL (7-18) Creatinine 0.54 MG/DL (0.60-1.30) Random Glucose 104 MG/DL (74-106) Calcium Level 8.0 MG/DL (8.5-10.1) Magnesium Level 1.9 MG/DL (1.5-2.5) Sodium Level 139 MEQ/L (136-145) Potassium Level 3.9 MEQ/L (3.5-5.1) Chloride Level 105 MEQ/L (98-107) Carbon Dioxide Level 26.7 MEQ/L (21.0-32.0) Anion Gap 7 MEQ/L (5-15) Estimat Glomerular Filtration Rate 152 ML/MIN (>89) Result Diagram: 03/08/170 03/08/17409 (1) Abnormal EKG (2) Multi-vessel coronary artery stenosis Plan: on ASA, statin , off plavix Heparin , NTG, prn Morphine surgery on friday (3) Chest pain (4) CAD (coronary artery disease) (5) HTN (hypertension) (6) Coronary stent occlusion Jake Krause MD Mar 08, 2017 09:02
[2017-03-08] MEDS ORDERED: SOD PHOSPHATE/SOD BIPHOSPHATE (ADULT) ENEMA 133ML RECTAL PRN (09:15)
[2017-03-08] MEDS ORDERED: BISACODYL 10 MG SUPP RECTAL PRN (09:15)
[2017-03-08] MEDS ORDERED: GLUCAGON 1 MG/ML VIAL OTHER PRN (09:15)
[2017-03-08] MEDS ORDERED: DEXTROSE 50% IN WATER 50 ML VIAL(D50) IV PUSH PRN (09:15)
[2017-03-08] MEDS: VANCOMYCIN INJ 1,750 MG in SODIUM CHLORID 0.9% 500 ML INJ 500 ML IV SCH ×2 (09:53→22:22)
[2017-03-08] MEDS: CLOPIDOGREL 75 MG TAB PO SCH (09:55)
[2017-03-08] MEDS: SODIUM CHLORIDE 0.9% FLUSH 10 ML FLUSH IV FLUSH SCH ×2 (09:55→20:32)
[2017-03-08] MEDS: ASPIRIN 81 MG CHEW TAB PO SCH (09:55)
[2017-03-08] MEDS: AMIODARONE 200 MG TAB PO SCH ×2 (09:55→20:29)
[2017-03-08] MEDS: METOPROLOL TARTRATE 25 MG TAB PO SCH ×2 (09:56→20:29)
[2017-03-08] MEDS: INSULIN ASPART SUPPLEMENTAL SCALE SQ SCH ×4 (10:00→22:00)
[2017-03-08] MEDS: ATORVASTATIN 80 MG TAB PO SCH (20:29)
[2017-03-08] MEDS: DOCUSATE SODIUM 100 MG CAP PO SCH (20:29)
[2017-03-08] MEDS: SENNOSIDES 8.6 MG TAB PO SCH (20:29)
[2017-03-08] MEDS: clonazePAM 1 MG TAB PO SCH (20:29)
[2017-03-09] VITALS (27 sets, daily range): BP systolic 100–177; BP diastolic 57–82; PULSE 55–81; RESP 14–18; TEMP 98–98.7; O2SAT 94–96
[2017-03-09] MEDS: oxyCODONE/ACETAMINOPHEN 5 MG/325 MG TAB PO PRN ×7 (01:57→19:45)
[2017-03-09] MEDS: INSULIN ASPART SUPPLEMENTAL SCALE SQ SCH ×5 (02:00→21:00)
[2017-03-09] MEDS: PANTOPRAZOLE SOD 40 MG DELAYED RELEASE TAB PO SCH (04:57)
[2017-03-09 05:37] LABS: AUTOMATED NEUTROPHIL # 7.9 TH/MM3 (1.8-7.7); BASOPHIL % 0.4 % (0.0-2.0); EOSINOPHIL # 0.1 TH/MM3 (0-0.4); EOSINOPHIL % 0.6 % (0.0-4.0); HEMATOCRIT 32.8 % (39.0-51.0); HEMO FLAGS DIFF FINAL; LYMPH % 18.8 % (9.0-44.0); LYMPHOCYTE # 2.1 TH/MM3 (1.0-4.8); MEAN CELL VOLUME 88.4 FL (80.0-100.0); MEAN CORPUSCULAR HEMOGLOBIN 29.5 PG (27.0-34.0); MEAN CORPUSCULAR HGB CONC 33.4 % (32.0-36.0); MONO % 10.8 % (0.0-8.0); NEUT % 69.4 % (16.0-70.0); PLATELET COUNT 166 TH/MM3 (150-450); RED BLOOD COUNT 3.71 MIL/MM3 (4.50-5.90); RED CELL DISTRIBUTION WIDTH 16.4 % (11.6-17.2); WHITE BLOOD COUNT 11.4 TH/MM3 (4.0-11.0)
[2017-03-09 05:47] LABS: BICARBONATE 27.7 MEQ/L (21.0-32.0); MAGNESIUM 1.9 MG/DL (1.5-2.5); POTASSIUM 3.8 MEQ/L (3.5-5.1)
[2017-03-09] MEDS: RESP: ALBUTEROL 2.5 MG/IPRATROPIUM 0.5 MG NEB (SCH) NEB (07:36)
[2017-03-09] MEDS: MAGNESIUM HYDROXIDE SUSP 30 ML CUP PO SCH (07:56)
[2017-03-09] MEDS: POLYETHYLENE GLYCOL 17 GM PKG PO SCH (07:57)
[2017-03-09] MEDS: DOCUSATE SODIUM 100 MG CAP PO SCH ×2 (07:57→21:00)
[2017-03-09] MEDS: VENLAFAXINE HCL XR 75 MG CAP PO SCH (07:57)
[2017-03-09] MEDS: MULTIVITAMINS/MINERALS THERAPEUTIC TAB PO SCH (07:57)
[2017-03-09] MEDS: AMIODARONE 200 MG TAB PO SCH ×2 (07:58→21:16)
[2017-03-09] MEDS: CLOPIDOGREL 75 MG TAB PO SCH (07:58)
[2017-03-09] MEDS: SODIUM CHLORIDE 0.9% FLUSH 10 ML FLUSH IV FLUSH SCH ×2 (07:59→19:45)
[2017-03-09] MEDS: ASPIRIN 81 MG CHEW TAB PO SCH (07:59)
[2017-03-09] MEDS: METOPROLOL TARTRATE 25 MG TAB PO SCH ×2 (07:59→21:16)
--- NOTE | 2017-03-09 09:50 | PD.CAR.PN ---
CVT Progress Note CVT: POD #: 2 Subjective/Hospital Course: 67-year-old male presented from local alf, incarcerated inmate with chest pain , hx CAD/ stents / noncompliance with plavix , underwent cardiac cat , founds to have multi vessel disease, EF 50% EKG demonstrated normal sinus rhythm with some inferior lateral ST depression in leads II, III, aVF, V4-V6. 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 He has chronic occlusion of RCA following multiple stents and nonadherence with Plavix. IABP placed after Heparin and NTG gtt, 2/ continued chest pain PMH: coronary artery disease with prior stents, hypertension, hyperlipidemia, diabetes, medical nonadherence Pt is now pain free, eval for removal of IABP per cardiology pt received plavix on 02/28, 03/01 PRU 280 scheduled for surgery on Monday 03/05 still has intermittent chest discomfort , for surgery on friday on NTG and heparin 03/06 for surgery in am still on heparin and NTG gtt 03/07 SURGICAL PROCEDURE 1. Urgent Off-pump Coronary Artery Bypass Grafting x 2 with reverse saphenous vein graft to the Ramus Marginalis (RM), reverse saphenous vein graft to the Posterior Descending Artery (PDA) of the Right Coronary Artery 2. Left Leg Endoscopic Vein [place] 3. Intraoperative Vein Mapping 4. Multi-Level Intercostal Nerve Block. 03/08 Doing well C/o incisional pain Transfer telemetry Maintain CT Ambulate and incentive spirometry 03/09/17 doing well, no complaints Objective: Vital Signs Date Time Temp Pulse Resp B/P (MAP) Pulse Ox O2 Delivery O2 Flow Rate FiO2 03/09/17 09:40 18 03/09/17 08:00 66 03/09/17 07:51 98.0 68 16 150/67 (94) 94 03/09/17 07:38 94 21 03/09/17 07:30 94 Room Air 03/09/17 07:30 61 03/09/17 06:11 71 03/09/17 05:42 70 03/09/17 04:20 77 03/09/17 03:10 94 Room Air 03/09/17 03:10 98.2 69 18 177/78 (111) 94 03/09/17 03:08 61 03/09/17 01:25 61 03/09/17 00:48 60 03/08/17 23:42 58 03/08/17 23:42 98.8 72 16 98/50 (66) 97 Arterial Line 03/08/17 23:41 97 Room Air 03/08/17 22:00 60 03/08/17 21:00 72 03/08/17 20:48 99.7 74 18 167/84 (111) 95 03/08/17 20:48 76 03/08/17 20:36 98 21 03/08/17 19:40 95 Room Air 03/08/17 15:00 99.1 63 16 128/60 (82) 94 03/08/17 15:00 94 Room Air 03/08/17 15:00 63 03/08/17 14:00 20 03/08/17 11:00 94 Nasal Cannula 2.00 03/08/17 11:00 98.5 71 16 135/60 (85) 94 03/08/17 11:00 71 Labs: Laboratory Tests Test 03/09/17 05:00 White Blood Count 11.4 TH/MM3 (4.0-11.0) Red Blood Count 3.71 MIL/MM3 (4.50-5.90) Hemoglobin 10.9 GM/DL (13.0-17.0) Hematocrit 32.8 % (39.0-51.0) Mean Corpuscular Volume 88.4 FL (80.0-100.0) Mean Corpuscular Hemoglobin 29.5 PG (27.0-34.0) Mean Corpuscular Hemoglobin Concent 33.4 % (32.0-36.0) Red Cell Distribution Width 16.4 % (11.6-17.2) Platelet Count 166 TH/MM3 (150-450) Mean Platelet Volume 8.6 FL (7.0-11.0) Neutrophils (%) (Auto) 69.4 % (16.0-70.0) Lymphocytes (%) (Auto) 18.8 % (9.0-44.0) Monocytes (%) (Auto) 10.8 % (0.0-8.0) Eosinophils (%) (Auto) 0.6 % (0.0-4.0) Basophils (%) (Auto) 0.4 % (0.0-2.0) Neutrophils # (Auto) 7.9 TH/MM3 (1.8-7.7) Lymphocytes # (Auto) 2.1 TH/MM3 (1.0-4.8) Monocytes # (Auto) 1.2 TH/MM3 (0-0.9) Eosinophils # (Auto) 0.1 TH/MM3 (0-0.4) Basophils # (Auto) 0.0 TH/MM3 (0-0.2) CBC Comment DIFF FINAL Differential Comment Blood Urea Nitrogen 13 MG/DL (7-18) Creatinine 0.55 MG/DL (0.60-1.30) Random Glucose 117 MG/DL (74-106) Calcium Level 8.3 MG/DL (8.5-10.1) Magnesium Level 1.9 MG/DL (1.5-2.5) Sodium Level 139 MEQ/L (136-145) Potassium Level 3.8 MEQ/L (3.5-5.1) Chloride Level 105 MEQ/L (98-107) Carbon Dioxide Level 27.7 MEQ/L (21.0-32.0) Anion Gap 6 MEQ/L (5-15) Estimat Glomerular Filtration Rate 149 ML/MIN (>89) Result Diagram: 03/09/17 0500 03/09/17 0500 Cardiovascular: RRR Telemetry: NSR Pulmonary: CTA GI/: NABS, NT Incision: dry and intact CT: 200ml/12 hrs Plan: continue chest tubes Diurese Supp K Encourage ambulation, PO intake (1) Abnormal EKG (2) Multi-vessel coronary artery stenosis Plan: on ASA, statin , off plavix Heparin , NTG, prn Morphine surgery on friday (3) Chest pain (4) CAD (coronary artery disease) (5) HTN (hypertension) (6) Coronary stent occlusion Stephanie Wesley MD Mar 09, 2017 09:50
[2017-03-09] MEDS: POTASSIUM CHLORIDE 10 MEQ CONTROLLED RELEASE TAB PO SCH ×2 (10:31→21:17)
--- NOTE | 2017-03-09 13:31 | EKG ---
Date Performed: 03/08/2017 Time Performed: 18:33:20 PTAGE: 67 years EKG: Sinus rhythm . Inferior and anterior ST-T changes may be due to myocardial ischemia Low QRS voltages in precordial leads Abnormal ECG Compared to prior tracing no significant change DOCTOR: Brayden Pérez Interpretating Date/Time 03/09/2017 13:30:19
[2017-03-09] MEDS: FUROSEMIDE 40 MG/4 ML VIAL IV PUSH SCH (17:16)
[2017-03-09] MEDS: SENNOSIDES 8.6 MG TAB PO SCH (21:00)
[2017-03-09] MEDS: ATORVASTATIN 80 MG TAB PO SCH (21:17)
[2017-03-09] MEDS: clonazePAM 1 MG TAB PO SCH (21:17)
[2017-03-10] VITALS (28 sets, daily range): BP systolic 98–159; BP diastolic 62–82; PULSE 54–85; RESP 12–18; TEMP 97.8–98.6; O2SAT 94–96
[2017-03-10] MEDS: oxyCODONE/ACETAMINOPHEN 5 MG/325 MG TAB PO PRN ×5 (02:04→20:54)
[2017-03-10 05:27] LABS: HEMATOCRIT 35.5 % (39.0-51.0); MEAN CELL VOLUME 88.2 FL (80.0-100.0); MEAN CORPUSCULAR HEMOGLOBIN 29.3 PG (27.0-34.0); MEAN CORPUSCULAR HGB CONC 33.2 % (32.0-36.0); PLATELET COUNT 210 TH/MM3 (150-450); RED BLOOD COUNT 4.02 MIL/MM3 (4.50-5.90); RED CELL DISTRIBUTION WIDTH 16.1 % (11.6-17.2); REVIEW FLAG FINAL; WHITE BLOOD COUNT 11.9 TH/MM3 (4.0-11.0)
[2017-03-10] MEDS: PANTOPRAZOLE SOD 40 MG DELAYED RELEASE TAB PO SCH (05:41)
[2017-03-10] MEDS: INSULIN ASPART SUPPLEMENTAL SCALE SQ SCH ×4 (07:46→20:55)
[2017-03-10] MEDS: POLYETHYLENE GLYCOL 17 GM PKG PO SCH (09:00)
[2017-03-10] MEDS: DOCUSATE SODIUM 100 MG CAP PO SCH ×2 (09:00→20:55)
[2017-03-10] MEDS: SODIUM CHLORIDE 0.9% FLUSH 10 ML FLUSH IV FLUSH SCH ×2 (09:00→20:56)
[2017-03-10] MEDS: MAGNESIUM HYDROXIDE SUSP 30 ML CUP PO SCH (09:00)
[2017-03-10] MEDS: VENLAFAXINE HCL XR 75 MG CAP PO SCH (09:21)
[2017-03-10] MEDS: FUROSEMIDE 40 MG/4 ML VIAL IV PUSH SCH ×2 (09:21→17:39)
[2017-03-10] MEDS: ASPIRIN 81 MG CHEW TAB PO SCH (09:21)
[2017-03-10] MEDS: AMIODARONE 200 MG TAB PO SCH ×2 (09:21→20:53)
[2017-03-10] MEDS: MULTIVITAMINS/MINERALS THERAPEUTIC TAB PO SCH (09:22)
[2017-03-10] MEDS: METOPROLOL TARTRATE 25 MG TAB PO SCH ×2 (09:22→20:55)
[2017-03-10] MEDS: CLOPIDOGREL 75 MG TAB PO SCH (09:22)
--- NOTE | 2017-03-10 10:18 | PD.CAR.PN ---
CVT Progress Note Subjective/Hospital Course: 67-year-old male [facility], incarcerated inmate with chest pain , hx CAD/ stents / noncompliance with plavix , underwent cardiac cat , founds to have multi vessel disease, EF 50% EKG demonstrated normal sinus rhythm with some inferior lateral ST depression in leads II, III, aVF, V4-V6. Cardiology was consulted and he was taken emergently to the prosthetic lab technician where he was found to have complex multivessel CAD with 70% stenosis of ramus near the takeoff of the left main and 80% ostial lesion of circumflex. He has chronic occlusion of RCA following multiple stents and nonadherence with Plavix. IABP placed after Heparin and NTG gtt, 2/ continued chest pain PMH: coronary artery disease with prior stents, hypertension, hyperlipidemia, diabetes, medical nonadherence Pt is now pain free, eval for removal of IABP per cardiology pt received plavix on 02/28, 03/01 PRU 280 scheduled for surgery on Monday 03/05 still has intermittent chest discomfort , for surgery on friday on NTG and heparin 03/06 for surgery in am still on heparin and NTG gtt 03/07 SURGICAL PROCEDURE 1. Urgent Off-pump Coronary Artery Bypass Grafting x 2 with reverse saphenous vein graft to the Ramus Marginalis (RM), reverse saphenous vein graft to the Posterior Descending Artery (PDA) of the Right Coronary Artery 2. Left Leg Endoscopic Vein [place] 3. Intraoperative Vein Mapping 4. Multi-Level Intercostal Nerve Block. 03/08 Doing well C/o incisional pain Transfer telemetry Maintain CT Ambulate and incentive spirometry 03/09/17 doing well, no complaints 03/10 chest tube removed without difficulty on room air continue diuresis + 5 kg check labs in am eval for discharge back to penitentiary in am Objective: Vital Signs Date Time Temp Pulse Resp B/P (MAP) Pulse Ox O2 Delivery O2 Flow Rate FiO2 03/10/17 10:00 77 03/10/17 09:00 65 03/10/17 08:00 98.5 61 12 128/68 (88) 95 03/10/17 08:00 61 03/10/17 07:54 96 Room Air 03/10/17 07:00 58 03/10/17 06:49 12 03/10/17 06:00 60 03/10/17 05:00 61 03/10/17 04:00 61 03/10/17 03:00 97.8 66 12 98/82 (87) 95 03/10/17 03:00 64 03/10/17 03:00 Room Air 03/10/17 02:00 63 03/10/17 01:00 61 03/09/17 23:00 98.3 57 14 100/81 (87) 96 03/09/17 23:00 Room Air 03/09/17 23:00 57 03/09/17 22:00 62 03/09/17 21:00 62 03/09/17 20:42 96 21 03/09/17 20:00 68 03/09/17 19:00 Room Air 03/09/17 19:00 98.6 72 17 164/82 (109) 96 03/09/17 19:00 71 03/09/17 18:25 18 03/09/17 18:00 65 03/09/17 17:04 81 03/09/17 16:38 66 03/09/17 15:49 98.7 66 18 146/67 (93) 95 03/09/17 15:49 95 Room Air 03/09/17 15:49 68 03/09/17 14:16 64 03/09/17 13:51 64 03/09/17 12:00 68 03/09/17 11:00 60 03/09/17 11:00 98.5 62 18 124/57 (79) 94 03/09/17 11:00 94 Room Air Labs: Laboratory Tests Test 03/10/17 05:09 White Blood Count 11.9 TH/MM3 (4.0-11.0) Red Blood Count 4.02 MIL/MM3 (4.50-5.90) Hemoglobin 11.8 GM/DL (13.0-17.0) Hematocrit 35.5 % (39.0-51.0) Mean Corpuscular Volume 88.2 FL (80.0-100.0) Mean Corpuscular Hemoglobin 29.3 PG (27.0-34.0) Mean Corpuscular Hemoglobin Concent 33.2 % (32.0-36.0) Red Cell Distribution Width 16.1 % (11.6-17.2) Platelet Count 210 TH/MM3 (150-450) Mean Platelet Volume 8.4 FL (7.0-11.0) Result Diagram: 10/23/17 0509 03/09/17 0500 Telemetry: NSR (1) Abnormal EKG (2) Multi-vessel coronary artery stenosis Plan: on ASA, statin , plavix, amiodarone pulm toileting OOB (3) CAD (coronary artery disease) (4) HTN (hypertension) Plan: controlled Gianna Barkley Mar 10, 2017 10:18
--- NOTE | 2017-03-10 10:45 | RSPPFT ---
DATE OF PROCEDURE: 03/04/17 COMMENTS: Spirometry with FVC of 2.8, FEV1 of 2.1, FEV1/FVC ratio at 77%. IMPRESSION: 1. Decreased flow rates. 2. No gross obstruction. 3. Possible airways restriction. 4. If clinically warranted, lung volumes may be helpful
--- NOTE | 2017-03-10 11:27 | PD.CARD.PN ---
Subjective Subjective Remarks Post-CABG Doing well, chest tubes removed Up and ambulating No chest pain Objective Medications Current Medications Medications (Trade) Dose Ordered Sig/Heike Route Start Time Stop Time Status Last Admin (KlonoPIN) 1 mg HS PO 03/02/17 21:00 03/09/17 21:17 (Effexor Xr) 150 mg DAILY PO 03/02/17 09:00 03/10/17 09:21 (Lipitor) 80 mg HS PO 03/02/17 21:00 03/09/17 21:17 (Pill Splitter) 1 ea UNSCH PRN OTHER 03/04/17 09:15 (NS Flush) 2 ml BID IV FLUSH 03/07/17 21:00 03/10/17 09:00 (NS Flush) 2 ml UNSCH PRN IV FLUSH 03/07/17 11:30 (Aspirin Chew) 81 mg DAILY PO 03/08/17 09:00 03/10/17 09:21 (Plavix) 75 mg DAILY PO 03/08/17 09:00 03/10/17 09:22 (Protonix) 40 mg DAILY@06 PO 03/08/17 06:00 03/10/17 05:41 (Cordarone) 400 mg Q12HR PO 03/07/17 21:00 03/10/17 09:21 (Tylenol) 650 mg Q4H PRN PO 03/07/17 11:30 (Tylenol Supp) 650 mg Q4H PRN RECTAL 03/07/17 11:30 (Demerol Inj) 12.5 mg Q4H PRN IV PUSH 03/07/17 11:30 (Percocet 5-325 Mg) 1 tab Q3H PRN PO 03/07/17 11:30 03/10/17 10:30 (Percocet 5-325 Mg) 2 tab Q3H PRN PO 03/07/17 11:30 03/09/17 19:45 (Zofran Inj) 4 mg Q6H PRN IV PUSH 03/07/17 11:30 03/09/17 19:45 (Apresoline Inj) 10 mg Q4H PRN IV PUSH 03/07/17 11:30 (Calcium Chloride Inj) 0.5 gm UNSCH PRN IV PUSH 03/07/17 11:30 (Duoneb Neb) 1 ampule Q2HR NEB PRN NEB 03/07/17 11:30 03/09/17 13:16 (Colace) 100 mg BID PO 03/08/17 21:00 03/09/17 07:57 (Theragran M Tab) 1 tab DAILY PO 03/09/17 09:00 03/10/17 09:22 (Milk Of Magnesia Liq) 30 ml DAILY PO 03/09/17 09:00 03/09/17 07:56 (Dulcolax Supp) 10 mg UNSCH PRN RECTAL 03/08/17 09:15 (Miralax) 17 gm DAILY PO 03/09/17 09:00 03/09/17 07:57 (Senokot) 8.6 mg HS PO 03/08/17 21:00 03/08/17 20:29 (Fleets Enema (Adult)) 133 ml UNSCH PRN RECTAL 03/08/17 09:15 (Lopressor) 25 mg BID PO 03/08/17 10:00 03/10/17 09:22 (D50w (Vial) Inj) 50 ml UNSCH PRN IV PUSH 03/08/17 09:15 (Glucagon Inj) 1 mg UNSCH PRN OTHER 03/08/17 09:15 (Lasix Inj) 40 mg BID@,18 IV PUSH 03/09/17 18:00 03/10/17 09:21 (NovoLOG SUPPLEMENTAL SCALE) 1 ACHS SQ 03/09/17 17:00 Vital Signs / I&O Vital Signs Date Time Temp Pulse Resp B/P (MAP) Pulse Ox O2 Delivery O2 Flow Rate FiO2 03/10/17 11:16 96 Room Air 03/10/17 11:14 98.0 76 18 128/68 (88) 95 03/10/17 11:00 85 03/10/17 10:18 96 21 03/10/17 10:00 77 03/10/17 09:00 65 03/10/17 08:00 98.5 61 12 151/70 (97) 95 03/10/17 08:00 61 03/10/17 07:54 96 Room Air 03/10/17 07:00 58 03/10/17 06:49 12 03/10/17 06:00 60 03/10/17 05:00 61 03/10/17 04:00 61 03/10/17 03:00 97.8 66 12 98/82 (87) 95 03/10/17 03:00 64 03/10/17 03:00 Room Air 03/10/17 02:00 63 03/10/17 01:00 61 03/09/17 23:00 98.3 57 14 100/81 (87) 96 03/09/17 23:00 Room Air 03/09/17 23:00 57 03/09/17 22:00 62 03/09/17 21:00 62 03/09/17 20:42 96 21 03/09/17 20:00 68 03/09/17 19:00 Room Air 03/09/17 19:00 98.6 72 17 164/82 (109) 96 03/09/17 19:00 71 03/09/17 18:25 18 03/09/17 18:00 65 03/09/17 17:04 81 03/09/17 16:38 66 03/09/17 15:49 98.7 66 18 146/67 (93) 95 03/09/17 15:49 95 Room Air 03/09/17 15:49 68 03/09/17 14:16 64 03/09/17 13:51 64 03/09/17 12:00 68 I/O 03/09/17 03/09/17 03/09/17 03/10/17 03/10/17 03/10/17 07:00 15:00 23:00 07:00 15:00 23:00 Intake Total 240 ml 600 ml 480 ml Output Total 825 ml 880 ml 820 ml Balance -585 ml -280 ml -340 ml Intake Oral 240 ml 600 ml 480 ml Output Urine Total 625 ml 700 ml 820 ml Chest Tube Drainage Total 200 ml 180 ml # Bowel Movements 0 1 Physical Exam GENERAL: AAOx3 SKIN: Warm and dry. HEAD: Atraumatic. Normocephalic. EYES: Pupils equal and round. No scleral icterus. No injection or drainage. ENT: No nasal bleeding or discharge. Mucous membranes pink and moist. NECK: Trachea midline. No JVD. CARDIOVASCULAR: Regular rate and rhythm. Sternotomy with wound vac RESPIRATORY: No accessory muscle use. Decreased breath sounds bilaterally GASTROINTESTINAL: Abdomen soft, non-tender, nondistended. Hepatic and splenic margins not palpable. MUSCULOSKELETAL: Extremities without clubbing, cyanosis, or edema. No obvious deformities. Right and left groin with no hematoma/bruit. Distal pulses 3+ NEUROLOGICAL: No focal deficits Laboratory Laboratory Tests Test 03/10/17 05:09 White Blood Count 11.9 TH/MM3 Red Blood Count 4.02 MIL/MM3 Hemoglobin 11.8 GM/DL Hematocrit 35.5 % Mean Corpuscular Volume 88.2 FL Mean Corpuscular Hemoglobin 29.3 PG Mean Corpuscular Hemoglobin Concent 33.2 % Red Cell Distribution Width 16.1 % Platelet Count 210 TH/MM3 Mean Platelet Volume 8.4 FL Assessment and Plan Problem List: (1) Abnormal EKG ICD Codes: R94.31 - Abnormal electrocardiogram [ECG] [EKG] (2) Multi-vessel coronary artery stenosis ICD Codes: I25.10 - Atherosclerotic heart disease of [place] coronary artery without angina pectoris (3) CAD (coronary artery disease) ICD Codes: I25.10 - Atherosclerotic heart disease of [place] coronary artery without angina pectoris Status: Acute (4) HTN (hypertension) ICD Codes: I10 - Essential (primary) hypertension Status: Acute Assessment and Plan 1) CAD with complex ostial lesion of the LCx/Ramus, 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
[2017-03-10] MEDS: POTASSIUM CHLORIDE 10 MEQ CONTROLLED RELEASE TAB PO SCH ×2 (17:40→20:53)
[2017-03-10] MEDS: MAGNESIUM SULFATE 1 GM PREMIX 100 ML IV SCH (17:40)
[2017-03-10] MEDS: SENNOSIDES 8.6 MG TAB PO SCH (20:53)
[2017-03-10] MEDS: clonazePAM 1 MG TAB PO SCH (20:53)
[2017-03-10] MEDS: ATORVASTATIN 80 MG TAB PO SCH (20:55)
[2017-03-11] VITALS (14 sets, daily range): BP systolic 127–135; BP diastolic 60–64; PULSE 53–77; RESP 18; TEMP 97.6–98.2; O2SAT 95–99
[2017-03-11 05:35] LABS: BICARBONATE 28.8 MEQ/L (21.0-32.0); MAGNESIUM 1.9 MG/DL (1.5-2.5); POTASSIUM 3.7 MEQ/L (3.5-5.1)
[2017-03-11] MEDS: PANTOPRAZOLE SOD 40 MG DELAYED RELEASE TAB PO SCH (05:38)
--- NOTE | 2017-03-11 06:50 | RADRPT ---
EXAM DATE/TIME: 03/11/2017 04:38 [facility] COMPARISON: CHEST SINGLE AP, March 08, 2017, 4:57. INDICATIONS : Chest tube removal. Short of breath. MEDICAL HISTORY : Cardiovascular disease. Hypertension Diabetes mellitus type II. SURGICAL HISTORY : Coronary artery stent. CABG. ENCOUNTER: Subsequent ACUITY: 1 week PAIN SCORE: 0/10 LOCATION: Bilateral chest FINDINGS: A single view of the chest demonstrates cardiomegaly with left basilar density. Previous CABG. Right jugular central line and mediastinal chest tubes have been removed. No pneumothorax. Osseous structur es are intact. CONCLUSION: 1. Left basilar density, more prominent on current study. 2. Cardiomegaly and previous CABG. 3. No pneumothorax. Luis Richey MD on March 11, 2017 at 6:47 Board Certified Radiologist. This report was verified electronically.
[2017-03-11] MEDS: INSULIN ASPART SUPPLEMENTAL SCALE SQ SCH ×2 (08:00→12:09)
[2017-03-11] MEDS ORDERED: POTASSIUM CHLORIDE 20 MEQ CONTROLLED RELEASE TAB PO ONE (08:15)
[2017-03-11] MEDS: oxyCODONE/ACETAMINOPHEN 5 MG/325 MG TAB PO PRN ×2 (09:33→13:16)
[2017-03-11] MEDS: MAGNESIUM SULFATE 1 GM PREMIX 100 ML IV SCH ×2 (09:58→10:45)
[2017-03-11] MEDS: FUROSEMIDE 40 MG/4 ML VIAL IV PUSH SCH (10:00)
[2017-03-11] MEDS: POTASSIUM CHLORIDE 10 MEQ CONTROLLED RELEASE TAB PO SCH (10:08)
[2017-03-11] MEDS: METOPROLOL TARTRATE 25 MG TAB PO SCH (10:09)
[2017-03-11] MEDS: CLOPIDOGREL 75 MG TAB PO SCH (10:10)
[2017-03-11] MEDS: DOCUSATE SODIUM 100 MG CAP PO SCH (10:10)
[2017-03-11] MEDS: ASPIRIN 81 MG CHEW TAB PO SCH (10:10)
[2017-03-11] MEDS: AMIODARONE 200 MG TAB PO SCH (10:10)
[2017-03-11] MEDS: MULTIVITAMINS/MINERALS THERAPEUTIC TAB PO SCH (10:10)
[2017-03-11] MEDS: SODIUM CHLORIDE 0.9% FLUSH 10 ML FLUSH IV FLUSH SCH (10:11)
[2017-03-11] MEDS: VENLAFAXINE HCL XR 75 MG CAP PO SCH (10:11)
[2017-03-11] MEDS: MAGNESIUM HYDROXIDE SUSP 30 ML CUP PO SCH (10:12)
[2017-03-11] MEDS ORDERED: AMIO200T PO (10:53)
[2017-03-11] MEDS ORDERED: THERM PO (10:53)
[2017-03-11] MEDS ORDERED: POLY17S PO (10:53)
[2017-03-11] MEDS ORDERED: PLAV75TA29 PO (10:53)
[2017-03-11] MEDS ORDERED: DOCU1CAP39 PO (10:53)
[2017-03-11] MEDS ORDERED: METO25TA3 PO (10:53)
--- NOTE | 2017-03-11 12:30 | PD.CARD.PN ---
Subjective Subjective Remarks Post-CABG Doing well, chest tubes removed Up and ambulating No chest pain Objective Medications Current Medications Medications (Trade) Dose Ordered Sig/Heike Route Start Time Stop Time Status Last Admin (KlonoPIN) 1 mg HS PO 03/02/17 21:00 03/10/17 20:53 (Effexor Xr) 150 mg DAILY PO 03/02/17 09:00 03/11/17 10:11 (Lipitor) 80 mg HS PO 03/02/17 21:00 03/10/17 20:55 (Pill Splitter) 1 ea UNSCH PRN OTHER 03/04/17 09:15 (NS Flush) 2 ml BID IV FLUSH 03/07/17 21:00 03/11/17 10:11 (NS Flush) 2 ml UNSCH PRN IV FLUSH 03/07/17 11:30 (Aspirin Chew) 81 mg DAILY PO 03/08/17 09:00 03/11/17 10:10 (Plavix) 75 mg DAILY PO 03/08/17 09:00 03/11/17 10:10 (Protonix) 40 mg DAILY@06 PO 03/08/17 06:00 03/11/17 05:38 (Cordarone) 400 mg Q12HR PO 03/07/17 21:00 03/11/17 10:10 (Tylenol) 650 mg Q4H PRN PO 03/07/17 11:30 (Tylenol Supp) 650 mg Q4H PRN RECTAL 03/07/17 11:30 (Demerol Inj) 12.5 mg Q4H PRN IV PUSH 03/07/17 11:30 (Percocet 5-325 Mg) 1 tab Q3H PRN PO 03/07/17 11:30 03/10/17 10:30 (Percocet 5-325 Mg) 2 tab Q3H PRN PO 03/07/17 11:30 03/11/17 09:33 (Zofran Inj) 4 mg Q6H PRN IV PUSH 03/07/17 11:30 03/09/17 19:45 (Apresoline Inj) 10 mg Q4H PRN IV PUSH 03/07/17 11:30 (Calcium Chloride Inj) 0.5 gm UNSCH PRN IV PUSH 03/07/17 11:30 (Duoneb Neb) 1 ampule Q2HR NEB PRN NEB 03/07/17 11:30 03/09/17 13:16 (Colace) 100 mg BID PO 03/08/17 21:00 03/11/17 10:10 (Theragran M Tab) 1 tab DAILY PO 03/09/17 09:00 03/11/17 10:10 (Milk Of Magnesia Liq) 30 ml DAILY PO 03/09/17 09:00 03/11/17 10:12 (Dulcolax Supp) 10 mg UNSCH PRN RECTAL 03/08/17 09:15 (Miralax) 17 gm DAILY PO 03/09/17 09:00 03/09/17 07:57 (Senokot) 8.6 mg HS PO 03/08/17 21:00 03/10/17 20:53 (Fleets Enema (Adult)) 133 ml UNSCH PRN RECTAL 03/08/17 09:15 (Lopressor) 25 mg BID PO 03/08/17 10:00 03/11/17 10:09 (D50w (Vial) Inj) 50 ml UNSCH PRN IV PUSH 03/08/17 09:15 (Glucagon Inj) 1 mg UNSCH PRN OTHER 03/08/17 09:15 (Lasix Inj) 40 mg BID@09,18 IV PUSH 03/09/17 18:00 03/11/17 10:00 (NovoLOG SUPPLEMENTAL SCALE) 1 ACHS SQ 03/09/17 17:00 03/11/17 12:09 (KCl) 30 meq Q12HR PO 03/10/17 17:00 03/11/17 10:08 Vital Signs / I&O Vital Signs Date Time Temp Pulse Resp B/P (MAP) Pulse Ox O2 Delivery O2 Flow Rate FiO2 03/11/17 12:13 60 03/11/17 11:38 55 03/11/17 11:38 98.0 55 18 135/64 (87) 95 03/11/17 11:38 95 Room Air 03/11/17 10:23 65 03/11/17 09:29 77 03/11/17 08:23 59 03/11/17 07:30 61 03/11/17 07:30 97.6 61 18 127/63 (84) 96 03/11/17 07:30 96 Room Air 03/11/17 06:12 57 03/11/17 05:17 56 03/11/17 04:03 54 03/11/17 03:10 98.2 57 18 131/60 (83) 99 03/11/17 03:10 60 03/11/17 03:10 99 Room Air 03/11/17 02:08 53 03/11/17 01:38 53 03/11/17 00:07 54 03/10/17 23:33 98.6 56 17 116/69 (85) 94 03/10/17 23:33 54 03/10/17 23:33 94 Room Air 03/10/17 22:00 62 03/10/17 21:13 94 21 03/10/17 21:00 76 03/10/17 20:00 76 03/10/17 19:20 98.2 75 18 136/62 (86) 94 03/10/17 19:20 94 Room Air 03/10/17 19:10 70 03/10/17 18:00 64 03/10/17 17:00 66 03/10/17 16:00 62 03/10/17 15:12 98.0 58 18 159/76 (103) 95 03/10/17 15:10 96 Room Air 03/10/17 15:00 64 03/10/17 14:00 62 03/10/17 13:00 66 I/O 03/10/17 03/10/17 03/10/17 03/11/17 03/11/17 03/11/17 07:00 15:00 23:00 07:00 15:00 23:00 Intake Total 480 ml 875 ml 480 ml Output Total 820 ml 800 ml 450 ml Balance -340 ml 75 ml 30 ml Intake Oral 480 ml 675 ml 480 ml IV Total 200 ml Output Urine Total 820 ml 800 ml 450 ml # Bowel Movements 0 Physical Exam GENERAL: AAOx3 SKIN: Warm and dry. HEAD: Atraumatic. Normocephalic. EYES: Pupils equal and round. No scleral icterus. No injection or drainage. ENT: No nasal bleeding or discharge. Mucous membranes pink and moist. NECK: Trachea midline. No JVD. CARDIOVASCULAR: Regular rate and rhythm. Sternotomy with wound vac RESPIRATORY: No accessory muscle use. Decreased breath sounds bilaterally GASTROINTESTINAL: Abdomen soft, non-tender, nondistended. Hepatic and splenic margins not palpable. MUSCULOSKELETAL: Extremities without clubbing, cyanosis, or edema. No obvious deformities. Right and left groin with no hematoma/bruit. Distal pulses 3+ NEUROLOGICAL: No focal deficits Laboratory Laboratory Tests Test 03/11/17 04:30 Blood Urea Nitrogen 21 MG/DL Creatinine 0.71 MG/DL Random Glucose 103 MG/DL Calcium Level 8.7 MG/DL Phosphorus Level 3.8 MG/DL Magnesium Level 1.9 MG/DL Sodium Level 137 MEQ/L Potassium Level 3.7 MEQ/L Chloride Level 100 MEQ/L Carbon Dioxide Level 28.8 MEQ/L Anion Gap 8 MEQ/L Estimat Glomerular Filtration Rate 111 ML/MIN Imaging Last 24 hours Impressions Chest X-Ray 03/11/17 0600 Signed Impressions: Service Date/Time: Saturday, March 11, 2017 04:38 - CONCLUSION: 1. Left basilar density, more prominent on current study. 2. Cardiomegaly and previous CABG. 3. No pneumothorax. 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
--- NOTE | 2017-03-11 16:52 | HHI.DS ---
Discharge Summary Admission Date Mar 02, 2017 at 01:06 Admitting Diagnosis STEMI (1) Multi-vessel coronary artery stenosis Diagnosis: [place] ICD Codes: I25.10 - Atherosclerotic heart disease of [place] coronary artery without angina pectoris Status: Acute (2) HTN (hypertension) Diagnosis: [place] ICD Codes: I10 - Essential (primary) hypertension Status: Chronic (3) CAD (coronary artery disease) Diagnosis: [place] ICD Codes: I25.10 - Atherosclerotic heart disease of [place] coronary artery without angina pectoris Status: Chronic (4) S/P CABG x 2 Diagnosis: Secondary ICD Codes: Z95.1 - Presence of aortocoronary bypass graft (5) Adjustment disorder with depressed mood Diagnosis: [place] ICD Codes: F43.21 - Adjustment disorder with depressed mood Status: Chronic Procedures 1. Urgent Off-pump Coronary Artery Bypass Grafting x 2 with reverse saphenous vein graft to the Ramus Marginalis (RM), reverse saphenous vein graft to the Posterior Descending Artery (PDA) of the Right Coronary Artery 2. Left Leg Endoscopic Vein [place] 3. Intraoperative Vein Mapping 4. Multi-Level Intercostal Nerve Block. 03/07 Brief History 67-year-old male presented from local nursing home, incarcerated inmate with chest pain , hx CAD/ stents / noncompliance with plavix , underwent cardiac cat , founds to have multi vessel disease, EF 50% EKG demonstrated normal sinus rhythm with some inferior lateral ST depression in leads II, III, aVF, V4-V6. 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 He has chronic occlusion of RCA following multiple stents and nonadherence with Plavix. IABP placed after Heparin and NTG gtt, 2/2 continued chest pain PMH: coronary artery disease with prior stents, hypertension, hyperlipidemia, diabetes, medical nonadherence Pt is now pain free, eval for removal of IABP per cardiology pt received plavix on 02/28, 03/01 PRU 280 scheduled for surgery on Friday CBC/BMP: 03/10/17 0509 03/11/17 0430 Significant Findings Laboratory Tests Test 03/09/17 05:00 03/10/17 05:09 03/11/17 04:30 White Blood Count 11.4 TH/MM3 (4.0-11.0) 11.9 TH/MM3 (4.0-11.0) Red Blood Count 3.71 MIL/MM3 (4.50-5.90) 4.02 MIL/MM3 (4.50-5.90) Hemoglobin 10.9 GM/DL (13.0-17.0) 11.8 GM/DL (13.0-17.0) Hematocrit 32.8 % (39.0-51.0) 35.5 % (39.0-51.0) Monocytes (%) (Auto) 10.8 % (0.0-8.0) Neutrophils # (Auto) 7.9 TH/MM3 (1.8-7.7) Monocytes # (Auto) 1.2 TH/MM3 (0-0.9) Creatinine 0.55 MG/DL (0.60-1.30) Random Glucose 117 MG/DL (74-106) Calcium Level 8.3 MG/DL (8.5-10.1) Blood Urea Nitrogen 21 MG/DL (7-18) Imaging Last Impressions Chest X-Ray 03/11/17 0600 Signed Impressions: Service Date/Time: Saturday, March 11, 2017 04:38 - CONCLUSION: 1. Left basilar density, more prominent on current study. 2. Cardiomegaly and previous CABG. 3. No pneumothorax. Luis Richey MD Carotid Artery Ultrasound 03/04/17 0000 Signed Impressions: Service Date/Time: Saturday, March 04, 2017 17:21 - CONCLUSION: No evidence for hemodynamically significant stenosis. Sharath Dumont MD Lower Extremity Ultrasound 03/03/17 0000 Signed Impressions: Service Date/Time: Friday, March 03, 2017 20:19 - CONCLUSION: 1. Venous mapping as above Noel Esparza MD Aorta CTA 03/02/17 0000 Signed Impressions: Service Date/Time: Thursday, March 02, 2017 17:13 - CONCLUSION: 1. No evidence of aortic dissection. 2. There is 50-60%% stenosis at the origin of the left common carotid artery. Noel Esparza MD Head CT 03/01/17 0000 Signed Impressions: Service Date/Time: Thursday, March 02, 2017 00:25 - CONCLUSION: 1. No intracranial abnormality seen. 2. Right maxillary sinus disease. Aba Jacobs MD PE at Discharge GENERAL: SKIN: Warm and dry. incision intact and well approximated to chest , incision intact to leg HEAD: Normocephalic. EYES: No scleral icterus. No injection or drainage. NECK: Supple, trachea midline. No JVD or lymphadenopathy. CARDIOVASCULAR: Regular rate and rhythm without murmurs, gallops, or rubs. RESPIRATORY: Breath sounds equal bilaterally. No accessory muscle use. GASTROINTESTINAL: Abdomen soft, non-tender, nondistended. MUSCULOSKELETAL: No cyanosis, or edema. BACK: Nontender without obvious deformity. No CVA tenderness. Hospital Course 03/05 still has intermittent chest discomfort , for surgery on friday on NTG and heparin 03/06 for surgery in am still on heparin and NTG gtt 03/07 SURGICAL PROCEDURE 1. Urgent Off-pump Coronary Artery Bypass Grafting x 2 with reverse saphenous vein graft to the Ramus Marginalis (RM), reverse saphenous vein graft to the Posterior Descending Artery (PDA) of the Right Coronary Artery 2. Left Leg Endoscopic Vein [place] 3. Intraoperative Vein Mapping 4. Multi-Level Intercostal Nerve Block. 03/08 Doing well C/o incisional pain Transfer telemetry Maintain CT Ambulate and incentive spirometry 03/09/17 doing well, no complaints 03/10 chest tube removed without difficulty on room air continue diuresis + 5 kg check labs in am eval for discharge back to nursing home in am 03/11 CXR noted, no PTX stable for dc back to nursing home labs stable, remains in NSR Pt Condition on Discharge: Good Discharge Disposition: Dis to Court [employer] Discharge Instructions DIET: Follow Instructions for: Heart Healthy Diet Activities you can perform: Full Weight Bearing, Shower Only-No Bath Activities to avoid: Strenuous Activity, Driving Additional Activity Instructio: no lifting > 8 lbs or gallon of milk Follow up Referrals: Cardiology with Pastor Nunez DO Surgical with Jake Krause MD New Medications: Amiodarone (Amiodarone) 200 Mg Tab 200 MG PO Q12HR for heart rhythm, #28 TAB x 2 weeks only Clopidogrel (Plavix) 75 Mg Tab 75 MG PO DAILY for Blood Clot Prevention, #30 TAB 2 Refills Docusate Sodium (Dok) 100 Mg Cap 100 MG PO DAILY for Constipation, #30 CAP 0 Refills Metoprolol Tartrate (Metoprolol Tartrate) 25 Mg Tab 25 MG PO BID for Blood Pressure Management, #60 TAB 2 Refills Multiple Vitamins W/ Minerals (Thera M Plus) 1 Tab 1 TAB PO DAILY for multi vitamin, #30 TAB 2 Refills Polyethylene Glycol 3350 Powder (Polyethylene Glycol 3350 Powder) 17 Gram Pow 17 GM PO DAILY for Constipation, #30 PACK Continued Medications: Acetaminophen (APAP Extra Strength) 500 Mg Tab 500 MG PO Q4-6H PRN for PAIN SCALE 4 TO 10, #[address] (Aspirin EC) 81 Mg Tabdr 81 MG PO DAILY, TAB 0 Refills Buprenorphine-Naloxone Sublingual Film (Suboxone Sublingual Film) 8-2 Mg Film 1 FILM SL, FILM Unique ID number required: Clonazepam (Klonopin) 1 Mg Tab 1 MG PO HS, #60 TAB 0 Refills Metformin (Metformin) 500 Mg Tab 500 MG PO DAILY for Blood Sugar Management, TAB 0 Refills With a meal Omeprazole Magnesium (Prilosec) 20 Mg Tab 40 MG PO DAILY Simvastatin (Zocor) 40 Mg Tab 40 MG PO DAILY for Cholesterol Management, TAB 0 Refills Venlafaxine ER 24 HR (Effexor XR 24 HR) 150 Mg Cap 150 MG PO DAILY, CAP 0 Refills Discontinued Medications: Clopidogrel (Plavix) 75 Mg Tab 75 MG PO DAILY for Prevent Blood Clot, #30 TAB Lisinopril (Lisinopril) 40 Mg Tab 40 MG PO DAILY for Blood Pressure Management, #30 TAB 0 Refills Nitroglycerin SL (Nitroglycerin SL) 0.4 Mg Subl 0.4 MG SL DIRECTED PRN for chest pain, #30 TAB.SL 0 Refills ONE TABLET UNDER THE TONGUE NEEDED FOR CHEST PAIN, MAY REPEAT EVERY FIVE MINUTES FOR A TOTAL OF 3 DOSES OR CALL 911 IF NO RELIEF Gianna Barkley Mar 11, 2017 16:52
== END 2017-03-11 14:25 | DRG 234 ==
LOC: NEPE 22:55 → NEDA 03-02 01:06 → HCVI 03-02 02:40 → HCPC 03-04 13:52 → HCVI 03-07 12:00 → HCPC 03-08 18:48
PROVIDERS: ADMIT Thoracic Surgery (Cardiothoracic Vascular Surgery); ATTEND Thoracic Surgery (Cardiothoracic Vascular Surgery)
PROC: 4A023N7 Measurement of Cardiac Sampling and Pressure, Left Heart, Percutaneous Approach (ICD-10-PCS; 2017-03-02)
PROC: 5A02210 Assistance with Cardiac Output using Balloon Pump, Continuous (ICD-10-PCS; 2017-03-02)
PROC: B2111ZZ Fluoroscopy of Multiple Coronary Arteries using Low Osmolar Contrast (ICD-10-PCS; 2017-03-02)
PROC: 06BQ4ZZ Excision of Left Saphenous Vein, Percutaneous Endoscopic Approach (ICD-10-PCS; 2017-03-07)
PROC: 3E0T3BZ Introduction of Anesthetic Agent into Peripheral Nerves and Plexi, Percutaneous Approach (ICD-10-PCS; 2017-03-07)
PROC: 021109W Bypass Coronary Artery, Two Arteries from Aorta with Autologous Venous Tissue, Open Approach (ICD-10-PCS; principal; 2017-03-07 07:30)
DX: I25.110 Atherosclerotic heart disease of native coronary artery with unstable angina pectoris (principal); T82.897A Other specified complication of cardiac prosthetic devices, implants and grafts, initial encounter; I95.9 Hypotension, unspecified; I25.82 Chronic total occlusion of coronary artery; I11.9 Hypertensive heart disease without heart failure; E11.9 Type 2 diabetes mellitus without complications; E78.5 Hyperlipidemia, unspecified; K21.9 Gastro-esophageal reflux disease without esophagitis; E66.9 Obesity, unspecified; I70.8 Atherosclerosis of other arteries; D72.829 Elevated white blood cell count, unspecified; R94.31 Abnormal electrocardiogram [ECG] [EKG]; F17.210 Nicotine dependence, cigarettes, uncomplicated; F43.21 Adjustment disorder with depressed mood; F43.10 Post-traumatic stress disorder, unspecified; Z68.38 Body mass index [BMI] 38.0-38.9, adult; Z79.84 Long term (current) use of oral hypoglycemic drugs; Z82.49 Family history of ischemic heart disease and other diseases of the circulatory system; Z88.0 Allergy status to penicillin; Z89.411 Acquired absence of right great toe; Z91.14 Patient's other noncompliance with medication regimen; Z95.5 Presence of coronary angioplasty implant and graft; Z96.653 Presence of artificial knee joint, bilateral
CPT/HCPCS: 70450; 71010; 71275; 74174; 76937; 80048; 80053; 81001; 82550; 82948; 83605; 83735; 83880; 84100; 84484; 85025; 85027; 85576; 85610; 85730; 86850; 86900; 86901; 86920; 87641; 93005; 93306; 93458; 93567; 93880; 93970; 93998; 94002; 94010; 94150; 94640; 94664; 94667; 94668; 96365; 96375; C1769; C1893; C9290; J0131; J0171; J0461; J1100; J1170; J1644; J1815; J1817; J1885; J1940; J2060; J2250; J2270; J2405; J3010; J3370; J3475; J3480; J7040; P9045; Q9967